=== PATIENT | female | born 1970 | race African-American/Black ===

== ENCOUNTER 2016-12-14 04:00 | Inpatient (IN) | payer OTHER ==
[2016-12-14] MEDS ORDERED: MAGNESIUM SULF 50% (8.12 MEQ/2 ML-1 GM VIAL) IVPB ONE (04:45)
[2016-12-14] MEDS ORDERED: ALBUTEROL SO4 2.5/IPRATROPIUM 0.5 INH SOL 3 ML VIAL.NEB. NEB ONE ×3 (04:45→06:37)
--- NOTE | 2016-12-14 04:45 | PDOC ---
History of Present Illness - General History Source: Patient Exam Limitations: No Limitations - History of Present Illness Initial Comments: 12/14/16 05:02 The patient is a 46 year old female with significant past medical history of asthma, COPD, diabetes, hypertension, bilateral DVTs, and s/p carson filter who presents to the ED with 3 days of SOB and wheezing. Reports no exacerbating or alleviating factors. Patient saw Dr. Palacios where she was given a steroid shot and prescription. She states she took a total of 4 additional tablet of prednisone 20 mg and multiple albuterol nebulizers because her symptoms were not improving. At time of evaluation, patient states she is feeling better, however she is still wheezing. Patient also has complaints of conversational dyspnea prior to arrival that has now slightly improved. She denies diaphoresis, lightheadedness, chest pain, jaw pain, arm pain, shoulder pain, leg swelling, nausea, or vomiting. Patient was treated multiple times in the past for DVTs and currently has a carson filter. The patient denies fever, chills, cough, abdominal pain, and diarrhea. Allergies: acetaminophen, hydrocodone bitartrate, morphine, oxycodone HCl, rivaroxaban, Social History: No alcohol, tobacco, or drug use reported. Past Surgical History: s/p carson filter PCP: Dr. Shayy Palacios <Marika Thomas - Last Filed: 12/14/16 05:02> - General History Source: Patient <Conrado Parra - Last Filed: 12/14/16 19:19> - General Chief Complaint: Asthma Stated Complaint: DIFFICULTY BREATHING Time Seen by Provider: 12/14/16 04:45 Past History <Marika Thomas - Last Filed: 12/14/16 05:02> - Past Medical History Asthma: Yes COPD: Yes Diabetes: Yes Suicide Attempt (Hx): No - Surgical History Abdominal Surgery: Yes Cardiac Surgery: (CARSON FILTER.) - Psycho/Social/Smoking Cessation Hx Anxiety: No Suicidal Ideation: No Smoking Status: Yes Smoking History: Never smoked Have you smoked in the past 12 months: No Number of Cigarettes Smoked Daily: 2 Information on smoking cessation initiated: No 'Breaking Loose' booklet given: 08/13/14 Hx Alcohol Use: No Drug/Substance Use Hx: No Substance Use Type: Alcohol Hx Substance Use Treatment: No <Fidel,Conrado - Last Filed: 12/14/16 19:19> - Past Medical History Allergies/Adverse Reactions: Allergies Allergy/AdvReac Type Severity Reaction Status Date / Time acetaminophen [From Percocet] Allergy Verified 12/14/16 04:28 hydrocodone bitartrate Allergy Verified 12/14/16 04:28 [From Vicodin] iodine Allergy Verified 12/14/16 11:28 morphine Allergy Verified 12/14/16 04:28 oxycodone HCl [From Percocet] Allergy Verified 12/14/16 04:28 rivaroxaban [From Xarelto] Allergy Verified 12/14/16 04:28 dairy Allergy Severe Swelling Uncoded 12/14/16 04:28 eggs/egg-containing foods Allergy Severe Swelling Uncoded 12/14/16 04:28 FRESH BANANAS Allergy Severe ANAPHYLAXIS Uncoded 12/14/16 04:28 . tree nuts Allergy Severe Itching Uncoded 12/14/16 04:28 ammonium lactate cream Allergy Uncoded 12/14/16 04:28 cheese Allergy Uncoded 12/14/16 04:28 fresh apples Allergy Uncoded 12/14/16 04:28 fresh peaches Allergy Uncoded 12/14/16 04:28 fresh plums Allergy Uncoded 12/14/16 04:28 NARCOTICS Allergy Uncoded 12/14/16 04:28 Home Medications: Ambulatory Orders Albuterol 2.5/Ipratropium 0.5 [Duoneb -] 1 neb IH ASDIR PRN 08/12/14 Hydroxyzine HCl [Atarax -] 50 mg PO TID 08/12/14 Albuterol Sulfate Inhaler - [Ventolin HFA Inhaler -] 2 inh PO Q4H PRN 03/03/15 Warfarin Sodium [Coumadin] 8.5 mg PO DAILY 03/03/15 Atorvastatin Calcium 10 mg PO HS 12/14/16 Diphenhydramine [Benadryl -] 50 mg PO DAILY 12/14/16 Glipizide [Glipizide ER] 10 mg PO DAILY 12/14/16 Metformin HCl [Glucophage] 1,000 mg PO BID 12/14/16 Triamcinolone 0.1% Ointment [Aristocort 0.1% Ointment -] 1 applic TP DAILY 12/14 Review of Systems - Review of Systems Able to Perform ROS?: Yes Comments:: 12/14/16 05:02 CONSTITUTIONAL: Absent: fever, chills, diaphoresis, generalized weakness, malaise, loss of appetite HEENT: Absent: rhinorrhea, nasal congestion, throat pain, throat swelling, difficulty swallowing, mouth swelling, ear pain, eye pain, visual Changes CARDIOVASCULAR: Absent: chest pain, syncope, palpitations, irregular heart rate, lightheadedness , peripheral edema RESPIRATORY: +SOB, wheezing, conversational dyspnea Absent: cough, dyspnea with exertion, orthopnea, stridor, hemoptysis GASTROINTESTINAL: Absent: abdominal pain, abdominal distension, nausea, vomiting, diarrhea, constipation, melena, hematochezia GENITOURINARY: Absent: dysuria, frequency, urgency, hesitancy, hematuria, flank pain, genital pain MUSCULOSKELETAL: Absent: myalgia, arthralgia, joint swelling SKIN: Absent: rash, itching, pallor NEUROLOGIC: Absent: headache, focal weakness or paresthesias, dizziness, unsteady gait, seizure, mental status changes, bladder or bowel incontinence <Marika Thomas - Last Filed: 12/14/16 05:02> *Physical Exam - Vital Signs Last Vital Signs Temp Pulse Resp BP Pulse Ox 97.8 F 127 H 24 130/84 96 12/14/16 04:17 12/14/16 04:17 12/14/16 04:17 12/14/16 04:17 12/14/16 04:17 - Physical Exam Comments: 12/14/16 05:03 GENERAL: Well developed, well nourished. Awake and alert. Moderate distress. HEENT: Normocephalic, atraumatic. PERRLA, EOMI. No conjunctival pallor. Sclera are non- icteric. Moist mucous membranes. Oropharynx is clear. NECK: Supple. Full ROM. No JVD. Carotid pulses 2+ and symmetric, without bruits. No thyromegaly. No lymphadenopathy. CARDIOVASCULAR: Tachycardia. Regular rhythm. No murmurs, rubs, or gallops. Distal pulses are 2+ and symmetric. PULMONARY: Mild respiratory distress. Coarse bilateral wheezing. No retractions. Moderate conversational dyspnea. ABDOMINAL: Soft. Non-tender. Non-distended. No rebound or guarding. No organomegaly. Normoactive bowel sounds. MUSCULOSKELETAL Normal range of motion at all joints. No bony deformities or tenderness. No CVA tenderness. EXTREMITIES: No cyanosis. No clubbing. No edema. No calf tenderness. SKIN: Warm and dry. Normal capillary refill. No rashes. No jaundice. NEUROLOGICAL: Alert, awake, appropriate. Cranial nerves 2-12 intact. Moving all extremities. No gross focal neurological deficits. PSYCHIATRIC: Cooperative. Good eye contact. Appropriate mood and affect. <Marika Thomas - Last Filed: 12/14/16 05:02> - Vital Signs Last Vital Signs Temp Pulse Resp BP Pulse Ox 97.8 F 127 H 24 130/84 96 12/14/16 04:17 12/14/16 04:17 12/14/16 04:17 12/14/16 04:17 12/14/16 04:17 <Conrado Parra - Last Filed: 12/14/16 19:19> ED Treatment Course - LABORATORY CBC & Chemistry Diagram: 12/14/16 05:10 12/14/16 05:10 <Conrado Parra - Last Filed: 12/14/16 19:19> Medical Decision Making - Medical Decision Making 12/14/16 19:18 Dr. Parra: The scribe's documentation has been prepared under my direction and personally reviewed by me in its entirery. I confirm that the note above accurately reflects all work, treatment, procedures, and medical decision making performed by me. Patient admitted for exacerbation of asthma. Attempted to get CTA as patient has history of DVTS> HOWEVER< PATIENT WAS ALLERGIC to IV Iodine. <Conrado Parra - Last Filed: 12/14/16 19:19> *DC/Admit/Observation/Transfer - Attestations Scribe Attestion: 12/14/16 05:03 Documentation prepared by Marika Thomas, acting as medical science liaison for Conrado Parra MD <Marika Thomas - Last Filed: 12/14/16 05:02> <Conrado Parra - Last Filed: 12/14/16 19:19> Diagnosis at time of Disposition: Asthma
[2016-12-14] MEDS ORDERED: MAGNESIUM SULF 50% (8.12 MEQ/2 ML-1 GM VIAL) ONE (04:53)
[2016-12-14 05:39] LABS: BASOPHIL 0.2 % (0-2.0); MCH 28.7 pg (25.7-33.7); MCHC 32.5 g/dl (32.0-36.0); MEAN CELL VOLUME 88.2 fl (80-96); NEUTROPHILS 94.2 % (42.8-82.8); PLATELET COUNT 237 K/MM3 (134-434); RDW 16.9 % (11.6-15.6); WHITE BLOOD COUNT 17.9 K/mm3 (4.0-10.0)
[2016-12-14] MEDS ORDERED: ALBUTEROL SO4 2.5/IPRATROPIUM 0.5 INH SOL 3 ML VIAL.NEB. NEB STA (05:42)
[2016-12-14 05:54] LABS: INR 2.99 (0.82-1.09)
[2016-12-14 06:04] LABS: BILIRUBIN,TOTAL 0.2 mg/dL (0.2-1.0); CALCIUM 9.5 mg/dL (8.5-10.1); CREATININE 1.1 mg/dL (0.55-1.02); TOT PROT 7.3 g/dl (6.4-8.2)
[2016-12-14 06:23] LABS: D-DIMER < 200 ng/ml (<200-235)
--- NOTE | 2016-12-14 07:18 | PDOC ---
*Physical Exam - Vital Signs Last Vital Signs Temp Pulse Resp BP Pulse Ox 97.8 F 117 H 20 115/81 96 12/14/16 04:17 12/14/16 05:45 12/14/16 05:45 12/14/16 05:45 12/14/16 05:45 <Ksenia Rincon - Last Filed: 12/14/16 09:00> - Vital Signs Last Vital Signs Temp Pulse Resp BP Pulse Ox 97.8 F 117 H 20 115/81 96 12/14/16 04:17 12/14/16 05:45 12/14/16 05:45 12/14/16 05:45 12/14/16 05:45 <William Francois - Last Filed: 12/14/16 12:04> Heart Score/ECG Review #1 ECG reviewed & interpreted by me at: 08:46 General ECG Interpretation: Sinus Rhythm (Tachycardic with a rate of 118 bpm), Normal Intervals, No acute ischemic changes <Ksenia Rincon - Last Filed: 12/14/16 09:00> ED Treatment Course - LABORATORY CBC & Chemistry Diagram: 12/14/16 05:10 12/14/16 05:10 - ADDITIONAL ORDERS Additional order review: Laboratory Results 12/14/16 12/14/16 12/14/16 05:10 05:10 05:10 INR 2.99 H D D-Dimer < 200 Sodium 138 Potassium 4.1 Chloride 105 Carbon Dioxide 17 L D Anion Gap 16 BUN 13 Creatinine 1.1 H Creat Clearance w eGFR 53.96 Random Glucose 241 H D Calcium 9.5 Total Bilirubin 0.2 D AST 35 D ALT 45 D Alkaline Phosphatase 79 Total Protein 7.3 Albumin 4.0 D Serum , Qual Negative 12/14/16 05:10 RBC 4.00 MCV 88.2 MCHC 32.5 RDW 16.9 H D MPV 10.0 Neutrophils % 94.2 H D Lymphocytes % 1.7 L D Monocytes % 3.9 Eosinophils % 0.0 D Basophils % 0.2 - Medications Given in the ED: ED Medications Discontinued Medications Generic Name Dose Route Start Last Admin Trade Name Freq PRN Reason Stop Dose Admin Albuterol/Ipratropium 1 amp 12/14/16 04:45 12/14/16 05:00 Duoneb - NEB 12/14/16 04:46 1 amp ONCE ONE Administration Albuterol/Ipratropium 1 amp 12/14/16 05:42 12/14/16 06:43 Duoneb - NEB 12/14/16 05:43 1 amp ONCE STA Administration Diphenhydramine HCl 50 mg 12/14/16 06:13 12/14/16 06:43 Benadryl Injection - IVPB 12/14/16 06:14 50 mg ONCE ONE Administration Magnesium Sulfate 2 gm 12/14/16 04:45 12/14/16 05:00 Magnesium Sulfate IVPB 12/14/16 04:46 2 gm ONCE ONE Administration <Ksenia Rincon - Last Filed: 12/14/16 09:00> - LABORATORY CBC & Chemistry Diagram: 12/14/16 05:10 12/14/16 05:10 - ADDITIONAL ORDERS Additional order review: Laboratory Results 12/14/16 12/14/16 12/14/16 05:10 05:10 05:10 INR 2.99 H D D-Dimer < 200 Sodium 138 Potassium 4.1 Chloride 105 Carbon Dioxide 17 L D Anion Gap 16 BUN 13 Creatinine 1.1 H Creat Clearance w eGFR 53.96 Random Glucose 241 H D Calcium 9.5 Total Bilirubin 0.2 D AST 35 D ALT 45 D Alkaline Phosphatase 79 Total Protein 7.3 Albumin 4.0 D Serum , Qual Negative 12/14/16 05:10 RBC 4.00 MCV 88.2 MCHC 32.5 RDW 16.9 H D MPV 10.0 Neutrophils % 94.2 H D Lymphocytes % 1.7 L D Monocytes % 3.9 Eosinophils % 0.0 D Basophils % 0.2 - Medications Given in the ED: ED Medications Discontinued Medications Generic Name Dose Route Start Last Admin Trade Name Freq PRN Reason Stop Dose Admin Albuterol/Ipratropium 1 amp 12/14/16 04:45 12/14/16 05:00 Duoneb - NEB 12/14/16 04:46 1 amp ONCE ONE Administration Albuterol/Ipratropium 1 amp 12/14/16 05:42 12/14/16 06:43 Duoneb - NEB 12/14/16 05:43 1 amp ONCE STA Administration Diphenhydramine HCl 50 mg 12/14/16 06:13 12/14/16 06:43 Benadryl Injection - IVPB 12/14/16 06:14 50 mg ONCE ONE Administration Magnesium Sulfate 2 gm 12/14/16 04:45 12/14/16 05:00 Magnesium Sulfate IVPB 12/14/16 04:46 2 gm ONCE ONE Administration <William Francois - Last Filed: 12/14/16 12:04> Medical Decision Making - Medical Decision Making 12/14/16 07:24 [facility] Hospitalist. 12/14/16 08:[address] Espana. Case was discussed. Accepts case. <Ksenia Rincon - Last Filed: 12/14/16 09:00> - Medical Decision Making 12/14/16 07:17 Received signout on this 46y/o F with h/o severe asthma, HTN, DM, DVT on coumadin s/p filter p/w intractable asthma exacerbation over the last few days. Labs as noted, elevated wbc but on steroids. inr 2.99, persistently tachy so CTA ordered but has allergy. plan to f/u CXR and admit to hospitalist, [facility]. 12/14/16 09:[address] Davila for obs med/surg. CXR without acute infiltrate. EKG sinus tachy without ischemia. <William Francois - Last Filed: 12/14/16 12:04> *DC/Admit/Observation/Transfer - Attestations Scribe Attestion: 12/14/16 07:24 Documentation prepared by Ksenia Rincon, acting as medical record transcriber for William Francois MD. <Ksenia Rincon - Last Filed: 12/14/16 09:00> - Discharge Dispostion Admit: Yes <William Francois - Last Filed: 12/14/16 12:04> Diagnosis at time of Disposition: Asthma Qualifiers: Asthma severity: unspecified severity Asthma complication type: with acute exacerbation Qualified Code(s): J45.901 - Unspecified asthma with (acute) exacerbation - Referrals - Patient Instructions - Post Discharge Activity
[2016-12-14 10:17] LABS: URINE APPEARANCE CLEAR; URINE BILIRUBIN NEGATIVE (NEGATIVE); URINE COLOR LTYELLOW; URINE GLUCOSE (UA) 2+ (NEGATIVE); URINE KETONE NEGATIVE (NEGATIVE); URINE LEUK ESTERASE NEGATIVE (NEGATIVE); URINE NITRITE NEGATIVE (NEGATIVE); URINE PROTEIN NEGATIVE (NEGATIVE); URINE UROBILINOGEN NEGATIVE E.U./dl (0.2-1.0)
[2016-12-14 10:29] LABS: URINE BLOOD 1+ (NEGATIVE)
[2016-12-14 10:34] LABS: URINE MUCUS RARE; URINE RBC 1 /hpf (0-3); URINE WBC <1 /hpf (3-5)
[2016-12-14] MEDS ORDERED: ALBUTEROL SO4 0.042% IH SOL 1.25 MG/3 ML VIAL.NEB NEB ONE (10:35)
[2016-12-14] MEDS ORDERED: ALBUTEROL SO4 0.083% IH SOL 2.5 MG/3 ML VIAL.NEB. NEB ONE ×2 (12:25→12:27)
--- NOTE | 2016-12-14 13:46 | EKG ---
Test Reason : Blood Pressure : / mmHG Vent. Rate : 113 BPM Atrial Rate : 113 BPM P-R Int : 136 ms QRS Dur : 078 ms QT Int : 336 ms P-R-T Axes : 064 052 050 degrees QTc Int : 460 ms SINUS TACHYCARDIA OTHERWISE NORMAL ECG WHEN COMPARED WITH ECG OF 03-MAR-2015 14:14, NO SIGNIFICANT CHANGE WAS FOUND Confirmed by DEMETRIUS CEDEÑO MD ([id number]) on 12/14/2016 1:46:06 PM Referred By: Confirmed By:DEMETRIUS CEDEÑO MD
[2016-12-14] MEDS ORDERED: ALBUTEROL SO4 2.5/IPRATROPIUM 0.5 INH SOL 3 ML VIAL.NEB. NEB PRN (14:45)
[2016-12-14] MEDS ORDERED: ALBUTEROL SO4 6.7 GM HFA INHALER IH PRN (14:45)
--- NOTE | 2016-12-14 15:17 | HP ---
CHIEF COMPLAINT: SOB PCP: Dr Kelley HISTORY OF PRESENT ILLNESS: The patient is a 46 year old female with significant past medical history of asthma, COPD, diabetes, hypertension, hyperlipidemia, bilateral DVTs, and s/p IVC filter who presents with 7 days of SOB and wheezing that got progressively worse. Usually she uses Albuterol 4 times a day but she had to use it 8-12 times a day. She went to her PCP yesterday who gave her steroid shot. She hasn' t noticed any improvement. She is also complaining of chest pain that started a week ago. The pain got worse yesterday. It was 8/10, constant, aggravated by deep breaths and movement and today she reports that it is intermittent, 7/10, lasting several minutes. At time of evaluation, patient states she is feeling better but still has SOB when talking. She also states that feels lightheaded and has discomfort with urination but denies dysuria. She denies leg swelling, nausea, or vomiting, constipation, fever, chills. ER course was notable for: (1)Magnesium Sulfate (2)Duoneb (3)CXR, EKG PAST MEDICAL HISTORY: sthma, COPD, diabetes, hypertension, hyperlipidemia, bilateral DVTs, and s/p IVC filter, eczema PAST SURGICAL HISTORY: right knee-torn meniscus Social History: Smoking:Denies Alcohol:yes, used to drink everyday, quit a month ago Drugs: Denies Family History: Mother; Breast Ca, leucemia Father; N/A Allergies acetaminophen [From Percocet] Allergy (Verified 12/14/16 04:28) hydrocodone bitartrate [From Vicodin] Allergy (Verified 12/14/16 04:28) iodine Allergy (Verified 12/14/16 11:28) morphine Allergy (Verified 12/14/16 04:28) oxycodone HCl [From Percocet] Allergy (Verified 12/14/16 04:28) rivaroxaban [From Xarelto] Allergy (Verified 12/14/16 04:28) dairy Allergy (Severe, Uncoded 12/14/16 04:28) Swelling eggs/egg-containing foods Allergy (Severe, Uncoded 12/14/16 04:28) Swelling FRESH BANANAS Allergy (Severe, Uncoded 12/14/16 04:28) ANAPHYLAXIS. tree nuts Allergy (Severe, Uncoded 12/14/16 04:28) Itching ammonium lactate cream Allergy (Uncoded 12/14/16 04:28) cheese Allergy (Uncoded 12/14/16 04:28) fresh apples Allergy (Uncoded 12/14/16 04:28) fresh peaches Allergy (Uncoded 12/14/16 04:28) fresh plums Allergy (Uncoded 12/14/16 04:28) NARCOTICS Allergy (Uncoded 12/14/16 04:28) HOME MEDICATIONS: Home Medications Medication Instructions Recorded Albuterol 2.5/Ipratropium 0.5 1 neb IH ASDIR PRN 08/12/14 [Duoneb -] Hydroxyzine HCl [Atarax -] 50 mg PO TID 08/12/14 Albuterol Sulfate Inhaler - 2 inh PO Q4H PRN 03/03/15 [Ventolin HFA Inhaler -] Warfarin Sodium [Coumadin] 8.5 mg PO DAILY 03/03/15 Atorvastatin Calcium 10 mg PO HS 12/14/16 Glipizide [Glipizide ER] 10 mg PO DAILY 12/14/16 Metformin HCl [Glucophage] 1,000 mg PO BID 12/14/16 Triamcinolone 0.1% Ointment 1 applic TP DAILY 12/14/16 [Aristocort 0.1% Ointment -] REVIEW OF SYSTEMS CONSTITUTIONAL: Absent: fever, chills, diaphoresis, generalized weakness, malaise, loss of appetite, weight change HEENT: Absent: rhinorrhea, nasal congestion, throat pain, throat swelling, difficulty swallowing, mouth swelling, ear pain, eye pain, visual changes CARDIOVASCULAR: chest pain Absent: syncope, palpitations, irregular heart rate, lightheadedness, peripheral edema RESPIRATORY: cough, shortness of breath, wheezing Absent: dyspnea with exertion, orthopnea, stridor, hemoptysis GASTROINTESTINAL: Absent: abdominal pain, abdominal distension, nausea, vomiting, diarrhea, constipation, melena, hematochezia GENITOURINARY: dysuria, Absent: frequency, urgency, hesitancy, hematuria, flank pain, genital pain MUSCULOSKELETAL: Absent: myalgia, arthralgia, joint swelling, back pain, neck pain SKIN: Absent: rash, itching, pallor ENDOCRINE: Absent: unexplained weight gain, unexplained weight loss, heat intolerance, cold intolerance NEUROLOGIC: Absent: headache, focal weakness or paresthesias, dizziness, unsteady gait, seizure, mental status changes, bladder or bowel incontinence PSYCHIATRIC: Absent: anxiety, depression PHYSICAL EXAMINATION Vital Signs - 24 hr 12/14/16 11:55 Pulse Rate 110 H Respiratory 18 Rate Blood Pressure 134/91 GENERAL: Awake, alert, and fully oriented, in no acute distress. HEAD: Normal with no signs of trauma. EYES: Pupils equal, round and reactive to light, extraocular movements intact, sclera anicteric, conjunctiva clear. EARS, NOSE, THROAT: Ears normal, nares patent, oropharynx clear without exudates. Moist mucous membranes. NECK: Normal range of motion, supple without lymphadenopathy, JVD, or masses. LUNGS: Breath sounds equal, wheezes B/L, no crackles. No accessory muscle use. HEART: Regular rate and rhythm, normal S1 and S2 without murmur, rub or gallop. ABDOMEN: Obese, soft, nontender, not distended, normoactive bowel sounds, no guarding, no rebound, no masses. MUSCULOSKELETAL: Normal range of motion at all joints. No bony deformities or tenderness. No CVA tenderness. UPPER EXTREMITIES: 2+ pulses, No cyanosis. No clubbing. No peripheral edema. LOWER EXTREMITIES: 2+ pulses, No calf tenderness. No peripheral edema. NEUROLOGICAL: Normal speech. Normal gait. No facial asymmetry. PSYCHIATRIC: Cooperative. Good eye contact. Anxious. SKIN: Warm, dry, normal turgor, mild rash on chest, bruise on right breast, papular rash in lower extremities, striae on abdomen. Laboratory Results - last 24 hr 12/14/16 10:00 Urine Color Ltyellow Urine Appearance Clear Urine pH 5.0 Ur Specific [place] 1.020 Urine Protein Negative Urine Glucose (UA) 2+ H Urine Ketones Negative Urine Blood 1+ H Urine Nitrite Negative Urine Bilirubin Negative Urine Urobilinogen Negative Ur Leukocyte Esterase Negative Urine RBC 1 Urine WBC <1 Ur Epithelial Cells Rare Urine Mucus Rare CXR:No acute changes EKG: Sinus tachycardia, no ST changes ASSESSMENT/PLAN: The patient is a 46 year old female with significant past medical history of asthma, COPD, diabetes, hypertension, hyperlipidemia, bilateral DVTs, and s/p IVC filter who presents with 7 days of SOB and wheezing that got progressively worse.. She is also complaining of chest pain that started a week ago. The pain got worse yesterday. It was 8/10, constant, aggravated by deep breaths and movement and today she reports that it is intermittent, 7/10, lasting several minutes. She is placed on observation for acurte asthma exacerbation. SIRS due to asthma exacerbation; -Albuterol nebulizer -Duonebs -Solu-medrol 125 mg ONCE -Singulair one dose -Oxygen Supplementation -monitor vitals -Pulmonary consultation DM type 2; -ISS -BGM ACHS -hold Metformin Hyperlipidemia; -Atorvastatin DVT in lower extremities B/l: -continue Coumadin, starting tomorrow. Her INR is elevated. atypical chest pain: -assoc. with asthma exacerbation, movement -no suspicion for ACS, Heart score 2 Eczema; -Benadryl 50 mg qd F/E/N: No/no changes/Diabetic Disposition: [facility], possibly discharge tomorrow Problem List - Problem (1) Asthma Code(s): J45.909 - UNSPECIFIED ASTHMA, UNCOMPLICATED Qualifiers: Asthma severity: unspecified severity Asthma complication type: with acute exacerbation Qualified Code(s): J45.901 - Unspecified asthma with ( acute) exacerbation (2) DVT (deep venous thrombosis) Code(s): I82.409 - ACUTE EMBOLISM AND THOMBOS UNSP DEEP VN UNSP LOWER EXTREMITY (3) Psoriasiform eczema Code(s): L30.8 - OTHER SPECIFIED DERMATITIS Visit type - Emergency Visit Emergency Visit: Yes ED Registration Date: 12/14/16 Care time: The patient presented to the Emergency Department on the above date and was hospitalized for further evaluation of their emergent condition. - New Patient This patient is new to me today: Yes Date on this admission: 12/14/16 - Critical Care Critical Care patient: No
[2016-12-14] MEDS ORDERED: methylPREDNISolone NA SUCC 125 MG/2 ML VIAL IVPB ONE (16:12)
[2016-12-14] MEDS ORDERED: MONTELUKAST NA 10 MG TABLET PO ONE (16:13)
[2016-12-14] MEDS: ALBUTEROL SO4 2.5/IPRATROPIUM 0.5 INH SOL 3 ML VIAL.NEB. NEB PRN ×2 (16:50→21:30)
--- NOTE | 2016-12-14 17:13 | PN ---
Teaching Attending Note Name of Resident: Laine Flores ATTENDING PHYSICIAN STATEMENT I saw and evaluated the patient. I reviewed the resident's note and discussed the case with the resident. I agree with the resident's findings and plan as documented. SUBJECTIVE: OBJECTIVE: Vital Signs Period Temp Pulse Resp BP Sys/Oneil Pulse Ox Last 24 Hr 97.8 F 105-127 18-24 110-134/65-91 96-96 ASSESSMENT AND PLAN:
[2016-12-14] MEDS ORDERED: WARFARIN NA 3 MG TABLET ONE (17:31)
[2016-12-14] MEDS ORDERED: WARFARIN NA 2.5 MG TABLET (FP) ONE (17:31)
[2016-12-14] MEDS: TRIAMCINOLONE ACET 0.1% OINT 15 GM TUBE TP SCH (17:39)
[2016-12-14] MEDS: INSULIN SLIDING SCALE (NOVOLOG) 1 VIAL SQ SCH ×3 (17:39→23:40)
[2016-12-14] MEDS ORDERED: WARFARIN NA PO SCH (18:00)
[2016-12-14] MEDS ORDERED: PT OWN MED DRAWER 7, Y5N ONE ×2 (20:32→23:38)
[2016-12-14] MEDS: ATORVASTATIN CA 10 MG TABLET (FP) PO SCH (22:01)
[2016-12-14] MEDS: CHLORHEXIDINE GLUCONATE 4% CLEANSER FOR DECOLONIZATION TP SCH (22:01)
[2016-12-14] MEDS: ZOLPIDEM TARTRATE 5 MG TABLET PO PRN (22:01)
[2016-12-14] MEDS ORDERED: ALBUTEROL SO4 0.5 % INH SOLN 2.5 MG/0.5 ML VIAL.NEB. NEB ONE (23:02)
[2016-12-14] MEDS: hydrOXYzine HCL 25 MG TABLET (FP) PO SCH (23:09)
[2016-12-14] MEDS ORDERED: INSULIN (NOVOLOG) ASPART 100 UNITS/ML 10ML VIAL ONE (23:39)
[2016-12-15] MEDS: ALBUTEROL SO4 2.5/IPRATROPIUM 0.5 INH SOL 3 ML VIAL.NEB. NEB PRN ×2 (03:50→11:10)
[2016-12-15] MEDS: hydrOXYzine HCL 25 MG TABLET (FP) PO SCH ×3 (06:38→20:00)
[2016-12-15] MEDS: diphenhydrAMINE HCL 25 MG CAPSULE (FP) PO PRN ×2 (06:43→21:48)
[2016-12-15] MEDS: INSULIN SLIDING SCALE (NOVOLOG) 1 VIAL SQ SCH ×4 (06:48→21:45)
[2016-12-15] MEDS ORDERED: WARFARIN SODIUM PO SCH (10:00)
[2016-12-15 11:31] LABS: MCH 28.7 pg (25.7-33.7); MCHC 32.8 g/dl (32.0-36.0); MEAN CELL VOLUME 87.6 fl (80-96); MEAN PLT VOLUME 9.7 fl (7.5-11.1); PLATELET COUNT 221 K/MM3 (134-434); RDW 16.7 % (11.6-15.6); WHITE BLOOD COUNT 13.9 K/mm3 (4.0-10.0)
--- NOTE | 2016-12-15 12:18 | CON.PULM ---
Consult Consult Specialty:: PULM/CCM Referred by:: PMD Reason for Consultation:: SOB - History of Present Illness Chief Complaint: SOB History of Present Illness: 46 F, supposed history of asthma, COPD, diabetes, hypertension, hyperlipidemia, bilateral DVTs, and s/p IVC filter, and questionable PE. Admitted with 7 days of SOB and wheezing. No relief with Albuterol treatments. Apparently she received a "steroid shot" in her PMDs office. Reports significant sternal and pleuritic type pain with cough. Reports spontaneous bruising on her right breast. No travel history or sick contacts. Afebrile. No hemoptysis. CXR: Clear / no acute pathology Note: toward the end of my exam the patient became belligerent and asked me to leave her room. - History Source History Provided By: Patient Limitations to Obtaining History: Poor Historian - Past Medical History Cardio/Vascular: Yes: Deep Vein Thrombosis Pulmonary: Yes: Asthma, Pulmonary Embolus Endocrine: Yes: Diabetes Mellitus (h/o Gestational DM) Dermatology: Yes: Psoriasis, Other (Impetigo) - Alcohol/Substance Use Hx Alcohol Use: No - Smoking History Smoking history: Never smoked Have you smoked in the past 12 months: No Aproximately how many cigarettes per day: 2 - Social History History of Recent Travel: No Home Medications - Allergies Allergies/Adverse Reactions: Allergies Allergy/AdvReac Type Severity Reaction Status Date / Time acetaminophen [From Percocet] Allergy Verified 12/14/16 04:28 hydrocodone bitartrate Allergy Verified 12/14/16 04:28 [From Vicodin] iodine Allergy Verified 12/14/16 11:28 morphine Allergy Verified 12/14/16 04:28 oxycodone HCl [From Percocet] Allergy Verified 12/14/16 04:28 rivaroxaban [From Xarelto] Allergy Verified 12/14/16 04:28 dairy Allergy Severe Swelling Uncoded 12/14/16 04:28 eggs/egg-containing foods Allergy Severe Swelling Uncoded 12/14/16 04:28 FRESH BANANAS Allergy Severe ANAPHYLAXIS Uncoded 12/14/16 04:28 . tree nuts Allergy Severe Itching Uncoded 12/14/16 04:28 ammonium lactate cream Allergy Uncoded 12/14/16 04:28 cheese Allergy Uncoded 12/14/16 04:28 fresh apples Allergy Uncoded 12/14/16 04:28 fresh peaches Allergy Uncoded 12/14/16 04:28 fresh plums Allergy Uncoded 12/14/16 04:28 NARCOTICS Allergy Uncoded 12/14/16 04:28 - Home Medications Home Medications: Ambulatory Orders Albuterol 2.5/Ipratropium 0.5 [Duoneb -] 1 neb IH ASDIR PRN 08/12/14 Hydroxyzine HCl [Atarax -] 50 mg PO TID 08/12/14 Albuterol Sulfate Inhaler - [Ventolin HFA Inhaler -] 2 inh PO Q4H PRN 03/03/15 Warfarin Sodium [Coumadin] 8.5 mg PO DAILY 03/03/15 Atorvastatin Calcium 10 mg PO HS 12/14/16 Diphenhydramine [Benadryl -] 50 mg PO DAILY 12/14/16 Glipizide [Glipizide ER] 10 mg PO DAILY 12/14/16 Metformin HCl [Glucophage] 1,000 mg PO BID 12/14/16 Triamcinolone 0.1% Ointment [Aristocort 0.1% Ointment -] 1 applic TP DAILY 12/14 Review of Systems - Review of Systems Constitutional: reports: Fever, Malaise, Weakness. denies: Chills, Night Sweats Eyes: reports: No Symptoms HENT: reports: Nasal Congestion. denies: Ear Pain, Epistaxis, Gingival Bleeding Neck: reports: No Symptoms Cardiovascular: reports: Chest Pain, Shortness of Breath. denies: Edema, Palpitations Respiratory: reports: Cough, SOB, SOB on Exertion, Wheezing. denies: Hemoptysis Gastrointestinal: reports: No Symptoms Genitourinary: reports: No Symptoms Breasts: reports: No Symptoms Reported Musculoskeletal: reports: No Symptoms Integumentary: reports: No Symptoms Neurological: reports: No Symptoms Endocrine: reports: No Symptoms Hematology/Lymphatic: reports: No Symptoms Psychiatric: reports: No Symptoms Physical Exam Vital Sings: Vital Signs Temperature 98.8 F 12/15/16 06:00 Pulse Rate 98 H 12/15/16 06:00 Respiratory Rate 20 12/15/16 06:00 Blood Pressure 108/80 12/15/16 06:00 O2 Sat by Pulse Oximetry (%) 98 12/15/16 06:00 Constitutional: Yes: No Distress, Calm, Anxious, Other (Agitated ) Eyes: Yes: Conjunctiva Clear, EOM Intact HENT: Yes: Atraumatic, Normocephalic Neck: Yes: Supple, Trachea Midline Cardiovascular: Yes: Regular Rate and Rhythm Respiratory: Yes: Cough, Rhonchi. No: Accessory Muscle Use, Rales, Stridor, Wheezes ...Inspection: Yes: Other (bruising on the right breast ) Gastrointestinal: Yes: Normal Bowel Sounds, Soft Breast(s): Yes: Skin Changes, Other (right breast bruising ) Extremities: Yes: WNL Edema: No Peripheral Pulses WNL: Yes Integumentary: Yes: Bruising Neurological: Yes: Alert, Oriented ...Motor Strength: WNL Psychiatric: Yes: WNL, Alert, Oriented Labs: CBC, BMP 12/15/16 11:00 Imaging - Results Chest X-ray: Report Reviewed, Image Reviewed (Clear) Problem List - Problems (1) Asthma Code(s): J45.909 - UNSPECIFIED ASTHMA, UNCOMPLICATED Qualifiers: Asthma severity: unspecified severity Asthma complication type: with acute exacerbation Qualified Code(s): J45.901 - Unspecified asthma with ( acute) exacerbation (2) DVT (deep venous thrombosis) Code(s): I82.409 - ACUTE EMBOLISM AND THOMBOS UNSP DEEP VN UNSP LOWER EXTREMITY (4) COPD (chronic obstructive pulmonary disease) with acute bronchitis Code(s): J44.0 - CHRONIC OBSTRUCTIVE PULMON DISEASE W ACUTE LOWER RESP INFCT Assessment/Plan IMP: Acute Bronchitis -> likely Viral PLAN: Coumadin with close follow up of INR O2 as needed BD TX Would monitor off ABX No smoking Outpatient PFTs once stable No Pulmonary contraindication for D/C Thank you. Dr Child
[2016-12-15 12:29] LABS: INR 4.5 (0.82-1.09)
[2016-12-15] MEDS ORDERED: ALBUTEROL SO4 2.5/IPRATROPIUM 0.5 INH SOL 3 ML VIAL.NEB. NEB PRN (13:03)
[2016-12-15] MEDS: ALBUTEROL SO4 2.5/IPRATROPIUM 0.5 INH SOL 3 ML VIAL.NEB. NEB SCH ×2 (13:52→21:49)
[2016-12-15] MEDS ORDERED: PT OWN MED DRAWER 7, Y5N ONE (14:50)
[2016-12-15] MEDS: TRIAMCINOLONE ACET 0.1% OINT 15 GM TUBE TP SCH (14:54)
[2016-12-15] MEDS: methylPREDNISolone NA SUCC 40 MG/1 ML VIAL IVPB SCH ×2 (14:54→18:44)
--- NOTE | 2016-12-15 15:19 | PN ---
Physical Exam: SUBJECTIVE: Patient seen and examined. She is still complaining of wheezing and chest pain with breething. She denies fever, chills, cough, abdominal pain, bleeding. OBJECTIVE: GENERAL: Awake, alert, and fully oriented, in no acute distress. HEAD: Normal with no signs of trauma. EYES: Pupils equal, round and reactive to light, extraocular movements intact, sclera anicteric, conjunctiva clear. EARS, NOSE, THROAT: Ears normal, nares patent, oropharynx clear without exudates. Moist mucous membranes. NECK: Normal range of motion, supple without lymphadenopathy, JVD, or masses. LUNGS: Breath sounds equal, wheezes B/L, no crackles. No accessory muscle use. HEART: Regular rate and rhythm, normal S1 and S2 without murmur, rub or gallop. ABDOMEN: Obese, soft, nontender, not distended, normoactive bowel sounds, no guarding, no rebound, no masses. MUSCULOSKELETAL: Normal range of motion at all joints. No bony deformities or tenderness. No CVA tenderness. UPPER EXTREMITIES: 2+ pulses, No cyanosis. No clubbing. No peripheral edema. LOWER EXTREMITIES: 2+ pulses, No calf tenderness. No peripheral edema. NEUROLOGICAL: Normal speech. Normal gait. No facial asymmetry. PSYCHIATRIC: Cooperative. Good eye contact. Anxious. SKIN: Warm, dry, normal turgor, mild rash on chest, bruise on right breast, papular rash in lower extremities, striae on abdomen. Active Medications Generic Name Dose Route Start Last Admin Trade Name Freq PRN Reason Stop Dose Admin Albuterol Sulfate 2 puff 12/14/16 14:45 Ventolin Hfa Inhaler - IH Q4H PRN SHORT OF BREATH/WHEEZING Albuterol/Ipratropium 1 amp 12/14/16 16:26 12/15/16 11:10 Duoneb - NEB 1 amp Q6H PRN Administration SHORT OF BREATH/WHEEZING Albuterol/Ipratropium 1 amp 12/15/16 13:03 Duoneb - NEB Q4H PRN SHORTNESS OF BREATH Albuterol/Ipratropium 1 amp 12/15/16 14:00 12/15/16 13:52 Duoneb - NEB Not Given TIDR SUKHDEV Atorvastatin Calcium 10 mg 12/14/16 22:00 12/14/16 22:01 Lipitor - PO 10 mg HS SUKHDEV Administration Chlorhexidine Gluconate 1 applic 12/14/16 22:00 12/14/16 22:01 Hibiclens For Decolonization - TP 1 applic HS SUKHDEV Administration Diphenhydramine HCl 50 mg 12/14/16 16:34 12/15/16 06:43 Benadryl - PO 50 mg HS PRN Administration INSOMNIA Hydroxyzine HCl 50 mg 12/14/16 22:00 12/15/16 14:54 Atarax - PO 50 mg TID SUKHDEV Administration Insulin Aspart 1 vial 12/14/16 16:30 12/15/16 12:27 Novolog Vial Sliding Scale - SQ Not Given ACHS [facility] Protocol Methylprednisolone Sodium Succinate 40 mg 12/15/16 13:15 12/15/16 14:54 Solu-Medrol - IVPB 40 mg Q8H-IV SUKHDEV Administration Montelukast Sodium 10 mg 12/15/16 22:00 Singulair - PO HS [facility] Triamcinolone Acetonide 1 applic 12/14/16 14:45 12/15/16 14:54 Aristocort 0.1% Ointment - TP 1 applic DAILY SUKHDEV Administration Warfarin Sodium 3 mg 12/15/16 18:00 Coumadin - PO DAILY@1800 SUKHDEV Zolpidem Tartrate 5 mg 12/14/16 20:42 12/14/16 22:01 Ambien - PO 5 mg HS PRN Administration INSOMNIA CXR:No acute changes EKG: Sinus tachycardia, no ST changes ASSESSMENT/PLAN: The patient is a 46 year old female with significant past medical history of asthma, COPD, diabetes, hypertension, hyperlipidemia, bilateral DVTs, and s/p IVC filter who presents with 7 days of SOB and wheezing that got progressively worse.. She is also complaining of chest pain that started a week ago. The pain got worse yesterday. It was 8/10, constant, aggravated by deep breaths and movement and today she reports that it is intermittent, 7/10, lasting several minutes. She is admitted for acute asthma exacerbation. SIRS due to asthma exacerbation; -she continue to have wheezing today, we started Solu-medrol 40 mg IV and Singulair -Albuterol neb -Duonebs -Oxygen Supplementation -monitor vitals -f/u Pulmonary consultation DM type 2; -ISS -BGM ACHS -hold Metformin Hyperlipidemia; -cont.Atorvastatin DVT in lower extremities B/l: -Her INR is elevated today. We decreased Coumadin dose to 3 mg. Will hold it today. Atypical chest pain: -assoc. with asthma exacerbation, movement -no suspicion for ACS, Heart score 2 Eczema; -Benadryl 50 mg qd F/E/N: No/no changes/Diabetic Disposition: med surgery Problem List - Problems (1) Asthma Code(s): J45.909 - UNSPECIFIED ASTHMA, UNCOMPLICATED Qualifiers: Asthma severity: unspecified severity Asthma complication type: with acute exacerbation Qualified Code(s): J45.901 - Unspecified asthma with ( acute) exacerbation (2) DVT (deep venous thrombosis) Code(s): I82.409 - ACUTE EMBOLISM AND THOMBOS UNSP DEEP VN UNSP LOWER EXTREMITY (3) Psoriasiform eczema Code(s): L30.8 - OTHER SPECIFIED DERMATITIS Visit type - Emergency Visit Emergency Visit: Yes ED Registration Date: 12/15/16 Care time: The patient presented to the Emergency Department on the above date and was hospitalized for further evaluation of their emergent condition. - New Patient This patient is new to me today: No - Critical Care Critical Care patient: No - Discharge Referral Referred to [facility] Med P.C.: No
[2016-12-15] MEDS ORDERED: INSULIN (NOVOLOG) ASPART 100 UNITS/ML 10ML VIAL ONE ×2 (17:02→17:31)
[2016-12-15] MEDS ORDERED: WARFARIN NA PO SCH (18:00)
[2016-12-15] MEDS ORDERED: WARFARIN NA 3 MG TABLET PO SCH (18:00)
--- NOTE | 2016-12-15 20:02 | PN ---
Teaching Attending Note Name of Resident: Laine Flores ATTENDING PHYSICIAN STATEMENT I saw and evaluated the patient. I reviewed the resident's note and discussed the case with the resident. I agree with the resident's findings and plan as documented. SUBJECTIVE: Patient is wheezing feeling slightly better than yesterday. OBJECTIVE: Vital Signs Temperature 97.8 F 12/15/16 14:00 Pulse Rate 98 H 12/15/16 14:00 Respiratory Rate 20 12/15/16 14:00 Blood Pressure 110/78 12/15/16 14:00 O2 Sat by Pulse Oximetry (%) 98 12/15/16 14:00 GENERAL: Awake, alert, and fully oriented, in no acute distress. HEAD: Normal with no signs of trauma. EYES: Pupils equal, round and reactive to light, extraocular movements intact, sclera anicteric, conjunctiva clear. EARS, NOSE, THROAT: Ears normal, nares patent, oropharynx clear without exudates. Moist mucous membranes. NECK: Normal range of motion, supple without lymphadenopathy, JVD, or masses. LUNGS: Breath sounds equal, wheezes B/L, no crackles. No accessory muscle use. HEART: Regular rate and rhythm, normal S1 and S2 without murmur, rub or gallop. ABDOMEN: Obese, soft, nontender, not distended, normoactive bowel sounds, no guarding, no rebound, no masses. MUSCULOSKELETAL: Normal range of motion at all joints. No bony deformities or tenderness. No CVA tenderness. EXTREMITIES: 2+ pulses, No calf tenderness. No peripheral edema. NEUROLOGICAL: Normal speech. Normal gait. No facial asymmetry. PSYCHIATRIC: Cooperative. Good eye contact. Anxious. SKIN: Warm, dry, normal turgor, mild rash on chest, bruise on right breast, papular rash in lower extremities, striae on abdomen. CBCD WBC 13.9 K/mm3 (4.0-10.0) H 12/15/16 11:00 RBC 4.13 M/mm3 (3.60-5.2) 12/15/16 11:00 Hgb 11.9 GM/dL (10.7-15.3) 12/15/16 11:00 Hct 36.2 % (32.4-45.2) 12/15/16 11:00 MCV 87.6 fl (80-96) 12/15/16 11:00 MCHC 32.8 g/dl (32.0-36.0) 12/15/16 11:00 RDW 16.7 % (11.6-15.6) H 12/15/16 11:00 Plt Count 221 K/MM3 (134-434) 12/15/16 11:00 MPV 9.7 fl (7.5-11.1) 12/15/16 11:00 CMP Sodium 138 mmol/L (136-145) 12/14/16 05:10 Potassium 4.1 mmol/L (3.5-5.1) 12/14/16 05:10 Chloride 105 mmol/L (98-107) 12/14/16 05:10 Carbon Dioxide 17 mmol/L (21-32) L D 12/14/16 05:10 Anion Gap 16 (8-16) 12/14/16 05:10 BUN 13 mg/dL (7-18) 12/14/16 05:10 Creatinine 1.1 mg/dL (0.55-1.02) H 12/14/16 05:10 Creat Clearance w eGFR 53.96 (>60) 12/14/16 05:10 Random Glucose 241 mg/dL (74-106) H D 12/14/16 05:10 Calcium 9.5 mg/dL (8.5-10.1) 12/14/16 05:10 Total Bilirubin 0.2 mg/dL (0.2-1.0) D 12/14/16 05:10 AST 35 U/L (15-37) D 12/14/16 05:10 ALT 45 U/L (12-78) D 12/14/16 05:10 Alkaline Phosphatase 79 U/L (45-117) 12/14/16 05:10 Total Protein 7.3 g/dl (6.4-8.2) 12/14/16 05:10 Albumin 4.0 g/dl (3.4-5.0) D 12/14/16 05:10 Current Medications Generic Name Dose Route Start Last Admin Trade Name Freq PRN Reason Stop Dose Admin Albuterol Sulfate 2 puff 12/14/16 14:45 Ventolin Hfa Inhaler - IH Q4H PRN SHORT OF BREATH/WHEEZING Albuterol/Ipratropium 1 amp 12/14/16 16:26 12/15/16 11:10 Duoneb - NEB 1 amp Q6H PRN Administration SHORT OF BREATH/WHEEZING Albuterol/Ipratropium 1 amp 12/15/16 13:03 Duoneb - NEB Q4H PRN SHORTNESS OF BREATH Albuterol/Ipratropium 1 amp 12/15/16 14:00 12/15/16 13:52 Duoneb - NEB Not Given TIDR SUKHDEV Atorvastatin Calcium 10 mg 12/14/16 22:00 12/14/16 22:01 Lipitor - PO 10 mg HS SUKHDEV Administration Chlorhexidine Gluconate 1 applic 12/14/16 22:00 12/14/16 22:01 Hibiclens For Decolonization - TP 1 applic HS SUKHDEV Administration Diphenhydramine HCl 50 mg 12/14/16 16:34 12/15/16 06:43 Benadryl - PO 50 mg HS PRN Administration INSOMNIA Hydroxyzine HCl 50 mg 12/14/16 22:00 12/15/16 14:54 Atarax - PO 50 mg TID SUKHDEV Administration Insulin Aspart 1 vial 12/14/16 16:30 12/15/16 17:03 Novolog Vial Sliding Scale - SQ 2 unit ACHS SUKHDEV Administration Protocol Methylprednisolone Sodium Succinate 40 mg 12/15/16 13:15 12/15/16 18:44 Solu-Medrol - IVPB 40 mg Q8H-IV SUKHDEV Administration Montelukast Sodium 10 mg 12/15/16 22:00 Singulair - PO HS [facility] Triamcinolone Acetonide 1 applic 12/14/16 14:45 12/15/16 14:54 Aristocort 0.1% Ointment - TP 1 applic DAILY SUKHDEV Administration Warfarin Sodium 3 mg 12/15/16 18:00 12/15/16 17:04 Coumadin - PO Not Given DAILY@1800 SUKHDEV Zolpidem Tartrate 5 mg 12/14/16 20:42 12/14/16 22:01 Ambien - PO 5 mg HS PRN Administration INSOMNIA Home Medications Medication Instructions Recorded Albuterol 2.5/Ipratropium 0.5 1 neb IH ASDIR PRN 08/12/14 [Duoneb -] Hydroxyzine HCl [Atarax -] 50 mg PO TID 08/12/14 Albuterol Sulfate Inhaler - 2 inh PO Q4H PRN 03/03/15 [Ventolin HFA Inhaler -] Warfarin Sodium [Coumadin] 8.5 mg PO DAILY 03/03/15 Atorvastatin Calcium 10 mg PO HS 12/14/16 Diphenhydramine [Benadryl -] 50 mg PO DAILY 12/14/16 Glipizide [Glipizide ER] 10 mg PO DAILY 12/14/16 Metformin HCl [Glucophage] 1,000 mg PO BID 12/14/16 Triamcinolone 0.1% Ointment 1 applic TP DAILY 12/14/16 [Aristocort 0.1% Ointment -] ASSESSMENT AND PLAN: The patient is a 46 year old female with significant past medical history of asthma, COPD, diabetes, hypertension, hyperlipidemia, bilateral DVTs, and s/p IVC filter who presents with 7 days of SOB and wheezing that got progression. # Acute exacerbation of asthma ; On IV steroid 40mg IV q6h, nebs treatments, pulmonary consult appreciated. Singulair -Albuterol neb, Duonebs, 2 liter Oxygen. #T2DM ,ISS, BGM ACHS, hold Metformin # Hyperlipidemia; cont.Atorvastatin # Hx of BL DVT in lower extremities : Her INR is elevated today. We decreased Coumadin dose to 3 mg. #Eczema; Benadryl 50 mg qd DvT Px: coumadin
[2016-12-15] MEDS: MONTELUKAST NA 10 MG TABLET PO SCH (21:47)
[2016-12-15] MEDS: ATORVASTATIN CA 10 MG TABLET (FP) PO SCH (21:47)
[2016-12-15] MEDS: ZOLPIDEM TARTRATE 5 MG TABLET PO PRN (21:48)
[2016-12-15] MEDS: CHLORHEXIDINE GLUCONATE 4% CLEANSER FOR DECOLONIZATION TP SCH (22:00)
[2016-12-16] MEDS: methylPREDNISolone NA SUCC 40 MG/1 ML VIAL IVPB SCH ×4 (02:12→21:11)
[2016-12-16] MEDS: ALBUTEROL SO4 2.5/IPRATROPIUM 0.5 INH SOL 3 ML VIAL.NEB. NEB PRN (03:10)
[2016-12-16] MEDS: hydrOXYzine HCL 25 MG TABLET (FP) PO SCH ×3 (05:57→21:12)
[2016-12-16] MEDS ORDERED: PT OWN MED DRAWER 7, Y5N ONE ×4 (06:02→20:58)
[2016-12-16] MEDS: INSULIN SLIDING SCALE (NOVOLOG) 1 VIAL SQ SCH ×4 (06:19→21:15)
[2016-12-16] MEDS: ALBUTEROL SO4 2.5/IPRATROPIUM 0.5 INH SOL 3 ML VIAL.NEB. NEB SCH (06:35)
[2016-12-16 09:02] LABS: BASOPHIL 0.2 % (0-2.0); MCH 28.7 pg (25.7-33.7); MCHC 32.3 g/dl (32.0-36.0); MEAN CELL VOLUME 88.8 fl (80-96); MEAN PLT VOLUME 10.5 fl (7.5-11.1); PLATELET COUNT 221 K/MM3 (134-434); RDW 17.1 % (11.6-15.6); WHITE BLOOD COUNT 13.9 K/mm3 (4.0-10.0)
[2016-12-16 09:13] LABS: INR 1.92 (0.82-1.09); PROTHROMBIN TIME (PATIENT) 21.4 SEC (9.98-11.88)
[2016-12-16 09:27] LABS: ALK PHOS 79 U/L (45-117); ANION GAP 12 (8-16); BILIRUBIN,TOTAL 0.5 mg/dL (0.2-1.0); CALCIUM 9.3 mg/dL (8.5-10.1); CO2 23 mmol/L (21-32); CREATININE 0.9 mg/dL (0.55-1.02); GLUCOSE,RANDOM 207 mg/dL (74-106); SGOT/AST 21 U/L (15-37); SGPT/ALT 43 U/L (12-78); TOT PROT 7.6 g/dl (6.4-8.2)
[2016-12-16] MEDS: TRIAMCINOLONE ACET 0.1% OINT 15 GM TUBE TP SCH (12:15)
--- NOTE | 2016-12-16 12:44 | PN ---
Progress Note, Physician History of Present Illness: PULMONARY ALERT.LESS DYSPNEIC,+COUGH,+WHEEZING,TACHYCARDIC - Current Medication List Current Medications: Active Medications Albuterol Sulfate (Ventolin Hfa Inhaler -) 2 puff IH Q4H PRN PRN Reason: SHORT OF BREATH/WHEEZING Albuterol/Ipratropium (Duoneb -) 1 amp NEB Q6H PRN PRN Reason: SHORT OF BREATH/WHEEZING Last Admin: 12/16/16 03:10 Dose: 1 amp Albuterol/Ipratropium (Duoneb -) 1 amp NEB Q4H PRN PRN Reason: SHORTNESS OF BREATH Albuterol/Ipratropium (Duoneb -) 1 amp NEB TIDR SUKHDEV Last Admin: 12/16/16 06:35 Dose: 1 amp Atorvastatin Calcium (Lipitor -) 10 mg PO HS SUKHDEV Last Admin: 12/15/16 21:47 Dose: 10 mg Chlorhexidine Gluconate (Hibiclens For Decolonization -) 1 applic TP HS [facility] Last Admin: 12/15/16 22:00 Dose: 1 applic Diphenhydramine HCl (Benadryl -) 50 mg PO HS PRN PRN Reason: INSOMNIA Last Admin: 12/15/16 21:48 Dose: 50 mg Hydroxyzine HCl (Atarax -) 50 mg PO TID SUKHDEV Last Admin: 12/16/16 05:57 Dose: 50 mg Insulin Aspart (Novolog Vial Sliding Scale -) 1 vial SQ ACHS SUKHDEV PRN Reason: Protocol Last Admin: 12/16/16 11:30 Dose: 6 unit Methylprednisolone Sodium Succinate (Solu-Medrol -) 40 mg IVPB Q8H-IV SUKHDEV Last Admin: 12/16/16 11:31 Dose: 40 mg Montelukast Sodium (Singulair -) 10 mg PO HS SUKHDEV Last Admin: 12/15/16 21:47 Dose: 10 mg Triamcinolone Acetonide (Aristocort 0.1% Ointment -) 1 applic TP DAILY SUKHDEV Last Admin: 12/16/16 12:15 Dose: 1 applic Warfarin Sodium (Coumadin -) 3 mg PO DAILY@1800 SUKHDEV Last Admin: 12/15/16 17:04 Dose: Not Given Zolpidem Tartrate (Ambien -) 5 mg PO HS PRN PRN Reason: INSOMNIA Last Admin: 12/15/16 21:48 Dose: 5 mg - Objective Vital Signs: Vital Signs Temperature 98 F 12/16/16 06:00 Pulse Rate 95 H 12/16/16 06:00 Respiratory Rate 20 12/16/16 06:00 Blood Pressure 119/84 12/16/16 06:00 O2 Sat by Pulse Oximetry (%) 98 12/15/16 21:00 Constitutional: Yes: Well Nourished, Calm Eyes: Yes: WNL HENT: Yes: WNL Neck: Yes: WNL Cardiovascular: Yes: Tachycardia, S1, S2 Respiratory: Yes: Wheezes (TERRANCE WHEEZING) Gastrointestinal: Yes: Normal Bowel Sounds, Soft Extremities: Yes: WNL Edema: No Labs: CBC, BMP 12/16/16 08:20 12/16/16 08:20 INR, PTT INR 1.92 (0.82-1.09) H D 12/16/16 08:20 Assessment/Plan Problem List - Problems (1) Asthma Code(s): J45.909 - UNSPECIFIED ASTHMA, UNCOMPLICATED Qualifiers: Asthma severity: unspecified severity Asthma complication type: with acute exacerbation Qualified Code(s): J45.901 - Unspecified asthma with ( acute) exacerbation (2) DVT (deep venous thrombosis) Code(s): I82.409 - ACUTE EMBOLISM AND THOMBOS UNSP DEEP VN UNSP LOWER EXTREMITY (4) COPD (chronic obstructive pulmonary disease) with acute bronchitis Code(s): J44.0 - CHRONIC OBSTRUCTIVE PULMON DISEASE W ACUTE LOWER RESP INFCT Assessment/Plan IMP: Acute Bronchitis -> likely Viral Asthma PLAN: Coumadin with close follow up of INR O2 as needed BD TX Symbicort Spiriva No smoking Outpatient PFTs once stable DR MEHTA
[2016-12-16] MEDS ORDERED: TIOTROPIUM BROMIDE 18 MCG/INH (DEVICE W/ 30 CAPSULES) IH SCH (13:00)
[2016-12-16] MEDS ORDERED: WARFARIN NA 3 MG TABLET PO SCH (13:44)
--- NOTE | 2016-12-16 13:45 | PN ---
Teaching Attending Note Name of Resident: Laine Flores ATTENDING PHYSICIAN STATEMENT I saw and evaluated the patient. I reviewed the resident's note and discussed the case with the resident. I agree with the resident's findings and plan as documented. SUBJECTIVE: Feeling better, but still wheezing. Patient smelled cigarette when questioned stated that her jackett smells cigarette. OBJECTIVE: Vital Signs Temperature 98 F 12/16/16 06:00 Pulse Rate 95 H 12/16/16 06:00 Respiratory Rate 20 12/16/16 06:00 Blood Pressure 119/84 12/16/16 06:00 O2 Sat by Pulse Oximetry (%) 98 12/15/16 21:00 GENERAL: Awake, alert, and fully oriented, in no acute distress. HEAD: Normal with no signs of trauma. EYES: Pupils equal, round and reactive to light, extraocular movements intact, sclera anicteric, conjunctiva clear. EARS, NOSE, THROAT: Ears normal, nares patent, oropharynx clear without exudates. Moist mucous membranes. NECK: Normal range of motion, supple without lymphadenopathy, JVD, or masses. LUNGS: positive wheezing with rhonchi B/L, no crackles. No accessory muscle use. HEART: Regular rate and rhythm, normal S1 and S2 without murmur, rub or gallop. ABDOMEN: Obese, soft, nontender, not distended, normoactive bowel sounds, no guarding, no rebound, no masses. MUSCULOSKELETAL: Normal range of motion at all joints. No bony deformities or tenderness. No CVA tenderness. EXTREMITIES: 2+ pulses, No calf tenderness. No peripheral edema. NEUROLOGICAL: Normal speech. Normal gait. No facial asymmetry. PSYCHIATRIC: Cooperative. Good eye contact. Anxious. SKIN: Warm, dry, normal turgor, mild rash on chest, bruise on right breast, papular rash in lower extremities, striae on abdomen. CBCD WBC 13.9 K/mm3 (4.0-10.0) H 12/16/16 08:20 RBC 4.07 M/mm3 (3.60-5.2) 12/16/16 08:20 Hgb 11.7 GM/dL (10.7-15.3) 12/16/16 08:20 Hct 36.1 % (32.4-45.2) 12/16/16 08:20 MCV 88.8 fl (80-96) 12/16/16 08:20 MCHC 32.3 g/dl (32.0-36.0) 12/16/16 08:20 RDW 17.1 % (11.6-15.6) H 12/16/16 08:20 Plt Count 221 K/MM3 (134-434) 12/16/16 08:20 MPV 10.5 fl (7.5-11.1) 12/16/16 08:20 CMP Sodium 136 mmol/L (136-145) 12/16/16 08:20 Potassium 3.9 mmol/L (3.5-5.1) 12/16/16 08:20 Chloride 101 mmol/L (98-107) 12/16/16 08:20 Carbon Dioxide 23 mmol/L (21-32) D 12/16/16 08:20 Anion Gap 12 (8-16) 12/16/16 08:20 BUN 16 mg/dL (7-18) D 12/16/16 08:20 Creatinine 0.9 mg/dL (0.55-1.02) 12/16/16 08:20 Creat Clearance w eGFR > 60 (>60) 12/16/16 08:20 Random Glucose 207 mg/dL (74-106) H 12/16/16 08:20 Calcium 9.3 mg/dL (8.5-10.1) 12/16/16 08:20 Total Bilirubin 0.5 mg/dL (0.2-1.0) D 12/16/16 08:20 AST 21 U/L (15-37) D 12/16/16 08:20 ALT 43 U/L (12-78) 12/16/16 08:20 Alkaline Phosphatase 79 U/L (45-117) 12/16/16 08:20 Total Protein 7.6 g/dl (6.4-8.2) 12/16/16 08:20 Albumin 4.0 g/dl (3.4-5.0) 12/16/16 08:20 Current Medications Generic Name Dose Route Start Last Admin Trade Name Freq PRN Reason Stop Dose Admin Albuterol Sulfate 1 amp 12/16/16 12:47 Ventolin 0.083% Nebulizer Soln - NEB Q4H PRN SHORT OF BREATH/WHEEZING Atorvastatin Calcium 10 mg 12/14/16 22:00 02/16/17 21:47 Lipitor - PO 10 mg HS SUKHDEV Administration Budesonide/Formoterol Fumarate 2 puff 12/16/16 13:45 Symbicort 160/4.5mcg - IH BID SUKHDEV Chlorhexidine Gluconate 1 applic 12/14/16 22:00 12/15/16 22:00 Hibiclens For Decolonization - TP 1 applic HS SUKHDEV Administration Diphenhydramine HCl 50 mg 12/14/16 16:34 12/15/16 21:48 Benadryl - PO 50 mg HS PRN Administration INSOMNIA Hydroxyzine HCl 50 mg 12/14/16 22:00 12/16/16 05:57 Atarax - PO 50 mg TID SUKHDEV Administration Insulin Aspart 1 vial 12/14/16 16:30 12/16/16 11:30 Novolog Vial Sliding Scale - SQ 6 unit ACHS SUKHDEV Administration Protocol Methylprednisolone Sodium Succinate 40 mg 12/15/16 13:15 12/16/16 11:31 Solu-Medrol - IVPB 40 mg Q8H-IV SUKHDEV Administration Montelukast Sodium 10 mg 12/15/16 22:00 12/15/16 21:47 Singulair - PO 10 mg HS SUKHDEV Administration Tiotropium [place] 1 puff 12/16/16 13:00 Spiriva - IH DAILY SUKHDEV Triamcinolone Acetonide 1 applic 12/14/16 14:45 12/16/16 12:15 Aristocort 0.1% Ointment - TP 1 applic DAILY SUKHDEV Administration Warfarin Sodium 3 mg 12/15/16 18:00 12/15/16 17:04 Coumadin - PO Not Given DAILY@1800 [facility] Zolpidem Tartrate 5 mg 12/14/16 20:42 12/15/16 21:48 Ambien - PO 5 mg HS PRN Administration INSOMNIA Hepatic Panel Total Bilirubin 0.5 mg/dL (0.2-1.0) D 12/16/16 08:20 AST 21 U/L (15-37) D 12/16/16 08:20 ALT 43 U/L (12-78) 12/16/16 08:20 Alkaline Phosphatase 79 U/L (45-117) 12/16/16 08:20 Albumin 4.0 g/dl (3.4-5.0) 12/16/16 08:20 ASSESSMENT AND PLAN: The patient is a 46 year old female with significant past medical history of asthma, COPD, diabetes, hypertension, hyperlipidemia, bilateral DVTs, and s/p IVC filter who presents with 7 days of SOB and wheezing that got progression. # Acute exacerbation of asthma continues ; On IV steroid 40mg IV q6h, nebs treatments, pulmonary consult appreciated. Singulair, symbicort -Albuterol neb, Duonebs, 2 liter Oxygen. Patient is still smoking and stated that will quit smoking. #T2DM ,ISS, BGM ACHS, hold Metformin # Hyperlipidemia; cont.Atorvastatin # Hx of BL DVT in lower extremities : Her INR is elevated today. We decreased Coumadin dose to 3 mg. #Eczema; Benadryl 50 mg qd DvT Px: coumadin
--- NOTE | 2016-12-16 14:01 | PN ---
Physical Exam: SUBJECTIVE: Patient seen and examined. She is complaining of wheezing and cough. She denies fevers, chills, leg pain. OBJECTIVE: Vital Signs Period Temp Pulse Resp BP Sys/Oneil Pulse Ox Last 24 Hr 97.8 F-98.2 F 81-100 20-20 110-126/78-87 98-98 GENERAL: Awake, alert, and fully oriented, in no acute distress. HEAD: Normal with no signs of trauma. EYES: Pupils equal, round and reactive to light, extraocular movements intact, sclera anicteric, conjunctiva clear. EARS, NOSE, THROAT: Ears normal, nares patent, oropharynx clear without exudates. Moist mucous membranes. NECK: Normal range of motion, supple without lymphadenopathy, JVD, or masses. LUNGS: Breath sounds equal, wheezes B/L, no crackles. No accessory muscle use. HEART: Regular rate and rhythm, normal S1 and S2 without murmur, rub or gallop. ABDOMEN: Obese, soft, nontender, not distended, normoactive bowel sounds, no guarding, no rebound, no masses. MUSCULOSKELETAL: Normal range of motion at all joints. No bony deformities or tenderness. No CVA tenderness. UPPER EXTREMITIES: No peripheral edema. LOWER EXTREMITIES: No peripheral edema. NEUROLOGICAL: Normal speech. Normal gait. No facial asymmetry. PSYCHIATRIC: Cooperative. Good eye contact. Anxious. SKIN: Warm, dry, normal turgor, mild rash on chest, bruise on right breast, papular rash in lower extremities, striae on abdomen. Laboratory Results - last 24 hr 12/15/16 12/15/16 12/16/16 16:54 21:39 05:56 WBC RBC Hgb Hct MCV MCHC RDW Plt Count MPV Neutrophils % Lymphocytes % Monocytes % Eosinophils % Basophils % INR Sodium Potassium Chloride Carbon Dioxide Anion Gap BUN Creatinine Creat Clearance w eGFR POC Glucometer 174 310 237 Random Glucose Calcium Total Bilirubin AST ALT Alkaline Phosphatase Total Protein Albumin 12/16/16 12/16/16 12/16/16 08:20 08:20 08:20 WBC 13.9 H RBC 4.07 Hgb 11.7 Hct 36.1 MCV 88.8 MCHC 32.3 RDW 17.1 H Plt Count 221 MPV 10.5 Neutrophils % 90.0 H Lymphocytes % 7.1 L D Monocytes % 2.7 L Eosinophils % 0.0 Basophils % 0.2 INR 1.92 H D Sodium 136 Potassium 3.9 Chloride 101 Carbon Dioxide 23 D Anion Gap 12 BUN 16 D Creatinine 0.9 Creat Clearance w eGFR > 60 POC Glucometer Random Glucose 207 H Calcium 9.3 Total Bilirubin 0.5 D AST 21 D ALT 43 Alkaline Phosphatase 79 Total Protein 7.6 Albumin 4.0 12/16/16 11:01 WBC RBC Hgb Hct MCV MCHC RDW Plt Count MPV Neutrophils % Lymphocytes % Monocytes % Eosinophils % Basophils % INR Sodium Potassium Chloride Carbon Dioxide Anion Gap BUN Creatinine Creat Clearance w eGFR POC Glucometer 289 Random Glucose Calcium Total Bilirubin AST ALT Alkaline Phosphatase Total Protein Albumin Active Medications Generic Name Dose Route Start Last Admin Trade Name Freq PRN Reason Stop Dose Admin Albuterol Sulfate 1 amp 12/16/16 12:47 Ventolin 0.083% Nebulizer Soln - NEB Q4H PRN SHORT OF BREATH/WHEEZING Atorvastatin Calcium 10 mg 12/14/16 22:00 12/15/16 21:47 Lipitor - PO 10 mg HS SUKHDEV Administration Budesonide/Formoterol Fumarate 2 puff 12/16/16 13:45 Symbicort 160/4.5mcg - IH BID SUKHDEV Chlorhexidine Glu[place] 1 applic 12/14/16 22:00 12/15/16 22:00 Hibiclens For Decolonization - TP 1 applic HS SUKHDEV Administration Diphenhydramine HCl 50 mg 12/14/16 16:34 12/15/16 21:48 Benadryl - PO 50 mg HS PRN Administration INSOMNIA Hydroxyzine HCl 50 mg 12/14/16 22:00 12/16/16 05:57 Atarax - PO 50 mg TID SUKHDEV Administration Insulin Aspart 1 vial 12/14/16 16:30 12/16/16 11:30 Novolog Vial Sliding Scale - SQ 6 unit ACHS SUKHDEV Administration Protocol Methylprednisolone Sodium Succinate 40 mg 12/15/16 13:15 12/16/16 11:31 Solu-Medrol - IVPB 40 mg Q8H-IV SUKHDEV Administration Montelukast Sodium 10 mg 12/15/16 22:00 12/15/16 21:47 Singulair - PO 10 mg HS SUKHDEV Administration Tiotropium [place] 1 puff 12/16/16 13:00 Spiriva - IH DAILY SUKHDEV Triamcinolone Acetonide 1 applic 12/14/16 14:45 12/16/16 12:15 Aristocort 0.1% Ointment - TP 1 applic DAILY SUKHDEV Administration Warfarin Sodium 8.5 mg 12/16/16 13:44 Coumadin - PO DAILY@1800 SUKHDEV Zolpidem Tartrate 5 mg 12/14/16 20:42 12/15/16 21:48 Ambien - PO 5 mg HS PRN Administration INSOMNIA CXR:No acute changes EKG: Sinus tachycardia, no ST changes ASSESSMENT/PLAN: The patient is a 46 year old female with significant past medical history of asthma, COPD, diabetes, hypertension, hyperlipidemia, bilateral DVTs, and s/p IVC filter who presents with 7 days of SOB and wheezing that got progressively worse. She is admitted for acute asthma exacerbation. SIRS due to asthma exacerbation; -she continue to have wheezing today, we started Solu-medrol 40 mg IV and Singulair -Albuterol neb -Duonebs -Oxygen Supplementation -monitor vitals -f/u Pulmonary consultation DM type 2; -ISS -BGM ACHS -hold Metformin Hyperlipidemia; -cont.Atorvastatin DVT in lower extremities B/l: -continue Coumadin 8.5 today. Atypical chest pain: -assoc. 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 - New Patient This patient is new to me today: No - Critical Care Critical Care patient: No - Discharge Referral Referred to [facility] Med P.C.: No
[2016-12-16] MEDS: TIOTROPIUM BROMIDE 18 MCG/INH (DEVICE W/ 5 CAPSULES) IH SCH (14:45)
[2016-12-16] MEDS: BUDESONIDE/FORMETEROL FUMARATE 160/4.5 mcg INHALER IH SCH ×2 (14:45→21:13)
[2016-12-16 15:04] VITALS: BMI 27.3
[2016-12-16] MEDS: ALBUTEROL SO4 0.083% IH SOL 2.5 MG/3 ML VIAL.NEB. NEB PRN (16:20)
[2016-12-16] MEDS ORDERED: WARFARIN NA PO SCH (18:00)
[2016-12-16] MEDS ORDERED: methylPREDNISolone NA SUCC 40 MG/1 ML VIAL IVPB SCH (19:15)
[2016-12-16] MEDS ORDERED: diphenhydrAMINE HCL 25 MG CAPSULE (FP) PO ONE (20:57)
[2016-12-16] MEDS ORDERED: INSULIN (NOVOLOG) ASPART 100 UNITS/ML 10ML VIAL ONE (20:59)
[2016-12-16] MEDS: ATORVASTATIN CA 10 MG TABLET (FP) PO SCH (21:12)
[2016-12-16] MEDS: CHLORHEXIDINE GLUCONATE 4% CLEANSER FOR DECOLONIZATION TP SCH (21:12)
[2016-12-16] MEDS: MONTELUKAST NA 10 MG TABLET PO SCH (21:13)
[2016-12-16] MEDS: diphenhydrAMINE HCL 50 MG CAPSULE PO PRN (21:14)
[2016-12-16] MEDS: ZOLPIDEM TARTRATE 5 MG TABLET PO PRN (21:26)
[2016-12-17] MEDS: methylPREDNISolone NA SUCC 40 MG/1 ML VIAL IVPB SCH ×4 (02:20→20:48)
[2016-12-17] MEDS: ALBUTEROL SO4 0.083% IH SOL 2.5 MG/3 ML VIAL.NEB. NEB PRN ×2 (02:20→06:20)
[2016-12-17] MEDS ORDERED: PT OWN MED DRAWER 7, Y5N ONE ×7 (06:31→23:07)
[2016-12-17] MEDS: hydrOXYzine HCL 25 MG TABLET (FP) PO SCH ×3 (06:36→22:07)
[2016-12-17] MEDS: INSULIN SLIDING SCALE (NOVOLOG) 1 VIAL SQ SCH ×4 (06:40→22:10)
[2016-12-17] MEDS: TRIAMCINOLONE ACET 0.1% OINT 15 GM TUBE TP SCH (10:03)
[2016-12-17] MEDS: TIOTROPIUM BROMIDE 18 MCG/INH (DEVICE W/ 5 CAPSULES) IH SCH (10:04)
[2016-12-17] MEDS: BUDESONIDE/FORMETEROL FUMARATE 160/4.5 mcg INHALER IH SCH ×2 (10:05→22:10)
[2016-12-17 11:06] LABS: INR 1.72 (0.82-1.09); PROTHROMBIN TIME (PATIENT) 19.1 SEC (9.98-11.88)
--- NOTE | 2016-12-17 11:46 | PN ---
Progress Note (short form) - Note Progress Note: Patient is still wheezing, no fever or cough , no shortness of breath. Vital Signs Temperature 98 F 12/17/16 09:58 Pulse Rate 112 H 12/17/16 09:58 Respiratory Rate 20 12/17/16 09:58 Blood Pressure 112/78 12/17/16 09:58 O2 Sat by Pulse Oximetry (%) 98 12/16/16 21:00 GENERAL: Awake, alert, and fully oriented, in no acute distress. HEAD: Normal with no signs of trauma. EYES: Pupils equal, round and reactive to light, extraocular movements intact, sclera anicteric, conjunctiva clear. EARS, NOSE, THROAT: Ears normal, nares patent, oropharynx clear without exudates. Moist mucous membranes. NECK: Normal range of motion, supple without lymphadenopathy, JVD, or masses. LUNGS: positive wheezing with rhonchi B/L, no crackles. No accessory muscle use. HEART: Regular rate and rhythm, normal S1 and S2 without murmur, rub or gallop. ABDOMEN: Obese, soft, nontender, not distended, normoactive bowel sounds, no guarding, no rebound, no masses. EXTREMITIES: 2+ pulses, No calf tenderness. No peripheral edema. NEUROLOGICAL: Normal speech. Normal gait. No facial asymmetry. PSYCHIATRIC: Cooperative. Good eye contact. Anxious. SKIN: Warm, dry, normal turgor, mild rash on chest, bruise on right breast, striae on abdomen CBCD WBC 13.9 K/mm3 (4.0-10.0) H 12/16/16 08:20 RBC 4.07 M/mm3 (3.60-5.2) 12/16/16 08:20 Hgb 11.7 GM/dL (10.7-15.3) 12/16/16 08:20 Hct 36.1 % (32.4-45.2) 12/16/16 08:20 MCV 88.8 fl (80-96) 12/16/16 08:20 MCHC 32.3 g/dl (32.0-36.0) 12/16/16 08:20 RDW 17.1 % (11.6-15.6) H 12/16/16 08:20 Plt Count 221 K/MM3 (134-434) 12/16/16 08:20 MPV 10.5 fl (7.5-11.1) 12/16/16 08:20 CMP Sodium 136 mmol/L (136-145) 12/16/16 08:20 Potassium 3.9 mmol/L (3.5-5.1) 12/16/16 08:20 Chloride 101 mmol/L (98-107) 12/16/16 08:20 Carbon Dioxide 23 mmol/L (21-32) D 12/16/16 08:20 Anion Gap 12 (8-16) 12/16/16 08:20 BUN 16 mg/dL (7-18) D 12/16/16 08:20 Creatinine 0.9 mg/dL (0.55-1.02) 12/16/16 08:20 Creat Clearance w eGFR > 60 (>60) 12/16/16 08:20 Random Glucose 207 mg/dL (74-106) H 12/16/16 08:20 Calcium 9.3 mg/dL (8.5-10.1) 12/16/16 08:20 Total Bilirubin 0.5 mg/dL (0.2-1.0) D 12/16/16 08:20 AST 21 U/L (15-37) D 12/16/16 08:20 ALT 43 U/L (12-78) 12/16/16 08:20 Alkaline Phosphatase 79 U/L (45-117) 12/16/16 08:20 Total Protein 7.6 g/dl (6.4-8.2) 12/16/16 08:20 Albumin 4.0 g/dl (3.4-5.0) 12/16/16 08:20 Current Medications Generic Name Dose Route Start Last Admin Trade Name Freq PRN Reason Stop Dose Admin Albuterol Sulfate 1 amp 12/16/16 12:47 12/17/16 06:20 Ventolin 0.083% Nebulizer Soln - NEB 1 amp Q4H PRN Administration SHORT OF BREATH/WHEEZING Atorvastatin Calcium 10 mg 12/14/16 22:00 12/16/16 21:12 Lipitor - PO 10 mg HS SUKHDEV Administration Budesonide/Formoterol Fumarate 2 puff 12/16/16 13:45 12/17/16 10:05 Symbicort 160/4.5mcg - IH 2 inh BID SUKHDEV Administration Chlorhexidine Gluconate 1 applic 12/14/16 22:00 12/16/16 21:12 Hibiclens For Decolonization - TP 1 applic HS SUKHDEV Administration Diphenhydramine HCl 50 mg 12/16/16 19:36 12/16/16 21:14 Benadryl - PO 50 mg DAILY PRN Administration FOR ITCHING Hydroxyzine HCl 50 mg 12/14/16 22:00 12/17/16 06:36 Atarax - PO 50 mg TID SUKHDEV Administration Insulin Aspart 1 vial 12/14/16 16:30 12/17/16 06:40 Novolog Vial Sliding Scale - SQ 8 unit ACHS SUKHDEV Administration Protocol Methylprednisolone Sodium Succinate 40 mg 12/16/16 19:27 12/17/16 10:03 Solu-Medrol - IVPB 40 mg Q6H-IV SUKHDEV Administration Montelukast Sodium 10 mg 12/15/16 22:00 12/16/16 21:13 Singulair - PO 10 mg HS SUKHDEV Administration Tiotropium [place] 1 puff 12/16/16 14:05 12/17/16 10:04 Spiriva - IH 1 inh DAILY SUKHDEV Administration Triamcinolone Acetonide 1 applic 12/14/16 14:45 12/17/16 10:03 Aristocort 0.1% Ointment - TP 1 applic DAILY SUKHDEV Administration Warfarin Sodium 7.5 mg/ 8.5 mg 12/16/16 18:00 12/16/16 17:54 Warfarin Sodium 1 mg PO 8.5 mg DAILY@1800 SUKHDEV Administration Zolpidem Tartrate 5 mg 12/14/16 20:42 12/16/16 21:26 Ambien - PO 5 mg HS PRN Administration INSOMNIA Home Medications Medication Instructions Recorded Albuterol 2.5/Ipratropium 0.5 1 neb IH ASDIR PRN 08/12/14 [Duoneb -] Hydroxyzine HCl [Atarax -] 50 mg PO TID 08/12/14 Albuterol Sulfate Inhaler - 2 inh PO Q4H PRN 03/03/15 [Ventolin HFA Inhaler -] Warfarin Sodium [Coumadin] 8.5 mg PO DAILY 03/03/15 Atorvastatin Calcium 10 mg PO HS 12/14/16 Diphenhydramine [Benadryl -] 50 mg PO DAILY 12/14/16 Glipizide [Glipizide ER] 10 mg PO DAILY 12/14/16 Metformin HCl [Glucophage] 1,000 mg PO BID 12/14/16 Triamcinolone 0.1% Ointment 1 applic TP DAILY 12/14/16 [Aristocort 0.1% Ointment -] Laboratory Tests 12/14/16 12/15/16 12/16/16 05:10 11:00 08:20 INR 2.99 H D 4.50 H* D 1.92 H D 12/17/16 10:22 INR 1.72 H A/P: The patient is a 46 year old female with significant past medical history of asthma, COPD, diabetes, hypertension, hyperlipidemia, bilateral DVTs, and s/p IVC filter who presents with 7 days of SOB and wheezing that got progression. # Acute exacerbation of asthma continues ; On IV steroid 40mg IV q6h, nebs treatments, pulmonary consult appreciated. Singulair, symbicort , Albuterol neb, Duonebs, 2 liter Oxygen. 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 PT/INR in am #T2DM ,ISS, BGM ACHS, # Hyperlipidemia; cont.Atorvastatin #Eczema; Benadryl 50 mg qd DvT Px: coumadin Visit type - Emergency Visit Emergency Visit: Yes ED Registration Date: 12/15/16 Care time: The patient presented to the Emergency Department on the above date and was hospitalized for further evaluation of their emergent condition. - New Patient This patient is new to me today: No - Critical Care Critical Care patient: No
[2016-12-17] MEDS ORDERED: ENOXAPARIN NA (PORCINE) 60 MG/0.6 ML DISP.SYRIN SQ SCH (12:00)
[2016-12-17] MEDS: ENOXAPARIN NA (PORCINE) 80 MG/0.8 ML DISP.SYRIN SQ SCH ×2 (13:51→22:05)
[2016-12-17] MEDS ORDERED: WARFARIN NA 10 MG TABLET (FP) PO SCH (18:00)
[2016-12-17] MEDS: AMOX TR/POT CLAV 875MG/125MG TABLETS (FP) PO SCH ×2 (18:32→18:35)
[2016-12-17] MEDS ORDERED: BACITRACIN 30 GM TUBE TOPICAL OINTMENT TP SCH (22:00)
[2016-12-17] MEDS: MONTELUKAST NA 10 MG TABLET PO SCH (22:05)
[2016-12-17] MEDS: ATORVASTATIN CA 10 MG TABLET (FP) PO SCH (22:05)
[2016-12-17] MEDS: MUPIROCIN 2% TOPICAL OINTMENT 22 GM TUBE TP SCH (22:05)
[2016-12-17] MEDS: CHLORHEXIDINE GLUCONATE 4% CLEANSER FOR DECOLONIZATION TP SCH (22:11)
[2016-12-17] MEDS: ZOLPIDEM TARTRATE 5 MG TABLET PO PRN (22:52)
[2016-12-18] MEDS: methylPREDNISolone NA SUCC 40 MG/1 ML VIAL IVPB SCH ×4 (03:08→21:13)
[2016-12-18] MEDS: hydrOXYzine HCL 25 MG TABLET (FP) PO SCH ×3 (06:55→21:14)
[2016-12-18] MEDS: MUPIROCIN 2% TOPICAL OINTMENT 22 GM TUBE TP SCH ×3 (06:55→21:18)
[2016-12-18] MEDS ORDERED: PT OWN MED DRAWER 7, Y5N ONE ×8 (07:02→23:59)
[2016-12-18] MEDS: INSULIN SLIDING SCALE (NOVOLOG) 1 VIAL SQ SCH ×4 (07:05→21:21)
[2016-12-18] MEDS ORDERED: INSULIN (NOVOLOG) ASPART 100 UNITS/ML 10ML VIAL ONE (07:11)
[2016-12-18] MEDS: ALBUTEROL SO4 0.083% IH SOL 2.5 MG/3 ML VIAL.NEB. NEB PRN ×2 (07:42→12:33)
[2016-12-18] MEDS: TRIAMCINOLONE ACET 0.1% OINT 15 GM TUBE TP SCH (09:34)
[2016-12-18] MEDS: ENOXAPARIN NA (PORCINE) 80 MG/0.8 ML DISP.SYRIN SQ SCH (09:34)
[2016-12-18] MEDS: TIOTROPIUM BROMIDE 18 MCG/INH (DEVICE W/ 5 CAPSULES) IH SCH (09:36)
[2016-12-18] MEDS: BUDESONIDE/FORMETEROL FUMARATE 160/4.5 mcg INHALER IH SCH ×2 (09:36→22:30)
--- NOTE | 2016-12-18 11:15 | PN ---
Progress Note (short form) - Note Progress Note: Patient is feeling better, No fever or chills, no shortness of breath. Vital Signs Temperature 98.0 F 12/18/16 08:55 Pulse Rate 105 H 12/18/16 08:55 Respiratory Rate 20 12/18/16 08:55 Blood Pressure 117/66 12/18/16 08:55 O2 Sat by Pulse Oximetry (%) 96 12/17/16 21:00 GENERAL: Awake, alert, and fully oriented, in no acute distress. HEAD: Normal with no signs of trauma. EYES: Pupils equal, round and reactive to light, extraocular movements intact, sclera anicteric, conjunctiva clear. EARS, NOSE, THROAT: Ears normal, nares patent, oropharynx clear without exudates. Moist mucous membranes. NECK: Normal range of motion, supple without lymphadenopathy, JVD, or masses. LUNGS: positive wheezing B/L, no crackles. No accessory muscle use. HEART: Regular rate and rhythm, normal S1 and S2 without murmur, rub or gallop. ABDOMEN: Obese, soft, nontender, not distended, normoactive bowel sounds, no guarding, no rebound, no masses. EXTREMITIES: 2+ pulses, No calf tenderness. No peripheral edema. Right anticubital pus positive NEUROLOGICAL: Normal speech. Normal gait. No facial asymmetry. PSYCHIATRIC: Cooperative. Good eye contact. Anxious. SKIN: Warm, dry, normal turgor, mild rash on chest, bruise on right breast, striae on abdomen. CBCD WBC 13.9 K/mm3 (4.0-10.0) H 12/16/16 08:20 RBC 4.07 M/mm3 (3.60-5.2) 12/16/16 08:20 Hgb 11.7 GM/dL (10.7-15.3) 12/16/16 08:20 Hct 36.1 % (32.4-45.2) 12/16/16 08:20 MCV 88.8 fl (80-96) 12/16/16 08:20 MCHC 32.3 g/dl (32.0-36.0) 12/16/16 08:20 RDW 17.1 % (11.6-15.6) H 12/16/16 08:20 Plt Count 221 K/MM3 (134-434) 12/16/16 08:20 MPV 10.5 fl (7.5-11.1) 12/16/16 08:20 CMP Sodium 136 mmol/L (136-145) 12/16/16 08:20 Potassium 3.9 mmol/L (3.5-5.1) 12/16/16 08:20 Chloride 101 mmol/L (98-107) 12/16/16 08:20 Carbon Dioxide 23 mmol/L (21-32) D 12/16/16 08:20 Anion Gap 12 (8-16) 12/16/16 08:20 BUN 16 mg/dL (7-18) D 12/16/16 08:20 Creatinine 0.9 mg/dL (0.55-1.02) 12/16/16 08:20 Creat Clearance w eGFR > 60 (>60) 12/16/16 08:20 Random Glucose 207 mg/dL (74-106) H 12/16/16 08:20 Calcium 9.3 mg/dL (8.5-10.1) 12/16/16 08:20 Total Bilirubin 0.5 mg/dL (0.2-1.0) D 12/16/16 08:20 AST 21 U/L (15-37) D 12/16/16 08:20 ALT 43 U/L (12-78) 12/16/16 08:20 Alkaline Phosphatase 79 U/L (45-117) 12/16/16 08:20 Total Protein 7.6 g/dl (6.4-8.2) 12/16/16 08:20 Albumin 4.0 g/dl (3.4-5.0) 12/16/16 08:20 Home Medications Medication Instructions Recorded Albuterol 2.5/Ipratropium 0.5 1 neb IH ASDIR PRN 08/12/14 [Duoneb -] Hydroxyzine HCl [Atarax -] 50 mg PO TID 08/12/14 Albuterol Sulfate Inhaler - 2 inh PO Q4H PRN 03/03/15 [Ventolin HFA Inhaler -] Warfarin Sodium [Coumadin] 8.5 mg PO DAILY 03/03/15 Atorvastatin Calcium 10 mg PO HS 12/14/16 Diphenhydramine [Benadryl -] 50 mg PO DAILY 02/15/17 Glipizide [Glipizide ER] 10 mg PO DAILY 12/14/16 Metformin HCl [Glucophage] 1,000 mg PO BID 12/14/16 Triamcinolone 0.1% Ointment 1 applic TP DAILY 12/14/16 [Aristocort 0.1% Ointment -] Current Medications Generic Name Dose Route Start Last Admin Trade Name Freq PRN Reason Stop Dose Admin Albuterol Sulfate 1 amp 12/16/16 12:47 12/18/16 07:42 Ventolin 0.083% Nebulizer Soln - NEB 1 amp Q4H PRN Administration SHORT OF BREATH/WHEEZING Atorvastatin Calcium 10 mg 12/14/16 22:00 12/17/16 22:05 Lipitor - PO 10 mg HS SUKHDEV Administration Budesonide/Formoterol Fumarate 2 puff 12/16/16 13:45 12/18/16 09:36 Symbicort 160/4.5mcg - IH 2 inh BID SUKHDEV Administration Chlorhexidine Glu[place]ate 1 applic 12/14/16 22:00 12/17/16 22:11 Hibiclens For Decolonization - TP 1 applic HS SUKHDEV Administration Diphenhydramine HCl 50 mg 12/16/16 19:36 12/16/16 21:14 Benadryl - PO 50 mg DAILY PRN Administration FOR ITCHING Enoxaparin Sodium 65 mg 12/17/16 12:30 12/18/16 09:34 Lovenox - SQ 65 mg BID SUKHDEV Administration Glipizide 10 mg 12/18/16 12:00 Glucotrol Xl - PO DAILY@0700 SUKHDEV Hydroxyzine HCl 50 mg 12/14/16 22:00 12/18/16 06:55 Atarax - PO 50 mg TID SUKHDEV Administration Vancomycin HCl 1,000 mg/ 500 mls @ 250 mls/hr 12/18/16 11:09 Dextrose IVPB 12/18/16 13:08 ONCE ONE Protocol Insulin Aspart 1 vial 12/14/16 16:30 12/18/16 07:05 Novolog Vial Sliding Scale - SQ 10 unit ACHS SUKHDEV Administration Protocol Metformin HCl 1,000 mg 12/18/16 11:30 Glucophage - PO BIDAC SUKHDEV Methylprednisolone Sodium Succinate 40 mg 12/16/16 19:27 12/18/16 09:34 Solu-Medrol - IVPB 40 mg Q6H-IV SUKHDEV Administration Montelukast Sodium 10 mg 12/15/16 22:00 12/17/16 22:05 Singulair - PO 10 mg HS SUKHDEV Administration Mupirocin 1 applic 12/17/16 22:00 12/18/16 06:55 Bactroban 2% Ointment - TP 1 applic TID SUKHDEV Administration Tiotropium [place] 1 puff 12/16/16 14:05 12/18/16 09:36 Spiriva - IH 1 inh DAILY SUKHDEV Administration Triamcinolone Acetonide 1 applic 12/14/16 14:45 12/18/16 09:34 Aristocort 0.1% Ointment - TP 1 applic DAILY SUKHDEV Administration Warfarin Sodium 10 mg 12/17/16 18:00 12/17/16 17:07 Coumadin - PO 10 mg DAILY@1800 SUKHDEV Administration Zolpidem Tartrate 5 mg 12/14/16 20:42 12/17/16 22:52 Ambien - PO 5 mg HS PRN Administration INSOMNIA A/P: The patient is a 46 year old female with significant past medical history of asthma, COPD, diabetes, hypertension, hyperlipidemia, bilateral DVTs, and s/p IVC filter who presents with 7 days of SOB and wheezing that got progression. # Anticubital Pus with Hx of MRSA will give her a dose of vANComycin, ID consult , wound culture was sent yesterday. # Acute exacerbation of asthma continues ; On IV steroid 40mg IV q6h will start to taper her off in am, nebs treatments, pulmonary consult appreciated. Singulair, symbicort , Albuterol neb, Duonebs, 2 liter Oxygen. Patient is still smoking cigarette .Advised to quit smoking. #T2DM ,refusing BGMs. Metformin and Glipizide added # Hx of BL DVT in lower extremities : Refused INR to be checked this morning , discussed with her that PT/INR needed , INR 12/16 was 1.72 increased her coumadin dose to 10mg and started on lovenox 65mg Sq bid for bridging. #Eczema; Benadryl 50 mg qd # Hyperlipidemia; cont.Atorvastatin DvT Px: coumadin Patient refused blood work this morning , does not want diabetic diet, does not want sliding scale with coverage. Agreed to have blood drawn ; CBC with diff, cmp, PT/INR Visit type - Emergency Visit Emergency Visit: Yes ED Registration Date: 12/15/16 Care time: The patient presented to the Emergency Department on the above date and was hospitalized for further evaluation of their emergent condition. - New Patient This patient is new to me today: No - Critical Care Critical Care patient: No
[2016-12-18] MEDS ORDERED: metFORMIN HCL 500 MG TABLET (FP) PO SCH (11:30)
[2016-12-18] MEDS ORDERED: VANCOMYCIN 1 GRAM (PRE-DOCKED) 250 ML IVPB ONE (11:45)
[2016-12-18 11:46] LABS: MCH 28.9 pg (25.7-33.7); MCHC 32.5 g/dl (32.0-36.0); MEAN CELL VOLUME 88.9 fl (80-96); MEAN PLT VOLUME 9.7 fl (7.5-11.1); PLATELET COUNT 239 K/MM3 (134-434); RDW 16.6 % (11.6-15.6); WHITE BLOOD COUNT 20.3 K/mm3 (4.0-10.0)
[2016-12-18] MEDS: metFORMIN HCL 500 MG TABLET (FP) PO SCH ×2 (11:51→17:00)
[2016-12-18 11:58] LABS: INR 2.69 (0.82-1.09); PROTHROMBIN TIME (PATIENT) 30.2 SEC (9.98-11.88)
[2016-12-18 12:12] LABS: ALBUMIN 3.6 g/dl (3.4-5.0); BILIRUBIN,TOTAL 0.2 mg/dL (0.2-1.0); CALCIUM 9.9 mg/dL (8.5-10.1); CREATININE 1.2 mg/dL (0.55-1.02); TOT PROT 7.5 g/dl (6.4-8.2)
[2016-12-18] MEDS: glipiZIDE-XL 10 MG TAB.ER.24 (FP) PO SCH (13:40)
--- NOTE | 2016-12-18 15:30 | PN ---
Progress Note (short form) - Note Progress Note: ID consult dictated imp/reccd phlebitis history MRSA asthma exacerbation- on steroids diabetes blood cultures f/u wound culture vancomycin
[2016-12-18] MEDS ORDERED: diphenhydrAMINE HCL 25 MG CAPSULE (FP) PO ONE (17:05)
[2016-12-18] MEDS ORDERED: WARFARIN NA 3 MG TABLET ONE (17:30)
[2016-12-18] MEDS ORDERED: WARFARIN NA 2.5 MG TABLET (FP) ONE (17:30)
[2016-12-18] MEDS: diphenhydrAMINE HCL 50 MG CAPSULE PO PRN (17:34)
[2016-12-18] MEDS ORDERED: WARFARIN NA 7.5 MG TABLET (FP) PO ONE ×2 (18:00)
[2016-12-18] MEDS ORDERED: WARFARIN NA PO ONE (18:00)
[2016-12-18] MEDS: ATORVASTATIN CA 10 MG TABLET (FP) PO SCH (21:14)
[2016-12-18] MEDS: CHLORHEXIDINE GLUCONATE 4% CLEANSER FOR DECOLONIZATION TP SCH (21:14)
[2016-12-18] MEDS: MONTELUKAST NA 10 MG TABLET PO SCH (21:14)
[2016-12-18] MEDS: ZOLPIDEM TARTRATE 5 MG TABLET PO PRN (21:24)
[2016-12-19] MEDS: methylPREDNISolone NA SUCC 40 MG/1 ML VIAL IVPB SCH ×4 (02:47→21:33)
[2016-12-19] MEDS ORDERED: diphenhydrAMINE HCL 25 MG CAPSULE (FP) PO ONE (04:27)
[2016-12-19] MEDS: diphenhydrAMINE HCL 50 MG CAPSULE PO PRN (04:28)
[2016-12-19] MEDS: hydrOXYzine HCL 25 MG TABLET (FP) PO SCH ×3 (06:44→21:34)
[2016-12-19] MEDS: MUPIROCIN 2% TOPICAL OINTMENT 22 GM TUBE TP SCH ×3 (06:47→21:35)
[2016-12-19] MEDS: metFORMIN HCL 500 MG TABLET (FP) PO SCH ×2 (06:49→18:00)
[2016-12-19] MEDS: glipiZIDE-XL 10 MG TAB.ER.24 (FP) PO SCH (06:49)
[2016-12-19] MEDS: INSULIN SLIDING SCALE (NOVOLOG) 1 VIAL SQ SCH ×3 (06:50→21:33)
[2016-12-19] MEDS: TIOTROPIUM BROMIDE 18 MCG/INH (DEVICE W/ 5 CAPSULES) IH SCH (09:02)
[2016-12-19] MEDS: TRIAMCINOLONE ACET 0.1% OINT 15 GM TUBE TP SCH (09:02)
[2016-12-19] MEDS ORDERED: PT OWN MED DRAWER 7, Y5N ONE ×2 (09:11→13:52)
[2016-12-19] MEDS: BUDESONIDE/FORMETEROL FUMARATE 160/4.5 mcg INHALER IH SCH ×2 (09:12→21:36)
[2016-12-19] MEDS: VANCOMYCIN 1 GRAM (PRE-DOCKED) 1,000 MG/250 ML BAG IVPB SCH (10:03)
--- NOTE | 2016-12-19 13:07 | PN ---
Progress Note (short form) - Note Progress Note: Comfortable with no acute distress. Temperature 97.8 F 12/18/16 22:00 Pulse Rate 80 12/19/16 10:59 Respiratory Rate 18 12/18/16 22:00 Blood Pressure 120/60 12/18/16 22:00 O2 Sat by Pulse Oximetry (%) 96 12/19/16 10:59 GENERAL: Awake, alert, and fully oriented, in no acute distress. HEAD: Normal with no signs of trauma. EYES: Pupils equal, round and reactive to light, extraocular movements intact, sclera anicteric, conjunctiva clear. EARS, NOSE, THROAT: Ears normal, nares patent, oropharynx clear without exudates. Moist mucous membranes. NECK: Normal range of motion, supple without lymphadenopathy, JVD, or masses. LUNGS: positive wheezing B/L, no crackles. No accessory muscle use. HEART: Regular rate and rhythm, normal S1 and S2 without murmur, rub or gallop. ABDOMEN: Obese, soft, nontender, not distended, normoactive bowel sounds, no guarding, no rebound, no masses. EXTREMITIES: 2+ pulses, No calf tenderness. No peripheral edema. Right anticubital pus positive but less today NEUROLOGICAL: Normal speech. Normal gait. No facial asymmetry. PSYCHIATRIC: Cooperative. Good eye contact. Anxious. SKIN: Warm, dry, normal turgor, mild rash on chest, bruise on right breast, striae on abdomen. CBCD WBC 20.3 K/mm3 (4.0-10.0) H D 12/18/16 11:20 RBC 3.98 M/mm3 (3.60-5.2) 12/18/16 11:20 Hgb 11.5 GM/dL (10.7-15.3) 12/18/16 11:20 Hct 35.4 % (32.4-45.2) 12/18/16 11:20 MCV 88.9 fl (80-96) 12/18/16 11:20 MCHC 32.5 g/dl (32.0-36.0) 12/18/16 11:20 RDW 16.6 % (11.6-15.6) H 12/18/16 11:20 Plt Count 239 K/MM3 (134-434) 12/18/16 11:20 MPV 9.7 fl (7.5-11.1) 12/18/16 11:20 CMP Sodium 141 mmol/L (136-145) 12/18/16 11:20 Potassium 4.6 mmol/L (3.5-5.1) 12/18/16 11:20 Chloride 102 mmol/L (98-107) 12/18/16 11:20 Carbon Dioxide 22 mmol/L (21-32) 12/18/16 11:20 Anion Gap 17 (8-16) H 12/18/16 11:20 BUN 19 mg/dL (7-18) H 12/18/16 11:20 Creatinine 1.2 mg/dL (0.55-1.02) H D 12/18/16 11:20 Creat Clearance w eGFR 48.80 (>60) 12/18/16 11:20 Random Glucose 273 mg/dL (74-106) H D 12/18/16 11:20 Calcium 9.9 mg/dL (8.5-10.1) 12/18/16 11:20 Total Bilirubin 0.2 mg/dL (0.2-1.0) D 12/18/16 11:20 AST 13 U/L (15-37) L D 12/18/16 11:20 ALT 42 U/L (12-78) 12/18/16 11:20 Alkaline Phosphatase 74 U/L (45-117) 12/18/16 11:20 Total Protein 7.5 g/dl (6.4-8.2) 12/18/16 11:20 Albumin 3.6 g/dl (3.4-5.0) 12/18/16 11:20 Current Medications Generic Name Dose Route Start Last Admin Trade Name Freq PRN Reason Stop Dose Admin Albuterol Sulfate 1 amp 12/16/16 12:47 12/18/16 12:33 Ventolin 0.083% Nebulizer Soln - NEB 1 amp Q4H PRN Administration SHORT OF BREATH/WHEEZING Atorvastatin Calcium 10 mg 12/14/16 22:00 12/18/16 21:14 Lipitor - PO 10 mg HS SUKHDEV Administration Budesonide/Formoterol Fumarate 2 puff 12/16/16 13:45 12/19/16 09:12 Symbicort 160/4.5mcg - IH 2 inh BID SUKHDEV Administration Chlorhexidine Gluconate 1 applic 12/14/16 22:00 12/18/16 21:14 Hibiclens For Decolonization - TP 1 applic HS SUKHDEV Administration Diphenhydramine HCl 50 mg 12/16/16 19:36 12/19/16 04:28 Benadryl - PO 50 mg DAILY PRN Administration FOR ITCHING Glipizide 10 mg 12/18/16 12:00 12/19/16 06:49 Glucotrol Xl - PO 10 mg DAILY@0700 SUKHDEV Administration Hydroxyzine HCl 50 mg 12/14/16 22:00 12/19/16 06:44 Atarax - PO 50 mg TID SUKHDEV Administration Insulin Aspart 1 vial 12/14/16 16:30 12/19/16 06:50 Novolog Vial Sliding Scale - SQ 8 unit ACHS SUKHDEV Administration Protocol Metformin HCl 1,000 mg 12/18/16 11:30 12/19/16 06:49 Glucophage - PO 1,000 mg BIDAC SUKHDEV Administration Methylprednisolone Sodium Succinate 40 mg 12/16/16 19:27 12/19/16 09:02 Solu-Medrol - IVPB 40 mg Q6H-IV SUKHDEV Administration Montelukast Sodium 10 mg 12/15/16 22:00 12/18/16 21:14 Singulair - PO 10 mg HS SUKHDEV Administration Mupirocin 1 applic 12/17/16 22:00 12/19/16 06:47 Bactroban 2% Ointment - TP 1 applic TID SUKHDEV Administration Tiotropium [place] 1 puff 12/16/16 14:05 12/19/16 09:02 Spiriva - IH 1 inh DAILY SUKHDEV Administration Triamcinolone Acetonide 1 applic 12/14/16 14:45 12/19/16 09:02 Aristocort 0.1% Ointment - TP 1 applic DAILY SUKHDEV Administration Vancomycin HCl 1,000 mg 12/19/16 10:00 12/19/16 10:03 Vancomycin (Pre-Docked) IVPB 1,000 mg DAILY SUKHDEV Administration Protocol Zolpidem Tartrate 5 mg 12/14/16 20:42 12/18/16 21:24 Ambien - PO 5 mg HS PRN Administration INSOMNIA Home Medications Medication Instructions Recorded Albuterol 2.5/Ipratropium 0.5 1 neb IH ASDIR PRN 08/12/14 [Duoneb -] Hydroxyzine HCl [Atarax -] 50 mg PO TID 08/12/14 Albuterol Sulfate Inhaler - 2 inh PO Q4H PRN 03/03/15 [Ventolin HFA Inhaler -] Warfarin Sodium [Coumadin] 8.5 mg PO DAILY 03/03/15 Atorvastatin Calcium 10 mg PO HS 12/14/16 Diphenhydramine [Benadryl -] 50 mg PO DAILY 12/14/16 Glipizide [Glipizide ER] 10 mg PO DAILY 12/14/16 Metformin HCl [Glucophage] 1,000 mg PO BID 12/14/16 Triamcinolone 0.1% Ointment 1 applic TP DAILY 12/14/16 [Aristocort 0.1% Ointment -] A/P: The patient is a 46 year old female with significant past medical history of asthma, COPD, diabetes, hypertension, hyperlipidemia, bilateral DVTs, and s/p IVC filter who presents with 7 days of SOB and wheezing that got progression. # Anticubital Pus with Hx of MRSA in the past s/p one dose of vancomycin on 1st dose ,today day 2 of vancomycin ; ID on consult, wound culture was sent yesterday. # Acute exacerbation of asthma continues ; On IV steroid 40mg IV q6h will start to taper her off in am, neb. treatments, pulmonary consult appreciated. Singulair, symbicort , Albuterol nebs. 2 liter Oxygen. Patient is still smoking cigarette. Advised to quit smoking. #T2DM, refusing BGMs. Metformin and Glipizide added # Hx of BL DVT in lower extremities : Refused INR to be checked this morning , discussed with her that PT/INR needed , INR 12/16 was 1.72 increased her coumadin dose to 10mg and started on lovenox 65mg Sq bid for bridging. Today INR is 2.99 will stop Lovenox and cut down INR to her actual dose from home, will monitor. #Eczema; Benadryl 50 mg bid prn # Hyperlipidemia; cont.Atorvastatin DvT Px: coumadin Patient has a tendency to refuse blood work this morning , does not want diabetic diet, does not want sliding scale with coverage. doesn't want her blood work to be done today, stated that she will do PT/INR tomorrow 12/20. Visit type - Emergency Visit Emergency Visit: Yes ED Registration Date: 12/15/16 Care time: The patient presented to the Emergency Department on the above date and was hospitalized for further evaluation of their emergent condition. - New Patient This patient is new to me today: No - Critical Care Critical Care patient: No
[2016-12-19] MEDS ORDERED: WARFARIN NA 2.5 MG TABLET (FP) ONE (17:45)
[2016-12-19] MEDS ORDERED: WARFARIN NA 3 MG TABLET ONE (17:46)
[2016-12-19] MEDS ORDERED: WARFARIN NA PO ONE ×2 (18:00)
[2016-12-19] MEDS ORDERED: WARFARIN NA 7.5 MG TABLET (FP) PO ONE (18:00)
[2016-12-19] MEDS: diphenhydrAMINE HCL 25 MG CAPSULE (FP) PO PRN (18:03)
[2016-12-19] MEDS: ALBUTEROL SO4 0.083% IH SOL 2.5 MG/3 ML VIAL.NEB. NEB PRN ×2 (18:31→21:54)
[2016-12-19] MEDS: ATORVASTATIN CA 10 MG TABLET (FP) PO SCH (21:34)
[2016-12-19] MEDS: MONTELUKAST NA 10 MG TABLET PO SCH (21:34)
[2016-12-19] MEDS: ZOLPIDEM TARTRATE 5 MG TABLET PO PRN (21:34)
[2016-12-19] MEDS: CHLORHEXIDINE GLUCONATE 4% CLEANSER FOR DECOLONIZATION TP SCH (21:35)
[2016-12-20] MEDS: methylPREDNISolone NA SUCC 40 MG/1 ML VIAL IVPB SCH ×3 (02:46→21:28)
[2016-12-20] MEDS: hydrOXYzine HCL 25 MG TABLET (FP) PO SCH ×3 (05:59→21:27)
[2016-12-20] MEDS: glipiZIDE-XL 10 MG TAB.ER.24 (FP) PO SCH (06:01)
[2016-12-20] MEDS: metFORMIN HCL 500 MG TABLET (FP) PO SCH ×2 (06:01→18:05)
[2016-12-20] MEDS: MUPIROCIN 2% TOPICAL OINTMENT 22 GM TUBE TP SCH ×3 (06:02→21:47)
[2016-12-20] MEDS: INSULIN SLIDING SCALE (NOVOLOG) 1 VIAL SQ SCH ×5 (06:03→22:30)
[2016-12-20] MEDS: diphenhydrAMINE HCL 25 MG CAPSULE (FP) PO PRN (06:08)
[2016-12-20] MEDS: VANCOMYCIN 1 GRAM (PRE-DOCKED) 1,000 MG/250 ML BAG IVPB SCH (09:13)
[2016-12-20] MEDS: TRIAMCINOLONE ACET 0.1% OINT 15 GM TUBE TP SCH (10:52)
[2016-12-20] MEDS: BUDESONIDE/FORMETEROL FUMARATE 160/4.5 mcg INHALER IH SCH ×2 (10:52→21:47)
[2016-12-20] MEDS: TIOTROPIUM BROMIDE 18 MCG/INH (DEVICE W/ 5 CAPSULES) IH SCH (10:52)
[2016-12-20] MEDS ORDERED: PT OWN MED DRAWER 7, Y5N ONE ×4 (11:02→22:36)
--- NOTE | 2016-12-20 12:07 | PN ---
Physical Exam: SUBJECTIVE: The pt refused seeing me today and physical examination. OBJECTIVE: Vital Signs Period Temp Pulse Resp BP Sys/Oneil Pulse Ox Last 24 Hr 97.5 F-98.1 F 79-103 18-20 125-129/75-84 98 Physical examination: N/A Laboratory Results - last 24 hr 12/19/16 12/19/16 12/20/16 15:10 21:30 06:01 POC Glucometer 344 203 256 Active Medications Generic Name Dose Route Start Last Admin Trade Name Freq PRN Reason Stop Dose Admin Albuterol Sulfate 1 amp 12/16/16 12:47 12/19/16 21:54 Ventolin 0.083% Nebulizer Soln - NEB 1 amp Q4H PRN Administration SHORT OF BREATH/WHEEZING Atorvastatin Calcium 10 mg 12/14/16 22:00 12/19/16 21:34 Lipitor - PO 10 mg HS SUKHDEV Administration Budesonide/Formoterol Fumarate 2 puff 12/16/16 13:45 12/20/16 10:52 Symbicort 160/4.5mcg - IH 2 inh BID SUKHDEV Administration Chlorhexidine Gluconate 1 applic 12/14/16 22:00 12/19/16 21:35 Hibiclens For Decolonization - TP Not Given HS SUKHDEV Diphenhydramine HCl 50 mg 12/19/16 16:53 12/20/16 06:08 Benadryl - PO 50 mg BID PRN Administration FOR ITCHING Glipizide 10 mg 12/18/16 12:00 12/20/16 06:01 Glucotrol Xl - PO 10 mg DAILY@0700 SUKHDEV Administration Hydroxyzine HCl 50 mg 12/14/16 22:00 12/20/16 05:59 Atarax - PO 50 mg TID SUKHDEV Administration Insulin Aspart 1 vial 12/14/16 16:30 12/20/16 06:03 Novolog Vial Sliding Scale - SQ 6 unit ACHS SUKHDEV Administration Protocol Metformin HCl 1,000 mg 12/18/16 11:30 12/20/16 06:01 Glucophage - PO 1,000 mg BIDAC SUKHDEV Administration Methylprednisolone Sodium Succinate 40 mg 12/20/16 10:00 12/20/16 10:52 Solu-Medrol - IVPB 40 mg BID SUKHDEV Administration Montelukast Sodium 10 mg 12/15/16 22:00 12/19/16 21:34 Singulair - PO 10 mg HS SUKHDEV Administration Mupirocin 1 applic 12/17/16 22:00 12/20/16 06:02 Bactroban 2% Ointment - TP 1 applic TID SUKHDEV Administration Tiotropium [place] 1 puff 12/16/16 14:05 12/20/16 10:52 Spiriva - IH 1 inh DAILY SUKHDEV Administration Triamcinolone Acetonide 1 applic 12/14/16 14:45 12/20/16 10:52 Aristocort 0.1% Ointment - TP 1 applic DAILY SUKHDEV Administration Vancomycin HCl 1,000 mg 12/19/16 10:00 12/20/16 09:13 Vancomycin (Pre-Docked) IVPB 1,000 mg DAILY SUKHDEV Administration Protocol Zolpidem Tartrate 5 mg 12/14/16 20:42 12/19/16 21:34 Ambien - PO 5 mg HS PRN Administration INSOMNIA ASSESSMENT/PLAN: CXR:No acute changes EKG: Sinus tachycardia, no ST changes ASSESSMENT/PLAN: The patient is a 46 year old female with significant past medical history of asthma, COPD, diabetes, hypertension, hyperlipidemia, bilateral DVTs, and s/p IVC filter who presents with 7 days of SOB and wheezing that got progressively worse. She is admitted for acute asthma exacerbation. SIRS due to asthma exacerbation; -she continue to have wheezing today, cont Solu-medrol 40 mg IV BID and Singulair -Albuterol neb -Duonebs -Oxygen Supplementation -monitor vitals -f/u Pulmonary consultation -given one dose of Zithromax Anticubital area minimal pus and redness -Hx of MRSA in the past s/p one dose of vancomycin on 12/18 1st dose ,today day 3 of Vancomycin ; -ID on consult, -wound culture is positive for Staphylococcus Aureus DM type 2; -refusing ISS, BGM ACHS -cont. Metformin and Glipizide Hyperlipidemia; -cont. Atorvastatin DVT in lower extremities B/l: -Refused INR to be checked this morning agreed to have it checked later today. -INR- 7.34 today -will hold her Coumadin for tonight -PT/INR in AM Atypical chest pain: -assoc. 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 - New Patient This patient is new to me today: No - Critical Care Critical Care patient: No - Discharge Referral Referred to [facility] Med P.C.: No
[2016-12-20 14:21] LABS: PROTHROMBIN TIME (PATIENT) 84.1 SEC (9.98-11.88)
[2016-12-20 14:29] LABS: INR 7.34 (0.82-1.09)
--- NOTE | 2016-12-20 14:43 | PN ---
Progress Note (short form) - Note Progress Note: breathing improved Vital Signs Period Temp Pulse Resp BP Sys/Oneil Pulse Ox Last 24 Hr 97.5 F-98.1 F 79-103 18-20 125-129/75-84 98 cor-rrr lungs rare wheeze right antecub fossa minimal erythema, no purulence noted CBC, BMP 12/18/16 11:20 12/18/16 11:20 Microbiology 12/17/16 18:30 Arm - Right Forearm Gram Stain - Final 12/17/16 18:30 Arm - Right Forearm Wound Culture - Preliminary Staphylococcus Aureus Pending Organism 12/18/16 16:00 Blood - Peripheral Venous Blood Culture - Preliminary NO GROWTH OBTAINED AFTER 24 HOURS, INCUBATION TO CONTINUE FOR 4 DAYS. 12/18/16 16:00 Blood - Peripheral Venous Blood Culture - Preliminary NO GROWTH OBTAINED AFTER 24 HOURS, INCUBATION TO CONTINUE FOR 4 DAYS. 12/14/16 15:15 Nares - Mrsa Screen - Right MRSA Screen - Final NO MRSA ISOLATED 12/14/16 15:15 Nares - Mrsa Screen - Left MRSA Screen - Final NO MRSA ISOLATED 12/14/16 09:24 Nasopharyngeal Swab Influenza Types A,B Antigen (PILAR) - Final 12/14/16 09:24 Nasopharyngeal Swab - Final a/p asthma exacerbation small abscess arm open and clean, no drainage noted- vancomycin day #3, PEN ALLERGY, Can switch to po bactrim in am for 3 days please call back if needed
--- NOTE | 2016-12-20 14:44 | PN ---
Teaching Attending Note Name of Resident: Laine Flores ATTENDING PHYSICIAN STATEMENT I saw and evaluated the patient. I reviewed the resident's note and discussed the case with the resident. I agree with the resident's findings and plan as documented. SUBJECTIVE: Comfortable, sitting on the bed . NAD. No fever no chilles OBJECTIVE: Vital Signs Temperature 97.5 F L 12/20/16 07:03 Pulse Rate 79 12/20/16 07:03 Respiratory Rate 20 12/20/16 07:03 Blood Pressure 125/84 12/20/16 07:03 O2 Sat by Pulse Oximetry (%) 98 12/19/16 21:00 GENERAL: Awake, alert, and fully oriented, in no acute distress. HEAD: Normal with no signs of trauma. EYES: Pupils equal, round and reactive to light, extraocular movements intact, sclera anicteric, conjunctiva clear. EARS, NOSE, THROAT: Ears normal, nares patent, oropharynx clear without exudates. Moist mucous membranes. NECK: Normal range of motion, supple without lymphadenopathy, JVD, or masses. LUNGS: positive wheezing B/L, no crackles. No accessory muscle use. HEART: Regular rate and rhythm, normal S1 and S2 without murmur, rub or gallop. ABDOMEN: Obese, soft, nontender, not distended, normoactive bowel sounds, no guarding, no rebound, no masses. EXTREMITIES: 2+ pulses, No calf tenderness. No peripheral edema. Right a nticubital pus is minimal today NEUROLOGICAL: Normal speech. Normal gait. No facial asymmetry. PSYCHIATRIC: Cooperative. Good eye contact. Anxious. SKIN: Warm, dry, normal turgor, mild bruise on right breast, striae on abdomen. CBCD WBC 20.3 K/mm3 (4.0-10.0) H D 12/18/16 11:20 RBC 3.98 M/mm3 (3.60-5.2) 12/18/16 11:20 Hgb 11.5 GM/dL (10.7-15.3) 12/18/16 11:20 Hct 35.4 % (32.4-45.2) 12/18/16 11:20 MCV 88.9 fl (80-96) 12/18/16 11:20 MCHC 32.5 g/dl (32.0-36.0) 12/18/16 11:20 RDW 16.6 % (11.6-15.6) H 12/18/16 11:20 Plt Count 239 K/MM3 (134-434) 12/18/16 11:20 MPV 9.7 fl (7.5-11.1) 12/18/16 11:20 CMP Sodium 141 mmol/L (136-145) 12/18/16 11:20 Potassium 4.6 mmol/L (3.5-5.1) 12/18/16 11:20 Chloride 102 mmol/L (98-107) 12/18/16 11:20 Carbon Dioxide 22 mmol/L (21-32) 12/18/16 11:20 Anion Gap 17 (8-16) H 12/18/16 11:20 BUN 19 mg/dL (7-18) H 12/18/16 11:20 Creatinine 1.2 mg/dL (0.55-1.02) H D 12/18/16 11:20 Creat Clearance w eGFR 48.80 (>60) 12/18/16 11:20 Random Glucose 273 mg/dL (74-106) H D 12/18/16 11:20 Calcium 9.9 mg/dL (8.5-10.1) 12/18/16 11:20 Total Bilirubin 0.2 mg/dL (0.2-1.0) D 12/18/16 11:20 AST 13 U/L (15-37) L D 12/18/16 11:20 ALT 42 U/L (12-78) 12/18/16 11:20 Alkaline Phosphatase 74 U/L (45-117) 12/18/16 11:20 Total Protein 7.5 g/dl (6.4-8.2) 12/18/16 11:20 Albumin 3.6 g/dl (3.4-5.0) 12/18/16 11:20 Current Medications Generic Name Dose Route Start Last Admin Trade Name Freq PRN Reason Stop Dose Admin Albuterol Sulfate 1 amp 12/16/16 12:47 12/19/16 21:54 Ventolin 0.083% Nebulizer Soln - NEB 1 amp Q4H PRN Administration SHORT OF BREATH/WHEEZING Atorvastatin Calcium 10 mg 12/14/16 22:00 12/19/16 21:34 Lipitor - PO 10 mg HS SUKHDEV Administration Azithromycin 500 mg 12/20/16 12:47 Zithromax - PO 12/20/16 12:48 ONCE ONE Budesonide/Formoterol Fumarate 2 puff 12/16/16 13:45 12/20/16 10:52 Symbicort 160/4.5mcg - IH 2 inh BID SUKHDEV Administration Chlorhexidine Gluconate 1 applic 12/14/16 22:00 12/19/16 21:35 Hibiclens For Decolonization - TP Not Given HS SUKHDEV Diphenhydramine HCl 50 mg 12/19/16 16:53 12/20/16 06:08 Benadryl - PO 50 mg BID PRN Administration FOR ITCHING Glipizide 10 mg 12/18/16 12:00 12/20/16 06:01 Glucotrol Xl - PO 10 mg DAILY@0700 SUKHDEV Administration Hydroxyzine HCl 25 mg 12/20/16 12:48 Atarax - PO TID SUKHDEV Insulin Aspart 1 vial 12/14/16 16:30 12/20/16 14:21 Novolog Vial Sliding Scale - SQ 6 unit ACHS SUKHDEV Administration Protocol Metformin HCl 1,000 mg 12/18/16 11:30 12/20/16 06:01 Glucophage - PO 1,000 mg BIDAC SUKHDEV Administration Methylprednisolone Sodium Succinate 40 mg 12/20/16 10:00 12/20/16 10:52 Solu-Medrol - IVPB 40 mg BID SUKHDEV Administration Montelukast Sodium 10 mg 12/15/16 22:00 12/19/16 21:34 Singulair - PO 10 mg HS SUKHDEV Administration Mupirocin 1 applic 12/17/16 22:00 12/20/16 14:23 Bactroban 2% Ointment - TP 1 applic TID SUKHDEV Administration Tiotropium [place] 1 puff 12/16/16 14:05 12/20/16 10:52 Spiriva - IH 1 inh DAILY SUKHDEV Administration Triamcinolone Acetonide 1 applic 12/14/16 14:45 12/20/16 10:52 Aristocort 0.1% Ointment - TP 1 applic DAILY SUKHDEV Administration Zolpidem Tartrate 5 mg 12/14/16 20:42 12/19/16 21:34 Ambien - PO 5 mg HS PRN Administration INSOMNIA Microbiology 12/17/16 18:30 Arm - Right Forearm Gram Stain - Final 12/17/16 18:30 Arm - Right Forearm Wound Culture - Preliminary Staphylococcus Aureus Pending Organism 12/18/16 16:00 Blood - Peripheral Venous Blood Culture - Preliminary NO GROWTH OBTAINED AFTER 24 HOURS, INCUBATION TO CONTINUE FOR 4 DAYS. 12/18/16 16:00 Blood - Peripheral Venous Blood Culture - Preliminary NO GROWTH OBTAINED AFTER 24 HOURS, INCUBATION TO CONTINUE FOR 4 DAYS. 12/14/16 15:15 Nares - [place]sa Screen - Right MRSA Screen - Final NO MRSA ISOLATED 12/14/16 15:15 Nares - Mrsa Screen - Left MRSA Screen - Final NO MRSA ISOLATED 12/14/16 09:24 Nasopharyngeal Swab Influenza Types A,B Antigen (PILAR) - Final 12/14/16 09:24 Nasopharyngeal Swab - Final ASSESSMENT AND PLAN: The patient is a 46 year old female with significant past medical history of asthma, COPD, diabetes, hypertension, hyperlipidemia, bilateral DVTs, and s/p IVC filter who presents with 7 days of SOB and wheezing that got progression. # Anticubital area minimal pus and redness with Hx of MRSA in the past s/p one dose of vancomycin on 12/18 1st dose ,today day 3 of vancomycin ; ID on consult, wound culture is positive for Staphylococcus Aureus # Acute exacerbation of asthma improving ; On IV steroid 40mg IV q12hr, tapeing her off steroid , neb. treatments, pulmonary consult appreciated. Singulair, symbicort , Albuterol nebs. 2 liter Oxygen. Patient is still smoking cigarette. Advised to quit smoking. Given one dose of zithromax #T2DM, refusing BGMs. Metformin and Glipizide added # Hx of BL DVT in lower extremities : Refused INR to be checked this morning agreed to have done after talking to her , INR is 7 today after aqreeing to have INR done 12/19 ; will hold the coumadin since IVR is around 7.o will hold her coumadin for tonight # Hyperlipidemia; cont.Atorvastatin DvT Px: coumadin Patient has a tendency to refuse blood work , does not want diabetic diet, does not want sliding scale with coverage. doesn't want her blood work to be done on a daily basis . PT/INR in am needed since her INR is elevated 7.0 .
[2016-12-20] MEDS ORDERED: AZITHROMYCIN 250 MG TABLET (FP) PO ONE (15:30)
[2016-12-20] MEDS: MONTELUKAST NA 10 MG TABLET PO SCH (21:27)
[2016-12-20] MEDS: ATORVASTATIN CA 10 MG TABLET (FP) PO SCH (21:27)
[2016-12-20] MEDS: ZOLPIDEM TARTRATE 5 MG TABLET PO PRN (21:35)
[2016-12-20] MEDS: ALBUTEROL SO4 0.083% IH SOL 2.5 MG/3 ML VIAL.NEB. NEB PRN (22:26)
[2016-12-20] MEDS: CHLORHEXIDINE GLUCONATE 4% CLEANSER FOR DECOLONIZATION TP SCH (22:30)
[2016-12-21] MEDS: ALBUTEROL SO4 0.083% IH SOL 2.5 MG/3 ML VIAL.NEB. NEB PRN (04:45)
[2016-12-21] MEDS: MUPIROCIN 2% TOPICAL OINTMENT 22 GM TUBE TP SCH ×3 (06:18→21:50)
[2016-12-21] MEDS: hydrOXYzine HCL 25 MG TABLET (FP) PO SCH ×4 (06:18→22:36)
[2016-12-21] MEDS ORDERED: PT OWN MED DRAWER 7, Y5N ONE ×5 (06:37→21:52)
[2016-12-21] MEDS: diphenhydrAMINE HCL 25 MG CAPSULE (FP) PO PRN (07:03)
[2016-12-21] MEDS: metFORMIN HCL 500 MG TABLET (FP) PO SCH ×2 (07:03→17:51)
[2016-12-21] MEDS: glipiZIDE-XL 10 MG TAB.ER.24 (FP) PO SCH (07:04)
[2016-12-21] MEDS: INSULIN SLIDING SCALE (NOVOLOG) 1 VIAL SQ SCH ×4 (07:05→22:04)
[2016-12-21 08:56] LABS: PROTHROMBIN TIME (PATIENT) 60.6 SEC (9.98-11.88)
[2016-12-21 09:05] LABS: CALCIUM 9.2 mg/dL (8.5-10.1); CREATININE 1.1 mg/dL (0.55-1.02)
[2016-12-21 09:30] LABS: INR 5.32 (0.82-1.09)
[2016-12-21] MEDS: TRIAMCINOLONE ACET 0.1% OINT 15 GM TUBE TP SCH (10:05)
[2016-12-21] MEDS: TIOTROPIUM BROMIDE 18 MCG/INH (DEVICE W/ 5 CAPSULES) IH SCH (10:05)
[2016-12-21] MEDS: BUDESONIDE/FORMETEROL FUMARATE 160/4.5 mcg INHALER IH SCH ×2 (10:05→22:36)
[2016-12-21] MEDS: SULFAMETHOXAZOLE/TRIMETHOPRIM 800MG/160MG D.S. TABLET PO SCH ×2 (10:05→21:50)
[2016-12-21] MEDS: methylPREDNISolone NA SUCC 40 MG/1 ML VIAL IVPB SCH ×3 (10:06→22:36)
--- NOTE | 2016-12-21 14:17 | PN ---
Progress Note, Physician History of Present Illness: pulmonary alert,c/o sob,but appears comfortable. - Current Medication List Current Medications: Active Medications Atorvastatin Calcium (Lipitor -) 10 mg PO HS [facility] Last Admin: 12/20/16 21:27 Dose: 10 mg Budesonide/Formoterol Fumarate (Symbicort 160/4.5mcg -) 2 puff IH BID [facility] Last Admin: 12/21/16 10:05 Dose: 2 inh Chlorhexidine Gluconate (Hibiclens For Decolonization -) 1 applic TP [facility] Last Admin: 12/20/16 22:30 Dose: Not Given Diphenhydramine HCl (Benadryl -) 50 mg PO BID PRN PRN Reason: FOR ITCHING Last Admin: 12/21/16 07:03 Dose: 50 mg Glipizide (Glucotrol Xl -) 10 mg PO DAILY@0700 [facility] Last Admin: 12/21/16 07:04 Dose: 10 mg Hydroxyzine HCl (Atarax -) 25 mg PO TID [facility] Last Admin: 12/21/16 06:45 Dose: 25 mg Insulin Aspart (Novolog Vial Sliding Scale -) 1 vial SQ ACHS [facility] PRN Reason: Protocol Last Admin: 12/21/16 13:12 Dose: Not Given Metformin HCl (Glucophage -) 1,000 mg PO BIDAC [facility] Last Admin: 12/21/16 07:03 Dose: 1,000 mg Methylprednisolone Sodium Succinate (Solu-Medrol -) 40 mg IVPB BID [facility] Last Admin: 12/21/16 10:06 Dose: 40 mg Montelukast Sodium (Singulair -) 10 mg PO [facility] Last Admin: 12/20/16 21:27 Dose: 10 mg Mupirocin (Bactroban 2% Ointment -) 1 applic TP TID [facility] Last Admin: 12/21/16 06:18 Dose: Not Given Tiotropium [place] (Spiriva -) 1 puff IH DAILY [facility] Last Admin: 12/21/16 10:05 Dose: 1 inh Triamcinolone Acetonide (Aristocort 0.1% Ointment -) 1 applic TP DAILY [facility] Last Admin: 12/21/16 10:05 Dose: 1 applic Trimethoprim/Sulfamethoxazole (Bactrim Ds -) 1 each PO BID [facility] Last Admin: 12/21/16 10:05 Dose: 1 each - Objective Vital Signs: Vital Signs Temperature 97.7 F 12/21/16 06:00 Pulse Rate 95 H 12/21/16 06:00 Respiratory Rate 20 12/21/16 09:00 Blood Pressure 107/61 12/21/16 06:00 O2 Sat by Pulse Oximetry (%) 98 12/21/16 09:00 Constitutional: Yes: Well Nourished, Calm Eyes: Yes: WNL HENT: Yes: WNL Neck: Yes: WNL Cardiovascular: Yes: Regular Rate and Rhythm, S1, S2 Respiratory: Yes: Wheezes (maria teresa wheezes) Gastrointestinal: Yes: Normal Bowel Sounds, Soft Extremities: Yes: WNL Edema: No Labs: CBC, BMP 12/18/16 11:20 12/21/16 08:00 INR, PTT INR 5.32 (0.82-1.09) H* 12/21/16 08:00 - ....Imaging Chest X-ray: Report Reviewed, Image Reviewed Assessment/Plan Problem List - Problems (1) Asthma Code(s): J45.909 - UNSPECIFIED ASTHMA, UNCOMPLICATED Qualifiers: Asthma severity: unspecified severity Asthma complication type: with acute exacerbation Qualified Code(s): J45.901 - Unspecified asthma with ( acute) exacerbation (2) DVT (deep venous thrombosis) Code(s): I82.409 - ACUTE EMBOLISM AND THOMBOS UNSP DEEP VN UNSP LOWER EXTREMITY (4) COPD (chronic obstructive pulmonary disease) with acute bronchitis Code(s): J44.0 - CHRONIC OBSTRUCTIVE PULMON DISEASE W ACUTE LOWER RESP INFCT Assessment/Plan IMP: Acute Bronchitis Asthma PLAN: Coumadin as per INR O2 as needed BD TX Symbicort Spiriva add Singular No smoking continue steroids monitor peak flow Outpatient PFTs once stable DR MEHTA
--- NOTE | 2016-12-21 15:49 | PN ---
Teaching Attending Note Name of Resident: Laine Flores ATTENDING PHYSICIAN STATEMENT I saw and evaluated the patient. I reviewed the resident's note and discussed the case with the resident. I agree with the resident's findings and plan as documented. SUBJECTIVE: Reports chest tightness and shortness of breath on exertion. Verbally abusive to staff. Refusing to be examined by residents. Stated to me that she smoked marijuana in her room last night. Refused lab draw OBJECTIVE: Vital Signs - 24 hr 12/20/16 12/20/16 12/20/16 17:00 21:00 22:00 Temperature 98.3 F 97.9 F Pulse Rate 111 H 102 H Respiratory 20 18 Rate Blood Pressure 128/78 128/77 O2 Sat by Pulse 98 Oximetry (%) 12/21/16 12/21/16 06:00 09:00 Temperature 97.7 F Pulse Rate 95 H Respiratory 20 20 Rate Blood Pressure 107/61 O2 Sat by Pulse 98 Oximetry (%) Constitutional: Yes: Well Nourished Eyes: Yes: WNL HENT: Yes: WNL Neck: Yes: WNL Cardiovascular: Yes: Regular Rate and Rhythm, S1, S2 Respiratory: Yes: Wheezes B/L Gastrointestinal: Yes: Normal Bowel Sounds, Soft, multiple striae Extremities: Yes: WNL ASSESSMENT AND PLAN: The patient is a 46 year old female with significant past medical history of asthma, COPD, diabetes, hypertension, hyperlipidemia, bilateral DVTs, and s/p IVC filter who presents with 7 days of SOB and wheezing. # Right arm cellulitis , antecubital- improving , no drainage, no erythema. Patient is constantly squeezing and manipulating the wound trying to express pus. -Oral Bactrim ordered. # Acute exacerbation of asthma/COPD improving however still wheezing a lot. Non compliant with respiratory treatments and scheduled medications. -continue IV solumedro; - peak flow -nebs # Coumadin induced coagulopathy- refusing labwork, no signs of active bleeding holding coumadin Patient continued being verbally abusive, non cooperative with exam, refused current plan of care, requesting increased dose of benadryl and Ambien .
--- NOTE | 2016-12-21 16:15 | PN ---
Physical Exam: SUBJECTIVE: Patient seen and examined. She refused seeing me and physical examination as well. SAs reported from nurses she is not compliant with medications, refuses lab work. OBJECTIVE: Vital Signs Period Temp Pulse Resp BP Sys/Oneil Pulse Ox Last 24 Hr 97.7 F-98.3 F 95-111 18-20 107-128/61-78 98-98 PE: N/A Laboratory Results - last 24 hr 12/20/16 12/21/16 12/21/16 18:01 06:51 08:00 INR 5.32 H* Sodium Potassium Chloride Carbon Dioxide Anion Gap BUN Creatinine POC Glucometer 193 228 Random Glucose Calcium 12/21/16 08:00 INR Sodium 139 Potassium 4.3 Chloride 100 Carbon Dioxide 27 D Anion Gap 12 BUN 29 H D Creatinine 1.1 H POC Glucometer Random Glucose 178 H D Calcium 9.2 Active Medications Generic Name Dose Route Start Last Admin Trade Name Freq PRN Reason Stop Dose Admin Atorvastatin Calcium 10 mg 12/14/16 22:00 12/20/16 21:27 Lipitor - PO 10 mg HS SUKHDEV Administration Budesonide/Formoterol Fumarate 2 puff 12/16/16 13:45 12/21/16 10:05 Symbicort 160/4.5mcg - IH 2 inh BID SUKHDEV Administration Chlorhexidine Gluconate 1 applic 12/14/16 22:00 12/20/16 22:30 Hibiclens For Decolonization - TP Not Given HS SUKHDEV Diphenhydramine HCl 50 mg 12/19/16 16:53 12/21/16 07:03 Benadryl - PO 50 mg BID PRN Administration FOR ITCHING Glipizide 10 mg 12/18/16 12:00 12/21/16 07:04 Glucotrol Xl - PO 10 mg DAILY@0700 SUKHDEV Administration Hydroxyzine HCl 25 mg 12/20/16 12:48 12/21/16 06:45 Atarax - PO 25 mg TID SUKHDEV Administration Insulin Aspart 1 vial 12/14/16 16:30 12/21/16 13:12 Novolog Vial Sliding Scale - SQ Not Given ACHS [facility] Protocol Metformin HCl 1,000 mg 12/18/16 11:30 12/21/16 07:03 Glucophage - PO 1,000 mg BIDAC SUKHDEV Administration Methylprednisolone Sodium Succinate 40 mg 12/20/16 10:00 12/21/16 10:06 Solu-Medrol - IVPB 40 mg BID SUKHDEV Administration Montelukast Sodium 10 mg 12/15/16 22:00 12/20/16 21:27 Singulair - PO 10 mg HS SUKHDEV Administration Mupirocin 1 applic 12/17/16 22:00 12/21/16 15:42 Bactroban 2% Ointment - TP 1 applic TID SUKHDEV Administration Tiotropium [place] 1 puff 12/16/16 14:05 12/21/16 10:05 Spiriva - IH 1 inh DAILY SUKHDEV Administration Triamcinolone Acetonide 1 applic 12/14/16 14:45 12/21/16 10:05 Aristocort 0.1% Ointment - TP 1 applic DAILY SUKHDEV Administration Trimethoprim/Sulfamethoxazole 1 each 12/21/16 10:00 12/21/16 10:05 Bactrim Ds - PO 1 each BID SUKHDEV Administration CXR:No acute changes EKG: Sinus tachycardia, no ST changes ASSESSMENT/PLAN: The patient is a 46 year old female with significant past medical history of asthma, COPD, diabetes, hypertension, hyperlipidemia, bilateral DVTs, and s/p IVC filter who presents with 7 days of SOB and wheezing that got progressively worse. She is admitted for acute asthma exacerbation. SIRS due to asthma exacerbation; -she continue to have wheezing today, cont. Solu-medrol 40 mg IV BID and Singulair -Albuterol neb -Duonebs -Oxygen Supplementation -monitor vitals -f/u Pulmonary consultation -given one dose of Zithromax Anticubital area minimal pus and redness -Hx of MRSA in the past s/p one dose of vancomycin on 12/18 1st dose ,today day 3 of Vancomycin ; -ID on consult, -wound culture is positive for Staphylococcus Aureus DM type 2; -refusing ISS, BGM ACHS -cont. Metformin and Glipizide Hyperlipidemia; -cont. Atorvastatin DVT in lower extremities B/l: -Refused INR to be checked this morning agreed to have it checked later today. -INR- 7.34 today -will hold her Coumadin for tonight -PT/INR in AM Atypical chest pain: -assoc. 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 - New Patient This patient is new to me today: No - Critical Care Critical Care patient: No - Discharge Referral Referred to [facility] Med P.C.: No
[2016-12-21] MEDS ORDERED: ZOLPIDEM TARTRATE 5 MG TABLET PO PRN (18:11)
[2016-12-21] MEDS: MONTELUKAST NA 10 MG TABLET PO SCH (21:50)
[2016-12-21] MEDS: ATORVASTATIN CA 10 MG TABLET (FP) PO SCH (21:50)
[2016-12-21] MEDS: CHLORHEXIDINE GLUCONATE 4% CLEANSER FOR DECOLONIZATION TP SCH (22:36)
[2016-12-22] MEDS ORDERED: PT OWN MED DRAWER 7, Y5N ONE ×4 (00:40→06:36)
[2016-12-22] MEDS ORDERED: ALBUTEROL SO4 0.083% IH SOL 2.5 MG/3 ML VIAL.NEB. NEB PRN (05:31)
[2016-12-22] MEDS: ALBUTEROL SO4 2.5/IPRATROPIUM 0.5 INH SOL 3 ML VIAL.NEB. NEB SCH ×2 (06:00→11:10)
[2016-12-22] MEDS: hydrOXYzine HCL 25 MG TABLET (FP) PO SCH (06:38)
[2016-12-22] MEDS: MUPIROCIN 2% TOPICAL OINTMENT 22 GM TUBE TP SCH (06:38)
[2016-12-22] MEDS: diphenhydrAMINE HCL 25 MG CAPSULE (FP) PO PRN (06:38)
[2016-12-22] MEDS: glipiZIDE-XL 10 MG TAB.ER.24 (FP) PO SCH ×2 (07:00→08:43)
[2016-12-22] MEDS: INSULIN SLIDING SCALE (NOVOLOG) 1 VIAL SQ SCH ×4 (07:00→12:06)
[2016-12-22] MEDS: metFORMIN HCL 500 MG TABLET (FP) PO SCH ×2 (07:00→08:41)
[2016-12-22 08:41] LABS: INR 2.81 (0.82-1.09); PROTHROMBIN TIME (PATIENT) 31.6 SEC (9.98-11.88)
[2016-12-22] MEDS: SULFAMETHOXAZOLE/TRIMETHOPRIM 800MG/160MG D.S. TABLET PO SCH (11:23)
[2016-12-22] MEDS: BUDESONIDE/FORMETEROL FUMARATE 160/4.5 mcg INHALER IH SCH (11:23)
[2016-12-22] MEDS: TIOTROPIUM BROMIDE 18 MCG/INH (DEVICE W/ 5 CAPSULES) IH SCH (11:23)
[2016-12-22] MEDS: methylPREDNISolone NA SUCC 40 MG/1 ML VIAL IVPB SCH (11:23)
[2016-12-22] MEDS: TRIAMCINOLONE ACET 0.1% OINT 15 GM TUBE TP SCH (11:23)
[2016-12-22 13:00] VITALS: BP 110/60; PULSE 88; TEMP 98.5
--- NOTE | 2016-12-22 16:54 | DS ---
Physical Exam: SUBJECTIVE: Patient refused seeing me today and physical examination. OBJECTIVE: Vital Signs Period Temp Pulse Resp BP Sys/Oneil Pulse Ox Last 24 Hr 97.7 F-98.5 F 88-103 18-20 110-115/60-83 98-98 PHYSICAL EXAM:N/A LABS Laboratory Results - last 24 hr 12/21/16 12/21/16 12/21/16 17:47 21:44 23:39 INR POC Glucometer 130 135 198 12/22/16 12/22/16 12/22/16 00:44 07:00 08:26 INR 2.81 H D POC Glucometer 309 264 12/22/16 12:03 INR POC Glucometer 121 HOSPITAL COURSE: Date of Admission:12/15/16 Date of Discharge: 12/22/16 Minutes to complete discharge: 50 Discharge Summary Reason For Visit: ASTHMA Current Active Problems COPD (chronic obstructive pulmonary disease) with acute bronchitis (Acute) Asthma (Chronic) Hospital Course: The patient is a 46 year old female with significant past medical history of asthma, COPD, diabetes, hypertension, hyperlipidemia, bilateral DVTs, and s/p IVC filter who presents with 7 days of SOB and wheezing that got progressively worse. Usually she uses Albuterol 4 times a day but she had to use it 8-12 times a day. She went to her PCP who gave her steroid shot. She hasn't noticed any improvement. She is also complaining of chest pain that started 7 days ago. The pain got worse x day. It was 8/10, constant, aggravated by deep breaths and movement and when admitted she reports that it is intermittent, 7/10, lasting several minutes. At time of evaluation, patient states she is feeling better but still has SOB when talking. She also states that feels lightheaded and has discomfort with urination but denies dysuria. She denies leg swelling, nausea, or vomiting, constipation, fever, chills. Hospital course: SIRS due to asthma exacerbation; -she was given Solu-medrol, Singulair, Albuterol neb, Duonebs, Oxygen Supplementation -we called Pulmonary consultation and she was given one dose of Zithromax Anticubital area minimal pus and redness -Hx of MRSA in the past, she was given Vancomycin, Bactrim, ID on consult, -wound culture is positive for Staphylococcus Aureus DM type 2;refusing ISS, BGM ACHS, we cont. Metformin and Glipizide Hyperlipidemia;cont. Atorvastatin DVT in lower extremities B/l: INR was flactuating, we adjusted the dose and frequency, held when elevated Atypical chest pain: assoc. with asthma exacerbation, movement, resolved. We had no suspicion for ACS, Heart score 2 Eczema; she was given Benadryl once a day She improved clinically and was discharged home. We recommended cont. Bactrim and Prednisone taper for 12 days. Over the course of her hospitalization she was not compliant with medications, refused blood work several times, BGMs, and was verbally abusive to medical personnel. We recommended visiting her PCP as outpatient. Condition: Improved - Instructions Diet, Activity, Other Instructions: Please take Prednisone everyday. Start with 40 mg twice a day today. Decrease by 10 mg every 3 days. We recommend Bactrim for 5 days, one pill a day. If your symptoms worsen come back to Emergency Room as soon as possible. Referrals: Shayy Palacios MD [Primary Care Provider] - Disposition: HOME - Home Medications Comprehensive Discharge Medication List: Ambulatory Orders Albuterol 2.5/Ipratropium 0.5 [Duoneb -] 1 neb IH ASDIR PRN 08/12/14 Hydroxyzine HCl [Atarax -] 50 mg PO TID 08/12/14 Albuterol Sulfate Inhaler - [Ventolin HFA Inhaler -] 2 inh PO Q4H PRN 03/03/15 Warfarin Sodium [Coumadin] 8.5 mg PO DAILY 03/03/15 Atorvastatin Calcium 10 mg PO HS 12/14/16 Diphenhydramine [Benadryl Capsule -] 50 mg PO DAILY 12/14/16 Glipizide [Glipizide ER] 10 mg PO DAILY 12/14/16 Metformin HCl [Glucophage] 1,000 mg PO BID 12/14/16 Triamcinolone 0.1% Ointment [Aristocort 0.1% Ointment -] 1 applic TP DAILY 12/14 Budesonide/Formeterol Fumarate [SYMBICORT 160/4.5mcg -] 2 puff IH BID #1 inhaler 12/22/16 Montelukast Na [Singulair -] 10 mg PO HS #30 tablet 12/22/16 Prednisone [Deltasone -] 10 mg PO ASDIR #80 tab 12/22/16 Sulfamethoxazole/Trimethoprim [Bactrim DS -] 1 each PO BID #10 tablet 12/22/16 Tiotropium [place] [Spiriva] 1 puff IH DAILY #1 inh 12/22/16 Problem List - Problems (1) Asthma Code(s): J45.909 - UNSPECIFIED ASTHMA, UNCOMPLICATED Qualifiers: Asthma severity: unspecified severity Asthma complication type: with acute exacerbation Qualified Code(s): J45.901 - Unspecified asthma with ( acute) exacerbation (2) DVT (deep venous thrombosis) Code(s): I82.409 - ACUTE EMBOLISM AND THOMBOS UNSP DEEP VN UNSP LOWER EXTREMITY (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 Critical Care patient: No - Discharge Referral Referred to [facility] Med P.C.: No
--- NOTE | 2016-12-22 17:19 | PN ---
Teaching Attending Note Name of Resident: Laine Flores ATTENDING PHYSICIAN STATEMENT I saw and evaluated the patient. I reviewed the resident's note and discussed the case with the resident. I agree with the resident's findings and plan as documented. SUBJECTIVE:patient continues being verbally abusive, refusing physical exam , non compliant with medical management ,does not agree or accept plan of care, has "DO NOT DISTURB' sign on her door, insulting residents and medical staff. OBJECTIVE: Vital Signs Temp 98.5 F 12/22/16 10:00 Pulse 88 12/22/16 10:00 Resp 20 12/22/16 12:51 BP 110/60 12/22/16 10:00 Pulse Ox 98 12/22/16 12:51 Intake & Output 12/21/16 12/22/16 12/22/16 23:59 11:59 23:59 Intake Total 850 200 Balance 850 200 Intake: IVPB 50 Oral 800 200 Other: Voiding Method Toilet Toilet # Unmeasured Voids Void 2 2 Refused exam Laboratory 12/15/16 12/16/16 12/16/16 21:39 05:56 08:20 WBC RBC Hgb Hct MCV MCHC RDW Plt Count MPV Neutrophils % Lymphocytes % Monocytes % Eosinophils % Basophils % Myelocytes Differential Comment INR 1.92 H D (0.82-1.09) Sodium Potassium Chloride Carbon Dioxide Anion Gap BUN Creatinine Creat Clearance w eGFR POC Glucometer 310 UNITS UNITS 237 UNITS UNITS (()) (()) Random Glucose Calcium Total Bilirubin AST ALT Alkaline Phosphatase Total Protein Albumin 12/16/16 12/16/16 12/16/16 08:20 08:20 11:01 WBC 13.9 K/mm3 H K/mm3 (4.0-10.0) RBC 4.07 M/mm3 M/mm3 (3.60-5.2) Hgb 11.7 GM/dL GM/dL (10.7-15.3) Hct 36.1 % % (32.4-45.2) MCV 88.8 fl fl (80-96) MCHC 32.3 g/dl g/dl (32.0-36.0) RDW 17.1 % H % (11.6-15.6) Plt Count 221 K/MM3 K/MM3 (134-434) MPV 10.5 fl fl (7.5-11.1) Neutrophils % 90.0 % H % (42.8-82.8) Lymphocytes % 7.1 % L D % (8-40) Monocytes % 2.7 % L % (3.8-10.2) Eosinophils % 0.0 % % (0-4.5) Basophils % 0.2 % % (0-2.0) Myelocytes Differential Comment INR Sodium 136 mmol/L mmol/L (136-145) Potassium 3.9 mmol/L mmol/L (3.5-5.1) Chloride 101 mmol/L mmol/L (98-107) Carbon Dioxide 23 mmol/L D mmol/L (21-32) Anion Gap 12 (8-16) BUN 16 mg/dL D mg/dL (7-18) Creatinine 0.9 mg/dL mg/dL (0.55-1.02) Creat Clearance w eGFR > 60 (>60) POC Glucometer 289 UNITS UNITS (()) Random Glucose 207 mg/dL H mg/dL (74-106) Calcium 9.3 mg/dL mg/dL (8.5-10.1) Total Bilirubin 0.5 mg/dL D mg/dL (0.2-1.0) AST 21 U/L D U/L (15-37) ALT 43 U/L U/L (12-78) Alkaline Phosphatase 79 U/L U/L (45-117) Total Protein 7.6 g/dl g/dl (6.4-8.2) Albumin 4.0 g/dl g/dl (3.4-5.0) 12/16/16 12/16/16 12/17/16 16:39 21:10 06:38 WBC RBC Hgb Hct MCV MCHC RDW Plt Count MPV Neutrophils % Lymphocytes % Monocytes % Eosinophils % Basophils % Myelocytes Differential Comment INR Sodium Potassium Chloride Carbon Dioxide Anion Gap BUN Creatinine Creat Clearance w eGFR POC Glucometer 329 UNITS UNITS 256 UNITS UNITS 337 UNITS UNITS (()) (()) (()) Random Glucose Calcium Total Bilirubin AST ALT Alkaline Phosphatase Total Protein Albumin 12/17/16 12/17/16 12/17/16 10:22 11:57 17:05 WBC RBC Hgb Hct MCV MCHC RDW Plt Count MPV Neutrophils % Lymphocytes % Monocytes % Eosinophils % Basophils % Myelocytes Differential Comment INR 1.72 H (0.82-1.09) Sodium Potassium Chloride Carbon Dioxide Anion Gap BUN Creatinine Creat Clearance w eGFR POC Glucometer 311 UNITS UNITS 252 UNITS UNITS (()) (()) Random Glucose Calcium Total Bilirubin AST ALT Alkaline Phosphatase Total Protein Albumin 12/18/16 12/18/16 12/18/16 06:57 11:20 11:20 WBC 20.3 K/mm3 H D K/mm3 (4.0-10.0) RBC 3.98 M/mm3 M/mm3 (3.60-5.2) Hgb 11.5 GM/dL GM/dL (10.7-15.3) Hct 35.4 % % (32.4-45.2) MCV 88.9 fl fl (80-96) MCHC 32.5 g/dl g/dl (32.0-36.0) RDW 16.6 % H % (11.6-15.6) Plt Count 239 K/MM3 K/MM3 (134-434) MPV 9.7 fl fl (7.5-11.1) Neutrophils % 86.0 % H % (42.8-82.8) Lymphocytes % 9.0 % D % (8-40) Monocytes % 3.0 % L % (3.8-10.2) Eosinophils % Basophils % Myelocytes 2 % % (0-2) Differential Comment Manual diff done INR Sodium 141 mmol/L mmol/L (136-145) Potassium 4.6 mmol/L mmol/L (3.5-5.1) Chloride 102 mmol/L mmol/L (98-107) Carbon Dioxide 22 mmol/L mmol/L (21-32) Anion Gap 17 H (8-16) BUN 19 mg/dL H mg/dL (7-18) Creatinine 1.2 mg/dL H D mg/dL (0.55-1.02) Creat Clearance w eGFR 48.80 (>60) POC Glucometer 387 UNITS UNITS (()) Random Glucose 273 mg/dL H D mg/dL (74-106) Calcium 9.9 mg/dL mg/dL (8.5-10.1) Total Bilirubin 0.2 mg/dL D mg/dL (0.2-1.0) AST 13 U/L L D U/L (15-37) ALT 42 U/L U/L (12-78) Alkaline Phosphatase 74 U/L U/L (45-117) Total Protein 7.5 g/dl g/dl (6.4-8.2) Albumin 3.6 g/dl g/dl (3.4-5.0) 12/18/16 12/18/16 12/18/16 11:20 11:49 16:59 WBC RBC Hgb Hct MCV MCHC RDW Plt Count MPV Neutrophils % Lymphocytes % Monocytes % Eosinophils % Basophils % Myelocytes Differential Comment INR 2.69 H D (0.82-1.09) Sodium Potassium Chloride Carbon Dioxide Anion Gap BUN Creatinine Creat Clearance w eGFR POC Glucometer 269 UNITS UNITS 361 UNITS UNITS (()) (()) Random Glucose Calcium Total Bilirubin AST ALT Alkaline Phosphatase Total Protein Albumin 12/18/16 12/19/16 12/19/16 21:16 06:49 15:10 WBC RBC Hgb Hct MCV MCHC RDW Plt Count MPV Neutrophils % Lymphocytes % Monocytes % Eosinophils % Basophils % Myelocytes Differential Comment INR Sodium Potassium Chloride Carbon Dioxide Anion Gap BUN Creatinine Creat Clearance w eGFR POC Glucometer 173 UNITS UNITS 315 UNITS UNITS 344 UNITS UNITS (()) (()) (()) Random Glucose Calcium Total Bilirubin AST ALT Alkaline Phosphatase Total Protein Albumin 12/19/16 12/20/16 12/20/16 21:30 06:01 13:40 WBC RBC Hgb Hct MCV MCHC RDW Plt Count MPV Neutrophils % Lymphocytes % Monocytes % Eosinophils % Basophils % Myelocytes Differential Comment INR 7.34 H* D (0.82-1.09) Sodium Potassium Chloride Carbon Dioxide Anion Gap BUN Creatinine Creat Clearance w eGFR POC Glucometer 203 UNITS UNITS 256 UNITS UNITS (()) (()) Random Glucose Calcium Total Bilirubin AST ALT Alkaline Phosphatase Total Protein Albumin 12/20/16 12/20/16 12/21/16 14:21 18:01 06:51 WBC RBC Hgb Hct MCV MCHC RDW Plt Count MPV Neutrophils % Lymphocytes % Monocytes % Eosinophils % Basophils % Myelocytes Differential Comment INR Sodium Potassium Chloride Carbon Dioxide Anion Gap BUN Creatinine Creat Clearance w eGFR POC Glucometer 284 UNITS UNITS 193 UNITS UNITS 228 UNITS UNITS (()) (()) (()) Random Glucose Calcium Total Bilirubin AST ALT Alkaline Phosphatase Total Protein Albumin 12/21/16 12/21/16 12/21/16 08:00 08:00 17:47 WBC RBC Hgb Hct MCV MCHC RDW Plt Count MPV Neutrophils % Lymphocytes % Monocytes % Eosinophils % Basophils % Myelocytes Differential Comment INR 5.32 H* (0.82-1.09) Sodium 139 mmol/L mmol/L (136-145) Potassium 4.3 mmol/L mmol/L (3.5-5.1) Chloride 100 mmol/L mmol/L (98-107) Carbon Dioxide 27 mmol/L D mmol/L (21-32) Anion Gap 12 (8-16) BUN 29 mg/dL H D mg/dL (7-18) Creatinine 1.1 mg/dL H mg/dL (0.55-1.02) Creat Clearance w eGFR POC Glucometer 130 UNITS UNITS (()) Random Glucose 178 mg/dL H D mg/dL (74-106) Calcium 9.2 mg/dL mg/dL (8.5-10.1) Total Bilirubin AST ALT Alkaline Phosphatase Total Protein Albumin 12/21/16 12/21/16 12/22/16 21:44 23:39 00:44 WBC RBC Hgb Hct MCV MCHC RDW Plt Count MPV Neutrophils % Lymphocytes % Monocytes % Eosinophils % Basophils % Myelocytes Differential Comment INR Sodium Potassium Chloride Carbon Dioxide Anion Gap BUN Creatinine Creat Clearance w eGFR POC Glucometer 135 UNITS UNITS 198 UNITS UNITS 309 UNITS UNITS (()) (()) (()) Random Glucose Calcium Total Bilirubin AST ALT Alkaline Phosphatase Total Protein Albumin 12/22/16 12/22/16 12/22/16 07:00 08:26 12:03 WBC RBC Hgb Hct MCV MCHC RDW Plt Count MPV Neutrophils % Lymphocytes % Monocytes % Eosinophils % Basophils % Myelocytes Differential Comment INR 2.81 H D (0.82-1.09) Sodium Potassium Chloride Carbon Dioxide Anion Gap BUN Creatinine Creat Clearance w eGFR POC Glucometer 264 UNITS UNITS 121 UNITS UNITS (()) (()) Random Glucose Calcium Total Bilirubin AST ALT Alkaline Phosphatase Total Protein Albumin ASSESSMENT AND PLAN: The patient is a 46 year old female with significant past medical history of asthma, COPD, diabetes, hypertension, hyperlipidemia, bilateral DVTs, and s/p IVC filter who presents with 7 days of SOB and wheezing. # Right arm cellulitis , antecubital- improving , no drainage, no erythema. Patient is constantly squeezing and manipulating the wound trying to express pus. -Oral Bactrim ordered but patients states that bactrim does not work for her and she wants to take clindamycin cultures are resistant to clindamycin. # Acute exacerbation of asthma/COPD improving however still wheezing. Non compliant with respiratory treatments and scheduled medications. was seen by my personally walking around the hospital cafeteria without signs of respiratory distress Vitals are stable will change recommendations to PO . Once again , noncompliant so risk of recurrent exacerbations is high . # Coumadin induced coagulopathy- inr now 2.8 will optimize medication regimen and switch to po steroids. Patient judith not require inpatient level of care since she is in full capacity to make decisions however is refusing current plan of care, exam and labs.
== END 2016-12-22 15:13 | disposition home or self-care (01) | DRG 141 ==
LOC: JER 04:00 → JERBED 09:27 → J5S 14:02 → OBSVTOIN 12-15 13:07 → J8W 12-15 19:08
PROVIDERS: ADMIT Internal Medicine; ATTEND Internal Medicine
DX: J45.901 Unspecified asthma with (acute) exacerbation (principal); E11.9 Type 2 diabetes mellitus without complications; I10 Essential (primary) hypertension; E78.5 Hyperlipidemia, unspecified; L30.8 Other specified dermatitis; L40.8 Other psoriasis; R07.89 Other chest pain; L02.419 Cutaneous abscess of limb, unspecified; J44.0 Chronic obstructive pulmonary disease with (acute) lower respiratory infection; R65.10 Systemic inflammatory response syndrome (SIRS) of non-infectious origin without acute organ dysfunction; Z91.19 Patient's noncompliance with other medical treatment and regimen; Z86.718 Personal history of other venous thrombosis and embolism
CPT/HCPCS: 36415; 71010-TC; 71020-TC; 80048; 80053; 81003; 81015; 84703; 85025; 85027; 85379; 85610; 87040; 87070; 87077; 87081; 87186; 87205; 87804; 93005; 93010; 94640; 99284-25; G0378

== ENCOUNTER 2018-08-08 15:48 | Inpatient (IN) | payer OTHER ==
--- NOTE | 2018-08-08 16:22 | PDOC ---
Rapid Medical Evaluation Time Seen by Provider: 08/08/18 16:19 Medical Evaluation: Allergies Allergy/AdvReac Type Severity Reaction Status Date / Time Penicillins Allergy Severe Rash Verified 12/17/16 18:38 acetaminophen [From Percocet] Allergy Verified 12/14/16 04:28 hydrocodone bitartrate Allergy Verified 12/14/16 04:28 [From Vicodin] iodine Allergy Verified 12/14/16 11:28 morphine Allergy Verified 12/14/16 04:28 oxycodone HCl [From Percocet] Allergy Verified 12/14/16 04:28 rivaroxaban [From Xarelto] Allergy Verified 12/14/16 04:28 dairy Allergy Severe Swelling Uncoded 12/14/16 04:28 eggs/egg-containing foods Allergy Severe Swelling Uncoded 12/14/16 04:28 FRESH BANANAS Allergy Severe ANAPHYLAXIS Uncoded 12/14/16 04:28 . tree nuts Allergy Severe Itching Uncoded 12/14/16 04:28 ammonium lactate cream Allergy Uncoded 12/14/16 04:28 cheese Allergy Uncoded 12/14/16 04:28 fresh apples Allergy Uncoded 12/14/16 04:28 fresh peaches Allergy Uncoded 12/14/16 04:28 fresh plums Allergy Uncoded 12/14/16 04:28 NARCOTICS Allergy Uncoded 12/14/16 04:28 08/08/18 16:20 The patient complains of: rle dvt in mid and femoral vein ( u/s done here today) . hx of PE and DVt, here for admission On brief exam: vss The patient ordered for: admission w/u The patient to proceed to the ED Discharge Disposition - Diagnosis DVT (deep venous thrombosis) - Referrals - Patient Instructions - Post Discharge Activity
--- NOTE | 2018-08-08 17:42 | PDOC ---
History of Present Illness - General Chief Complaint: Pain, Acute Stated Complaint: PCP ADMIT Time Seen by Provider: 08/08/18 16:19 History Source: Patient Exam Limitations: No Limitations - History of Present Illness Initial Comments: 08/08/18 17:37 47 yo female pmh COPD, HTN, hyperlipidemia, eczema, diabetes and 2 DVTs, 1 PE and IVC filter (2012) on Coumadin 7.5 (most recent INR unknown) presents to ED from PCP for 8 days of bilateral LE swelling (right more than left) and pain. Patient seen in clinic today and sent to hospital by PCP for leg swelling and r/ o DVT. Right DVT found on Ultrasound and patient told to proceed to ED for further assessment. Pain described as sharp and stabbing 7/10 pain leading to difficulty ambulating. Pt went to [facility] 2 weeks ago, diagnosed with Pneumonia and sent home on Clinda with no improvement of symptoms. Pt admits to CP with activity, SOB with green sputum production and fevers since she has had pneumonia , denies N/V, back pain or weakness in the legs. Past History - Past Medical History Allergies/Adverse Reactions: Allergies Allergy/AdvReac Type Severity Reaction Status Date / Time Penicillins Allergy Severe Rash Verified 08/08/18 16:26 acetaminophen [From Percocet] Allergy Verified 08/08/18 16:26 hydrocodone bitartrate Allergy Verified 08/08/18 16:26 [From Vicodin] iodine Allergy Verified 08/08/18 16:26 morphine Allergy Verified 08/08/18 16:26 oxycodone HCl [From Percocet] Allergy Verified 08/08/18 16:26 rivaroxaban [From Xarelto] Allergy Verified 08/08/18 16:26 dairy Allergy Severe Swelling Uncoded 08/08/18 16:26 eggs/egg-containing foods Allergy Severe Swelling Uncoded 08/08/18 16:26 FRESH BANANAS Allergy Severe ANAPHYLAXIS Uncoded 08/08/18 16:26 . tree nuts Allergy Severe Itching Uncoded 08/08/18 16:26 ammonium lactate cream Allergy Uncoded 08/08/18 16:26 cheese Allergy Uncoded 08/08/18 16:26 fresh apples Allergy Uncoded 08/08/18 16:26 fresh peaches Allergy Uncoded 08/08/18 16:26 fresh plums Allergy Uncoded 08/08/18 16:26 NARCOTICS Allergy Uncoded 08/08/18 16:26 Home Medications: Ambulatory Orders Albuterol 2.5/Ipratropium 0.5 [Duoneb -] 1 neb IH ASDIR PRN 08/12/14 hydrOXYzine HCL [Atarax -] 50 mg PO TID 08/12/14 Albuterol Sulfate Inhaler - [Ventolin HFA Inhaler -] 2 inh PO Q4H PRN 03/03/15 Warfarin Sodium [Coumadin] 8.5 mg PO DAILY 03/03/15 Atorvastatin Calcium 10 mg PO HS 12/14/16 Diphenhydramine [Benadryl Capsule -] 50 mg PO DAILY 12/14/16 Glipizide [Glipizide ER] 10 mg PO DAILY 12/14/16 Metformin HCl [Glucophage] 1,000 mg PO BID 12/14/16 Triamcinolone 0.1% Ointment [Aristocort 0.1% Ointment -] 1 applic TP DAILY 12/14 Budesonide/Formeterol Fumarate [SYMBICORT 160/4.5mcg -] 2 puff IH BID #1 inhaler 12/22/16 Montelukast Na [Singulair -] 10 mg PO HS #30 tablet 12/22/16 Sulfamethoxazole/Trimethoprim [Bactrim DS -] 1 each PO BID #10 tablet 12/22/16 Tiotropium [place] [Spiriva] 1 puff IH DAILY #1 inh 12/22/16 predniSONE [Deltasone -] 10 mg PO ASDIR #80 tab 12/22/16 Asthma: Yes COPD: Yes DVT: Yes (PE 2017) Diabetes: Yes - Surgical History Abdominal Surgery: Yes Cardiac Surgery: (CERESCO FILTER.) - Immunization History Immunization Up to Date: Yes - Suicide/Smoking/Psychosocial Hx Smoking Status: Yes Smoking History: Never smoked Have you smoked in the past 12 months: Yes Number of Cigarettes Smoked Daily: 5 Information on smoking cessation initiated: No 'Breaking Loose' booklet given: 12/16/16 Hx Alcohol Use: No Drug/Substance Use Hx: No Substance Use Type: None Hx Substance Use Treatment: No Review of Systems - Review of Systems Constitutional: Yes: Fever. No: Chills Respiratory: Yes: Shortness of Breath, Productive cough (green sputum production ) Cardiac (ROS): Yes: Chest Pain (with activity). No: Lightheadedness ABD/GI: No: Constipated, Diarrhea, Nausea, Vomiting : No: Burning, Dysuria Integumentary: Yes: Other (ezeema) Neurological: No: Headache Hematologic/Lymphatic: Yes: Blood Clots *Physical Exam - Vital Signs Last Vital Signs Temp Pulse Resp BP Pulse Ox 98.2 F 82 16 115/90 99 08/08/18 16:24 08/08/18 16:24 08/08/18 16:24 08/08/18 16:24 08/08/18 16:24 - Physical Exam General Appearance: Yes: Nourished, Appropriately Dressed. No: Apparent Distress HEENT: positive: EOMI Neck: negative: Carotid bruit Respiratory/Chest: positive: Wheezing (diffuse all lobes bilaterally). negative : Lungs Clear Cardiovascular: positive: Regular Rhythm, Regular Rate, S1, S2. negative: JVD, Murmur Vascular Pulses: Dorsalis-Pedis (R): 3+, Doralis-Pedis (L): 3+ Gastrointestinal/Abdominal: positive: Normal Bowel Sounds, Flat, Soft. negative : Distended, Guarding, Tenderness Extremity: positive: Normal Capillary Refill Integumentary: positive: Dry, Warm, Hives. negative: Normal Color Neurologic: positive: Fully Oriented, Alert. negative: Normal Mood/Affect ED Treatment Course - LABORATORY CBC & Chemistry Diagram: 08/08/18 17:35 08/08/18 17:35 Medical Decision Making - Medical Decision Making 08/08/18 20:39 47 yo female pmh of DVT, PE and has IVC filter presents to the ED for 8 days of bilateral LE edema. Pt also coughing and SOB for over 2 weeks, found to have Pneumonia and treated with Clinda. Pt found to have diffuse wheezing in all lung lobes. Bilateral legs swollen, right more than left. Painful calf Pt has diffuse body rash and pruritus, likely allergic rxn. Given 2 Duoneb treatments, prednisone and Benadryl. Pt allergic to contrast, will get a Chest X ray and admit to R/O PE with VQ scan. Likely Pneumonia causing SOB (vitals and O2 sat normal) but must r/o PE. Sign out to Dr. Silveira *DC/Admit/Observation/Transfer Diagnosis at time of Disposition: DVT (deep venous thrombosis) - Referrals - Patient Instructions - Post Discharge Activity
[2018-08-08 17:46] LABS: BASO % 0.3 % (0-2.0); EOS % 6.3 % (0-4.5); HEMATOCRIT 35.3 % (32.4-45.2); HEMOGLOBIN 11.9 GM/dL (10.7-15.3); LYMPH % 10.7 % (8-40); MCH 32.1 pg (25.7-33.7); MCHC 33.6 g/dl (32.0-36.0); MEAN CELL VOLUME 95.5 fl (80-96); MEAN PLT VOLUME 10.5 fl (7.5-11.1); MONO % 6.6 % (3.8-10.2); NEUT % 76.1 % (42.8-82.8); PLATELET COUNT 455 K/MM3 (134-434); RBC 3.69 M/mm3 (3.60-5.2); RDW 16.3 % (11.6-15.6)
--- NOTE | 2018-08-08 18:03 | PDOC ---
Attending Attestation - Resident Resident Name: Monico Blankenship - ED Attending Attestation I have performed the following: I have examined & evaluated the patient, The case was reviewed & discussed with the resident, I agree w/resident's findings & plan, Exceptions are as noted - HPI HPI: 08/08/18 19:04 Ms Hernandez is a 47 yoF h/o COPD, HTN, hyperlipidemia, diabetes and 2 DVTs, PE and IVC filter on Coumadin 7.5mg who presents to ED from PCP for 8 days of bilateral LE swelling (right more than left) and pain. Pt denies CP, SOB, F/C/N/V, back pain or weakness in the legs. - Physicial Exam PE: 08/08/18 19:05 GENERAL: The patient is in no acute distress. LUNGS: Diffuse wheezing noted HEART:Regular rate and rhythm, normal S1 and S2 without murmur, rub or gallop. ABDOMEN: Soft, nontender, normoactive bowel sounds. No guarding, no rebound. No masses palpable. EXTREMITIES: Normal range of motion, no edema. No clubbing or cyanosis. No erythema, or tenderness. NEUROLOGICAL: Cranial nerves II through XII grossly intact. Normal speech. No focal neurological deficits. MUSCULOSKELETAL: Back non-tender to palpation, no CVA tenderness SKIN: Diffuse urticaria/erythema, no open skin, no drainage - Medical Decision Making 08/08/18 19:07 Pt sent to the ER for admission IVC filter in place Pt has DVT RL Has a recent pneumonia dx Now with chest pain Will do: Labs CTA chest Admit
[2018-08-08 18:55] LABS: INR 1.69 (0.83-1.09)
[2018-08-08 18:57] LABS: ACTIVATED PTT 31.9 SECONDS (25.2-36.5)
[2018-08-08] MEDS ORDERED: ALBUTEROL SO4 2.5/IPRATROPIUM 0.5 INH SOL 3 ML VIAL.NEB. NEB ONE ×2 (19:06→19:53)
[2018-08-08] MEDS ORDERED: predniSONE 20 MG TABLET (UD) PO ONE (19:06)
[2018-08-08] MEDS ORDERED: diphenhydrAMINE HCL 25 MG CAPSULE (FP) PO ONE ×2 (19:53→20:07)
[2018-08-08] MEDS ORDERED: predniSONE 20 MG TABLET (UD) ONE (19:53)
[2018-08-08 19:55] LABS: N-TERMINAL BNP 33.8 pg/ml (5-125)
--- NOTE | 2018-08-08 21:42 | PDOC ---
*Physical Exam - Vital Signs Last Vital Signs Temp Pulse Resp BP Pulse Ox 98.2 F 82 16 115/90 99 08/08/18 16:24 08/08/18 16:24 08/08/18 16:24 08/08/18 16:24 08/08/18 16:24 ED Treatment Course - LABORATORY CBC & Chemistry Diagram: 08/08/18 17:35 08/08/18 22:51 - ADDITIONAL ORDERS Additional order review: Laboratory Results 08/08/18 08/08/18 08/08/18 19:03 18:04 17:35 PT with INR 20.00 H INR 1.69 H PTT (Actin FS) 31.9 Sodium Potassium Chloride Carbon Dioxide Anion Gap BUN Creatinine Creat Clearance w eGFR Random Glucose Calcium Total Bilirubin AST ALT Alkaline Phosphatase Creatine Kinase 92 Troponin I < 0.02 B-Natriuretic Peptide 33.8 Total Protein Albumin Blood Type O POSITIVE Antibody Screen Negative 08/08/18 17:35 PT with INR INR PTT (Actin FS) Sodium Cancelled Potassium Cancelled Chloride Cancelled Carbon Dioxide Cancelled Anion Gap Cancelled BUN Cancelled Creatinine Cancelled Creat Clearance w eGFR Cancelled Random Glucose Cancelled Calcium Cancelled Total Bilirubin Cancelled AST Cancelled ALT Cancelled Alkaline Phosphatase Cancelled Creatine Kinase Troponin I B-Natriuretic Peptide Total Protein Cancelled Albumin Cancelled Blood Type Antibody Screen 08/08/18 17:35 RBC 3.69 MCV 95.5 MCHC 33.6 RDW 16.3 H MPV 10.5 Neutrophils % 76.1 Lymphocytes % 10.7 Monocytes % 6.6 D Eosinophils % 6.3 H D Basophils % 0.3 - Medications Given in the ED: ED Medications Discontinued Medications Generic Name Dose Route Start Last Admin Trade Name Juan PRN Reason Stop Dose Admin Albuterol/Ipratropium 2 amp 08/08/18 19:06 08/08/18 20:06 Duoneb - NEB 08/08/18 19:07 2 amp ONCE ONE Administration Diphenhydramine HCl 25 mg 08/08/18 20:07 08/08/18 20:08 Benadryl - PO 08/08/18 20:08 25 mg ONCE ONE Administration Prednisone 20 mg 08/08/18 19:06 08/08/18 20:06 Deltasone - PO 08/08/18 19:07 20 mg ONCE ONE Administration Medical Decision Making - Medical Decision Making 08/08/18 21:41 Pt signed out to me by Dr. Blankenship PT has hx of DVT, PE, COPD, PNA 2 weeks ago sent by PCP for DVT. DVT study done outpatient showed DVT in R leg. Pt complaining of still having pna. PT has many allergies, cannot administer contrast for CTA. Will admit for DVT and v/q scan can be done in the am. Pt admitted for dvt under hospitalist. *DC/Admit/Observation/Transfer Diagnosis at time of Disposition: DVT (deep venous thrombosis) - Referrals - Patient Instructions - Post Discharge Activity
[2018-08-08 23:03] LABS: URINE APPEARANCE CLEAR; URINE BILIRUBIN NEGATIVE (<2.0 mg/dL); URINE COLOR YELLOW; URINE GLUCOSE (UA) NEGATIVE (NEGATIVE); URINE KETONE NEGATIVE (NEGATIVE); URINE LEUK ESTERASE NEGATIVE (NEGATIVE); URINE NITRITE NEGATIVE (NEGATIVE); URINE PROTEIN NEGATIVE (NEGATIVE); URINE UROBILINOGEN NEGATIVE mg/dL (0.2-1.0)
[2018-08-08 23:04] LABS: HCG,QUALITATIVE URINE Negative
[2018-08-08 23:46] LABS: ALK PHOS 83 U/L (45-117); ANION GAP 8 MMOL/L (8-16); BILIRUBIN,TOTAL 0.4 mg/dL (0.2-1); BLOOD UREA NITROGEN 8 mg/dL (7-18); CALCIUM 8.1 mg/dL (8.5-10.1); CHLORIDE 112 mmol/L (98-107); CO2 21 mmol/L (21-32); CREATININE 0.9 mg/dL (0.55-1.3); GLUCOSE,RANDOM 293 mg/dL (74-106); POTASSIUM 3.6 mmol/L (3.5-5.1); SGOT/AST 24 U/L (15-37); SGPT/ALT 21 U/L (13-61); SODIUM 141 mmol/L (136-145)
[2018-08-09] MEDS ORDERED: WARFARIN NA 7.5 MG TABLET (FP) PO ONE (00:01)
[2018-08-09] MEDS ORDERED: WARFARIN NA 5 MG TABLET (UD) ONE ×2 (00:12→04:21)
--- NOTE | 2018-08-09 02:59 | HP ---
<Sagar Velásquez - Last Filed: 08/09/18 07:57> CHIEF COMPLAINT: Leg pain,swelling. PCP: Yordan Clarke HISTORY OF PRESENT ILLNESS: Pt is a 47 y/o f with a significant past medical history of COPD, HTN, hyperlipidemia, eczema, NIDDM and 2 DVTs, and pulmonary embolism. Pt presented to [facility] from her PMD's clinic due to 8 days of bilateral lower extremity swelling, pain, and erythema. Pain in legs is described as sharp, stabbing, and a 7/10 in pain severity. Pt endorses she is currently taking coumadin 7.5 mg daily and follows up every week to her PMD's clinic to have her INR checked. Pt was at her PMD's clinic this afternoon when her PMD referred her to our Radiology department for an ultrasound of her lower extremities upon suspicion of a DVT. Ultrasound revealed a DVT in the mid and distal femoral vein in her right lower extremity. Furthermore, pt was recently treated for pneumonia at another hospital approximately 2 weeks ago. Continues to have a cough productive of green sputum. Pt states she was discharged with clindamycin. ER course was notable for: (1) R Lower Extremity DVT mid and distal Femoral Vein (2) INR 1.69 (3) Random Glucose 293 Recent Travel: Denies PAST MEDICAL HISTORY: Per HPI PAST SURGICAL HISTORY: IVC filter (2012) Social History: Smokin cigarettes/Day Alcohol: Denies Drugs: Marijuana Family History: Allergies Penicillins Allergy (Severe, Verified 08/08/18 16:26) Rash acetaminophen [From Percocet] Allergy (Verified 08/08/18 16:26) hydrocodone bitartrate [From Vicodin] Allergy (Verified 08/08/18 16:26) iodine Allergy (Verified 08/08/18 16:26) morphine Allergy (Verified 08/08/18 16:26) oxycodone HCl [From Percocet] Allergy (Verified 08/08/18 16:26) rivaroxaban [From Xarelto] Allergy (Verified 08/08/18 16:26) dairy Allergy (Severe, Uncoded 08/08/18 16:26) Swelling eggs/egg-containing foods Allergy (Severe, Uncoded 08/08/18 16:26) Swelling FRESH BANANAS Allergy (Severe, Uncoded 08/08/18 16:26) ANAPHYLAXIS. tree nuts Allergy (Severe, Uncoded 10/10/18 16:26) Itching ammonium lactate cream Allergy (Uncoded 08/08/18 16:26) cheese Allergy (Uncoded 08/08/18 16:26) fresh apples Allergy (Uncoded 08/08/18 16:26) fresh peaches Allergy (Uncoded 08/08/18 16:26) fresh plums Allergy (Uncoded 08/08/18 16:26) NARCOTICS Allergy (Uncoded 08/08/18 16:26) HOME MEDICATIONS: Home Medications Medication Instructions Recorded Albuterol 2.5/Ipratropium 0.5 1 neb IH ASDIR PRN 08/12/14 [Duoneb -] hydrOXYzine HCL [Atarax -] 50 mg PO TID 08/12/14 Albuterol Sulfate Inhaler - 2 inh PO Q4H PRN 03/03/15 [Ventolin HFA Inhaler -] Warfarin Sodium [Coumadin] 8.5 mg PO DAILY 03/03/15 Atorvastatin Calcium 10 mg PO HS 12/14/16 Diphenhydramine [Benadryl Capsule 50 mg PO DAILY 12/14/16 -] Glipizide [Glipizide ER] 10 mg PO DAILY 12/14/16 Metformin HCl [Glucophage] 1,000 mg PO BID 12/14/16 Triamcinolone 0.1% Ointment 1 applic TP DAILY 12/14/16 [Aristocort 0.1% Ointment -] Budesonide/Formeterol Fumarate 2 puff IH BID #1 inhaler 12/22/16 [SYMBICORT 160/4.5mcg -] Montelukast Na [Singulair -] 10 mg PO HS #30 tablet 12/22/16 Sulfamethoxazole/Trimethoprim 1 each PO BID #10 tablet 12/22/16 [Bactrim DS -] Tiotropium [place] [Spiriva] 1 puff IH DAILY #1 inh 12/22/16 predniSONE [Deltasone -] 10 mg PO ASDIR #80 tab 12/22/16 REVIEW OF SYSTEMS CONSTITUTIONAL: Absent: fever, chills, diaphoresis, generalized weakness, malaise, loss of appetite, weight change HEENT: Absent: rhinorrhea, nasal congestion, throat pain, throat swelling, difficulty swallowing, mouth swelling, ear pain, eye pain, visual changes CARDIOVASCULAR: Absent: chest pain, syncope, palpitations, irregular heart rate, lightheadedness , peripheral edema RESPIRATORY: PRESENT: cough, shortness of breath, dyspnea with exertion, orthopnea, wheezing , stridor, hemoptysis GASTROINTESTINAL: Absent: abdominal pain, abdominal distension, nausea, vomiting, diarrhea, constipation, melena, hematochezia GENITOURINARY: Absent: dysuria, frequency, urgency, hesitancy, hematuria, flank pain, genital pain MUSCULOSKELETAL: PRESENT: Pain, swelling b/l lower extremities SKIN: PRESENT : rash, itching HEMATOLOGIC/IMMUNOLOGIC: Absent: easy bleeding, easy bruising, lymphadenopathy, frequent infections ENDOCRINE: Absent: unexplained weight gain, unexplained weight loss, heat intolerance, cold intolerance NEUROLOGIC: Absent: headache, focal weakness or paresthesias, dizziness, unsteady gait, seizure, mental status changes, bladder or bowel incontinence PSYCHIATRIC: Absent: anxiety, depression, suicidal or homicidal ideation, hallucinations. PHYSICAL EXAMINATION Vital Signs - 24 hr 08/08/18 08/09/18 16:24 01:57 Temperature 98.2 F 98.2 F Pulse Rate 82 Pulse Rate [ 86 Apical] Respiratory 16 18 Rate Blood Pressure 115/90 Blood Pressure 120/84 [Right Arm] O2 Sat by Pulse 99 99 Oximetry (%) GENERAL: AAOx3. Severe distress from chronic itchying. HEAD: NC/AT EYES: PERRLA, EOMI EARS, NOSE, THROAT: MMM NECK: Normal range of motion, supple without lymphadenopathy, JVD, or masses. LUNGS: Expiratory wheezing HEART: Tachycardic, no MRG S S2 ABDOMEN: ND, NT, No HSM MUSCULOSKELETAL: FROM throughout UPPER EXTREMITIES: No CCE, FROM LOWER EXTREMITIES: No CCE, FROM NEUROLOGICAL: CN 2-12 intact. SKIN: Diffuse erythematous rashes throughout body Laboratory Results - last 24 hr 08/08/18 08/08/18 08/08/18 17:35 17:35 17:35 WBC 9.0 RBC 3.69 Hgb 11.9 Hct 35.3 MCV 95.5 MCH 32.1 D MCHC 33.6 RDW 16.3 H Plt Count 455 H D MPV 10.5 Absolute Neuts (auto) 6.9 Neutrophils % 76.1 Lymphocytes % 10.7 Monocytes % 6.6 D Eosinophils % 6.3 H D Basophils % 0.3 Nucleated RBC % 0 PT with INR INR PTT (Actin FS) Sodium Cancelled Potassium Cancelled Chloride Cancelled Carbon Dioxide Cancelled Anion Gap Cancelled BUN Cancelled Creatinine Cancelled Creat Clearance w eGFR Cancelled Random Glucose Cancelled Calcium Cancelled Total Bilirubin Cancelled AST Cancelled ALT Cancelled Alkaline Phosphatase Cancelled Creatine Kinase Troponin I B-Natriuretic Peptide Total Protein Cancelled Albumin Cancelled Urine Color Urine Appearance Urine pH Ur Specific [place] Urine Protein Urine Glucose (UA) Urine Ketones Urine Blood Urine Nitrite Urine Bilirubin Urine Urobilinogen Ur Leukocyte Esterase Urine HCG, Qual Blood Type O POSITIVE Antibody Screen Negative 08/08/18 08/08/18 08/08/18 18:04 19:03 22:50 WBC RBC Hgb Hct MCV MCH MCHC RDW Plt Count MPV Absolute Neuts (auto) Neutrophils % Lymphocytes % Monocytes % Eosinophils % Basophils % Nucleated RBC % PT with INR 20.00 H INR 1.69 H PTT (Actin FS) 31.9 Sodium Potassium Chloride Carbon Dioxide Anion Gap BUN Creatinine Creat Clearance w eGFR Random Glucose Calcium Total Bilirubin AST ALT Alkaline Phosphatase Creatine Kinase 92 Troponin I < 0.02 B-Natriuretic Peptide 33.8 Total Protein Albumin Urine Color Yellow Urine Appearance Clear Urine pH 5.0 Ur Specific [place] 1.023 Urine Protein Negative Urine Glucose (UA) Negative Urine Ketones Negative Urine Blood Negative Urine Nitrite Negative Urine Bilirubin Negative Urine Urobilinogen Negative Ur Leukocyte Esterase Negative Urine HCG, Qual Negative Blood Type Antibody Screen 08/08/18 22:51 WBC RBC Hgb Hct MCV MCH MCHC RDW Plt Count MPV Absolute Neuts (auto) Neutrophils % Lymphocytes % Monocytes % Eosinophils % Basophils % Nucleated RBC % PT with INR INR PTT (Actin FS) Sodium 141 Potassium 3.6 Chloride 112 H Carbon Dioxide 21 Anion Gap 8 BUN 8 Creatinine 0.9 Creat Clearance w eGFR > 60 Random Glucose 293 H Calcium 8.1 L Total Bilirubin 0.4 AST 24 ALT 21 Alkaline Phosphatase 83 Creatine Kinase Troponin I B-Natriuretic Peptide Total Protein 6.0 L Albumin 3.0 L Urine Color Urine Appearance Urine pH Ur Specific [place] Urine Protein Urine Glucose (UA) Urine Ketones Urine Blood Urine Nitrite Urine Bilirubin Urine Urobilinogen Ur Leukocyte Esterase Urine HCG, Qual Blood Type Antibody Screen ASSESSMENT/PLAN: Pt is a 47 y/o f with a significant past medical history of COPD, HTN, hyperlipidemia, eczema, NIDDM and 2 DVTs, and pulmonary embolism. Pt presented to [facility] from her PMD's clinic due to 8 days of bilateral lower extremity swelling, pain, and erythema. B/L Lower Extremity Swelling 2/2 DVT? -Duplex B/L Lower extremities 08/08/18--> R Lower Extremity DVT mid and distal Femoral Vein -Consider VQ Scan -CTA Chest withheld due to patients contrast allergy. -Hypercoaguable Studies and SILVIA -Currently bridging pt with Lovenox 60 BID as she is subtherapeutic. -Consider Hematology Consult #NIDDM -Insulin Sliding Scale ACHS -Resume home meds when out of hospital #HTN/HLD -Resume home medications #Eczyma -Consider Dermatology consult -Hydroxyzine, Diphenhydramine for symptomatic treatment FEN No Fluids Monitor electrolytes Diabetic Diet DVT ppx: Lovenox SQ BID Dispo: Monitor on floor Visit type - Emergency Visit Emergency Visit: Yes ED Registration Date: 08/08/18 Care time: The patient presented to the Emergency Department on the above date and was hospitalized for further evaluation of their emergent condition. - New Patient This patient is new to me today: Yes Date on this admission: 08/09/18 - Critical Care Critical Care patient: No <Alvin He - Last Filed: 08/14/18 07:13> Please see my note for full A&P; agree with plan
[2018-08-09] MEDS ORDERED: hydrOXYzine HCL 25 MG TABLET (FP) PO ONE (03:15)
[2018-08-09] MEDS ORDERED: WARFARIN NA 5 MG TABLET (UD) PO ONE ×2 (03:26→03:44)
--- NOTE | 2018-08-09 04:07 | PN ---
Teaching Attending Note Name of Resident: Sagar Velásquez ATTENDING PHYSICIAN STATEMENT I attempted to see and evaluate the patient. I reviewed the resident's note and discussed the case with the resident. I agree with the resident's findings and plan as documented. SUBJECTIVE: Patient is a 47 y/o female with a PMH as documented who presents with RLE extremity swelling and pain. She has an extensive history of DVTs in the b/l legs with IVC filter placement as well. She is on home Warfarin and her INR is subtherepeutic today. She was found to have DVT in her lower extremity today with OP venous US; results are being obtained by resident of record. She was directed to come to the ER. Unfortunately the patient refused to see me when I came down with the resident physician; as he attempted to enter her space she informed him that she was too itchy to speak with him and was undressed 2/2 scratching herself all over and dismissed him from the room (and thus myself). Will attempt to see and examine her later. She does aparently have a history of eczyma. Review of her chart notes that on prior admissions she had also been refusing to see or be assessed by the attending physician of record. She has a history of an allergy to Xarelto as well as a very labile INR on a prior admit as well. ROS: Unable to complete OBJECTIVE: VS reviewed; imaging pending-working on obtaining it; could not preform a PE as pt. refused to see myself and the resident. ASSESSMENT AND PLAN: 1) Acute on Chronic vs. Chronic DVT with Subtherapeutic INR -Will bridge with lovenox and have pharmacy dose the coumadin. She should be counseled on compliance prior to leaving. -Will obtain her new imaging study as well as her old ones and compare the location/size of DVT. -Obtain SILVIA, Hypercoagulability studies. -She does have an IVC filter. 2) Eczyma -Symptomatic tx; given her reported severity may be prudent to refer to tool mechanic on discharge. She has been given benadryl here PRN during past admission for the same issue. Other issues as per resident note; stable. Full Code
[2018-08-09] MEDS: INSULIN SLIDING SCALE (NOVOLOG) 1 VIAL SQ SCH ×4 (06:03→22:18)
[2018-08-09] MEDS ORDERED: hydrOXYzine HCL 25 MG TABLET (FP) PO PRN (09:04)
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
[2018-08-09] MEDS: ENOXAPARIN NA (PORCINE) 60 MG/0.6 ML DISP.SYRIN SQ SCH ×2 (10:18→22:17)
[2018-08-09] MEDS: TIOTROPIUM BROMIDE 2.5 MCG (SPIRIVA) RESPIMAT INHALER IH SCH (10:29)
[2018-08-09] MEDS: BUDESONIDE/FORMETEROL FUMARATE 160/4.5 mcg INHALER IH SCH ×2 (10:30→22:17)
--- NOTE | 2018-08-09 12:11 | EKG ---
Test Reason : Blood Pressure : / mmHG Vent. Rate : 088 BPM Atrial Rate : 088 BPM P-R Int : 136 ms QRS Dur : 074 ms QT Int : 360 ms P-R-T Axes : 062 037 050 degrees QTc Int : 435 ms NORMAL SINUS RHYTHM POSSIBLE ANTERIOR INFARCT , AGE UNDETERMINED ABNORMAL ECG WHEN COMPARED WITH ECG OF 14-DEC-2016 08:46, NO SIGNIFICANT CHANGE WAS FOUND Confirmed by MADHAVI YATES MD ([id number]) on 08/09/2018 12:11:00 PM Referred By: Confirmed By:MADHAVI YATES MD
[2018-08-09] MEDS ORDERED: WARFARIN NA 7.5 MG TABLET (FP) PO SCH (18:00)
[2018-08-09 18:38] VITALS: BMI 23.5
[2018-08-09] MEDS: ALBUTEROL SO4 2.5/IPRATROPIUM 0.5 INH SOL 3 ML VIAL.NEB. NEB PRN (20:28)
[2018-08-09] MEDS ORDERED: INSULIN (NOVOLOG) ASPART 100 UNITS/ML 10ML VIAL ONE (20:30)
--- NOTE | 2018-08-09 21:27 | PN ---
Teaching Attending Note Name of Resident: Sanjiv Bardales ATTENDING PHYSICIAN STATEMENT I saw and evaluated the patient. I reviewed the resident's note and discussed the case with the resident. I agree with the resident's findings and plan as documented. SUBJECTIVE: Pt is a 47 y/o f with a significant past medical history of COPD, HTN, hyperlipidemia, eczema, NIDDM and 2 DVTs, and pulmonary embolism. Presented with RLE edema > LLE for 8 days with swelling, pain, and erythema. OBJECTIVE: Vital Signs Temperature 98.2 F 08/09/18 18:28 Pulse Rate 88 08/09/18 18:28 Respiratory Rate 18 08/09/18 18:28 Blood Pressure 117/87 08/09/18 18:28 O2 Sat by Pulse Oximetry (%) 100 08/09/18 18:30 GENERAL: AAOx3. Severe distress from chronic itchying. HEAD: NC/AT ,EYES: PERRLA, EOMI ,EARS, NOSE, THROAT: MMM NECK: Normal range of motion, supple ,no JVD, or masses. LUNGS: Expiratory wheezing, HEART: RRR, no MRG S S2 ABDOMEN: ND, NT, No HSM EXTREMITIES: Pulses are positive, no edema NEUROLOGICAL: CN 2-12 intact. SKIN: Diffuse erythematous rashes throughout body CBCD WBC 9.0 K/mm3 (4.0-10.0) 08/08/18 17:35 RBC 3.69 M/mm3 (3.60-5.2) 08/08/18 17:35 Hgb 11.9 GM/dL (10.7-15.3) 08/08/18 17:35 Hct 35.3 % (32.4-45.2) 08/08/18 17:35 MCV 95.5 fl (80-96) 08/08/18 17:35 MCHC 33.6 g/dl (32.0-36.0) 08/08/18 17:35 RDW 16.3 % (11.6-15.6) H 08/08/18 17:35 Plt Count 455 K/MM3 (134-434) H D 08/08/18 17:35 MPV 10.5 fl (7.5-11.1) 08/08/18 17:35 CMP Sodium 141 mmol/L (136-145) 08/08/18 22:51 Potassium 3.6 mmol/L (3.5-5.1) 08/08/18 22:51 Chloride 112 mmol/L (98-107) H 08/08/18 22:51 Carbon Dioxide 21 mmol/L (21-32) 08/08/18 22:51 Anion Gap 8 MMOL/L (8-16) 08/08/18 22:51 BUN 8 mg/dL (7-18) 08/08/18 22:51 Creatinine 0.9 mg/dL (0.55-1.3) 08/08/18 22:51 Creat Clearance w eGFR > 60 (>60) 08/08/18 22:51 Random Glucose 293 mg/dL (74-106) H 08/08/18 22:51 Calcium 8.1 mg/dL (8.5-10.1) L 08/08/18 22:51 Total Bilirubin 0.4 mg/dL (0.2-1) 08/08/18 22:51 AST 24 U/L (15-37) 08/08/18 22:51 ALT 21 U/L (13-61) 08/08/18 22:51 Alkaline Phosphatase 83 U/L (45-117) 08/08/18 22:51 Total Protein 6.0 g/dl (6.4-8.2) L 08/08/18 22:51 Albumin 3.0 g/dl (3.4-5.0) L 08/08/18 22:51 CARDIAC ENZYMES Creatine Kinase 92 IU/L (26-192) 08/08/18 19:03 Troponin I < 0.02 ng/ml (0.00-0.05) 08/08/18 19:03 Home Medications Medication Instructions Recorded Albuterol 2.5/Ipratropium 0.5 1 neb IH ASDIR PRN 08/12/14 [Duoneb -] hydrOXYzine HCL [Atarax -] 50 mg PO TID 08/12/14 Albuterol Sulfate Inhaler - 2 inh PO Q4H PRN 03/03/15 [Ventolin HFA Inhaler -] Warfarin Sodium [Coumadin] 8.5 mg PO DAILY 03/03/15 Atorvastatin Calcium 10 mg PO HS 12/14/16 Diphenhydramine [Benadryl Capsule 50 mg PO DAILY 12/14/16 -] Glipizide [Glipizide ER] 10 mg PO DAILY 12/14/16 Metformin HCl [Glucophage] 1,000 mg PO BID 12/14/16 Triamcinolone 0.1% Ointment 1 applic TP DAILY 12/14/16 [Aristocort 0.1% Ointment -] Budesonide/Formeterol Fumarate 2 puff IH BID #1 inhaler 12/22/16 [SYMBICORT 160/4.5mcg -] Montelukast Na [Singulair -] 10 mg PO HS #30 tablet 12/22/16 Sulfamethoxazole/Trimethoprim 1 each PO BID #10 tablet 12/22/16 [Bactrim DS -] Tiotropium [place] [Spiriva] 1 puff IH DAILY #1 inh 12/22/16 predniSONE [Deltasone -] 10 mg PO ASDIR #80 tab 12/22/16 ASSESSMENT AND PLAN: Pt is a 47 y/o f with a significant past medical history of COPD, HTN, hyperlipidemia, eczema, NIDDM and 2 DVTs, and pulmonary embolism. Presented with RLE edema > LLE for 8 days with swelling, pain, and erythema. #Acute on Chronic DVT with Subtherapeutic INR, will start the patient on [id number] sq bid and Coumadin to bridge , patient has an IVC filter. once INR therapeutic will discharge the patient. # Eczyma on Vistaril prn #NIDDM on Insulin Sliding Scale ACHS #HTN/HLD Resume home medications Full Code
[2018-08-09] MEDS: NICOTINE 21 MG/24 HOURS TOPICAL PATCH TD SCH (22:17)
[2018-08-09] MEDS: MONTELUKAST NA 10 MG TABLET PO SCH (22:18)
[2018-08-09] MEDS: ATORVASTATIN CA 10 MG TABLET (FP) PO SCH (22:18)
[2018-08-09] MEDS ORDERED: MELATONIN 5 MG TABLETS PO ONE (23:02)
[2018-08-10] MEDS ORDERED: PT OWN MED DRAWER 7, Y5N ONE ×3 (03:25→20:51)
[2018-08-10] MEDS: ALBUTEROL SO4 8 GM HFA INHALER IH PRN ×2 (03:42→10:05)
[2018-08-10 08:37] LABS: HEMATOCRIT 29.2 % (32.4-45.2); HEMOGLOBIN 9.4 GM/dL (10.7-15.3); MCH 30.8 pg (25.7-33.7); MCHC 32.4 g/dl (32.0-36.0); MEAN CELL VOLUME 95.2 fl (80-96); MEAN PLT VOLUME 9.4 fl (7.5-11.1); PLATELET COUNT 378 K/MM3 (134-434); RBC 3.07 M/mm3 (3.60-5.2); RDW 15.7 % (11.6-15.6); WHITE BLOOD COUNT 10.7 K/mm3 (4.0-10.0)
[2018-08-10 08:59] LABS: INR 3.22 (0.83-1.09); PROTHROMBIN TIME (PATIENT) 38.5 SEC (9.7-13.0)
[2018-08-10 09:00] LABS: ALBUMIN 2.9 g/dl (3.4-5.0); ALK PHOS 72 U/L (45-117); ANION GAP 4 MMOL/L (8-16); BILIRUBIN,TOTAL 0.2 mg/dL (0.2-1); BLOOD UREA NITROGEN 11 mg/dL (7-18); CALCIUM 8.7 mg/dL (8.5-10.1); CHLORIDE 112 mmol/L (98-107); CO2 24 mmol/L (21-32); CREATININE 0.5 mg/dL (0.55-1.3); GLUCOSE,RANDOM 113 mg/dL (74-106); MAGNESIUM 1.9 mg/dL (1.8-2.4); PHOSPHOROUS 2.7 mg/dL (2.5-4.9); POTASSIUM 3.8 mmol/L (3.5-5.1); SGOT/AST 12 U/L (15-37); SGPT/ALT 20 U/L (13-61); SODIUM 140 mmol/L (136-145); TOT PROT 5.9 g/dl (6.4-8.2)
[2018-08-10] MEDS: INSULIN SLIDING SCALE (NOVOLOG) 1 VIAL SQ SCH ×4 (09:46→21:13)
[2018-08-10] MEDS: ENOXAPARIN NA (PORCINE) 60 MG/0.6 ML DISP.SYRIN SQ SCH (10:05)
[2018-08-10] MEDS: NICOTINE 21 MG/24 HOURS TOPICAL PATCH TD SCH (10:05)
[2018-08-10] MEDS: BUDESONIDE/FORMETEROL FUMARATE 160/4.5 mcg INHALER IH SCH ×2 (10:05→21:07)
--- NOTE | 2018-08-10 14:38 | PN ---
Physical Exam: SUBJECTIVE: Patient seen and examined at bedside this morning. Denies acute complaints. She admits to productive cough. Denies fevers, chills, shortness of breath, chest pain, palpitations, abdominal pain, nausea, vomiting, diarrhea. OBJECTIVE: Vital Signs Period Temp Pulse Resp BP Sys/Oneil Pulse Ox Last 24 Hr 98.0 F-98.4 F 82-96 18-20 109-117/63-88 100-100 GENERAL: The patient is awake, alert, and fully oriented, in no acute distress.. EYES: Sclera anicteric, conjunctiva clear. ENT: Moist mucous membranes NECK: Supple without lymphadenopathy. LUNGS: Breath sounds equal, rhonchi with expiration auscultated b/l. HEART: Regular rate and rhythm, S1, S2 auscultated. Patient did not allow further physical examination. Laboratory Results - last 24 hr 08/09/18 08/10/18 08/10/18 17:41 06:32 08:15 WBC 10.7 H RBC 3.07 L Hgb 9.4 L Hct 29.2 L D MCV 95.2 MCH 30.8 MCHC 32.4 RDW 15.7 H Plt Count 378 MPV 9.4 D PT with INR INR Sodium Potassium Chloride Carbon Dioxide Anion Gap BUN Creatinine Creat Clearance w eGFR POC Glucometer 82 163 Random Glucose Calcium Phosphorus Magnesium Total Bilirubin AST ALT Alkaline Phosphatase Total Protein Albumin 08/10/18 08/10/18 08/10/18 08:15 08:15 11:32 WBC RBC Hgb Hct MCV MCH MCHC RDW Plt Count MPV PT with INR 38.50 H INR 3.22 H Sodium 140 Potassium 3.8 Chloride 112 H Carbon Dioxide 24 Anion Gap 4 L BUN 11 Creatinine 0.5 L Creat Clearance w eGFR > 60 POC Glucometer 121 Random Glucose 113 H Calcium 8.7 Phosphorus 2.7 Magnesium 1.9 Total Bilirubin 0.2 AST 12 L ALT 20 Alkaline Phosphatase 72 Total Protein 5.9 L Albumin 2.9 L Active Medications Generic Name Dose Route Start Last Admin Trade Name Freq PRN Reason Stop Dose Admin Albuterol Sulfate 2 puff 08/09/18 08:02 08/10/18 10:05 Ventolin Hfa Inhaler - IH 2 puff Q4H PRN Administration SHORT OF BREATH/WHEEZING Albuterol/Ipratropium 1 amp 08/09/18 20:02 10/11/18 20:28 Duoneb - NEB 1 amp Q6H PRN Administration ASTHMA Atorvastatin Calcium 10 mg 08/09/18 22:00 08/09/18 22:18 Lipitor - PO 10 mg HS SUKHDEV Administration Budesonide/Formoterol Fumarate 2 puff 08/09/18 10:00 08/10/18 10:05 Symbicort 160/4.5mcg - IH 2 puff BID SUKHDEV Administration Guaifenesin 600 mg 08/10/18 14:00 Mucinex - PO BID SUKHDEV Hydroxyzine HCl 50 mg 08/09/18 09:04 08/10/18 03:37 Atarax - PO 50 mg TID PRN Administration FOR ITCHING Insulin Aspart 1 vial 08/09/18 07:00 08/10/18 11:58 Novolog Vial Sliding Scale - SQ Not Given ACHS [facility] Protocol Montelukast Sodium 10 mg 08/09/18 22:00 08/09/18 22:18 Singulair - PO 10 mg HS SUKHDEV Administration Nicotine 21 mg 08/09/18 21:30 08/10/18 10:05 Nicoderm Patch - TD 21 mg DAILY SUKHDEV Administration Tiotropium [place] 2 puff 08/09/18 10:00 08/09/18 10:29 Spiriva Respimat IH Not Given DAILY SUKHDEV Warfarin Sodium 4 mg 08/10/18 18:00 Coumadin - PO 08/10/18 18:01 ONCE@1800 ONE ASSESSMENT/PLAN: Patient is a 47 year old female with history of DVT, pulmonary embolism, COPD, eczema, hypertension, hyperipidemia, diabetes presented with B/L lower extremity pain and swelling. Acute on chronic DVT -Duplex US lower extremities showed DVT within right lower extremity, mid and distal femoral vein -IVC filter noted to be in place without thrombus upon ultrasound -INR today supratherapeutic 3.2. Home dose Coumadin 7.5mg decreased to 4mg PO tonight. F/U INR daily. Discussed with patient importance of medication and INR compliance. COPD -Ventolin pump q4H PRN -Duonebs q6H PRN -Symbicort 2 puffs BID -Singulair 10mg PO daily -Spiriva 2 puffs daily. -Mucinex for cough Eczema -Continue Atarax 50mg TID PRN for the itching FEN -No IV fluids -Follow CMP -Regular diet Prophylaxis -Patient is on coumadin Disposition -Continue care in medical-surgical floor Discharge Summary Patient is a 47 year old female with history of DVT, pulmonary embolism, COPD, eczema, hypertension, hyperipidemia, diabetes presented with B/L lower extremity pain and swelling. INR subtherapeutic at 1.9 upon admission. Duplex US lower extremities showed DVT within right lower extremity. US confirmed patent IVC filter without thrombus. She was started on Lovenox and reinstated her home Coumadin. Ventolin, Duonebs, Symbicort, Spiriva, and Singulair for her COPD. Atarax for INR improved to therapeutic range, lovenox discontinued, and patient discharged to continue Coumadin 4mg daily. Instructed to follow up Monday with primary care physician for INR check. Referral provided to [facility]. Discussed importance of Coumadin and INR check compliance. Visit type - Emergency Visit Emergency Visit: Yes ED Registration Date: 08/08/18 Care time: The patient presented to the Emergency Department on the above date and was hospitalized for further evaluation of their emergent condition. - New Patient This patient is new to me today: No - Critical Care Critical Care patient: No - Discharge Referral Referred to [facility] Med [facility].: No
[2018-08-10] MEDS: TIOTROPIUM BROMIDE 2.5 MCG (SPIRIVA) RESPIMAT INHALER IH SCH (15:06)
[2018-08-10] MEDS: guaiFENesin 600 MG TABLET.ER (FP) PO SCH ×2 (15:06→21:05)
[2018-08-10] MEDS ORDERED: INSULIN (NOVOLOG) ASPART 100 UNITS/ML 10ML VIAL ONE ×2 (17:49→20:50)
[2018-08-10] MEDS ORDERED: WARFARIN NA 2 MG TABLET (UD) PO ONE (18:00)
[2018-08-10] MEDS ORDERED: diphenhydrAMINE HCL 25 MG CAPSULE (FP) PO PRN (19:39)
[2018-08-10] MEDS: ATORVASTATIN CA 10 MG TABLET (FP) PO SCH (21:05)
[2018-08-10] MEDS: MONTELUKAST NA 10 MG TABLET PO SCH (21:05)
--- NOTE | 2018-08-10 21:08 | PN ---
Teaching Attending Note Name of Resident: Bakari Bingham ATTENDING PHYSICIAN STATEMENT I saw and evaluated the patient. I reviewed the resident's note and discussed the case with the resident. I agree with the resident's findings and plan as documented. SUBJECTIVE: Patient is lying in bed with no acute distress. swelling of LEs are improving OBJECTIVE: Vital Signs Temperature 98.3 F 08/10/18 18:00 Pulse Rate 96 H 08/10/18 18:00 Respiratory Rate 21 H 08/10/18 18:00 Blood Pressure 115/76 08/10/18 18:00 O2 Sat by Pulse Oximetry (%) 96 08/10/18 09:00 GENERAL: AAOx3. Severe distress from chronic itchying. HEAD: NC/AT ,EYES: PERRLA, EOMI ,EARS, NOSE, THROAT: MMM NECK: Normal range of motion, supple ,no JVD, or masses. LUNGS: Expiratory wheezing, HEART: RRR, S1 S2 positive ABDOMEN: soft, ND, NT, EXTREMITIES: Pulses are positive, no edema NEUROLOGICAL: CN 2-12 intact. SKIN: Diffuse erythematous rashes throughout body improving CBCD WBC 10.7 K/mm3 (4.0-10.0) H 08/10/18 08:15 RBC 3.07 M/mm3 (3.60-5.2) L 08/10/18 08:15 Hgb 9.4 GM/dL (10.7-15.3) L 08/10/18 08:15 Hct 29.2 % (32.4-45.2) L D 08/10/18 08:15 MCV 95.2 fl (80-96) 08/10/18 08:15 MCHC 32.4 g/dl (32.0-36.0) 08/10/18 08:15 RDW 15.7 % (11.6-15.6) H 08/10/18 08:15 Plt Count 378 K/MM3 (134-434) 08/10/18 08:15 MPV 9.4 fl (7.5-11.1) D 08/10/18 08:15 CMP Sodium 140 mmol/L (136-145) 08/10/18 08:15 Potassium 3.8 mmol/L (3.5-5.1) 08/10/18 08:15 Chloride 112 mmol/L (98-107) H 08/10/18 08:15 Carbon Dioxide 24 mmol/L (21-32) 08/10/18 08:15 Anion Gap 4 MMOL/L (8-16) L 08/10/18 08:15 BUN 11 mg/dL (7-18) 08/10/18 08:15 Creatinine 0.5 mg/dL (0.55-1.3) L 08/10/18 08:15 Creat Clearance w eGFR > 60 (>60) 08/10/18 08:15 Random Glucose 113 mg/dL (74-106) H 08/10/18 08:15 Calcium 8.7 mg/dL (8.5-10.1) 08/10/18 08:15 Total Bilirubin 0.2 mg/dL (0.2-1) 08/10/18 08:15 AST 12 U/L (15-37) L 08/10/18 08:15 ALT 20 U/L (13-61) 08/10/18 08:15 Alkaline Phosphatase 72 U/L (45-117) 08/10/18 08:15 Total Protein 5.9 g/dl (6.4-8.2) L 08/10/18 08:15 Albumin 2.9 g/dl (3.4-5.0) L 08/10/18 08:15 CARDIAC ENZYMES Creatine Kinase 92 IU/L (26-192) 08/08/18 19:03 Troponin I < 0.02 ng/ml (0.00-0.05) 08/08/18 19:03 Current Medications Generic Name Dose Route Start Last Admin Trade Name Freq PRN Reason Stop Dose Admin Albuterol Sulfate 2 puff 08/09/18 08:02 08/10/18 10:05 Ventolin Hfa Inhaler - IH 2 puff Q4H PRN Administration SHORT OF BREATH/WHEEZING Albuterol/Ipratropium 1 amp 08/09/18 20:02 08/09/18 20:28 Duoneb - NEB 1 amp Q6H PRN Administration ASTHMA Atorvastatin Calcium 10 mg 08/09/18 22:00 08/10/18 21:05 Lipitor - PO 10 mg HS SUKHDEV Administration Budesonide/Formoterol Fumarate 2 puff 08/09/18 10:00 08/10/18 21:07 Symbicort 160/4.5mcg - IH 2 puff BID SUKHDEV Administration Diphenhydramine HCl 25 mg 08/10/18 19:39 08/10/18 21:05 Benadryl - PO 08/11/18 07:00 25 mg Q6H PRN Administration FOR ITCHING Guaifenesin 600 mg 08/10/18 14:00 08/10/18 21:05 Mucinex - PO 600 mg BID SUKHDEV Administration Insulin Aspart 1 vial 08/09/18 07:00 08/10/18 17:38 Novolog Vial Sliding Scale - SQ Not Given ACHS SUKHDEV Protocol Montelukast Sodium 10 mg 08/09/18 22:00 08/10/18 21:05 Singulair - PO 10 mg HS SUKHDEV Administration Nicotine 21 mg 08/09/18 21:30 08/10/18 10:05 Nicoderm Patch - TD 21 mg DAILY SUKHDEV Administration Tiotropium [place] 2 puff 08/09/18 10:00 08/10/18 15:06 Spiriva Respimat IH 2 puff DAILY SUKHDEV Administration Home Medications Medication Instructions Recorded Albuterol 2.5/Ipratropium 0.5 1 neb IH ASDIR PRN 08/12/14 [Duoneb -] Albuterol Sulfate Inhaler - 2 inh PO Q4H PRN 03/03/15 [Ventolin HFA Inhaler -] Metformin HCl [Glucophage] 1,000 mg PO BID 12/14/16 Montelukast Na [Singulair -] 10 mg PO HS #30 tablet 12/22/[address] [place] [Spiriva] 1 puff IH DAILY #1 inh 12/22/16 Albuterol 2.5/Ipratropium 0.5 1 amp NEB Q6H PRN amp 08/10/18 [Duoneb -] Warfarin Sodium [Coumadin] 7.5 mg PO DAILY 30 Days #30 tablet 08/10/18 Laboratory Tests 12/14/16 12/15/16 12/16/16 05:10 11:00 08:20 INR 2.99 H D 4.50 H* D 1.92 H D 12/17/16 08/08/18 08/10/18 10:22 18:04 08:15 INR 1.72 H 1.69 H 3.22 H Laboratory Tests 08/08/18 08/10/18 18:04 08:15 INR 1.69 H 3.22 H ASSESSMENT AND PLAN: Pt is a 47 y/o f with a significant past medical history of COPD, HTN, hyperlipidemia, eczema, NIDDM and 2 DVTs, and pulmonary embolism. Presented with RLE edema > LLE for 8 days with swelling, pain, and erythema. #Acute on Chronic DVT with Supratherapeutic INR today level of 3.22, will stop the Lovenox , patient has an IVC filter. Will repeat INR in am , received 4mg tonight. according to the level discharge the patient on Coumadin in am. # Eczyma on Vistaril prn #NIDDM on Insulin Sliding Scale ACHS #HTN/HLD Resume home medications Full Code Check INR in am and discharge the patient according her INR .
[2018-08-11] MEDS: ALBUTEROL SO4 2.5/IPRATROPIUM 0.5 INH SOL 3 ML VIAL.NEB. NEB PRN (00:22)
[2018-08-11] MEDS: INSULIN SLIDING SCALE (NOVOLOG) 1 VIAL SQ SCH ×2 (08:00→11:41)
[2018-08-11] MEDS ORDERED: PT OWN MED DRAWER 7, Y5N ONE (09:19)
[2018-08-11] MEDS: guaiFENesin 600 MG TABLET.ER (FP) PO SCH (09:22)
[2018-08-11] MEDS: NICOTINE 21 MG/24 HOURS TOPICAL PATCH TD SCH (09:22)
[2018-08-11] MEDS: BUDESONIDE/FORMETEROL FUMARATE 160/4.5 mcg INHALER IH SCH (09:23)
[2018-08-11] MEDS: TIOTROPIUM BROMIDE 2.5 MCG (SPIRIVA) RESPIMAT INHALER IH SCH (09:23)
[2018-08-11 11:40] LABS: ALBUMIN 3.5 g/dl (3.4-5.0); ALK PHOS 88 U/L (45-117); ANION GAP 8 MMOL/L (8-16); BILIRUBIN,TOTAL 0.2 mg/dL (0.2-1); BLOOD UREA NITROGEN 11 mg/dL (7-18); CHLORIDE 110 mmol/L (98-107); CO2 26 mmol/L (21-32); CREATININE 0.9 mg/dL (0.55-1.3); GLUCOSE,RANDOM 107 mg/dL (74-106); POTASSIUM 3.8 mmol/L (3.5-5.1); SGOT/AST 33 U/L (15-37); SGPT/ALT 46 U/L (13-61); SODIUM 144 mmol/L (136-145); TOT PROT 7.2 g/dl (6.4-8.2)
[2018-08-11 12:09] LABS: INR 2.82 (0.83-1.09); PROTHROMBIN TIME (PATIENT) 33.6 SEC (9.7-13.0)
[2018-08-11 12:14] VITALS: BP 126/81; PULSE 69; TEMP 97.8
--- NOTE | 2018-08-11 14:19 | DS ---
Physical Examination Vital Signs: Vital Signs Temperature 97.8 F 08/11/18 11:55 Pulse Rate 69 08/11/18 11:55 Respiratory Rate 24 H 08/11/18 11:55 Blood Pressure 126/81 08/11/18 11:55 O2 Sat by Pulse Oximetry (%) 98 08/10/18 21:00 Constitutional: Yes: Well Nourished, No Distress, Calm Eyes: Yes: WNL, Conjunctiva Clear, EOM Intact HENT: Yes: WNL, Atraumatic, Normocephalic Neck: Yes: WNL, Supple, Trachea Midline Cardiovascular: Yes: WNL, Regular Rate and Rhythm Respiratory: Yes: WNL, Regular, CTA Bilaterally Gastrointestinal: Yes: WNL, Normal Bowel Sounds, Soft ...Rectal Exam: Yes: Deferred Musculoskeletal: Yes: WNL Extremities: Yes: WNL Labs: CBC, BMP 08/10/18 08:15 08/11/18 11:00 Discharge Summary Reason For Visit: DVT Current Active Problems DVT (deep venous thrombosis) (Chronic) Condition: Stable - Instructions Diet, Activity, Other Instructions: You were admitted for a blood clot in your leg (Deep Venous Thrombosis) You were treated with blood thinners. Your blood studies show that the level is appropriate, and you are discharged home. You will continue taking blood thinner Coumadin at new dosage of 4mg daily. It is important that you check your INR on Monday08/13/2018 with your primary care physician. With this medication, try to keep a consistent diet, especially with leafy green vegetables. Before making and diet changes, consult with your primary care physician. Continue taking your home medications as directed. Follow up with your primary care physician on Monday08/13/2018. A referral has been provided for the [facility], for an INR check. Please call our [facility] phone number provided to schedule the appointment. Please return to the nearest emergency department if you experience fevers, shortness of breath, chest pain, palpitations, abdominal pain, vomiting, continuous diarrhea. Referrals: Kiko Martin MD [Staff Physician] - 08/13/18 Disposition: HOME - Home Medications Comprehensive Discharge Medication List: Ambulatory Orders Albuterol 2.5/Ipratropium 0.5 [Duoneb -] 1 neb IH ASDIR PRN 08/12/14 Albuterol Sulfate Inhaler - [Ventolin HFA Inhaler -] 2 inh PO Q4H PRN 03/03/15 Metformin HCl [Glucophage] 1,000 mg PO BID 12/14/16 Montelukast Na [Singulair -] 10 mg PO HS #30 tablet 12/22/16 Tiotropium [place] [Spiriva] 1 puff IH DAILY #1 inh 12/22/16 Albuterol 2.5/Ipratropium 0.5 [Duoneb -] 1 amp NEB Q6H PRN amp 08/10/18 Warfarin Sodium 4 mg PO DAILY 10 Days #10 tablet 08/11/18
== END 2018-08-11 14:35 | disposition home or self-care (01) | DRG 197 ==
LOC: JER 15:48 → JERBED 21:45 → UNDOADMIN 23:31 → JERBED 23:31 → J5S 08-09 17:31
PROVIDERS: ADMIT Internal Medicine; ATTEND Internal Medicine
DX: I82.411 Acute embolism and thrombosis of right femoral vein (principal); J44.9 Chronic obstructive pulmonary disease, unspecified; I10 Essential (primary) hypertension; E78.5 Hyperlipidemia, unspecified; L30.9 Dermatitis, unspecified; E11.9 Type 2 diabetes mellitus without complications; Z86.711 Personal history of pulmonary embolism; Z79.01 Long term (current) use of anticoagulants; Z88.0 Allergy status to penicillin; Z79.84 Long term (current) use of oral hypoglycemic drugs
CPT/HCPCS: 36415; 71046-TC-FY; 76705-TC; 80053; 81003; 82550; 82962; 83735; 83880; 84100; 84484; 84703; 85025; 85027; 85610; 85730; 86850; 86900; 86901; 93005; 93010; 94640; 99284-25; J7620

== ENCOUNTER 2019-06-16 18:42 | Emergency (ER) | payer OTHER ==
[2019-06-16 18:53] VITALS: BMI 23.6
--- NOTE | 2019-06-16 20:14 | PDOC ---
History of Present Illness - General Chief Complaint: Pain Stated Complaint: DVT History Source: Patient - History of Present Illness Initial Comments: 06/16/19 20:05 Patient is a 48 year old female with h/o COPD, HTN, HLD, eczema, and IDDM, PE, DVT x 2 c/o b/l leg swelling and pain 2-3 days patient states that she has a chronic DVT occasionally the legs get swollen and she wants to check to see if this is a DVT for things that worse. She is on Coumadin 10.5mg and missed a few doses over the past few days. The pain described as a throbbing 8/10, making it difficult to walk. Last INR done 10 days ago was therapeutic. She has been seeing her primary care doctor every week for the past few weeks she was last seen on Monday one week ago, for adjustment in her Coumadin. She denies any shortness of breath, chest pain, abdominal pain Patient states she is in a grief state currently due to the traumatic of her daughter a few months ago and is still dealing with the issue of her . She just recently buried her daughter, and is now taking care of her child. PMD: [place] PMHX: As above PSOCHX: (+) cig, (+) MJ, neg etoh ALL: hydrocodone, iodine, PCN, tylenol GENERAL/CONSTITUTIONAL: No fever or chills. No weakness. No weight change. HEAD, EYES, EARS, NOSE AND THROAT: No change in vision. No ear pain or discharge. No sore throat. CARDIOVASCULAR: No chest pain or shortness of breath. RESPIRATORY: No cough, wheezing, or hemoptysis. GASTROINTESTINAL: No nausea, vomiting, diarrhea or constipation. No rectal bleeding. GENITOURINARY: No dysuria, frequency, or change in urination. MUSCULOSKELETAL: No joint or muscle swelling or pain. No neck or back pain, (+) loose skin. SKIN AND BREASTS: (+) rash or easy bruising, (+) edema. NEUROLOGIC: No headache, vertigo, loss of consciousness, or loss of sensation. PSYCHIATRIC: No depression or anxiety. ENDOCRINE: No increased thirst. No abnormal weight change. HEMATOLOGIC/LYMPHATIC: No anemia, easy bleeding, or history of blood clots. ALLERGIC/IMMUNOLOGIC: No hives or skin allergy. No latex allergy. GENERAL: The patient is awake, alert, and fully oriented, in mild distress, intermittently crying HEAD: Normal with no signs of trauma. EYES: Pupils equal, round and reactive to light, extraocular movements intact, sclera anicteric, conjunctiva clear. ENT: Ears normal, nares patent, oropharynx clear without exudates. Moist mucous membranes. NECK: Normal range of motion, supple without lymphadenopathy, JVD, or masses. LUNGS: Breath sounds equal, clear to auscultation bilaterally. No wheezes, and no crackles. HEART: Regular rate and rhythm, normal S1 and S2 without murmur, rub. ABDOMEN: Soft, nontender, normoactive bowel sounds. No guarding, no rebound. No masses. EXTREMITIES: Normal range of motion, b/l lower ext swelling feet and ankles. No clubbing or cyanosis. No cords, erythema, or tenderness, NEUROLOGICAL: Cranial nerves II through XII grossly intact. Normal speech, normal gait. PSYCH: Normal mood, normal affect. SKIN: Warm, Dry, poor turgor, no rashes or lesions noted. Past History - Past Medical History Allergies/Adverse Reactions: Allergies Allergy/AdvReac Type Severity Reaction Status Date / Time Penicillins Allergy Severe Rash Verified 08/08/18 16:26 acetaminophen [From Percocet] Allergy Verified 08/08/18 16:26 hydrocodone bitartrate Allergy Verified 08/08/18 16:26 [From Vicodin] iodine Allergy Verified 08/08/18 16:26 morphine Allergy Verified 08/08/18 16:26 oxycodone HCl [From Percocet] Allergy Verified 08/08/18 16:26 rivaroxaban [From Xarelto] Allergy Verified 08/08/18 16:26 dairy Allergy Severe Swelling Uncoded 08/08/18 16:26 eggs/egg-containing foods Allergy Severe Swelling Uncoded 08/08/18 16:26 FRESH BANANAS Allergy Severe ANAPHYLAXIS Uncoded 08/08/18 16:26 . tree nuts Allergy Severe Itching Uncoded 08/08/18 16:26 ammonium lactate cream Allergy Uncoded 08/08/18 16:26 cheese Allergy Uncoded 08/08/18 16:26 fresh apples Allergy Uncoded 08/08/18 16:26 fresh peaches Allergy Uncoded 08/08/18 16:26 fresh plums Allergy Uncoded 08/08/18 16:26 NARCOTICS Allergy Uncoded 08/08/18 16:26 Home Medications: Ambulatory Orders Albuterol 2.5/Ipratropium 0.5 [Duoneb -] 1 neb IH ASDIR PRN 08/12/14 Albuterol Sulfate Inhaler - [Ventolin HFA Inhaler -] 2 inh PO Q4H PRN 03/03/15 Metformin HCl [Glucophage] 1,000 mg PO BID 12/14/16 Montelukast Na [Singulair -] 10 mg PO HS #30 tablet 12/22/16 Tiotropium [place] [Spiriva] 1 puff IH DAILY #1 inh 12/22/16 Albuterol 2.5/Ipratropium 0.5 [Duoneb -] 1 amp NEB Q6H PRN amp 08/10/18 Warfarin Sodium 4 mg PO DAILY 10 Days #10 tablet 08/11/18 Asthma: Yes Cardiac Disorders: Yes (DVT, IVF FILTER) COPD: Yes (PE) DVT: Yes (PE 2016) Diabetes: Yes - Surgical History Abdominal Surgery: Yes Cardiac Surgery: (CARSON FILTER.) - Immunization History Immunization Up to Date: Yes - Suicide/Smoking/Psychosocial Hx Smoking Status: Yes Smoking History: Current every day smoker Have you smoked in the past 12 months: Yes Number of Cigarettes Smoked Daily: 10 Information on smoking cessation initiated: No 'Breaking Loose' booklet given: 08/09/18 Hx Alcohol Use: Yes (today last drank) Drug/Substance Use Hx: No Substance Use Type: None Hx Substance Use Treatment: No *Physical Exam - Vital Signs Last Vital Signs Temp Pulse Resp BP Pulse Ox 98.4 F 108 H 18 123/88 95 06/16/19 18:43 06/16/19 18:43 06/16/19 18:43 06/16/19 18:43 06/16/19 18:43 ED Treatment Course - LABORATORY CBC & Chemistry Diagram: 06/16/19 20:15 - RADIOLOGY Radiology Studies Ordered: Category Date Time Status DUPLEX VASCUL US-2LEGS [US] Stat Ultrasound 06/16/19 19:59 Ordered Medical Decision Making - Medical Decision Making 06/16/19 20:05 Patient is a 48 year old female with h/o COPD, HTN, HLD, eczema, and IDDM, PE, DVT x 2 c/o b/l leg swelling and pain 2-3 days patient states that she has a chronic DVT occasionally the legs get swollen and she wants to check to see if this is a DVT for things that worse. She is on Coumadin 10.5mg and missed a few doses over the past few days. The pain described as a throbbing 8/10, making it difficult to walk. Last INR done 10 days ago was therapeutic. She has been seeing her primary care doctor every week for the past few weeks she was last seen on Monday one week ago, for adjustment in her Coumadin. She denies any shortness of breath, chest pain, abdominal pain Patient states she is in a grief state currently due to the traumatic of her daughter a few months ago and is still dealing with the issue of her . She just recently buried her daughter, and is now taking care of her child. Review of chronic DVT now with worsening leg swelling doppler of b/l lower ext. labs incl INR 06/16/19 22:26 Patient Full Name: JAREN WHEATLEY Patient Accession No: [id number] Patient : [id number] Reason for Exam: leg swelling Referring Physician: Patient Name: CORRY EASTMAN THIS IS A PRELIMINARY REPORT FROM IMAGING SIGNAL SUPERVISOR DATE OF SERVICE: 2019-06-16 20:29:33 IMAGES: 48 EXAM: DUPLEX VASCULAR US-2 LEGS HISTORY: Leg swelling COMPARISON: None. FINDINGS: The deep veins of the right and left lower extremities are compressible, patent and augment normally with distal compression No evidence of deep vein thrombosis Superficial soft tissue edema about the right ankle THIS DOCUMENT HAS BEEN ELECTRONICALLY SIGNED Hussein Laurent MD 06/16/2019 22:18 EST M.D. Please call Imaging Day Worker [phone] ([phone]) with questions. INTERPRETING RADIOLOGIST: Hussein Laurent MD Electronically Signed: Jun 16, 2019 10:20PM EDT At the time of discussion of the results of laboratory testing and Doppler, patient states that she had to confess that she is currently homeless due to depletion of her funds to bury her daughter. States she does have somewhere to stay but rather would like to be admitted to the hospital. Discussed with the patient that there was no need for admission at this time, that she could be given a shot of Lovenox and she could be discharged, that she should continue taking her Coumadin, and follow-up with her primary care doctor tomorrow. Lovenox 60mg SQ given EKG SR rate 75, NAD, (-) ST-T wave changes. I discussed the physical exam findings, ancillary test results and final diagnoses with the patient. I answered all of the patient's questions. The patient was satisfied with the care received and felt comfortable with the discharge plan and treatment plan. The Patient agrees to follow up with the primary care physician within 24-72 hours. *DC/Admit/Observation/Transfer Diagnosis at time of Disposition: Ankle swelling Qualifiers: Laterality: right Qualified Code(s): M25.471 - Effusion, right ankle - Discharge Dispostion Disposition: HOME Condition at time of disposition: Stable - Referrals Referrals: Riddhi Nelson MD [Primary Care Provider] - - Patient Instructions Printed Discharge Instructions: DI for Peripheral Edema -- Bilateral Additional Instructions: Your Discharge Instructions: You must call primary care physician within 24 hours to arrange follow-up. Return to the Emergency Department with any new, persistent or worsening symptoms, for fever, chills, SOB, dizziness or any other concerning changes that may occur. Take your Coumadin as prescribed. Follow-up with your primary care office tomorrow for repeat blood testing. - Post Discharge Activity
[2019-06-16 20:35] LABS: HEMATOCRIT 36.7 % (32.4-45.2); HEMOGLOBIN 12.2 GM/dL (10.7-15.3); MCH 32.6 pg (25.7-33.7); MCHC 33.2 g/dl (32.0-36.0); MEAN CELL VOLUME 98.2 fl (80-96); MEAN PLT VOLUME 10.4 fl (7.5-11.1); PLATELET COUNT 245 K/MM3 (134-434); RBC 3.73 M/mm3 (3.60-5.2); RDW 15.3 % (11.6-15.6); WHITE BLOOD COUNT 9.8 K/mm3 (4.0-10.0)
[2019-06-16 20:49] LABS: INR 1.46 (0.83-1.09); PROTHROMBIN TIME (PATIENT) 17.3 SEC (9.7-13.0)
[2019-06-16 20:51] LABS: ACTIVATED PTT 29.5 SECONDS (25.2-36.5)
[2019-06-16] MEDS ORDERED: ENOXAPARIN NA (PORCINE) 60 MG/0.6 ML DISP.SYRIN SQ SCH (22:45)
[2019-06-16] MEDS ORDERED: ENOXAPARIN NA (PORCINE) 60 MG/0.6 ML DISP.SYRIN SQ ONE (22:49)
[2019-06-16 23:09] VITALS: BP 132/76; PULSE 86; TEMP 98.5
--- NOTE | 2019-06-17 11:03 | EKG ---
Test Reason : Blood Pressure : / mmHG Vent. Rate : 075 BPM Atrial Rate : 075 BPM P-R Int : 126 ms QRS Dur : 076 ms QT Int : 392 ms P-R-T Axes : 061 041 043 degrees QTc Int : 437 ms NORMAL SINUS RHYTHM NORMAL ECG WHEN COMPARED WITH ECG OF 08-AUG-2018 18:28, NO SIGNIFICANT CHANGE WAS FOUND Confirmed by HERBERT LOYA MD ([id number]) on 06/17/2019 11:02:28 AM Referred By: Confirmed By:HERBERT LOYA MD
== END 2019-06-16 23:36 | disposition home or self-care (01) ==
LOC: JER 18:42
PROC: 3E013GC Introduction of Other Therapeutic Substance into Subcutaneous Tissue, Percutaneous Approach (ICD-10-PCS; principal; 2019-06-16)
DX: M25.471 Effusion, right ankle (principal); I10 Essential (primary) hypertension; E78.5 Hyperlipidemia, unspecified; J44.9 Chronic obstructive pulmonary disease, unspecified; L30.9 Dermatitis, unspecified; E11.9 Type 2 diabetes mellitus without complications; F17.210 Nicotine dependence, cigarettes, uncomplicated; Z86.711 Personal history of pulmonary embolism; Z86.718 Personal history of other venous thrombosis and embolism; Z88.0 Allergy status to penicillin; Z88.1 Allergy status to other antibiotic agents; Z88.6 Allergy status to analgesic agent; Z91.011 Allergy to milk products; Z91.012 Allergy to eggs; Z79.01 Long term (current) use of anticoagulants; Z79.84 Long term (current) use of oral hypoglycemic drugs; Z91.048 Other nonmedicinal substance allergy status; Z95.828 Presence of other vascular implants and grafts
CPT/HCPCS: 36415; 84702; 85027; 85610; 85730; 93005; 93010; 93970-TC; 96372; 99282-25

== ENCOUNTER 2019-07-14 13:14 | Emergency (ER) | payer OTHER ==
[2019-07-14 13:18] VITALS: BMI 26.0
--- NOTE | 2019-07-14 13:36 | PDOC ---
History of Present Illness - General Chief Complaint: Allergic Reaction Stated Complaint: ALLERGIC REACTION Time Seen by Provider: 07/14/19 13:36 - History of Present Illness Initial Comments: 07/14/19 13:51 48 year old woman with multiple allergies, COPD, HTN, hyperlipidemia, eczema, diabetes and 2 DVTs, 1 PE and IVC filter (2012) on Coumadin 10 presents to ED with itching and hives in the mouth after eating a biscuit. She said this happened to her 8 years ago after eating a twix candy bar. She denies any difficulty breathing or swelling of the throat. She reports last time this happened she did not have any airway involvement. She complains of itching on the arms and legs and raised lesions in the mouth and diarrhea. She denies any other complaints. ROS GENERAL/CONSTITUTIONAL: No fever or chills. No weakness. HEAD, EYES, EARS, NOSE AND THROAT: No change in vision. No ear pain No sore throat. CARDIOVASCULAR: No chest pain or shortness of breath RESPIRATORY: No cough, wheezing, or hemoptysis. GASTROINTESTINAL: No nausea, vomiting, + diarrhea No constipation. GENITOURINARY: No dysuria, frequency, or change in urination. MUSCULOSKELETAL: No joint or muscle swelling or pain. No neck or back pain. SKIN: No rash NEUROLOGIC: No headache, vertigo, loss of consciousness, or change in strength/ sensation. ENDOCRINE: No increased thirst. No abnormal weight change HEMATOLOGIC/LYMPHATIC: No anemia, easy bleeding, or history of blood clots. ALLERGIC/IMMUNOLOGIC: + hives or skin allergy. PE GENERAL: Awake, alert, and fully oriented, in no acute distress HEAD: No signs of trauma, normocephalic, atraumatic EYES: EOMI, sclera anicteric, conjunctiva clear ENT: raised lesions on L upper inner lip, raised lesion on the lower inner lip , midline uvula, no posterior swelling, oropharynx clear without exudates. Moist mucosa NECK: Normal ROM, supple LUNGS: No distress, speaks full sentences, clear to auscultation bilaterally HEART: Regular rate and rhythm, normal S1 and S2, no murmurs, rubs or gallops, peripheral pulses normal and equal bilaterally. ABDOMEN: Soft, nontender, normoactive bowel sounds. No guarding, no rebound. No masses EXTREMITIES : Normal inspection, Normal range of motion, no edema. No clubbing or cyanosis. NEUROLOGICAL: Cranial nerves II through XII grossly intact. Normal speech, normal gait, no focal sensorimotor deficits SKIN: erythema on distal arms and legs, patient itching MDM DDX including but not limited to: allergic reaction W/U: - cbc, cmp, coags TX: - benadryl, epinephrine, solumedrol, pepcid ivf ED Course: Patient reassessed with improvement Will observe for minimum 4 hours Patient would like to AMA and not complete observation period. Understand risks of repeat allergy, anaphalyaxis, closing of the airway, respiratory distress still desires to AMA Joann Sanches, PGY2 Emergency Medicine Past History - Past Medical History Allergies/Adverse Reactions: Allergies Allergy/AdvReac Type Severity Reaction Status Date / Time Penicillins Allergy Severe Rash Verified 07/14/19 13:19 acetaminophen [From Percocet] Allergy Verified 07/14/19 13:19 hydrocodone bitartrate Allergy Verified 07/14/19 13:19 [From Vicodin] iodine Allergy Verified 07/14/19 13:19 morphine Allergy Verified 07/14/19 13:19 oxycodone HCl [From Percocet] Allergy Verified 07/14/19 13:19 rivaroxaban [From Xarelto] Allergy Verified 07/14/19 13:19 dairy Allergy Severe Swelling Uncoded 07/14/19 13:19 eggs/egg-containing foods Allergy Severe Swelling Uncoded 07/14/19 13:19 FRESH BANANAS Allergy Severe ANAPHYLAXIS Uncoded 07/14/19 13:19 . tree nuts Allergy Severe Itching Uncoded 07/14/19 13:19 ammonium lactate cream Allergy Uncoded 07/14/19 13:19 cheese Allergy Uncoded 07/14/19 13:19 fresh apples Allergy Uncoded 07/14/19 13:19 fresh peaches Allergy Uncoded 07/14/19 13:19 fresh plums Allergy Uncoded 07/14/19 13:19 NARCOTICS Allergy Uncoded 07/14/19 13:19 Home Medications: Ambulatory Orders Albuterol 2.5/Ipratropium 0.5 [Duoneb -] 1 neb IH ASDIR PRN 08/12/14 Albuterol Sulfate Inhaler - [Ventolin HFA Inhaler -] 2 inh PO Q4H PRN 03/03/15 Metformin HCl [Glucophage] 1,000 mg PO BID 12/14/16 Montelukast Na [Singulair -] 10 mg PO HS #30 tablet 12/22/16 Tiotropium [place] [Spiriva] 1 puff IH DAILY #1 inh 12/22/16 Albuterol 2.5/Ipratropium 0.5 [Duoneb -] 1 amp NEB Q6H PRN amp 08/10/18 Warfarin Sodium 4 mg PO DAILY 10 Days #10 tablet 08/11/18 Diphenhydramine HCl [Benadryl -] 25 mg PO Q8H #14 capsule 07/14/19 Famotidine [Pepcid -] 20 mg PO DAILY #7 tablet 07/14/19 Prednisone [Prednisone 50 MG TABLETS] 50 mg PO DAILY #4 tablet 07/14/19 Asthma: Yes Cardiac Disorders: Yes (DVT, IVF FILTER) COPD: Yes (PE) DVT: Yes (PE 2016) Diabetes: Yes - Surgical History Abdominal Surgery: Yes Cardiac Surgery: (CARSON FILTER.) - Immunization History Immunization Up to Date: Yes - Suicide/Smoking/Psychosocial Hx Smoking Status: Yes Smoking History: Current every day smoker Have you smoked in the past 12 months: Yes Number of Cigarettes Smoked Daily: 10 Information on smoking cessation initiated: Yes 'Breaking Loose' booklet given: 08/09/18 Hx Alcohol Use: No Drug/Substance Use Hx: No Substance Use Type: None Hx Substance Use Treatment: No *Physical Exam - Vital Signs Last Vital Signs Temp Pulse Resp BP Pulse Ox 97.5 F L 78 19 142/108 H 97 07/14/19 13:16 07/14/19 13:16 07/14/19 13:16 07/14/19 13:16 07/14/19 13:16 ED Treatment Course - LABORATORY CBC & Chemistry Diagram: 07/14/19 14:07 07/14/19 14:07 *DC/Admit/Observation/Transfer Diagnosis at time of Disposition: Allergic reaction - Discharge Dispostion Disposition: AGAINST MEDICAL ADVICE Condition at time of disposition: Stable - Prescriptions Prescriptions: Diphenhydramine HCl [Benadryl -] 25 mg PO Q8H #14 capsule Famotidine [Pepcid -] 20 mg PO DAILY #7 tablet Prednisone [Prednisone 50 MG TABLETS] 50 mg PO DAILY #4 tablet - Referrals Referrals: Riddhi Nelson MD [Primary Care Provider] - - Patient Instructions - Post Discharge Activity
[2019-07-14] MEDS ORDERED: SODIUM CHLORIDE 1,000 ML IV SCH (14:00)
[2019-07-14] MEDS ORDERED: EPINEPHrine 1:1,000 0.3 MG/0.3 ML SYR IM ONE (14:01)
[2019-07-14] MEDS ORDERED: methylPREDNISolone NA SUCC 125 MG/2 ML VIAL IVPUSH ONE (14:01)
[2019-07-14] MEDS ORDERED: EPINEPHrine 1:10,000 (P-F SYR) 1 MG/10 ML DISP.SYRIN ONE (14:02)
[2019-07-14] MEDS ORDERED: ALBUTEROL SO4 2.5/IPRATROPIUM 0.5 INH SOL 3 ML VIAL.NEB. NEB ONE ×2 (14:02→14:31)
[2019-07-14] MEDS ORDERED: EPINEPHrine/PF 1 MG/1 ML (1:1,000) AMPULE ONE (14:03)
--- NOTE | 2019-07-14 14:24 | PDOC ---
Attending Attestation - Resident Resident Name: Joann Sanches - ED Attending Attestation I have performed the following: I have examined & evaluated the patient, The case was reviewed & discussed with the resident, I agree w/resident's findings & plan, Exceptions are as noted - HPI HPI: 07/14/19 14:19 48yo F hx COPD, HTN, hyperlipidemia, eczema, diabetes and 2 DVTs c/b PE s/p IVC filter (2012) on Coumadin 10mg (most recent INR unknown) presents to the ED with allergic reaction after eating a biscuit 1 hour ago. She reports hives diffusely, itching in her mouth, SOB, and diarrhea. Tried her albuterol en route for the SOB and it has improved. Denies throat closing, CP, dizziness. Has had many similar reactions in the past due to extensive allergies. Denies recent fevers, chills, abd pain, LE edema, urinary sxs. - Physicial Exam PE: 07/14/19 14:22 GENERAL: Awake, alert, and fully oriented, in no acute distress EYES: PERRLA, EOMI, sclera anicteric, conjunctiva clear ENT: Oropharynx clear with some erythematous lesions to buccal mucosa. No tongue , uvular, lip, or tonsillar swelling. Uvula midline NECK: Normal ROM, supple, no lymphadenopathy, JVD, or masses LUNGS: Breath sounds equal, clear to auscultation bilaterally. No wheezes, and no crackles HEART: Regular rate and rhythm, normal S1 and S2, no murmurs, rubs or gallops ABDOMEN: Soft, nontender, normoactive bowel sounds. No guarding, no rebound. No masses EXTREMITIES: Normal range of motion, no edema. 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 The patient is clinically sober, free from distracting injury, appears to have intact insight and judgment and reason and in my opinion has the capacity to make decisions. The patient presents with anaphylactic reaction . I have explained that I am concerned she could have recurrent reaction and requires more observation; she has verbalized an understanding of my concerns. I have told the patient that while her labs were normal, and she feels better, she would still benefit from more observation. I have told the patient that if they leave and have another reaction, they could get much worse, could become critically ill, and could possibly become disabled or . The patient is not willing to undergo further observation. She is unwilling to stay overnight for monitoring. She is refusing any further care and is leaving against medical advice. I am unable to convince the patient to stay, I have asked her to return as soon as possible to complete her evaluation. I have answered all of her questions.
[2019-07-14] MEDS ORDERED: FAMOTIDINE 20 MG/50 ML IVPB 20 MG/50 ML MG IVPB ONE ×2 (14:25→14:31)
[2019-07-14 14:28] LABS: BASO % 0.7 % (0-2.0); EOS % 0.5 % (0-4.5); HEMATOCRIT 36.9 % (32.4-45.2); LYMPH % 12.4 % (8-40); MCHC 32.4 g/dl (32.0-36.0); MEAN CELL VOLUME 95.7 fl (80-96); MEAN PLT VOLUME 10.5 fl (7.5-11.1); MONO % 5.3 % (3.8-10.2); NEUT % 81.1 % (42.8-82.8); PLATELET COUNT 262 K/MM3 (134-434); RBC 3.85 M/mm3 (3.60-5.2); RDW 16.8 % (11.6-15.6); WHITE BLOOD COUNT 12.9 K/mm3 (4.0-10.0)
[2019-07-14] MEDS ORDERED: methylPREDNISolone NA SUCC 125 MG/2 ML VIAL ONE (14:31)
[2019-07-14 14:50] LABS: INR 2.19 (0.83-1.09)
[2019-07-14 14:52] LABS: ACTIVATED PTT 35.4 SECONDS (25.2-36.5)
[2019-07-14 15:04] LABS: ALBUMIN 3.8 g/dl (3.4-5.0); BILIRUBIN,TOTAL 0.5 mg/dL (0.2-1); CREATININE 0.8 mg/dL (0.55-1.3); TOT PROT 7.4 g/dl (6.4-8.2)
[2019-07-14 16:42] VITALS: BP 128/83; PULSE 88; TEMP 98.1
== END 2019-07-14 17:00 | disposition left against medical advice (07) ==
LOC: JER 13:14
PROC: 3E0F7GC Introduction of Other Therapeutic Substance into Respiratory Tract, Via Natural or Artificial Opening (ICD-10-PCS; principal; 2019-07-14)
PROC: 3E023GC Introduction of Other Therapeutic Substance into Muscle, Percutaneous Approach (ICD-10-PCS; 2019-07-14)
PROC: 3E033GC Introduction of Other Therapeutic Substance into Peripheral Vein, Percutaneous Approach (ICD-10-PCS; 2019-07-14)
PROC: 3E033GC Introduction of Other Therapeutic Substance into Peripheral Vein, Percutaneous Approach (ICD-10-PCS; 2019-07-14)
PROC: 3E0333Z Introduction of Anti-inflammatory into Peripheral Vein, Percutaneous Approach (ICD-10-PCS; 2019-07-14)
DX: T78.1XXA Other adverse food reactions, not elsewhere classified, initial encounter (principal); L50.0 Allergic urticaria; X58.XXXA Exposure to other specified factors, initial encounter; I10 Essential (primary) hypertension; E78.5 Hyperlipidemia, unspecified; Z79.84 Long term (current) use of oral hypoglycemic drugs; Z86.711 Personal history of pulmonary embolism; Z86.718 Personal history of other venous thrombosis and embolism; Z79.01 Long term (current) use of anticoagulants; Z95.828 Presence of other vascular implants and grafts
CPT/HCPCS: 36415; 80053; 85025; 85610; 85730; 94640; 96365; 96372; 96375; 99284-25; J7030

== ENCOUNTER 2019-11-01 13:51 | Inpatient (IN) | payer OTHER ==
--- NOTE | 2019-11-01 14:22 | PDOC ---
Rapid Medical Evaluation Time Seen by Provider: 11/01/19 14:18 Medical Evaluation: Allergies Allergy/AdvReac Type Severity Reaction Status Date / Time Penicillins Allergy Severe Rash Verified 11/01/19 14:18 acetaminophen [From Percocet] Allergy Verified 11/01/19 14:18 hydrocodone bitartrate Allergy Verified 11/01/19 14:18 [From Vicodin] iodine Allergy Verified 11/01/19 14:18 morphine Allergy Verified 11/01/19 14:18 oxycodone HCl [From Percocet] Allergy Verified 11/01/19 14:18 peanut Allergy Verified 11/01/19 14:18 rivaroxaban [From Xarelto] Allergy Verified 11/01/19 14:18 dairy Allergy Severe Swelling Uncoded 11/01/19 14:18 eggs/egg-containing foods Allergy Severe Swelling Uncoded 11/01/19 14:18 FRESH BANANAS Allergy Severe ANAPHYLAXIS Uncoded 11/01/19 14:18 . tree nuts Allergy Severe Itching Uncoded 11/01/19 14:18 ammonium lactate cream Allergy Uncoded 11/01/19 14:18 cheese Allergy Uncoded 11/01/19 14:18 fresh apples Allergy Uncoded 11/01/19 14:18 fresh peaches Allergy Uncoded 11/01/19 14:18 fresh plums Allergy Uncoded 11/01/19 14:18 NARCOTICS Allergy Uncoded 11/01/19 14:18 11/01/19 14:19 I have performed a brief in-person evaluation of this patient. The patient presents with a chief complaint of: Seen by her PMD today for a routine visit and reported abd pain and CP of unclear duration and sent to ER for further evaluation. H/o COPD, HTN, HLD, DM, recurrent DVT w/ PE, s/p IVC filter, on coumadin. Denies SOB or palpitations. Pertinent physical exam findings:stable and well mali I have ordered the following:labs/ekg/cxr The patient will proceed to the ED for further evaluation. Discharge Disposition - Diagnosis Chest pain Qualifiers: Chest pain type: unspecified Qualified Code(s): R07.9 - Chest pain, unspecified - Referrals - Patient Instructions - Post Discharge Activity
--- NOTE | 2019-11-01 15:00 | PDOC ---
History of Present Illness - General Chief Complaint: Pain Stated Complaint: ABD/PAIN Time Seen by Provider: 11/01/19 14:18 History Source: Patient Exam Limitations: No Limitations - History of Present Illness Initial Comments: 11/01/19 15:00 48yF w PMHx COPD, HTN, HLD, DM, chronic R leg DVT, PE, s/p IVC filter and coumadin presenting w chest and epigastric pain. Ongoing intermittent midsternal chest discomfort since August, not positional/exertional, lasting from few seconds up to a day. Also has constant epigastric pain for past 12d, not associated w exertion. Drinking carbonated drinks mildly relieves pain. Did not take any pain meds, tylenol doesnt help and allergic to various opioids, states only NSAIDS help. Denies fever, cough, nausea/vomiting, SOB, alcohol, urinary/bowel mvmt changes. Has IVC filter placed in 2010, originally planned to be removed after 4 months, but surgeon refused to remove it after re-eval. Has family hx of DVT. Has trouble maintaining proper INR for coumadin Past History - Past Medical History Allergies/Adverse Reactions: Allergies Allergy/AdvReac Type Severity Reaction Status Date / Time Penicillins Allergy Severe Rash Verified 11/01/19 14:18 acetaminophen [From Percocet] Allergy Verified 11/01/19 14:18 hydrocodone bitartrate Allergy Verified 11/01/19 14:18 [From Vicodin] iodine Allergy Verified 11/01/19 14:18 morphine Allergy Verified 11/01/19 14:18 oxycodone HCl [From Percocet] Allergy Verified 11/01/19 14:18 peanut Allergy Verified 11/01/19 14:18 rivaroxaban [From Xarelto] Allergy Verified 11/01/19 14:18 dairy Allergy Severe Swelling Uncoded 11/01/19 14:18 eggs/egg-containing foods Allergy Severe Swelling Uncoded 11/01/19 14:18 FRESH BANANAS Allergy Severe ANAPHYLAXIS Uncoded 11/01/19 14:18 . tree nuts Allergy Severe Itching Uncoded 11/01/19 14:18 ammonium lactate cream Allergy Uncoded 11/01/19 14:18 cheese Allergy Uncoded 11/01/19 14:18 fresh apples Allergy Uncoded 11/01/19 14:18 fresh peaches Allergy Uncoded 11/01/19 14:18 fresh plums Allergy Uncoded 11/01/19 14:18 NARCOTICS Allergy Uncoded 11/01/19 14:18 Home Medications: Ambulatory Orders Albuterol 2.5/Ipratropium 0.5 [Duoneb -] 1 neb IH ASDIR PRN 08/12/14 Albuterol Sulfate Inhaler - [Ventolin HFA Inhaler -] 2 inh PO Q4H PRN 03/03/15 Montelukast Na [Singulair -] 10 mg PO HS #30 tablet 12/22/16 Albuterol 2.5/Ipratropium 0.5 [Duoneb -] 1 amp NEB Q6H PRN amp 08/10/18 Epinephrine [Epipen 2-Jan] 0.3 mg IJ ASDIR #1 kit 07/14/19 Ergocalciferol [Vitamin D2] 50,000 unit PO Q7D@1000 11/01/19 Fluticasone Propionate [Flovent Hfa] 110 mcg IH BID 11/01/19 Gabapentin [Neurontin] 100 mg PO Q8H 11/01/19 Valsartan [Diovan] 160 mg PO DAILY 11/01/19 Warfarin Sodium 6 mg PO DAILY 11/01/19 Zolpidem Tartrate [Ambien] 10 mg PO HS 11/01/19 Asthma: Yes Cardiac Disorders: Yes (DVT, IVF FILTER) COPD: Yes (PE) DVT: Yes (PE 2016) Diabetes: Yes - Surgical History Abdominal Surgery: Yes Cardiac Surgery: (CARSON FILTER.) - Immunization History Immunization Up to Date: Yes - Psycho Social/Smoking Cessation Hx Smoking Status: Yes Smoking History: Unknown if ever smoked Have you smoked in the past 12 months: No Number of Cigarettes Smoked Daily: 10 'Breaking Loose' booklet given: 08/09/18 Hx Alcohol Use: No Drug/Substance Use Hx: No Substance Use Type: None Hx Substance Use Treatment: No *Physical Exam - Vital Signs Last Vital Signs Temp Pulse Resp BP Pulse Ox 98.1 F 90 18 140/86 98 11/01/19 14:20 11/01/19 14:20 11/01/19 14:20 11/01/19 14:20 11/01/19 14:20 - Physical Exam General Appearance: Yes: Nourished, Appropriately Dressed, Mild Distress HEENT: positive: EOMI, OSMIN, Normal Voice. negative: Scleral Icterus (R), Scleral Icterus (L), Nasal Congestion Respiratory/Chest: positive: Decreased Breath Sounds (maria teresa). negative: Chest Tender, Respiratory Distress, Accessory Muscle Use, Crackles, Rales, Rhonchi, Stridor, Wheezing Cardiovascular: positive: Regular Rhythm, Regular Rate, S1, S2. negative: Edema , Murmur Gastrointestinal/Abdominal: positive: Normal Bowel Sounds, Tender (mild discomfort w palpation epigastric), Flat, Soft. negative: Organomegaly Musculoskeletal: negative: CVA Tenderness (R), CVA Tenderness (L) Extremity: positive: Normal Capillary Refill Integumentary: positive: Normal Color Neurologic: positive: Fully Oriented, Alert, Normal Response, Responsive. negative: Numbness, Confused, Disoriented ED Treatment Course - LABORATORY CBC & Chemistry Diagram: 11/01/19 15:05 11/01/19 15:05 Medical Decision Making - Medical Decision Making 11/01/19 18:36 CT A/P EKG NSR, HR 76, QTc 441, unchanged CXR clear lungs --- 48yF w PMHx COPD, HTN, HLD, DM, chronic R leg DVT, PE, s/p IVC filter and coumadin presenting w 3mo intermittent midsternal chest discomfort and 12d constant epigastric pain. PE (hx PE, underdosed coumadin) vs COPD exacerbation (decreased breath sounds). Low concern for ACS (NSR EKG, neg trop) vs UTI (clean UA) vs (neg) vs anemia (normal Hgb). Underdosed coumadin (INR 1.76) Has chest/throat tightness reaction to iodine contrast - chest CTA contraindicated Given solumedrol, duoneb, pepcid, maalox, ibuprofen with little relief, 60 lovenox Admitted tele/obvs Dr Duron for epigastric pain, chest pain for PE rule out with V/Q scan - pending CT A/P Discharge - Discharge Information Problems reviewed: Yes Clinical Impression/Diagnosis: Chest pain Qualifiers: Chest pain type: unspecified Qualified Code(s): R07.9 - Chest pain, unspecified Condition: Stable - Follow up/Referral - Patient Discharge Instructions - Post Discharge Activity
[2019-11-01 15:40] LABS: BASO % 0.5 % (0-2.0); EOS % 1.8 % (0-4.5); HEMATOCRIT 35.7 % (32.4-45.2); HEMOGLOBIN 11.7 GM/dL (10.7-15.3); LYMPH % 24.4 % (8-40); MCH 29.1 pg (25.7-33.7); MCHC 32.8 g/dl (32.0-36.0); MEAN CELL VOLUME 88.8 fl (80-96); MEAN PLT VOLUME 9.6 fl (7.5-11.1); MONO % 6.5 % (3.8-10.2); NEUT % 66.8 % (42.8-82.8); PLATELET COUNT 325 K/MM3 (134-434); RBC 4.02 M/mm3 (3.60-5.2); RDW 18.7 % (11.6-15.6); WHITE BLOOD COUNT 7.7 K/mm3 (4.0-10.0)
[2019-11-01 15:51] LABS: INR 1.76 (0.83-1.09); PROTHROMBIN TIME (PATIENT) 20.9 SEC (9.7-13.0)
[2019-11-01] MEDS ORDERED: MAG HYDROX/AL HYDROX/SIMETH -MYLANTA- ORAL SUSPENSION PO ONE (15:51)
[2019-11-01] MEDS ORDERED: methylPREDNISolone NA SUCC 125 MG/2 ML VIAL IVPUSH ONE (15:51)
[2019-11-01] MEDS ORDERED: FAMOTIDINE 20 MG/50 ML IVPB 20 MG/50 ML MG IVPB ONE ×2 (15:51→16:56)
[2019-11-01] MEDS ORDERED: IBUPROFEN 600 MG TABLET (FP) PO ONE ×2 (15:51→16:16)
[2019-11-01] MEDS ORDERED: ALBUTEROL SO4 2.5/IPRATROPIUM 0.5 INH SOL 3 ML VIAL.NEB. NEB ONE ×2 (15:51→16:16)
[2019-11-01 16:02] LABS: ALBUMIN 3.8 g/dl (3.4-5.0); BILIRUBIN,TOTAL 0.5 mg/dL (0.2-1); BLOOD UREA NITROGEN 7.9 mg/dL (7-18); CALCIUM 9.4 mg/dL (8.5-10.1); CREATININE 0.8 mg/dL (0.55-1.3); POTASSIUM 3.4 mmol/L (3.5-5.1); TOT PROT 7.3 g/dl (6.4-8.2)
[2019-11-01] MEDS ORDERED: MAG HYDROX/AL HYDROX/SIMETH 30 ML UNIT-DOSE CUP ONE (16:17)
[2019-11-01] MEDS ORDERED: methylPREDNISolone NA SUCC 125 MG/2 ML VIAL ONE (16:17)
--- NOTE | 2019-11-01 17:03 | PDOC ---
Documentation entered by Varghese Simon SCRIBE, acting as scribe for Miguel Morley MD. Miguel Morley MD: This documentation has been prepared by the Alfred pinto Daniel, SCRIBE, under my direction and personally reviewed by me in its entirety. I confirm that the documentation accurately reflects all work, treatment, procedures, and medical decision making performed by me. Attending Attestation - Resident Resident Name: Mata Vera - ED Attending Attestation I have performed the following: I have examined & evaluated the patient, The case was reviewed & discussed with the resident, I agree w/resident's findings & plan, Exceptions are as noted - HPI HPI: 11/01/19 15:59 The patient is a 48 year old female with a past medical history of COPD, HTN, HLD, diabetes, and DVT and PE s/p IVC filter on coumadin here today for evaluation of chest and abdominal pain. The patient reports that her chest and abdominal pain began in August 2019 but worsened about 3 days ago. The chest pain comes on randomly and resolves spontaneously. It is not pleuritic. Not exertional. Pt endorses epigastric abdominal pain with occasional nausea and vomiting. Patient denies headache, lightheadedness. Denies fever, chills. Denies shortness of breath. Denies nausea, vomiting, diarrhea. PCP: Riddhi Gutierrez - Physicial Exam PE: 11/01/19 16:00 GENERAL: Awake, alert, and fully oriented, in no acute distress. HEAD: No signs of trauma EYES: PERRLA, EOMI, sclera anicteric, conjunctiva clear ENT: Auricles normal inspection, hearing grossly normal, nares patent, oropharynx clear without exudates. Moist mucosa NECK: Nontender, no stepoffs, Normal ROM, supple, no lymphadenopathy, JVD, or masses LUNGS: Breath sounds equal, clear to auscultation bilaterally. No wheezes, and no crackles HEART: Regular rate and rhythm, normal S1 and S2, no murmurs, rubs or gallops ABDOMEN: Soft, nontender, normoactive bowel sounds. No guarding, no rebound. No masses EXTREMITIES: Normal range of motion, no edema. No clubbing or cyanosis. No cords, erythema, or tenderness NEUROLOGICAL: Cranial nerves II through XII intact. 5/5 strength and sensation in all extremities, Normal speech, normal gait, normal cerebellar function SKIN: Warm, Dry, normal turgor, no rashes or lesions noted. - Medical Decision Making 11/01/19 17:06 48 F with intermittent chest pain. Very atypical in nature. Will r/o PE given h/ o DVT/PE. Will r/o ACS with trop and EKG. Pt with benign abdominal exam. - Labs - EKG - CTA chest
[2019-11-01 17:25] LABS: URINE COLOR YELLOW
[2019-11-01 17:26] LABS: PH,URINE 5.5 (5.0-8.0); URINE APPEARANCE HAZY; URINE BILIRUBIN NEGATIVE (NEGATIVE); URINE GLUCOSE (UA) NEGATIVE (NEGATIVE); URINE KETONE 2+ (NEGATIVE); URINE NITRITE NEGATIVE (NEGATIVE); URINE PROTEIN TRACE (NEGATIVE); URINE UROBILINOGEN 0.2 mg/dL (0.2-1.0)
[2019-11-01 17:27] LABS: URINE LEUK ESTERASE NEGATIVE (NEGATIVE)
[2019-11-01] MEDS ORDERED: ENOXAPARIN NA (PORCINE) 60 MG/0.6 ML DISP.SYRIN SQ SCH (18:00)
[2019-11-01 18:11] LABS: EPI CELLS 6.3 /HPF (0-5/HPF); HYALINE CASTS 7.08 /lpf (0-8); URINE BACTERIA 132.3 /hpf (NEGATIVE); URINE RBC 3.3 /hpf (0-4); URINE WBC 3.3 /hpf (0-5)
[2019-11-01 19:14] LABS: LIPASE 162 U/L (73-393)
[2019-11-01 19:17] LABS: ACTIVATED PTT 33.9 SECONDS (25.2-36.5)
[2019-11-01] MEDS ORDERED: ENOXAPARIN NA (PORCINE) 60 MG/0.6 ML DISP.SYRIN SQ ONE (19:29)
--- NOTE | 2019-11-01 19:33 | PN ---
Teaching Attending Note Name of Resident: Ace Tyler ATTENDING PHYSICIAN STATEMENT I saw and evaluated the patient. I reviewed the resident's note and discussed the case with the resident. I agree with the resident's findings and plan as documented. SUBJECTIVE: Patient is a 48 year old woman with a PMH of Penicillin allergy, Tobacco use, COPD, HTN, HLD, NIDDM, Chronic right leg DVT, PE, s/p IVC filter and Coumadin therapy presenting with chest and epigastric pain. Ongoing intermittent midsternal chest discomfort since August, not positional/exertional, lasting from few seconds up to a day. Also has constant epigastric pain for past 12 days not associated with exertion. Drinking carbonated drinks mildly relieves pain. Did not take any pain medications. Tylenol doesnt help and allergic to various opioids, states only NSAIDS help. Denies fever, cough, nausea, vomiting , SOB, dysuria, frequency, diarrhea or constipation. IVC filter was placed in 2010 and the plan was to remove it after ?4 months, but surgeon refused to remove it after re-evaluation. Has family history of DVT. Has trouble maintaining proper INR on coumadin. No recent travel or sick contacts. Denies alcohol, tobacco or illicit drug use. OBJECTIVE: Alert Vital Signs Period Temp Pulse Resp BP Sys/Oneil Pulse Ox Last 24 Hr 98.1 F 90 18 140/86 98 HEENT: No Jaundice, eye redness or discharge, PERRLA, EOMI. Normocephalic, atraumatic. External ears are normal and hearing is grossly intact. No nasal discharge. Neck: Supple, nontender. No palpable adenopathy or thyromegaly. No JVD Chest: Good effort. Clear to auscultation and percussion. Heart: Regular. No S3, rub or murmur Abdomen: Not distended, soft, mild epigastric tenderness and no HSM. No rebound or guarding. Normal bowel sounds. Ext: Peripheral pulses intact. No leg edema. Skin: Warm and dry. No petechiae, rash or ecchymosis. Neuro: Alert. Oriented x3. CN 2-12 grossly intact. Sensation grossly intact in all four extremities and DTR are symmetric. Psych: Appropriate mood and affect. Good insight. Current Medications Generic Name Dose Route Start Last Admin Trade Name Freq PRN Reason Stop Dose Admin Enoxaparin Sodium 60 mg 11/01/19 18:00 11/01/19 19:35 Lovenox - SQ 60 mg ONCE SUKHDEV Administration Home Medications Medication Instructions Recorded Albuterol 2.5/Ipratropium 0.5 1 neb IH ASDIR PRN 08/12/14 [Duoneb -] Albuterol Sulfate Inhaler - 2 inh PO Q4H PRN 03/03/15 [Ventolin HFA Inhaler -] Montelukast Na [Singulair -] 10 mg PO HS #30 tablet 12/22/16 Albuterol 2.5/Ipratropium 0.5 1 amp NEB Q6H PRN amp 08/10/18 [Duoneb -] Epinephrine [Epipen 2-Jan] 0.3 mg IJ ASDIR #1 kit 07/14/19 Ergocalciferol [Vitamin D2] 50,000 unit PO Q7D@1000 11/01/19 Fluticasone Propionate [Flovent 110 mcg IH BID 11/01/19 Hfa] Gabapentin [Neurontin] 100 mg PO Q8H 11/01/19 Valsartan [Diovan] 160 mg PO DAILY 11/01/19 Warfarin Sodium 6 mg PO DAILY 11/01/19 Zolpidem Tartrate [Ambien] 10 mg PO HS 11/01/19 Abnormal Lab Results 11/01/19 11/01/19 11/01/19 15:05 15:05 15:05 RDW 18.7 H PT with INR 20.90 H INR 1.76 H Potassium 3.4 L Random Glucose 68 L Urine Ketones Urine Blood 11/01/19 15:05 RDW PT with INR INR Potassium Random Glucose Urine Ketones 2+ H Urine Blood 2+ H ASSESSMENT AND PLAN: 1. Chest/epigastric pain - No acute abnormality on CXR. No acute abnormality noted on CT abdomen/pelvis. Alonso concern is that she may have a pulmonary embolism and/or peptic ulcer disease. She is allergic to dye so cant get a chest CTA. Will treat empirically with full dose Lovenox for PE since her INR is subtherapeutic, get VQ scan and consult Pulmonary. Treat with IV protonix and consult GI for possible EGD. EKG is NSR with no significant changes. Consult vascular surgery to consider ?IVC removal - which patient says had been proposed. Repeat UA after hydration to trend hematuria. Hypokalemia is unexplained. Will check serum Mg+ and give IV and PO KCL. Will continue comprehensive care for all of patients comorbid conditions. 2. DM For now, we will hold the home diabetes drugs and implement sliding scale insulin regimen. Provide comprehensive diabetes care with patient teaching and counseling about the importance of adherence to prescribed diabetes regimen, euglycemia, eye care and foot care. 3. Tobacco Use Counseled on risks associated with tobacco use. We will provide patient all the necessary assistance to facilitate smoking cessation and prescribe Nicotine patch. 4. Hypertension - Restart suitable outpatient antihypertensive drugs when clinically appropriate. Revise regimen to ensure [id number] excellent BP control and counselor camp patient on the injurious effects of uncontrolled hypertension. Nonpharmacologic measures to control hypertension like weight loss , salt restriction and exercise discussed. Importance of adherence to treatment regimen and attainment of normotension emphasized. 5. DVT prophylaxis - On coumadin - INR is subtherapeutic. Getting full dose Lovenox. 6. Advance directives - Full code
[2019-11-01] MEDS ORDERED: diphenhydrAMINE HCL 25 MG CAPSULE (FP) PO ONE (22:13)
[2019-11-01] MEDS ORDERED: POTASSIUM CHLORIDE TABS 20 MEQ TABLET.ER (FP) PO ONE (22:36)
--- NOTE | 2019-11-01 22:43 | HP ---
CHIEF COMPLAINT: Chest pain PCP: HISTORY OF PRESENT ILLNESS: The patient is a 48 rope female with a past medical history of COPD, hypertension, hyperlipidemia, diabetes, 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 The patient states that she is been experiencing chest pain intermittently since August. She describes the pain as a burning soreness located in her mid-sternal chest without radiation. She associates this soreness with a throbbing in her head and states that is usually brought on by spikes in her blood pressure and emotional upset. The patient states that this pain is not exertional. The patient also describes a twisting, cramping epigastric chest pain which she has intermittently experienced over the past 12 days. The patient states of this pain is nonexertional, is not related PO intake and is improved when the patient is on her hands and knees. She associates this pain with nausea and vomiting. In emergency department, the patient was found to have stable vital signs saturating well on room air as well as labs only remarkable for sub therapeutic INR at 1.75. A chest x-ray showed no acute pathology. A CT of the abdomen and pelvis only revealed an abdominal wall hernia. Recent Travel: PAST MEDICAL HISTORY: IVC filter (patient states it was placed her in 2010, but only records found in EMR show a placement by Dr. Aguilar on 2015) PAST SURGICAL HISTORY: IVC filter placement Social History: Smoking: active smoker of 10 cigs/ day Alcohol: denies Drugs: denies Allergies Penicillins Allergy (Severe, Verified 11/01/19 14:18) Rash acetaminophen [From Percocet] Allergy (Verified 11/01/19 14:18) hydrocodone bitartrate [From Vicodin] Allergy (Verified 11/01/19 14:18) iodine Allergy (Verified 11/01/19 14:18) morphine Allergy (Verified 11/01/19 14:18) oxycodone HCl [From Percocet] Allergy (Verified 11/01/19 14:18) peanut Allergy (Verified 11/01/19 14:18) rivaroxaban [From Xarelto] Allergy (Verified 11/01/19 14:18) dairy Allergy (Severe, Uncoded 11/01/19 14:18) Swelling eggs/egg-containing foods Allergy (Severe, Uncoded 11/01/19 14:18) Swelling FRESH BANANAS Allergy (Severe, Uncoded 11/01/19 14:18) ANAPHYLAXIS. tree nuts Allergy (Severe, Uncoded 11/01/19 14:18) Itching ammonium lactate cream Allergy (Uncoded 11/01/19 14:18) cheese Allergy (Uncoded 11/01/19 14:18) fresh apples Allergy (Uncoded 11/01/19 14:18) fresh peaches Allergy (Uncoded 11/01/19 14:18) fresh plums Allergy (Uncoded 11/01/19 14:18) NARCOTICS Allergy (Uncoded 11/01/19 14:18) HOME MEDICATIONS: Home Medications Medication Instructions Recorded Albuterol 2.5/Ipratropium 0.5 1 neb IH ASDIR PRN 08/12/14 [Duoneb -] Albuterol Sulfate Inhaler - 2 inh PO Q4H PRN 03/03/15 [Ventolin HFA Inhaler -] Montelukast Na [Singulair -] 10 mg PO HS #30 tablet 12/22/16 Albuterol 2.5/Ipratropium 0.5 1 amp NEB Q6H PRN amp 08/10/18 [Duoneb -] Epinephrine [Epipen 2-Jan] 0.3 mg IJ ASDIR #1 kit 07/14/19 Ergocalciferol [Vitamin D2] 50,000 unit PO Q7D@1000 11/01/19 Fluticasone Propionate [Flovent 110 mcg IH BID 11/01/19 Hfa] Gabapentin [Neurontin] 100 mg PO Q8H 11/01/19 Valsartan [Diovan] 160 mg PO DAILY 11/01/19 Warfarin Sodium 6 mg PO DAILY 11/01/19 Zolpidem Tartrate [Ambien] 10 mg PO HS 11/01/19 REVIEW OF SYSTEMS CONSTITUTIONAL: Absent: fever, chills, diaphoresis, generalized weakness, malaise, loss of appetite, weight change HEENT: Absent: rhinorrhea, nasal congestion, throat pain, throat swelling, difficulty swallowing, mouth swelling, ear pain, eye pain, visual changes CARDIOVASCULAR: Absent: chest pain, syncope, palpitations, irregular heart rate, lightheadedness , peripheral edema RESPIRATORY: Absent: cough, shortness of breath, dyspnea with exertion, orthopnea, wheezing, stridor, hemoptysis GASTROINTESTINAL: Absent: abdominal distension, vomiting, diarrhea, constipation, melena, hematochezia GENITOURINARY: Absent: dysuria, frequency, urgency, hesitancy, hematuria, flank pain, genital pain MUSCULOSKELETAL: Absent: myalgia, arthralgia, joint swelling, back pain, neck pain SKIN: Absent: rash, itching, pallor HEMATOLOGIC/IMMUNOLOGIC: Absent: easy bleeding, easy bruising, lymphadenopathy, frequent infections ENDOCRINE: Absent: unexplained weight gain, unexplained weight loss, heat intolerance, cold intolerance NEUROLOGIC: Absent: headache, focal weakness or paresthesias, dizziness, unsteady gait, seizure, mental status changes, bladder or bowel incontinence PSYCHIATRIC: Absent: anxiety, depression, suicidal or homicidal ideation, hallucinations. PHYSICAL EXAMINATION Vital Signs - 24 hr 11/01/19 11/01/19 14:20 20:34 Temperature 98.1 F 98.5 F Pulse Rate 90 Pulse Rate [ 96 H Left Radial] Respiratory 18 19 Rate Blood Pressure 140/86 Blood Pressure 149/84 [Right Arm] O2 Sat by Pulse 98 99 Oximetry (%) GENERAL: Awake, alert, and fully oriented, in no acute distress. HEAD: Normal with no signs of trauma. EYES: Pupils equal, round and reactive to light, extraocular movements intact, sclera anicteric, conjunctiva clear. No lid lag. LUNGS: Breath sounds equal, clear to auscultation bilaterally. No wheezes, and no crackles. No accessory muscle use. HEART: Regular rate and rhythm, normal S1 and S2 without murmur, rub or gallop. ABDOMEN: Soft, not distended, normoactive bowel sounds. Mild tenderness to palpation in the epigastrium. LOWER EXTREMITIES: 2+ pulses, warm, well-perfused. No calf tenderness. No peripheral edema. NEUROLOGICAL: Cranial nerves II-X intact. Normal speech. SKIN: Warm, dry, normal turgor, no rashes or lesions noted, normal capillary refill. Laboratory Results - last 24 hr 11/01/19 11/01/19 11/01/19 15:05 15:05 15:05 WBC 7.7 RBC 4.02 Hgb 11.7 Hct 35.7 MCV 88.8 MCH 29.1 MCHC 32.8 RDW 18.7 H Plt Count 325 D MPV 9.6 Absolute Neuts (auto) 5.2 Neutrophils % 66.8 Lymphocytes % 24.4 D Monocytes % 6.5 Eosinophils % 1.8 D Basophils % 0.5 Nucleated RBC % 0 PT with INR INR PTT (Actin FS) Sodium 139 Potassium 3.4 L Chloride 106 Carbon Dioxide 23 Anion Gap 10 BUN 7.9 Creatinine 0.8 Est GFR (CKD-EPI)AfAm 102.47 Est GFR (CKD-EPI)NonAf 88.41 Random Glucose 68 L Calcium 9.4 Total Bilirubin 0.5 AST 22 ALT 19 Alkaline Phosphatase 77 Creatine Kinase 98 Troponin I < 0.02 B-Natriuretic Peptide 63.0 Total Protein 7.3 Albumin 3.8 Lipase 162 Urine Color Urine Appearance Urine pH Ur Specific Harrison Urine Protein Urine Glucose (UA) Urine Ketones Urine Blood Urine Nitrite Urine Bilirubin Urine Urobilinogen Ur Leukocyte Esterase Urine WBC (Auto) Urine RBC (Auto) Urine Casts (Auto) U Epithel Cells (Auto) Urine Bacteria (Auto) Urine HCG, Qual 11/01/19 11/01/19 11/01/19 15:05 15:05 15:05 WBC RBC Hgb Hct MCV MCH MCHC RDW Plt Count MPV Absolute Neuts (auto) Neutrophils % Lymphocytes % Monocytes % Eosinophils % Basophils % Nucleated RBC % PT with INR 20.90 H INR 1.76 H PTT (Actin FS) 33.9 Sodium Potassium Chloride Carbon Dioxide Anion Gap BUN Creatinine Est GFR (CKD-EPI)AfAm Est GFR (CKD-EPI)NonAf Random Glucose Calcium Total Bilirubin AST ALT Alkaline Phosphatase Creatine Kinase Troponin I B-Natriuretic Peptide Total Protein Albumin Lipase Urine Color Yellow Urine Appearance Hazy Urine pH 5.5 Ur Specific Harrison 1.020 Urine Protein Trace Urine Glucose (UA) Negative Urine Ketones 2+ H Urine Blood 2+ H Urine Nitrite Negative Urine Bilirubin Negative Urine Urobilinogen 0.2 Ur Leukocyte Esterase Negative Urine WBC (Auto) 3.3 Urine RBC (Auto) 3.3 Urine Casts (Auto) 7.08 U Epithel Cells (Auto) 6.3 Urine Bacteria (Auto) 132.3 Urine HCG, Qual Negative ASSESSMENT/PLAN: The patient is a 48 rope female with a past medical history of COPD, hypertension, hyperlipidemia, diabetes, 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 #Chest pain/Epigastric pain with nausea possibly 2/2 gastritis r/o PE -Patient w/ PMH DVT on coumadin (subtheraputic) -Low clinical suspicion for PE -Patient has anaphylactic reaction of contrast dye; CTA contraindicated -pulm consult for potential VQ scan -will treat empirically with full dose Lovenox (1mg/Kg) for now -Protonix 40mg BID PO -GI consult for potential EGD -telemetry monitoring #s/p IVC filter placement in 2010 -patient unsure of who placed the filter originally -will consult vascular surgery. Per [facility] records, patient had a filter placed by Dr. Orozco in 2016 #h/o DVT/PE -holding Coumadin while the patient is on Lovenox #HTN -will continue the patient's home Diovan #COPD/Asthma -nebs standing and PRN -will resume home Singulair and Flovent #Hypokalemia -will replete with IV and PO KCL #Prophy -on therapeutic Lovenox #FEN -no fluids indicated -replete lytes as above -Regular diet #dispo -admit tele obs Visit type - Emergency Visit Emergency Visit: Yes ED Registration Date: 11/01/19 Care time: The patient presented to the Emergency Department on the above date and was hospitalized for further evaluation of their emergent condition. - New Patient This patient is new to me today: Yes Date on this admission: 11/02/19 - Critical Care Critical Care patient: No ATTENDING PHYSICIAN STATEMENT I saw and evaluated the patient. I reviewed the resident's note and discussed the case with the resident. I agree with the resident's findings and plan as documented. SUBJECTIVE: OBJECTIVE: ASSESSMENT AND PLAN:
[2019-11-01] MEDS ORDERED: ALBUTEROL SO4 HFA INHALER IH PRN (23:01)
[2019-11-01] MEDS ORDERED: ZOLPIDEM TARTRATE 5 MG TABLET PO PRN (23:04)
[2019-11-01] MEDS: PANTOPRAZOLE SODIUM 40 MG VIAL IVPUSH SCH (23:12)
[2019-11-01] MEDS: KCL 10 MEQ IVPB 10 MEQ/100 ML INFUS.BAG IVPB SCH (23:13)
[2019-11-01] MEDS: GABAPENTIN 100 MG CAPSULE PO SCH (23:26)
[2019-11-02] MEDS: KCL 10 MEQ IVPB 10 MEQ/100 ML INFUS.BAG IVPB SCH ×2 (00:10→01:28)
[2019-11-02] MEDS: GABAPENTIN 100 MG CAPSULE PO SCH ×4 (06:19→22:24)
[2019-11-02 06:43] LABS: MCH 29.4 pg (25.7-33.7); MCHC 32.3 g/dl (32.0-36.0); MEAN CELL VOLUME 90.9 fl (80-96); MEAN PLT VOLUME 10.7 fl (7.5-11.1); PLATELET COUNT 299 K/MM3 (134-434); RBC 4.07 M/mm3 (3.60-5.2); RDW 18.7 % (11.6-15.6); WHITE BLOOD COUNT 8.6 K/mm3 (4.0-10.0)
[2019-11-02 07:08] LABS: INR 1.61 (0.83-1.09); PROTHROMBIN TIME (PATIENT) 19.1 SEC (9.7-13.0)
[2019-11-02 07:17] LABS: ALBUMIN 3.5 g/dl (3.4-5.0); BILIRUBIN,TOTAL 0.3 mg/dL (0.2-1); BLOOD UREA NITROGEN 9.1 mg/dL (7-18); CALCIUM 9.2 mg/dL (8.5-10.1); CREATININE 0.8 mg/dL (0.55-1.3); MAGNESIUM 2.3 mg/dL (1.8-2.4); PHOSPHOROUS 2.7 mg/dL (2.5-4.9); POTASSIUM 4.7 mmol/L (3.5-5.1); TOT PROT 6.8 g/dl (6.4-8.2)
[2019-11-02] MEDS: ENOXAPARIN NA (PORCINE) 60 MG/0.6 ML DISP.SYRIN SQ SCH ×2 (09:32→22:31)
[2019-11-02] MEDS: VALSARTAN 160 MG TABLET (UD) PO SCH (09:32)
[2019-11-02] MEDS: PANTOPRAZOLE SODIUM 40 MG VIAL IVPUSH SCH ×2 (09:32→22:24)
[2019-11-02] MEDS ORDERED: PATIENT'S OWN MEDICATION (NON-FORMULARY) (Fluticasone Propionate [Flovent Hfa] 110 MCG) IH SCH (10:00)
--- NOTE | 2019-11-02 10:20 | PN ---
Progress Note (short form) - Note Progress Note: Patient is a 48yo female c/o having epigastric pain with hx of T2DM. Vital Signs Temperature 98.3 F 11/02/19 09:22 Pulse Rate 95 H 11/02/19 09:22 Respiratory Rate 22 H 11/02/19 09:22 Blood Pressure 159/96 11/02/19 09:22 O2 Sat by Pulse Oximetry (%) 100 11/02/19 08:59 GENERAL: Awake, alert, and fully oriented, in no acute distress. HEAD: Normal with no signs of trauma. EYES: Pupils equal, round and reactive to light, extraocular movements intact, sclera anicteric, conjunctiva clear. LUNGS: Decreased BS BL , positive for rhonchi with decreased air entery bl, and no crackles. No accessory muscle use. HEART: Regular rate and rhythm, normal S1 and S2 without murmur, rub or gallop. ABDOMEN: Soft, not distended, normoactive bowel sounds. mild epigastric tenderness LOWER EXTREMITIES: 2+ pulses, warm, well-perfused. No calf tenderness. No peripheral edema. NEUROLOGICAL: Cranial nerves II-X intact. Normal speech. SKIN: Warm, dry, normal turgor, no rashes or lesions noted, normal capillary refill. CBCD WBC 8.6 K/mm3 (4.0-10.0) 11/02/19 06:00 RBC 4.07 M/mm3 (3.60-5.2) 11/02/19 06:00 Hgb 12.0 GM/dL (10.7-15.3) 11/02/19 06:00 Hct 37.0 % (32.4-45.2) 11/02/19 06:00 MCV 90.9 fl (80-96) 11/02/19 06:00 MCHC 32.3 g/dl (32.0-36.0) 11/02/19 06:00 RDW 18.7 % (11.6-15.6) H 11/02/19 06:00 Plt Count 299 K/MM3 (134-434) 11/02/19 06:00 MPV 10.7 fl (7.5-11.1) D 11/02/19 06:00 CMP Sodium 138 mmol/L (136-145) 11/02/19 06:00 Potassium 4.7 mmol/L (3.5-5.1) 11/02/19 06:00 Chloride 109 mmol/L (98-107) H 11/02/19 06:00 Carbon Dioxide 22 mmol/L (21-32) 11/02/19 06:00 Anion Gap 7 MMOL/L (8-16) L 11/02/19 06:00 BUN 9.1 mg/dL (7-18) 11/02/19 06:00 Creatinine 0.8 mg/dL (0.55-1.3) 11/02/19 06:00 Random Glucose 149 mg/dL (74-106) H 11/02/19 06:00 Calcium 9.2 mg/dL (8.5-10.1) 11/02/19 06:00 Total Bilirubin 0.3 mg/dL (0.2-1) 11/02/19 06:00 AST 17 U/L (15-37) 11/02/19 06:00 ALT 19 U/L (13-61) 11/02/19 06:00 Alkaline Phosphatase 68 U/L (45-117) 11/02/19 06:00 Total Protein 6.8 g/dl (6.4-8.2) 11/02/19 06:00 Albumin 3.5 g/dl (3.4-5.0) 11/02/19 06:00 CARDIAC ENZYMES Creatine Kinase 98 U/L (26-192) 11/01/19 15:05 Troponin I < 0.02 ng/ml (0.00-0.05) 11/01/19 23:20 Current Medications Generic Name Dose Route Start Last Admin Trade Name Freq PRN Reason Stop Dose Admin Albuterol Sulfate 2 puff 11/01/19 23:01 Ventolin Hfa Inhaler - IH Q4H PRN SHORT OF BREATH/WHEEZING Enoxaparin Sodium 60 mg 11/02/19 10:00 11/02/19 09:32 Lovenox - SQ 60 mg BID SUKHDEV Administration Gabapentin 100 mg 11/01/19 23:15 11/02/19 06:19 Neurontin - PO 100 mg Q8H SUKHDEV Administration Mometasone Furoate 1 puff 11/02/19 22:00 Asmanex 220mcg - IH HS SUKHDEV Montelukast Sodium 10 mg 11/02/19 22:00 Singulair - PO HS SUKHDEV Pantoprazole Sodium 40 mg 11/01/19 22:35 11/02/19 09:32 Protonix Iv IVPUSH 40 mg BID [facility] Administration Valsartan 160 mg 11/02/19 10:00 11/02/19 09:32 Diovan - PO 160 mg DAILY [facility] Administration Zolpidem Tartrate 10 mg 11/01/19 23:04 Ambien - PO 11/02/19 23:03 ONCE PRN INSOMNIA Home Medications Medication Instructions Recorded Albuterol 2.5/Ipratropium 0.5 1 neb IH ASDIR PRN 08/12/14 [Duoneb -] Albuterol Sulfate Inhaler - 2 inh PO Q4H PRN 03/03/15 [Ventolin HFA Inhaler -] Montelukast Na [Singulair -] 10 mg PO HS #30 tablet 12/22/16 Albuterol 2.5/Ipratropium 0.5 1 amp NEB Q6H PRN amp 08/10/18 [Duoneb -] Epinephrine [Epipen 2-Jan] 0.3 mg IJ ASDIR #1 kit 07/14/19 Ergocalciferol [Vitamin D2] 50,000 unit PO Q7D@1000 11/01/19 Fluticasone Propionate [Flovent 110 mcg IH BID 11/01/19 Hfa] Gabapentin [Neurontin] 100 mg PO Q8H 11/01/19 Valsartan [Diovan] 160 mg PO DAILY 11/01/19 Warfarin Sodium 6 mg PO DAILY 11/01/19 Zolpidem Tartrate [Ambien] 10 mg PO HS 11/01/19 Assessment and plan: The patient is a 48yof with PMHxof COPD, hypertension, hyperlipidemia, diabetes , 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 #Chest pain/Epigastric pain with nausea possibly #s/p IVC filter placement in 2010: consult vascular surgery. Per [facility] records, patient had a filter placed by Dr. Orozco in 2016 #h/o DVT/PE: continue with Lovenox , bridge with Coumadin #HTN continue Diovan #COPD/Asthma continue neb treatment #Hypokalemia:l replete with IV and PO KCL #Prophy: on therapeutic Lovenox Visit type - Emergency Visit Emergency Visit: Yes ED Registration Date: 11/01/19 Care time: The patient presented to the Emergency Department on the above date and was hospitalized for further evaluation of their emergent condition. - New Patient This patient is new to me today: Yes Date on this admission: 11/02/19 - Critical Care Critical Care patient: No - Discharge Referral Referred to [facility] Med P.C.: No
--- NOTE | 2019-11-02 10:24 | CON.GI ---
Consult Consult Specialty:: GI Referred by:: Hospitalist service Reason for Consultation:: Abdominal pain - History of Present Illness Chief Complaint: 48 y.o. F states she has been having mid-abdominal pain for approximately 2 weeks. States she could not eat at home, however, when she came to ER she says she had soup with vegetables before her CT scan. Also says she does not need a diabetic diet but can eat whatever she wants and says she has been going to the cafeteria to buy food. She denies any prior history of GI complaints but says she had an UGI series in her 20s; she does not recall the reason. She insists her problem is caused by her IVC filter which was placed in 2010, according to hospital records. - History Source History Provided By: Patient, Medical Record Limitations to Obtaining History: No Limitations - Past Medical History Cardio/Vascular: Yes: Deep Vein Thrombosis Pulmonary: Yes: Asthma, Pulmonary Embolus ...: No Infectious Disease: Yes: Other (Has had abscesses of abdomen (surgical drainage ) and legs. MRSA in 2013.) Endocrine: Yes: Diabetes Mellitus (h/o Gestational DM) Dermatology: Yes: Eczema, Psoriasis, Other (Impetigo) - Past Surgical History Additional Surgical History: IVC filter 2010 - Alcohol/Substance Use Hx Alcohol Use: No - Smoking History Smoking history: Current every day smoker Have you smoked in the past 12 months: Yes Aproximately how many cigarettes per day: 10 - Social History Usual Living Arrangement: Alone History of Recent Travel: No Home Medications - Allergies Allergies/Adverse Reactions: Allergies Allergy/AdvReac Type Severity Reaction Status Date / Time Penicillins Allergy Severe Rash Verified 11/01/19 14:18 acetaminophen [From Percocet] Allergy Verified 11/01/19 14:18 hydrocodone bitartrate Allergy Verified 11/01/19 14:18 [From Vicodin] iodine Allergy Verified 11/01/19 14:18 morphine Allergy Verified 11/01/19 14:18 oxycodone HCl [From Percocet] Allergy Verified 11/01/19 14:18 peanut Allergy Verified 11/01/19 14:18 rivaroxaban [From Xarelto] Allergy Verified 11/01/19 14:18 dairy Allergy Severe Swelling Uncoded 11/01/19 14:18 eggs/egg-containing foods Allergy Severe Swelling Uncoded 11/01/19 14:18 FRESH BANANAS Allergy Severe ANAPHYLAXIS Uncoded 11/01/19 14:18 . tree nuts Allergy Severe Itching Uncoded 11/01/19 14:18 ammonium lactate cream Allergy Uncoded 11/01/19 14:18 cheese Allergy Uncoded 11/01/19 14:18 fresh apples Allergy Uncoded 11/01/19 14:18 fresh peaches Allergy Uncoded 11/01/19 14:18 fresh plums Allergy Uncoded 11/01/19 14:18 NARCOTICS Allergy Uncoded 11/01/19 14:18 - Home Medications Home Medications: Ambulatory Orders Albuterol 2.5/Ipratropium 0.5 [Duoneb -] 1 neb IH ASDIR PRN 08/12/14 Albuterol Sulfate Inhaler - [Ventolin HFA Inhaler -] 2 inh PO Q4H PRN 03/03/15 Montelukast Na [Singulair -] 10 mg PO HS #30 tablet 12/22/16 Albuterol 2.5/Ipratropium 0.5 [Duoneb -] 1 amp NEB Q6H PRN amp 08/10/18 Epinephrine [Epipen 2-Jan] 0.3 mg IJ ASDIR #1 kit 07/14/19 Ergocalciferol [Vitamin D2] 50,000 unit PO Q7D@1000 11/01/19 Fluticasone Propionate [Flovent Hfa] 110 mcg IH BID 11/01/19 Gabapentin [Neurontin] 100 mg PO Q8H 11/01/19 Valsartan [Diovan] 160 mg PO DAILY 11/01/19 Warfarin Sodium 6 mg PO DAILY 11/01/19 Zolpidem Tartrate [Ambien] 10 mg PO HS 11/01/19 Physical Exam-GI Vital Signs: Vital Signs Temperature 98.3 F 11/02/19 09:22 Pulse Rate 95 H 11/02/19 09:22 Respiratory Rate 22 H 11/02/19 09:22 Blood Pressure 159/96 11/02/19 09:22 O2 Sat by Pulse Oximetry (%) 100 11/02/19 08:59 Constitutional: Yes: Well Nourished, Anxious Eyes: Yes: WNL HENT: Yes: WNL Neck: Yes: Supple Cardiovascular: Yes: Regular Rate and Rhythm Respiratory: Yes: Regular ...Auscultate: Yes: Normoactive Bowel Sounds ...Palpate: Yes: Soft Edema: No Neurological: Yes: Alert, Oriented Labs: CBC, BMP 11/02/19 06:00 11/02/19 06:00 INR, PTT INR 1.61 (0.83-1.09) H 11/02/19 06:00 Imaging - Results Cat Scan: Report Reviewed, Image Reviewed (Food in stomach but patient says she ate shortly before the CT scan was performed.) Problem List - Problems (1) Abdominal pain Code(s): R10.9 - UNSPECIFIED ABDOMINAL PAIN Qualifiers: Abdominal location: upper abdomen, unspecified Qualified Code(s): R10.10 - Upper abdominal pain, unspecified Assessment/Plan If the patient had not eaten just before the CT scan I would suspect diabetic gastroparesis. Now I am afraid I do not know what to make of her symptoms. Her labs are all normal, her physical exam is unremarkable, she says she wants to eat and indeed says she has been buying food to supplement what she was given. She is convinced all her problems stem from her IVC filter which appears on the CT to be in proper position. If she can tolerate a diet I would suggest the workup be continued as an outpatient unless there is another reason to keep her in the hospital, in which case we can arrange an EGD for early in the week.
[2019-11-02] MEDS ORDERED: ALBUTEROL SO4 0.5 % INH SOLN 2.5 MG/0.5 ML VIAL.NEB. NEB SCH (12:30)
[2019-11-02] MEDS: guaiFENesin 600 MG TABLET.ER (FP) PO SCH ×2 (12:36→22:24)
--- NOTE | 2019-11-02 13:57 | CON.PULM ---
Consult Consult Specialty:: PULM/CCM Referred by:: Hospitalist Reason for Consultation:: SOB - History of Present Illness Chief Complaint: SOB History of Present Illness: 48 F, known history of DVT/PE (reports 18 members of her family have due to VTE) S/P IVF filter (2010) on Coumadin therapy, active tobacco abuse, (?) COPD, HTN, HLD, and NIDDM. Admitted via the ER due to intermittent midsternal chest discomfort since August. Intermittent and does not appear to be related to exertion. No hemoptysis. No history consistent with OSAS. No recent travel history or sick contacts. - History Source History Provided By: Patient Limitations to Obtaining History: No Limitations - Past Medical History Cardio/Vascular: Yes: Deep Vein Thrombosis Pulmonary: Yes: Asthma, Bronchitis, Pulmonary Embolus. No: Cancer, COPD, O2 Dependent, Pneumonia, Previously Intubated, Pulmonary Fibrosis, Sleep Apnea ...: No Infectious Disease: Yes: Other (Has had abscesses of abdomen (surgical drainage ) and legs. MRSA in 2013.) Endocrine: Yes: Diabetes Mellitus (h/o Gestational DM) Dermatology: Yes: Eczema, Psoriasis, Other (Impetigo) - Past Surgical History Additional Surgical History: IVC filter 2010 - Alcohol/Substance Use Hx Alcohol Use: No - Smoking History Smoking history: Current every day smoker Have you smoked in the past 12 months: Yes Aproximately how many cigarettes per day: 10 - Social History Usual Living Arrangement: Alone History of Recent Travel: No Home Medications - Allergies Allergies/Adverse Reactions: Allergies Allergy/AdvReac Type Severity Reaction Status Date / Time Penicillins Allergy Severe Rash Verified 11/01/19 14:18 acetaminophen [From Percocet] Allergy Verified 11/01/19 14:18 hydrocodone bitartrate Allergy Verified 11/01/19 14:18 [From Vicodin] iodine Allergy Verified 11/01/19 14:18 morphine Allergy Verified 11/01/19 14:18 oxycodone HCl [From Percocet] Allergy Verified 11/01/19 14:18 peanut Allergy Verified 11/01/19 14:18 rivaroxaban [From Xarelto] Allergy Verified 11/01/19 14:18 dairy Allergy Severe Swelling Uncoded 11/01/19 14:18 eggs/egg-containing foods Allergy Severe Swelling Uncoded 11/01/19 14:18 FRESH BANANAS Allergy Severe ANAPHYLAXIS Uncoded 11/01/19 14:18 . tree nuts Allergy Severe Itching Uncoded 11/01/19 14:18 ammonium lactate cream Allergy Uncoded 11/01/19 14:18 cheese Allergy Uncoded 11/01/19 14:18 fresh apples Allergy Uncoded 11/01/19 14:18 fresh peaches Allergy Uncoded 11/01/19 14:18 fresh plums Allergy Uncoded 11/01/19 14:18 NARCOTICS Allergy Uncoded 11/01/19 14:18 - Home Medications Home Medications: Ambulatory Orders Albuterol 2.5/Ipratropium 0.5 [Duoneb -] 1 neb IH ASDIR PRN 08/12/14 Albuterol Sulfate Inhaler - [Ventolin HFA Inhaler -] 2 inh PO Q4H PRN 03/03/15 Montelukast Na [Singulair -] 10 mg PO HS #30 tablet 12/22/16 Albuterol 2.5/Ipratropium 0.5 [Duoneb -] 1 amp NEB Q6H PRN amp 08/10/18 Epinephrine [Epipen 2-Jan] 0.3 mg IJ ASDIR #1 kit 07/14/19 Ergocalciferol [Vitamin D2] 50,000 unit PO Q7D@1000 11/01/19 Fluticasone Propionate [Flovent Hfa] 110 mcg IH BID 11/01/19 Gabapentin [Neurontin] 100 mg PO Q8H 11/01/19 Valsartan [Diovan] 160 mg PO DAILY 11/01/19 Warfarin Sodium 6 mg PO DAILY 11/01/19 Zolpidem Tartrate [Ambien] 10 mg PO HS 11/01/19 Review of Systems - Review of Systems Constitutional: reports: Malaise. denies: Chills, Diaphoresis, Fever, Night Sweats Eyes: reports: No Symptoms HENT: reports: No Symptoms Neck: reports: No Symptoms Cardiovascular: reports: Chest Pain, Shortness of Breath. denies: Edema, Palpitations Respiratory: reports: Cough, SOB, SOB on Exertion, Wheezing. denies: Hemoptysis , Orthopnea, PND, Snoring Gastrointestinal: reports: Abdominal Pain, Bloating, Nausea. denies: Vomiting, Vomiting Blood Genitourinary: reports: No Symptoms Breasts: reports: No Symptoms Reported Musculoskeletal: reports: No Symptoms Integumentary: reports: No Symptoms Neurological: reports: No Symptoms Endocrine: reports: No Symptoms Hematology/Lymphatic: reports: No Symptoms Psychiatric: reports: No Symptoms Physical Exam Vital Sings: Vital Signs Temperature 98.3 F 11/02/19 09:22 Pulse Rate 67 11/02/19 10:52 Respiratory Rate 18 11/02/19 10:52 Blood Pressure 136/61 11/02/19 10:52 O2 Sat by Pulse Oximetry (%) 100 11/02/19 08:59 Constitutional: Yes: No Distress, Calm Eyes: Yes: Conjunctiva Clear, EOM Intact HENT: Yes: Atraumatic, Normocephalic Neck: Yes: Supple, Trachea Midline Cardiovascular: Yes: Regular Rate and Rhythm Respiratory: Yes: Cough, Diminished, SOB on Exertion, Tachypnea, Wheezes. No: Accessory Muscle Use, Rales, Rhonchi, SOB, Stridor ...Inspection: Yes: WNL ...Clubbing: No Gastrointestinal: Yes: Normal Bowel Sounds, Soft Renal/: Yes: WNL Musculoskeletal: Yes: WNL Extremities: Yes: WNL Edema: No Peripheral Pulses WNL: Yes Integumentary: Yes: WNL Neurological: Yes: WNL, Alert, Oriented ...Motor Strength: WNL Psychiatric: Yes: WNL, Alert, Oriented Labs: CBC, BMP 11/02/19 06:00 11/02/19 06:00 Imaging - Results Chest X-ray: Report Reviewed, Image Reviewed Problem List - Problems (1) Pulmonary embolism Code(s): I26.99 - OTHER PULMONARY EMBOLISM WITHOUT ACUTE COR PULMONALE (2) Wheezing Code(s): R06.2 - WHEEZING (3) Abdominal pain Code(s): R10.9 - UNSPECIFIED ABDOMINAL PAIN Qualifiers: Abdominal location: upper abdomen, unspecified Qualified Code(s): R10.10 - Upper abdominal pain, unspecified (4) Chest pain Code(s): R07.9 - CHEST PAIN, UNSPECIFIED Qualifiers: Chest pain type: unspecified Qualified Code(s): R07.9 - Chest pain, unspecified (5) COPD (chronic obstructive pulmonary disease) with acute bronchitis Code(s): J44.0 - CHR OBSTRUCTIVE PULMON DISEASE WITH (ACUTE) LOWER RESP INFCT (6) DVT (deep venous thrombosis) Code(s): I82.409 - ACUTE EMBOLISM AND THOMBOS UNSP DEEP VN UNSP LOWER EXTREMITY Assessment/Plan AC with Lovenox / Coumadin Patient has an appointment to be evaluated by Dr Luciano as an outpatient BD TX Short course of Medrol ECHO Does not need CTA Chest at this point O2 as needed No smoking counseled PFTs once [facility] an [facility] Will follow Thank you. Dr Child
[2019-11-02] MEDS ORDERED: ALBUTEROL SO4 2.5/IPRATROPIUM 0.5 INH SOL 3 ML VIAL.NEB. NEB SCH (14:00)
[2019-11-02] MEDS: methylPREDNISolone NA SUCC 40 MG/1 ML VIAL IVPUSH SCH ×2 (14:06→22:24)
[2019-11-02] MEDS ORDERED: ACETYLCYSTEINE 20% 200MG/ML 4 ML VIAL *FOR ORAL / INH USE ONLY NEB PRN (15:13)
[2019-11-02] MEDS ORDERED: ALBUTEROL SO4 0.083% IH SOL 2.5 MG/3 ML VIAL.NEB. NEB PRN (15:20)
[2019-11-02] MEDS ORDERED: diphenhydrAMINE HCL 25 MG CAPSULE (FP) PO PRN (15:21)
[2019-11-02] MEDS: INSULIN SLIDING SCALE (NOVOLOG) 1 VIAL SQ SCH ×2 (16:54→22:24)
[2019-11-02] MEDS: diphenhydrAMINE HCL 25 MG CAPSULE (FP) PO PRN (21:23)
[2019-11-02] MEDS ORDERED: MONTELUKAST NA 10 MG TABLET PO SCH (22:00)
[2019-11-02] MEDS ORDERED: MOMETASONE FUROATE 220 MCG/IH INHALER IH SCH (22:00)
--- NOTE | 2019-11-02 23:22 | EKG ---
Test Reason : Blood Pressure : / mmHG Vent. Rate : 076 BPM Atrial Rate : 076 BPM P-R Int : 126 ms QRS Dur : 078 ms QT Int : 392 ms P-R-T Axes : 063 045 055 degrees QTc Int : 441 ms NORMAL SINUS RHYTHM NORMAL ECG WHEN COMPARED WITH ECG OF 16-JUN-2019 23:06, NO SIGNIFICANT CHANGE WAS FOUND Confirmed by LISET SHELBY MD ([id number]) on 11/02/2019 11:21:42 PM Referred By: Confirmed By:LISET SHELBY MD
[2019-11-03] MEDS: GABAPENTIN 100 MG CAPSULE PO SCH ×3 (06:40→21:33)
[2019-11-03] MEDS: INSULIN SLIDING SCALE (NOVOLOG) 1 VIAL SQ SCH ×4 (06:40→21:33)
[2019-11-03] MEDS: ENOXAPARIN NA (PORCINE) 60 MG/0.6 ML DISP.SYRIN SQ SCH ×3 (10:23→21:31)
[2019-11-03] MEDS: VALSARTAN 160 MG TABLET (UD) PO SCH (10:23)
[2019-11-03] MEDS: PANTOPRAZOLE SODIUM 40 MG VIAL IVPUSH SCH ×2 (10:23→21:37)
[2019-11-03] MEDS: guaiFENesin 600 MG TABLET.ER (FP) PO SCH ×2 (10:23→21:33)
[2019-11-03] MEDS: methylPREDNISolone NA SUCC 40 MG/1 ML VIAL IVPUSH SCH ×2 (10:23→21:34)
[2019-11-03] MEDS ORDERED: ACETYLCYSTEINE 20% 200MG/ML 4 ML VIAL *FOR ORAL / INH USE ONLY NEB ONE (11:48)
--- NOTE | 2019-11-03 11:51 | PN ---
Progress Note (short form) - Note Progress Note: Congested cough. Asking for nebulized Mucomyst as she benefited before. Reports tachycardia and elevated BP with Albuterol. Intake & Output 10/31/19 11/01/19 11/02/19 11/03/19 23:59 23:59 23:59 23:59 Intake Total 370 2290 30 Balance 370 2290 30 Weight 133 lb 6 oz Last Vital Signs Temp Pulse Resp BP Pulse Ox 98.5 F 61 18 141/85 99 11/03/19 06:00 11/03/19 06:00 11/03/19 06:00 11/03/19 06:00 11/02/19 21:00 Active Medications Diphenhydramine HCl (Benadryl -) 50 mg PO Q12H PRN PRN Reason: FOR ITCHING Last Admin: 11/02/19 21:23 Dose: 50 mg Enoxaparin Sodium (Lovenox -) 60 mg SQ BID [facility] Last Admin: 11/03/19 10:52 Dose: Not Given Gabapentin (Neurontin -) 100 mg PO Q8H [facility] Last Admin: 11/03/19 06:40 Dose: Not Given Guaifenesin (Mucinex -) 600 mg PO BID [facility] Last Admin: 11/03/19 10:23 Dose: 600 mg Insulin Aspart (Novolog Vial Sliding Scale -) 1 vial SQ [facility]; Protocol Last Admin: 11/03/19 11:31 Dose: 2 units Levalbuterol HCl (Xopenex) 0.63 mg IH RBID [facility] Levalbuterol HCl (Xopenex) 0.31 mg IH Q8H PRN PRN Reason: ASTHMA Methylprednisolone Sodium Succinate (Solu-Medrol -) 40 mg IVPUSH BID [facility] Last Admin: 11/03/19 10:23 Dose: 40 mg Mometasone Furoate (Asmanex 220mcg -) 1 puff IH HS [facility] Last Admin: 11/02/19 22:00 Dose: Not Given Montelukast Sodium (Singulair -) 10 mg PO [facility] Last Admin: 11/02/19 22:24 Dose: 10 mg Pantoprazole Sodium (Protonix Iv) 40 mg IVPUSH BID [facility] Last Admin: 11/03/19 10:23 Dose: 40 mg Valsartan (Diovan -) 160 mg PO DAILY [facility] Last Admin: 11/03/19 10:23 Dose: 160 mg Constitutional: Yes: No Distress, Calm Eyes: Yes: Conjunctiva Clear, EOM Intact HENT: Yes: Atraumatic, Normocephalic Neck: Yes: Supple, Trachea Midline Cardiovascular: Yes: Regular Rate and Rhythm Respiratory: Yes: Cough, Diminished, SOB on Exertion, Wheezes. No: Accessory Muscle Use, Rales, Rhonchi, SOB, Stridor ...Inspection: Yes: WNL ...Clubbing: No Gastrointestinal: Yes: Normal Bowel Sounds, Soft Renal/: Yes: WNL Musculoskeletal: Yes: WNL Extremities: Yes: WNL Edema: No Peripheral Pulses WNL: Yes Integumentary: Yes: WNL Neurological: Yes: WNL, Alert, Oriented ...Motor Strength: WNL Psychiatric: Yes: WNL, Alert, Oriented Labs: Laboratory Results - last 24 hr 11/02/19 11/02/19 11/03/19 16:49 22:21 11:29 POC Glucometer 148 190 168 Problem List - Problems (1) Pulmonary embolism Code(s): I26.99 - OTHER PULMONARY EMBOLISM WITHOUT ACUTE COR PULMONALE (2) Wheezing Code(s): R06.2 - WHEEZING (3) Abdominal pain Code(s): R10.9 - UNSPECIFIED ABDOMINAL PAIN Qualifiers: Abdominal location: upper abdomen, unspecified Qualified Code(s): R10.10 - Upper abdominal pain, unspecified (4) Chest pain Code(s): R07.9 - CHEST PAIN, UNSPECIFIED Qualifiers: Chest pain type: unspecified Qualified Code(s): R07.9 - Chest pain, unspecified (5) COPD (chronic obstructive pulmonary disease) with acute bronchitis Code(s): J44.0 - CHR OBSTRUCTIVE PULMON DISEASE WITH (ACUTE) LOWER RESP INFCT (6) DVT (deep venous thrombosis) Code(s): I82.409 - ACUTE EMBOLISM AND THOMBOS UNSP DEEP VN UNSP LOWER EXTREMITY Assessment/Plan AC with Lovenox / Coumadin Patient has an appointment to be evaluated by Dr Luciano as an outpatient Xopenex and Mucomyst ordered Short course of Medrol ECHO Does not need CTA Chest at this point O2 as needed No smoking counseled PFTs once stable as an outpatient [facility] Dr Child Problem List - Problems (1) Pulmonary embolism Code(s): I26.99 - OTHER PULMONARY EMBOLISM WITHOUT ACUTE COR PULMONALE (2) Wheezing Code(s): R06.2 - WHEEZING (3) Abdominal pain Code(s): R10.9 - UNSPECIFIED ABDOMINAL PAIN Qualifiers: Abdominal location: upper abdomen, unspecified Qualified Code(s): R10.10 - Upper abdominal pain, unspecified (4) Chest pain Code(s): R07.9 - CHEST PAIN, UNSPECIFIED Qualifiers: Chest pain type: unspecified Qualified Code(s): R07.9 - Chest pain, unspecified (5) COPD (chronic obstructive pulmonary disease) with acute bronchitis Code(s): J44.0 - CHR OBSTRUCTIVE PULMON DISEASE WITH (ACUTE) LOWER RESP INFCT (6) DVT (deep venous thrombosis) Code(s): I82.409 - ACUTE EMBOLISM AND THOMBOS UNSP DEEP VN UNSP LOWER EXTREMITY
[2019-11-03] MEDS ORDERED: WARFARIN NA 10 MG TABLET (FP) PO ONE (12:12)
--- NOTE | 2019-11-03 12:22 | PN ---
Progress Note (short form) - Note Progress Note: VAscular Surgery PT seen and examined. Doing well. Abd CT reveiwed. IVC filter patent and in place. Pt is on coumadin and should remain on it. That is what pt prefers. Pt having nausea and vomitting. GI on case for possible EGD. Pt having anxiety. Maybe pt can speak to psychaitry. No need for any vascular intervention. Cont bridging to coumadin. Scotty Winters DO
[2019-11-03] MEDS: LEVALBUTEROL HCL 0.31 MG/3 ML VIAL.NEB IH PRN (12:56)
--- NOTE | 2019-11-03 15:52 | PN ---
Physical Exam: SUBJECTIVE: Patient seen and examined MAURICE Complaining of chronic abdominal pain. Complaining that albuterol causes increased HTN when nebulized OBJECTIVE: Vital Signs Period Temp Pulse Resp BP Sys/Oneil Pulse Ox Last 24 Hr 97.6 F-98.9 F 61-91 18-20 103-141/66-96 99-99 GENERAL: The patient is awake, alert, and fully oriented, in no acute distress. HEAD: NC/AT. No temporal wasting EYES: PERRL, extraocular movements intact, sclera anicteric and w/o pallor, conjunctiva clear. No ptosis. ENT: Ears normal, nares patent, oropharynx clear without exudates, moist mucous membranes. NECK: Trachea midline, full range of motion, supple. Neg cervical LAD. LUNGS: B/l wheezes and crackles, no accessory muscle use. HEART: Regular rate and rhythm, S1, S2 without murmur, rub or gallop. ABDOMEN: abdominal striae, soft, nontender, nondistended, hyperactive bowel sounds, no guarding, no rebound EXTREMITIES: 2+ pulses, warm, well-perfused, no edema, thin lower extremities NEUROLOGICAL: Normal speech, gait not observed. PSYCH: Normal mood, normal affect. Anxious appearing SKIN: Warm, dry, normal turgor, no rashes or lesions noted Laboratory Results - last 24 hr 11/02/19 11/02/19 11/03/19 16:49 22:21 11:29 POC Glucometer 148 190 168 Active Medications Generic Name Dose Route Start Last Admin Trade Name Freq PRN Reason Stop Dose Admin Diphenhydramine HCl 50 mg 11/02/19 21:14 11/02/19 21:23 Benadryl - PO 50 mg Q12H PRN Administration FOR ITCHING Enoxaparin Sodium 60 mg 11/03/19 22:00 Lovenox - SQ BID SUKHDEV Gabapentin 100 mg 11/03/19 14:00 11/03/19 14:44 Neurontin - PO 100 mg TID SUKHDEV Administration Guaifenesin 600 mg 11/03/19 22:00 Mucinex - PO BID SUKHDEV Insulin Aspart 1 vial 11/02/19 16:30 11/03/19 11:31 Novolog Vial Sliding Scale - SQ 2 units ACHS SUKHDEV Administration Protocol Levalbuterol HCl 0.63 mg 01/05/20 20:00 Xopenex IH RBID SUKHDEV Levalbuterol HCl 0.31 mg 11/03/19 11:48 11/03/19 12:56 Xopenex IH 0.31 mg Q8H PRN Administration ASTHMA Methylprednisolone Sodium Succinate 40 mg 11/02/19 14:15 11/03/19 10:23 Solu-Medrol - IVPUSH 40 mg BID SUKHDEV Administration Mometasone Furoate 1 puff 11/03/19 22:00 Asmanex 220mcg - IH HS SUKHDEV Montelukast Sodium 10 mg 11/03/19 22:00 Singulair - PO HS SUKHDEV Pantoprazole Sodium 40 mg 11/03/19 22:00 Protonix Iv IVPUSH BID SUKHDEV Valsartan 160 mg 11/04/19 10:00 Diovan - PO DAILY SUKHDEV ASSESSMENT/PLAN: 48F w/ pmh of COPD, RLE DVT, ?PE, IVC Filter(04/25/11, home coumadin), HTN, dyslipidemia presenting with acute on cramping, epigastric abdominal pain radiating up the lower chest x12d. Pt expressed concern that abdominal pain 2/[address] A/P showing moderate gastric dilation w/ intraluminal food, possibly d/t recent food ingestion. GI(Luis F) consult recommend possible EGD. No CTA done d/t concern of possible IV contrast allergy. Pulmonary(Mateusz) did not recommend CTA. Venous duplex neg for DVT. Vascular(Singh) consulted to evaluate IVC filter patency and possibly source of abdominal pain #Chest pain/Epigastric pain with nausea possibly 2/2 gastritis r/o PE --Low clinical suspicion for PE > CTA chest --not done dt contrast dye ?allergy -empiric AC: --Lovenox (1mg/Kg) --possible warafarin but awaiting possible upper EGD(11/04/19? - 11/06/19?) -Protonix 40mg BID PO -GI(Luis F) consult: --possibly diabetic gastroparesis --possible EGD, early in the week -pulm(Mateusz) consult: --Xopenex and Mucomyst ordered --Short course of Medrol --ECHO --Does not need CTA Chest at this point --PFTs once stable as an outpatient --Singulair QHS -telemetry monitoring #s/p IVC filter(Pam, 04/20/11) -Vascular(Singh), consult: --no vascular intervention --bridge to coumadin --rec Psychiatry, rec upper endoscopy #h/o DVT/PE -on lovenox -holding Coumadin until GI determines possible upper endoscopy #HTN -will continue the patient's home Diovan #COPD/Asthma -nebs standing and PRN -home Singulair and Flovent -guaifenesin #Hypokalemia -will replete with IV and PO KCL #Prophy -on therapeutic Lovenox #FEN -no fluids indicated -replete lytes as above -fat/sodium-controlled diet -NPO at [place] #dispo -MedSurg Visit type - Emergency Visit Emergency Visit: No - New Patient This patient is new to me today: No - Critical Care Critical Care patient: No ATTENDING PHYSICIAN STATEMENT I saw and evaluated the patient. I reviewed the resident's note and discussed the case with the resident. I agree with the resident's findings and plan as documented. SUBJECTIVE: OBJECTIVE: ASSESSMENT AND PLAN:
--- NOTE | 2019-11-03 19:10 | PN ---
Teaching Attending Note Name of Resident: Al Montoya ATTENDING PHYSICIAN STATEMENT I saw and evaluated the patient. I reviewed the resident's note and discussed the case with the resident. I agree with the resident's findings and plan as documented. SUBJECTIVE: Patient's symptoms are improving but continues to cough. Vital Signs Temperature 98.8 F 11/03/19 18:10 Pulse Rate 81 11/03/19 18:10 Respiratory Rate 19 11/03/19 18:10 Blood Pressure 143/92 11/03/19 18:10 O2 Sat by Pulse Oximetry (%) 99 11/03/19 09:00 GENERAL: Awake, alert, and fully oriented, in no acute distress. HEAD: Normal with no signs of trauma. EYES: Pupils equal, round and reactive to light, extraocular movements intact, sclera anicteric, conjunctiva clear. LUNGS: Decreased BS BL , positive for wheezing but better air entery, No accessory muscle use. HEART: Regular rate and rhythm, normal S1 and S2 without murmur, rub or gallop. ABDOMEN: Soft, not distended, normoactive bowel sounds. mild epigastric tenderness EXTREMITIES: 2+ pulses, warm, well-perfused. No calf tenderness. No peripheral edema. NEUROLOGICAL: Cranial nerves II-X intact. Normal speech. SKIN: Warm, dry, normal turgor, no rashes or lesions noted, normal capillary refill. CBCD WBC 8.6 K/mm3 (4.0-10.0) 11/02/19 06:00 RBC 4.07 M/mm3 (3.60-5.2) 11/02/19 06:00 Hgb 12.0 GM/dL (10.7-15.3) 11/02/19 06:00 Hct 37.0 % (32.4-45.2) 11/02/19 06:00 MCV 90.9 fl (80-96) 11/02/19 06:00 MCHC 32.3 g/dl (32.0-36.0) 11/02/19 06:00 RDW 18.7 % (11.6-15.6) H 11/02/19 06:00 Plt Count 299 K/MM3 (134-434) 11/02/19 06:00 MPV 10.7 fl (7.5-11.1) D 11/02/19 06:00 CMP Sodium 138 mmol/L (136-145) 11/02/19 06:00 Potassium 4.7 mmol/L (3.5-5.1) 11/02/19 06:00 Chloride 109 mmol/L (98-107) H 11/02/19 06:00 Carbon Dioxide 22 mmol/L (21-32) 11/02/19 06:00 Anion Gap 7 MMOL/L (8-16) L 11/02/19 06:00 BUN 9.1 mg/dL (7-18) 11/02/19 06:00 Creatinine 0.8 mg/dL (0.55-1.3) 11/02/19 06:00 Random Glucose 149 mg/dL (74-106) H 11/02/19 06:00 Calcium 9.2 mg/dL (8.5-10.1) 11/02/19 06:00 Total Bilirubin 0.3 mg/dL (0.2-1) 11/02/19 06:00 AST 17 U/L (15-37) 11/02/19 06:00 ALT 19 U/L (13-61) 11/02/19 06:00 Alkaline Phosphatase 68 U/L (45-117) 11/02/19 06:00 Total Protein 6.8 g/dl (6.4-8.2) 11/02/19 06:00 Albumin 3.5 g/dl (3.4-5.0) 11/02/19 06:00 CARDIAC ENZYMES Creatine Kinase 98 U/L (26-192) 11/01/19 15:05 Troponin I < 0.02 ng/ml (0.00-0.05) 11/01/19 23:20 Current Medications Generic Name Dose Route Start Last Admin Trade Name Freq PRN Reason Stop Dose Admin Diphenhydramine HCl 50 mg 11/02/19 21:14 11/02/19 21:23 Benadryl - PO 50 mg Q12H PRN Administration FOR ITCHING Enoxaparin Sodium 60 mg 11/03/19 22:00 Lovenox - SQ BID SUKHDEV Gabapentin 100 mg 11/03/19 14:00 11/03/19 14:44 Neurontin - PO 100 mg TID SUKHDEV Administration Guaifenesin 600 mg 11/03/19 22:00 Mucinex - PO BID [facility] Insulin Aspart 1 vial 11/02/19 16:30 11/03/19 17:12 Novolog Vial Sliding Scale - SQ 8 units ACHS SUKHDEV Administration Protocol Levalbuterol HCl 0.63 mg 11/03/19 20:00 Xopenex IH RBID SUKHDEV Levalbuterol HCl 0.31 mg 11/03/19 11:48 11/03/19 12:56 Xopenex IH 0.31 mg Q8H PRN Administration ASTHMA Methylprednisolone Sodium Succinate 40 mg 11/02/19 14:15 11/03/19 10:23 Solu-Medrol - IVPUSH 40 mg BID SUKHDEV Administration Mometasone Furoate 1 puff 11/03/19 22:00 Asmanex 220mcg - IH HS SUKHDEV Montelukast Sodium 10 mg 11/03/19 22:00 Singulair - PO HS SUKHDEV Pantoprazole Sodium 40 mg 11/03/19 22:00 Protonix Iv IVPUSH BID SUKHDEV Valsartan 160 mg 11/04/19 10:00 Diovan - PO DAILY [facility] Home Medications Medication Instructions Recorded Albuterol 2.5/Ipratropium 0.5 1 neb IH ASDIR PRN 08/12/14 [Duoneb -] Albuterol Sulfate Inhaler - 2 inh PO Q4H PRN 03/03/15 [Ventolin HFA Inhaler -] Montelukast Na [Singulair -] 10 mg PO HS #30 tablet 12/22/16 Albuterol 2.5/Ipratropium 0.5 1 amp NEB Q6H PRN amp 08/10/18 [Duoneb -] Epinephrine [Epipen 2-Jan] 0.3 mg IJ ASDIR #1 kit 07/14/19 Ergocalciferol [Vitamin D2] 50,000 unit PO Q7D@1000 11/01/19 Fluticasone Propionate [Flovent 110 mcg IH BID 11/01/19 Hfa] Gabapentin [Neurontin] 100 mg PO Q8H 11/01/19 Valsartan [Diovan] 160 mg PO DAILY 11/01/19 Warfarin Sodium 6 mg PO DAILY 11/01/19 Zolpidem Tartrate [Ambien] 10 mg PO HS 11/01/19 Assessment and plan: The patient is a 48yof with PMHxof COPD, hypertension, hyperlipidemia, diabetes , 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 #Chest pain/Epigastric pain with nausea possibly due to gastroperesis due to diabetus, GI on the case, possible EGD #s/p IVC filter placement in 2010: consult vascular surgery. Per [facility] records, patient had a filter placed by Dr. Orozco in 2016, as per , the ivc is patent , on the US and Ct abdomen and pelvis #h/o DVT/PE: continue with Lovenox , bridge with Coumadin post EGD #HTN continue Diovan #COPD/Asthma continue neb treatment #Hypokalemia:l replete with IV and PO KCL #Prophy: on therapeutic Lovenox
[2019-11-03] MEDS: LEVALBUTEROL HCL 0.63 MG/3 ML VIAL.NEB. IH SCH (20:22)
[2019-11-03] MEDS: MOMETASONE FUROATE 220 MCG/IH INHALER IH SCH (21:31)
[2019-11-03] MEDS: MONTELUKAST NA 10 MG TABLET PO SCH (21:32)
[2019-11-03] MEDS: diphenhydrAMINE HCL 25 MG CAPSULE (FP) PO PRN (21:33)
[2019-11-04] MEDS: INSULIN SLIDING SCALE (NOVOLOG) 1 VIAL SQ SCH ×4 (07:05→21:24)
[2019-11-04] MEDS: GABAPENTIN 100 MG CAPSULE PO SCH ×3 (07:05→21:23)
[2019-11-04 07:24] LABS: HEMATOCRIT 34.6 % (32.4-45.2); HEMOGLOBIN 11.1 GM/dL (10.7-15.3); MCH 29.2 pg (25.7-33.7); MCHC 32.2 g/dl (32.0-36.0); MEAN CELL VOLUME 90.7 fl (80-96); MEAN PLT VOLUME 10.4 fl (7.5-11.1); PLATELET COUNT 274 K/MM3 (134-434); RBC 3.81 M/mm3 (3.60-5.2); WHITE BLOOD COUNT 17.5 K/mm3 (4.0-10.0)
[2019-11-04 07:45] LABS: INR 1.27 (0.83-1.09)
[2019-11-04 07:57] LABS: BLOOD UREA NITROGEN 16.8 mg/dL (7-18); CALCIUM 9.5 mg/dL (8.5-10.1); CREATININE 0.8 mg/dL (0.55-1.3); MAGNESIUM 2.3 mg/dL (1.8-2.4); PHOSPHOROUS 3.3 mg/dL (2.5-4.9); POTASSIUM 4.3 mmol/L (3.5-5.1)
[2019-11-04] MEDS: LEVALBUTEROL HCL 0.63 MG/3 ML VIAL.NEB. IH SCH ×2 (08:10→20:51)
[2019-11-04] MEDS: VALSARTAN 160 MG TABLET (UD) PO SCH (10:46)
[2019-11-04] MEDS: ENOXAPARIN NA (PORCINE) 60 MG/0.6 ML DISP.SYRIN SQ SCH ×2 (10:57→21:20)
--- NOTE | 2019-11-04 10:57 | PN ---
Progress Note (short form) - Note Progress Note: Slightly soledad congested cough. Only received one dose of the nebulized Mucomyst /Xopenex since yesterday. More comfortable on RA. Intake & Output 11/01/19 11/02/19 11/03/19 11/04/19 23:59 23:59 23:59 23:59 Intake Total 370 2290 450 0 Balance 370 2290 450 0 Weight 133 lb 6 oz Last Vital Signs Temp Pulse Resp BP Pulse Ox 97.7 F 87 18 145/95 98 11/03/19 22:00 11/03/19 22:00 11/03/19 22:00 11/03/19 22:00 11/03/19 21:00 Active Medications Acetylcysteine (Mucomyst 20 Oral / Inh Use Only*) 200 mg NEB BID [facility] Diphenhydramine HCl (Benadryl -) 50 mg PO Q12H PRN PRN Reason: FOR ITCHING Last Admin: 11/03/19 21:33 Dose: 50 mg Enoxaparin Sodium (Lovenox -) 60 mg SQ BID [facility] Last Admin: 11/03/19 21:31 Dose: 60 mg Gabapentin (Neurontin -) 100 mg PO TID [facility] Last Admin: 11/04/19 07:05 Dose: Not Given Guaifenesin (Mucinex -) 600 mg PO BID [facility] Last Admin: 11/03/19 21:33 Dose: 600 mg Insulin Aspart (Novolog Vial Sliding Scale -) 1 vial SQ [facility]; Protocol Last Admin: 11/04/19 07:05 Dose: Not Given Levalbuterol HCl (Xopenex) 0.63 mg IH RBID [facility] Last Admin: 11/04/19 08:10 Dose: Not Given Levalbuterol HCl (Xopenex) 0.31 mg IH Q8H PRN PRN Reason: ASTHMA Last Admin: 11/03/19 12:56 Dose: 0.31 mg Methylprednisolone Sodium Succinate (Solu-Medrol -) 40 mg IVPUSH BID [facility] Last Admin: 11/03/19 21:34 Dose: 40 mg Mometasone Furoate (Asmanex 220mcg -) 1 puff IH [facility] Last Admin: 11/03/19 21:31 Dose: 1 puff Montelukast Sodium (Singulair -) 10 mg PO [facility] Last Admin: 11/03/19 21:32 Dose: 10 mg Pantoprazole Sodium (Protonix Iv) 40 mg IVPUSH BID [facility] Last Admin: 11/03/19 21:37 Dose: 40 mg Valsartan (Diovan -) 160 mg PO DAILY [facility] Constitutional: Yes: No Distress, Calm Eyes: Yes: Conjunctiva Clear, EOM Intact HENT: Yes: Atraumatic, Normocephalic Neck: Yes: Supple, Trachea Midline Cardiovascular: Yes: Regular Rate and Rhythm Respiratory: Yes: Cough, Diminished, SOB on Exertion, Wheezes. No: Accessory Muscle Use, Rales, Rhonchi, SOB, Stridor ...Inspection: Yes: WNL ...Clubbing: No Gastrointestinal: Yes: Normal Bowel Sounds, Soft Renal/: Yes: WNL Musculoskeletal: Yes: WNL Extremities: Yes: WNL Edema: No Peripheral Pulses WNL: Yes Integumentary: Yes: WNL Neurological: Yes: WNL, Alert, Oriented ...Motor Strength: WNL Psychiatric: Yes: WNL, Alert, Oriented Labs: Laboratory Results - last 24 hr 11/03/19 11/03/19 11/03/19 11:29 17:11 21:07 WBC RBC Hgb Hct MCV MCH MCHC RDW Plt Count MPV PT with INR INR Sodium Potassium Chloride Carbon Dioxide Anion Gap BUN Creatinine Est GFR (CKD-EPI)AfAm Est GFR (CKD-EPI)NonAf POC Glucometer 168 302 114 Random Glucose Hemoglobin A1c % Calcium Phosphorus Magnesium 11/04/19 11/04/19 11/04/19 06:00 06:50 06:50 WBC 17.5 H RBC 3.81 Hgb 11.1 Hct 34.6 MCV 90.7 MCH 29.2 MCHC 32.2 RDW 19.0 H Plt Count 274 MPV 10.4 PT with INR INR Sodium 139 Potassium 4.3 Chloride 106 Carbon Dioxide 28 Anion Gap 6 L BUN 16.8 Creatinine 0.8 Est GFR (CKD-EPI)AfAm 102.47 Est GFR (CKD-EPI)NonAf 88.41 POC Glucometer Random Glucose 172 H Hemoglobin A1c % 5.6 Calcium 9.5 Phosphorus 3.3 Magnesium 2.3 11/04/19 06:50 WBC RBC Hgb Hct MCV MCH MCHC RDW Plt Count MPV PT with INR 15.00 H INR 1.27 H Sodium Potassium Chloride Carbon Dioxide Anion Gap BUN Creatinine Est GFR (CKD-EPI)AfAm Est GFR (CKD-EPI)NonAf POC Glucometer Random Glucose Hemoglobin A1c % Calcium Phosphorus Magnesium Problem List - Problems (1) Pulmonary embolism Code(s): I26.99 - OTHER PULMONARY EMBOLISM WITHOUT ACUTE COR PULMONALE (2) Wheezing Code(s): R06.2 - WHEEZING (3) Abdominal pain Code(s): R10.9 - UNSPECIFIED ABDOMINAL PAIN Qualifiers: Abdominal location: upper abdomen, unspecified Qualified Code(s): R10.10 - Upper abdominal pain, unspecified (4) Chest pain Code(s): R07.9 - CHEST PAIN, UNSPECIFIED Qualifiers: Chest pain type: unspecified Qualified Code(s): R07.9 - Chest pain, unspecified (5) COPD (chronic obstructive pulmonary disease) with acute bronchitis Code(s): J44.0 - CHR OBSTRUCTIVE PULMON DISEASE WITH (ACUTE) LOWER RESP INFCT (6) DVT (deep venous thrombosis) Code(s): I82.409 - ACUTE EMBOLISM AND THOMBOS UNSP DEEP VN UNSP LOWER EXTREMITY Assessment/Plan AC with Lovenox / Coumadin Patient has an appointment to be evaluated by Dr Luciano as an outpatient Xopenex and Mucomyst ordered Medrol Check ECHO Does not need CTA Chest at this point O2 as needed No smoking counseled PFTs once stable as an outpatient [facility] Dr Child Problem List - Problems (1) Pulmonary embolism Code(s): I26.99 - OTHER PULMONARY EMBOLISM WITHOUT ACUTE COR PULMONALE (2) Wheezing Code(s): R06.2 - WHEEZING (3) Abdominal pain Code(s): R10.9 - UNSPECIFIED ABDOMINAL PAIN Qualifiers: Abdominal location: upper abdomen, unspecified Qualified Code(s): R10.10 - Upper abdominal pain, unspecified (4) Chest pain Code(s): R07.9 - CHEST PAIN, UNSPECIFIED Qualifiers: Chest pain type: unspecified Qualified Code(s): R07.9 - Chest pain, unspecified (5) COPD (chronic obstructive pulmonary disease) with acute bronchitis Code(s): J44.0 - CHR OBSTRUCTIVE PULMON DISEASE WITH (ACUTE) LOWER RESP INFCT (6) DVT (deep venous thrombosis) Code(s): I82.409 - ACUTE EMBOLISM AND THOMBOS UNSP DEEP VN UNSP LOWER EXTREMITY
[2019-11-04] MEDS ORDERED: ACETYLCYSTEINE 20% 200MG/ML 30 ML VIAL *FOR ORAL / INH USE ONLY NEB SCH (11:30)
[2019-11-04] MEDS ORDERED: ACETYLCYSTEINE 20% 200MG/ML 4 ML VIAL *FOR ORAL / INH USE ONLY NEB SCH (11:30)
[2019-11-04] MEDS ORDERED: ACETYLCYSTEINE 20% 200MG/ML 4 ML VIAL *FOR ORAL / INH USE ONLY NEB ONE (12:07)
[2019-11-04] MEDS: PANTOPRAZOLE SODIUM 40 MG VIAL IVPUSH SCH ×2 (12:17→21:20)
[2019-11-04] MEDS: guaiFENesin 600 MG TABLET.ER (FP) PO SCH ×2 (12:17→21:23)
[2019-11-04] MEDS: methylPREDNISolone NA SUCC 40 MG/1 ML VIAL IVPUSH SCH ×2 (12:20→21:20)
--- NOTE | 2019-11-04 12:53 | PN ---
Progress Note (short form) - Note Progress Note: GI follow up Pt reports abdominal sx worsened a few days before xmas - epigastric, feels like someone digging a fist into epigastrium +intermittent N/V, can only tolerate certain foods +weight loss, but also somewhat depressed, has lost a parent and child in 2019 Epigastric discomfort is not exacerbated or alleviated by food US and CT reviewed Given new sx, and not clearly related to IVCF, and food in stomach on CT ( unclear if this is due to meal ingestion), can start with EGD to further assess. This will be on Monday. NPO after MN on Monday and hold AM lovenox on Mon. Can trial simethicone for symptomatic relief
[2019-11-04] MEDS: LEVALBUTEROL HCL 0.31 MG/3 ML VIAL.NEB IH PRN (13:12)
[2019-11-04] MEDS: NICOTINE POLACRILEX 2 MG GUM BUC PRN (14:49)
[2019-11-04] MEDS: SIMETHICONE 80 MG TAB.CHEW (FP) PO SCH ×3 (14:49→21:24)
--- NOTE | 2019-11-04 16:49 | PN ---
Physical Exam: SUBJECTIVE: Patient seen and examined O/N: pt will intermittently leave the floor to get cafeteria soup or smoke cigarettes States that pain is improved slightly. Able to tolerate food. Tolerated sodium/ cholesterol diet OBJECTIVE: Vital Signs Period Temp Pulse Resp BP Sys/Oneil Pulse Ox Last 24 Hr 97.7 F-98.8 F 60-87 18-19 138-150/76-98 98-98 GENERAL: The patient is awake, alert, and fully oriented, in no acute distress. HEAD: NC/AT. No temporal wasting EYES: PERRL, extraocular movements intact, sclera anicteric and w/o pallor, conjunctiva clear. No ptosis. ENT: Ears normal, nares patent, oropharynx clear without exudates, moist mucous membranes. NECK: Trachea midline, full range of motion, supple. Neg cervical LAD. LUNGS: B/l wheezes and crackles, no accessory muscle use. HEART: Regular rate and rhythm, S1, S2 without murmur, rub or gallop. ABDOMEN: abdominal striae, soft, nontender, nondistended, hyperactive bowel sounds, no guarding, no rebound EXTREMITIES: 2+ pulses, warm, well-perfused, no edema, thin lower extremities NEUROLOGICAL: Normal speech, gait not observed. PSYCH: Normal mood, normal affect. Anxious appearing SKIN: Warm, dry, normal turgor, no rashes or lesions noted Laboratory Results - last 24 hr 11/03/19 11/03/19 11/04/19 17:11 21:07 06:00 WBC RBC Hgb Hct MCV MCH MCHC RDW Plt Count MPV PT with INR INR Sodium Potassium Chloride Carbon Dioxide Anion Gap BUN Creatinine Est GFR (CKD-EPI)AfAm Est GFR (CKD-EPI)NonAf POC Glucometer 302 114 Random Glucose Hemoglobin A1c % 5.6 Calcium Phosphorus Magnesium 11/04/19 11/04/19 11/04/19 06:50 06:50 06:50 WBC 17.5 H RBC 3.81 Hgb 11.1 Hct 34.6 MCV 90.7 MCH 29.2 MCHC 32.2 RDW 19.0 H Plt Count 274 MPV 10.4 PT with INR 15.00 H INR 1.27 H Sodium 139 Potassium 4.3 Chloride 106 Carbon Dioxide 28 Anion Gap 6 L BUN 16.8 Creatinine 0.8 Est GFR (CKD-EPI)AfAm 102.47 Est GFR (CKD-EPI)NonAf 88.41 POC Glucometer Random Glucose 172 H Hemoglobin A1c % Calcium 9.5 Phosphorus 3.3 Magnesium 2.3 11/04/19 10:41 WBC RBC Hgb Hct MCV MCH MCHC RDW Plt Count MPV PT with INR INR Sodium Potassium Chloride Carbon Dioxide Anion Gap BUN Creatinine Est GFR (CKD-EPI)AfAm Est GFR (CKD-EPI)NonAf POC Glucometer 106 Random Glucose Hemoglobin A1c % Calcium Phosphorus Magnesium Active Medications Generic Name Dose Route Start Last Admin Trade Name Freq PRN Reason Stop Dose Admin Acetylcysteine 200 mg 11/04/19 11:30 Mucomyst 20 Oral / Inh Use Only* NEB BID SUKHDEV Diphenhydramine HCl 50 mg 11/02/19 21:14 11/03/19 21:33 Benadryl - PO 50 mg Q12H PRN Administration FOR ITCHING Enoxaparin Sodium 60 mg 11/03/19 22:00 11/04/19 10:57 Lovenox - SQ 60 mg BID SUKHDEV Administration Gabapentin 100 mg 11/03/19 14:00 11/04/19 13:19 Neurontin - PO 100 mg TID SUKHDEV Administration Guaifenesin 600 mg 11/03/19 22:00 11/04/19 12:17 Mucinex - PO 600 mg BID SUKHDEV Administration Insulin Aspart 1 vial 11/02/19 16:30 11/04/19 12:31 Novolog Vial Sliding Scale - SQ Not Given ACHS SUKHDEV Protocol Levalbuterol HCl 0.63 mg 11/03/19 20:00 11/04/19 08:10 Xopenex IH Not Given RBID SUKHDEV Levalbuterol HCl 0.31 mg 11/03/19 11:48 11/04/19 13:12 Xopenex IH 0.31 mg Q8H PRN Administration ASTHMA Methylprednisolone Sodium Succinate 40 mg 11/02/19 14:15 11/04/19 12:20 Solu-Medrol - IVPUSH 40 mg BID SUKHDEV Administration Mometasone Furoate 1 puff 11/03/19 22:00 11/03/19 21:31 Asmanex 220mcg - IH 1 puff HS SUKHDEV Administration Montelukast Sodium 10 mg 11/03/19 22:00 11/03/19 21:32 Singulair - PO 10 mg HS SUKHDEV Administration Nicotine Polacrilex 2 mg 11/04/19 13:41 11/04/19 14:49 Nicorette Gum - BUC 2 mg Q2H PRN Administration NICOTINE REPLACEMENT RX Pantoprazole Sodium 40 mg 11/03/19 22:00 11/04/19 12:17 Protonix Iv IVPUSH 40 mg BID SUKHDEV Administration Simethicone 80 mg 11/04/19 13:51 11/04/19 14:50 Mylicon - PO Not Given TID SUKHDEV Valsartan 160 mg 11/04/19 10:00 11/04/19 10:46 Diovan - PO 160 mg DAILY SUKHDEV Administration ASSESSMENT/PLAN: 48F w/ pmh of COPD, RLE DVT, ?PE, IVC Filter(04/25/11, home coumadin), HTN, dyslipidemia presenting with acute on cramping, epigastric abdominal pain radiating up the lower chest x12d. Pt expressed concern that abdominal pain 2/[address] A/P showing moderate gastric dilation w/ intraluminal food, possibly d/t recent food ingestion. GI(Luis F) consult recommend possible EGD. No CTA done d/t concern of possible IV contrast allergy. Pulmonary(Mateusz) did not recommend CTA. Venous duplex neg for DVT. Vascular(Singh) consulted to evaluate IVC filter patency and possibly source of abdominal pain #Chest pain/Epigastric pain with nausea possibly 2/2 gastritis r/o PE --Low clinical suspicion for PE > CTA chest --not done dt contrast dye ?allergy -empiric AC: --Lovenox (1mg/Kg) --possible warafarin but awaiting possible upper EGD(11/04/19? - 11/06/19?) -Protonix 40mg BID PO -GI(Luis F/Evi) consult: --possibly diabetic gastroparesis --possible EGD, on 11/06/2019 --simethicone trial -pulm(Mateusz) consult: --Xopenex and Mucomyst ordered --Short course of Medrol --ECHO --Does not need CTA Chest at this point --PFTs once stable as an outpatient --Singulair QHS -telemetry monitoring #s/p IVC filter(Pam, 04/20/11) -Vascular(Singh), consult: --no vascular intervention --bridge to coumadin --rec Psychiatry, rec upper endoscopy #Chronic Anxiety -Psych(Chepuru) consult: --pending #h/o DVT/PE -on lovenox -holding Coumadin until GI determines possible upper endoscopy #HTN -will continue the patient's home Diovan #COPD/Asthma -nebs standing and PRN -home Singulair and Flovent -guaifenesin #Hypokalemia -will replete with IV and PO KCL #Prophy -on therapeutic Lovenox #FEN -no fluids indicated -replete lytes as above -fat/sodium-controlled diet -NPO at [place] #dispo -MedSurg Visit type - Emergency Visit Emergency Visit: No - New Patient This patient is new to me today: No - Critical Care Critical Care patient: No ATTENDING PHYSICIAN STATEMENT I saw and evaluated the patient. I reviewed the resident's note and discussed the case with the resident. I agree with the resident's findings and plan as documented. SUBJECTIVE: OBJECTIVE: ASSESSMENT AND PLAN:
[2019-11-04] MEDS ORDERED: INSULIN (NOVOLOG) ASPART 100 UNITS/ML 10ML VIAL ONE (18:50)
--- NOTE | 2019-11-04 20:53 | PN ---
Teaching Attending Note Name of Resident: Al Montoya ATTENDING PHYSICIAN STATEMENT I saw and evaluated the patient. I reviewed the resident's note and discussed the case with the resident. I agree with the resident's findings and plan as documented. SUBJECTIVE: Patient is feeling sad bc of her daughter loss. Vital Signs Temperature 98.1 F 11/04/19 18:00 Pulse Rate 75 11/04/19 18:00 Respiratory Rate 18 11/04/19 18:00 Blood Pressure 148/88 11/04/19 18:00 O2 Sat by Pulse Oximetry (%) 98 11/04/19 09:00 GENERAL: Awake, alert, and fully oriented, in no acute distress. HEAD: Normal with no signs of trauma. EYES: Pupils equal, round and reactive to light, extraocular movements intact, sclera anicteric, conjunctiva clear. LUNGS: Decreased BS BL , positive for wheezing but better air entery, No accessory muscle use. HEART: Regular rate and rhythm, normal S1 and S2 without murmur, rub or gallop. ABDOMEN: Soft, not distended, normoactive bowel sounds. mild epigastric tenderness EXTREMITIES: 2+ pulses, warm, well-perfused. No calf tenderness. No peripheral edema. NEUROLOGICAL: Cranial nerves II-X intact. Normal speech. SKIN: Warm, dry, normal turgor, no rashes or lesions noted, normal capillary refill. Current Medications Generic Name Dose Route Start Last Admin Trade Name Freq PRN Reason Stop Dose Admin Diphenhydramine HCl 50 mg 11/02/19 21:14 11/02/19 21:23 Benadryl - PO 50 mg Q12H PRN Administration FOR ITCHING Enoxaparin Sodium 60 mg 11/03/19 22:00 Lovenox - SQ BID SUKHDEV Gabapentin 100 mg 11/03/19 14:00 11/03/19 14:44 Neurontin - PO 100 mg TID SUKHDEV Administration Guaifenesin 600 mg 11/03/19 22:00 Mucinex - PO BID SUKHDEV Insulin Aspart 1 vial 11/02/19 16:30 11/03/19 17:12 Novolog Vial Sliding Scale - SQ 8 units ACHS SUKHDEV Administration Protocol Levalbuterol HCl 0.63 mg 11/03/19 20:00 Xopenex IH RBID SUKHDEV Levalbuterol HCl 0.31 mg 11/03/19 11:48 11/03/19 12:56 Xopenex IH 0.31 mg Q8H PRN Administration ASTHMA Methylprednisolone Sodium Succinate 40 mg 11/02/19 14:15 11/03/19 10:23 Solu-Medrol - IVPUSH 40 mg BID SUKHDEV Administration Mometasone Furoate 1 puff 11/03/19 22:00 Asmanex 220mcg - IH HS SUKHDEV Montelukast Sodium 10 mg 11/03/19 22:00 Singulair - PO HS SUKHDEV Pantoprazole Sodium 40 mg 11/03/19 22:00 Protonix Iv IVPUSH BID SUKHDEV Valsartan 160 mg 11/04/19 10:00 Diovan - PO DAILY [facility] Home Medications Medication Instructions Recorded Albuterol 2.5/Ipratropium 0.5 1 neb IH ASDIR PRN 08/12/14 [Duoneb -] Albuterol Sulfate Inhaler - 2 inh PO Q4H PRN 03/03/15 [Ventolin HFA Inhaler -] Montelukast Na [Singulair -] 10 mg PO HS #30 tablet 12/22/16 Albuterol 2.5/Ipratropium 0.5 1 amp NEB Q6H PRN amp 08/10/18 [Duoneb -] Epinephrine [Epipen 2-Jan] 0.3 mg IJ ASDIR #1 kit 07/14/19 Ergocalciferol [Vitamin D2] 50,000 unit PO Q7D@1000 11/01/19 Fluticasone Propionate [Flovent 110 mcg IH BID 11/01/19 Hfa] Gabapentin [Neurontin] 100 mg PO Q8H 11/01/19 Valsartan [Diovan] 160 mg PO DAILY 11/01/19 Warfarin Sodium 6 mg PO DAILY 11/01/19 Zolpidem Tartrate [Ambien] 10 mg PO HS 11/01/19 CBCD WBC 17.5 K/mm3 (4.0-10.0) H 11/04/19 06:50 RBC 3.81 M/mm3 (3.60-5.2) 11/04/19 06:50 Hgb 11.1 GM/dL (10.7-15.3) 11/04/19 06:50 Hct 34.6 % (32.4-45.2) 11/04/19 06:50 MCV 90.7 fl (80-96) 11/04/19 06:50 MCHC 32.2 g/dl (32.0-36.0) 11/04/19 06:50 RDW 19.0 % (11.6-15.6) H 11/04/19 06:50 Plt Count 274 K/MM3 (134-434) 11/04/19 06:50 MPV 10.4 fl (7.5-11.1) 11/04/19 06:50 CMP Sodium 139 mmol/L (136-145) 11/04/19 06:50 Potassium 4.3 mmol/L (3.5-5.1) 11/04/19 06:50 Chloride 106 mmol/L (98-107) 11/04/19 06:50 Carbon Dioxide 28 mmol/L (21-32) 11/04/19 06:50 Anion Gap 6 MMOL/L (8-16) L 11/04/19 06:50 BUN 16.8 mg/dL (7-18) 11/04/19 06:50 Creatinine 0.8 mg/dL (0.55-1.3) 11/04/19 06:50 Random Glucose 172 mg/dL (74-106) H 11/04/19 06:50 Calcium 9.5 mg/dL (8.5-10.1) 11/04/19 06:50 Total Bilirubin 0.3 mg/dL (0.2-1) 11/02/19 06:00 AST 17 U/L (15-37) 11/02/19 06:00 ALT 19 U/L (13-61) 11/02/19 06:00 Alkaline Phosphatase 68 U/L (45-117) 11/02/19 06:00 Total Protein 6.8 g/dl (6.4-8.2) 11/02/19 06:00 Albumin 3.5 g/dl (3.4-5.0) 11/02/19 06:00 CARDIAC ENZYMES Creatine Kinase 98 U/L (26-192) 11/01/19 15:05 Troponin I < 0.02 ng/ml (0.00-0.05) 11/01/19 23:20 Assessment and plan: The patient is a 48yof with PMHxof COPD, hypertension, hyperlipidemia, diabetes , 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 #Leukocytosis: On iV steroid #Chest pain/Epigastric pain with nausea possibly due to most likely to gastroperesis due to diabetus, GI on the case, EGD for monday. GI on the case #s/p IVC filter placement in 2010: consult vascular surgery. Per [facility] records, patient had a filter placed by Dr. Orozco in 2016, as per , the ivc is patent , on the US and Ct abdomen and pelvis #h/o DVT/PE: continue with Lovenox , bridge with Coumadin post EGD #HTN continue Diovan #COPD/Asthma continue neb treatment #Hypokalemia: replete with IV and PO KCL #Prophy: on therapeutic Lovenox Patient continues to smoke, was counseled for smoking cessation. Nicotine gum was ordered for her.
[2019-11-04] MEDS: MOMETASONE FUROATE 220 MCG/IH INHALER IH SCH (21:20)
[2019-11-04] MEDS: diphenhydrAMINE HCL 25 MG CAPSULE (FP) PO PRN (21:23)
[2019-11-04] MEDS: MONTELUKAST NA 10 MG TABLET PO SCH (21:23)
[2019-11-05] MEDS: SIMETHICONE 80 MG TAB.CHEW (FP) PO SCH ×3 (06:57→21:20)
[2019-11-05] MEDS: GABAPENTIN 100 MG CAPSULE PO SCH ×3 (06:57→21:20)
[2019-11-05] MEDS: INSULIN SLIDING SCALE (NOVOLOG) 1 VIAL SQ SCH ×4 (07:01→22:37)
[2019-11-05 08:10] LABS: HEMOGLOBIN 10.5 GM/dL (10.7-15.3); MCH 28.8 pg (25.7-33.7); MCHC 31.7 g/dl (32.0-36.0); MEAN CELL VOLUME 90.9 fl (80-96); MEAN PLT VOLUME 10.8 fl (7.5-11.1); PLATELET COUNT 263 K/MM3 (134-434); RBC 3.63 M/mm3 (3.60-5.2); RDW 18.8 % (11.6-15.6); WHITE BLOOD COUNT 19.3 K/mm3 (4.0-10.0)
[2019-11-05 08:22] LABS: BLOOD UREA NITROGEN 18.2 mg/dL (7-18); CALCIUM 9.4 mg/dL (8.5-10.1); CREATININE 0.8 mg/dL (0.55-1.3); MAGNESIUM 2.3 mg/dL (1.8-2.4); PHOSPHOROUS 3.6 mg/dL (2.5-4.9)
[2019-11-05] MEDS: LEVALBUTEROL HCL 0.63 MG/3 ML VIAL.NEB. IH SCH ×2 (08:58→21:48)
[2019-11-05] MEDS: ACETYLCYSTEINE 20% 200MG/ML 4 ML VIAL *FOR ORAL / INH USE ONLY NEB SCH ×2 (08:59→21:48)
--- NOTE | 2019-11-05 09:26 | PN ---
Teaching Attending Note Name of Resident: Al Montoya ATTENDING PHYSICIAN STATEMENT I saw and evaluated the patient. I reviewed the resident's note and discussed the case with the resident. I agree with the resident's findings and plan as documented. SUBJECTIVE: Patient is feeling better in general, c/o having headache. Vital Signs Temperature 98.1 F 11/05/19 06:00 Pulse Rate 54 L 11/05/19 06:00 Respiratory Rate 18 11/05/19 06:00 Blood Pressure 146/78 11/05/19 06:00 O2 Sat by Pulse Oximetry (%) 98 11/04/19 21:00 GENERAL: Awake, alert, and fully oriented, in no acute distress. HEAD: Normal with no signs of trauma. EYES: Pupils equal, round and reactive to light, extraocular movements intact, sclera anicteric, conjunctiva clear. LUNGS: Decreased BS BL , positive for wheezing but better air entery, No accessory muscle use. HEART: Regular rate and rhythm, normal S1 and S2 without murmur, rub or gallop. ABDOMEN: Soft, not distended, normoactive bowel sounds. mild epigastric tenderness EXTREMITIES: 2+ pulses, warm, well-perfused. No calf tenderness. No peripheral edema. NEUROLOGICAL: Cranial nerves II-X intact. Normal speech. SKIN: Warm, dry, normal turgor, no rashes or lesions noted, normal capillary refill. CBCD WBC 19.3 K/mm3 (4.0-10.0) H 11/05/19 07:05 RBC 3.63 M/mm3 (3.60-5.2) 11/05/19 07:05 Hgb 10.5 GM/dL (10.7-15.3) L 11/05/19 07:05 Hct 33.0 % (32.4-45.2) 11/05/19 07:05 MCV 90.9 fl (80-96) 11/05/19 07:05 MCHC 31.7 g/dl (32.0-36.0) L 11/05/19 07:05 RDW 18.8 % (11.6-15.6) H 11/05/19 07:05 Plt Count 263 K/MM3 (134-434) 11/05/19 07:05 MPV 10.8 fl (7.5-11.1) 11/05/19 07:05 CMP Sodium 140 mmol/L (136-145) 11/05/19 07:05 Potassium 4.0 mmol/L (3.5-5.1) 11/05/19 07:05 Chloride 106 mmol/L (98-107) 11/05/19 07:05 Carbon Dioxide 28 mmol/L (21-32) 11/05/19 07:05 Anion Gap 6 MMOL/L (8-16) L 11/05/19 07:05 BUN 18.2 mg/dL (7-18) H 11/05/19 07:05 Creatinine 0.8 mg/dL (0.55-1.3) 11/05/19 07:05 Random Glucose 182 mg/dL (74-106) H 11/05/19 07:05 Calcium 9.4 mg/dL (8.5-10.1) 11/05/19 07:05 Total Bilirubin 0.3 mg/dL (0.2-1) 11/02/19 06:00 AST 17 U/L (15-37) 11/02/19 06:00 ALT 19 U/L (13-61) 11/02/19 06:00 Alkaline Phosphatase 68 U/L (45-117) 11/02/19 06:00 Total Protein 6.8 g/dl (6.4-8.2) 11/02/19 06:00 Albumin 3.5 g/dl (3.4-5.0) 11/02/19 06:00 CARDIAC ENZYMES Creatine Kinase 98 U/L (26-192) 11/01/19 15:05 Troponin I < 0.02 ng/ml (0.00-0.05) 11/01/19 23:20 Current Medications Generic Name Dose Route Start Last Admin Trade Name Freq PRN Reason Stop Dose Admin Acetylcysteine 200 mg 11/05/19 08:57 11/05/19 08:59 Mucomyst 20 Oral / Inh Use Only* NEB 200 mg RBID SUKHDEV Administration Diphenhydramine HCl 50 mg 11/02/19 21:14 11/04/19 21:23 Benadryl - PO 50 mg Q12H PRN Administration FOR ITCHING Enoxaparin Sodium 60 mg 11/03/19 22:00 11/04/19 21:20 Lovenox - SQ 60 mg BID SUKHDEV Administration Gabapentin 100 mg 11/03/19 14:00 11/05/19 06:57 Neurontin - PO 100 mg TID SUKHDEV Administration Guaifenesin 600 mg 11/03/19 22:00 11/04/19 21:23 Mucinex - PO Not Given BID SUKHDEV Insulin Aspart 1 vial 11/02/19 16:30 11/05/19 07:01 Novolog Vial Sliding Scale - SQ 2 units ACHS SUKHDEV Administration Protocol Levalbuterol HCl 0.63 mg 11/03/19 20:00 11/05/19 08:58 Xopenex IH 0.63 mg RBID SUKHDEV Administration Levalbuterol HCl 0.31 mg 11/03/19 11:48 11/04/19 13:12 Xopenex IH 0.31 mg Q8H PRN Administration ASTHMA Methylprednisolone Sodium Succinate 40 mg 11/02/19 14:15 11/04/19 21:20 Solu-Medrol - IVPUSH 40 mg BID SUKHDEV Administration Mometasone Furoate 1 puff 11/03/19 22:00 11/04/19 21:20 Asmanex 220mcg - IH 1 puff HS SUKHDEV Administration Montelukast Sodium 10 mg 11/03/19 22:00 11/04/19 21:23 Singulair - PO 10 mg HS SUKHDEV Administration Nicotine Polacrilex 2 mg 11/04/19 13:41 11/04/19 14:49 Nicorette Gum - BUC 2 mg Q2H PRN Administration NICOTINE REPLACEMENT RX Pantoprazole Sodium 40 mg 11/05/19 10:00 Protonix - PO DAILY SUKHDEV Simethicone 80 mg 11/04/19 13:51 11/05/19 06:57 Mylicon - PO 80 mg TID SUKHDEV Administration Valsartan 160 mg 11/04/19 10:00 11/04/19 10:46 Diovan - PO 160 mg DAILY SUKHDEV Administration Home Medications Medication Instructions Recorded Albuterol 2.5/Ipratropium 0.5 1 neb IH ASDIR PRN 08/12/14 [Duoneb -] Albuterol Sulfate Inhaler - 2 inh PO Q4H PRN 03/03/15 [Ventolin HFA Inhaler -] Montelukast Na [Singulair -] 10 mg PO HS #30 tablet 12/22/16 Albuterol 2.5/Ipratropium 0.5 1 amp NEB Q6H PRN amp 08/10/18 [Duoneb -] Epinephrine [Epipen 2-Jan] 0.3 mg IJ ASDIR #1 kit 07/14/19 Ergocalciferol [Vitamin D2] 50,000 unit PO Q7D@1000 11/01/19 Fluticasone Propionate [Flovent 110 mcg IH BID 11/01/19 Hfa] Gabapentin [Neurontin] 100 mg PO Q8H 11/01/19 Valsartan [Diovan] 160 mg PO DAILY 11/01/19 Warfarin Sodium 6 mg PO DAILY 11/01/19 Zolpidem Tartrate [Ambien] 10 mg PO HS 11/01/19 Fluticasone Propionate [Flovent 220 mcg IH BID 11/04/19 Hfa] Assessment and plan: The patient is a 48yof with PMHxof COPD, hypertension, hyperlipidemia, diabetes , 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 #Headache: will get neuro to see the patient. #Leukocytosis: On iV steroid 19.3 today #Chest pain/Epigastric pain with nausea possibly due to most likely to gastroperesis due to diabetus, GI on the case, EGD for am., hold lovenox am dose , prior to EGD , GI on the case. post egd , can restart coumadin and lovnox bridging. #s/p IVC filter placement in 2010: consult vascular surgery. Per [facility] records, patient had a filter placed by Dr. Orozco in 2016, as per , the ivc is patent , on the US and Ct abdomen and pelvis #h/o DVT/PE: continue with Lovenox , bridge with Coumadin post EGD #HTN continue Diovan #COPD/Asthma continue neb treatment #Hypokalemia: replete with IV and PO KCL # griefing vs depression : with her recent loss of her daughter. #Prophy: on therapeutic Lovenox Patient continues to smoke, was counseled for smoking cessation. Nicotine gum was ordered for her.
[2019-11-05] MEDS: PANTOPRAZOLE 40 MG TABLET PO SCH (09:44)
[2019-11-05] MEDS: guaiFENesin 600 MG TABLET.ER (FP) PO SCH ×2 (09:44→21:20)
[2019-11-05] MEDS: VALSARTAN 160 MG TABLET (UD) PO SCH (09:44)
[2019-11-05] MEDS: ENOXAPARIN NA (PORCINE) 60 MG/0.6 ML DISP.SYRIN SQ SCH ×2 (09:46→21:20)
[2019-11-05] MEDS: methylPREDNISolone NA SUCC 40 MG/1 ML VIAL IVPUSH SCH ×2 (09:46→21:21)
--- NOTE | 2019-11-05 11:19 | PN ---
Progress Note (short form) - Note Progress Note: Insomnia overnight. GARCÍA and malaise today. Less wheezing. Intake & Output 11/02/19 11/03/19 11/04/19 11/05/19 23:59 23:59 23:59 23:59 Intake Total 2290 450 0 Balance 2290 450 0 Last Vital Signs Temp Pulse Resp BP Pulse Ox 98.1 F 54 L 18 146/78 98 11/05/19 06:00 11/05/19 06:00 11/05/19 06:00 11/05/19 06:00 11/04/19 21:00 Active Medications Acetylcysteine (Mucomyst 20 Oral / Inh Use Only*) 200 mg NEB RBID [facility] Last Admin: 11/05/19 08:59 Dose: 200 mg Diphenhydramine HCl (Benadryl -) 50 mg PO Q12H PRN PRN Reason: FOR ITCHING Last Admin: 11/04/19 21:23 Dose: 50 mg Enoxaparin Sodium (Lovenox -) 60 mg SQ BID [facility] Last Admin: 11/05/19 09:46 Dose: 60 mg Gabapentin (Neurontin -) 100 mg PO TID [facility] Last Admin: 11/05/19 06:57 Dose: 100 mg Guaifenesin (Mucinex -) 600 mg PO BID [facility] Last Admin: 11/05/19 09:44 Dose: 600 mg Insulin Aspart (Novolog Vial Sliding Scale -) 1 vial SQ [facility]; Protocol Last Admin: 11/05/19 07:01 Dose: 2 units Levalbuterol HCl (Xopenex) 0.63 mg IH RBID [facility] Last Admin: 11/05/19 08:58 Dose: 0.63 mg Levalbuterol HCl (Xopenex) 0.31 mg IH Q8H PRN PRN Reason: ASTHMA Last Admin: 11/04/19 13:12 Dose: 0.31 mg Methylprednisolone Sodium Succinate (Solu-Medrol -) 40 mg IVPUSH BID [facility] Last Admin: 11/05/19 09:46 Dose: 40 mg Mometasone Furoate (Asmanex 220mcg -) 1 puff IH HS [facility] Last Admin: 11/04/19 21:20 Dose: 1 puff Montelukast Sodium (Singulair -) 10 mg PO [facility] Last Admin: 11/04/19 21:23 Dose: 10 mg Nicotine Polacrilex (Nicorette Gum -) 2 mg BUC Q2H PRN PRN Reason: NICOTINE REPLACEMENT RX Last Admin: 11/04/19 14:49 Dose: 2 mg Pantoprazole Sodium (Protonix -) 40 mg PO DAILY [facility] Last Admin: 11/05/19 09:44 Dose: 40 mg Simethicone (Mylicon -) 80 mg PO TID [facility] Last Admin: 11/05/19 06:57 Dose: 80 mg Valsartan (Diovan -) 160 mg PO DAILY [facility] Last Admin: 11/05/19 09:44 Dose: 160 mg Constitutional: Yes: No Distress Eyes: Yes: Conjunctiva Clear, EOM Intact HENT: Yes: Atraumatic, Normocephalic Neck: Yes: Supple, Trachea Midline Cardiovascular: Yes: Regular Rate and Rhythm Respiratory: Yes: Cough, Diminished, Bilateral expiratory wheezes. No: Accessory Muscle Use, Rales, Rhonchi, SOB, Stridor ...Inspection: Yes: WNL ...Clubbing: No Gastrointestinal: Yes: Normal Bowel Sounds, Soft Renal/: Yes: WNL Musculoskeletal: Yes: WNL Extremities: Yes: WNL Edema: No Peripheral Pulses WNL: Yes Integumentary: Yes: WNL Neurological: Yes: WNL, Alert, Oriented ...Motor Strength: WNL Psychiatric: Yes: WNL, Alert, Oriented Labs: Laboratory Results - last 24 hr 11/04/19 11/04/19 11/05/19 17:27 21:18 07:01 WBC RBC Hgb Hct MCV MCH MCHC RDW Plt Count MPV Sodium Potassium Chloride Carbon Dioxide Anion Gap BUN Creatinine Est GFR (CKD-EPI)AfAm Est GFR (CKD-EPI)NonAf POC Glucometer 383 137 190 Random Glucose Calcium Phosphorus Magnesium 11/05/19 11/05/19 11/05/19 07:05 07:05 11:09 WBC 19.3 H RBC 3.63 Hgb 10.5 L Hct 33.0 MCV 90.9 MCH 28.8 MCHC 31.7 L RDW 18.8 H Plt Count 263 MPV 10.8 Sodium 140 Potassium 4.0 Chloride 106 Carbon Dioxide 28 Anion Gap 6 L BUN 18.2 H Creatinine 0.8 Est GFR (CKD-EPI)AfAm 102.47 Est GFR (CKD-EPI)NonAf 88.41 POC Glucometer 180 Random Glucose 182 H Calcium 9.4 Phosphorus 3.6 Magnesium 2.3 Problem List - Problems (1) Pulmonary embolism Code(s): I26.99 - OTHER PULMONARY EMBOLISM WITHOUT ACUTE COR PULMONALE (2) Wheezing Code(s): R06.2 - WHEEZING (3) Abdominal pain Code(s): R10.9 - UNSPECIFIED ABDOMINAL PAIN Qualifiers: Abdominal location: upper abdomen, unspecified Qualified Code(s): R10.10 - Upper abdominal pain, unspecified (4) Chest pain Code(s): R07.9 - CHEST PAIN, UNSPECIFIED Qualifiers: Chest pain type: unspecified Qualified Code(s): R07.9 - Chest pain, unspecified (5) COPD (chronic obstructive pulmonary disease) with acute bronchitis Code(s): J44.0 - CHR OBSTRUCTIVE PULMON DISEASE WITH (ACUTE) LOWER RESP INFCT (6) DVT (deep venous thrombosis) Code(s): I82.409 - ACUTE EMBOLISM AND THOMBOS UNSP DEEP VN UNSP LOWER EXTREMITY Assessment/Plan AC with Lovenox / Coumadin Xopenex and Mucomyst as ordered Medrol Does not need CTA Chest O2 as needed No smoking counseled PFTs once stable as an outpatient [facility] Dr Child Problem List - Problems (1) Pulmonary embolism Code(s): I26.99 - OTHER PULMONARY EMBOLISM WITHOUT ACUTE COR PULMONALE (2) Wheezing Code(s): R06.2 - WHEEZING (3) Abdominal pain Code(s): R10.9 - UNSPECIFIED ABDOMINAL PAIN Qualifiers: Abdominal location: upper abdomen, unspecified Qualified Code(s): R10.10 - Upper abdominal pain, unspecified (4) Chest pain Code(s): R07.9 - CHEST PAIN, UNSPECIFIED Qualifiers: Chest pain type: unspecified Qualified Code(s): R07.9 - Chest pain, unspecified (5) COPD (chronic obstructive pulmonary disease) with acute bronchitis Code(s): J44.0 - CHR OBSTRUCTIVE PULMON DISEASE WITH (ACUTE) LOWER RESP INFCT (6) DVT (deep venous thrombosis) Code(s): I82.409 - ACUTE EMBOLISM AND THOMBOS UNSP DEEP VN UNSP LOWER EXTREMITY
[2019-11-05] MEDS ORDERED: ZOLPIDEM TARTRATE 5 MG TABLET PO PRN (13:17)
[2019-11-05] MEDS: diphenhydrAMINE HCL 25 MG CAPSULE (FP) PO PRN ×2 (13:24→21:21)
--- NOTE | 2019-11-05 18:38 | PN ---
Physical Exam: SUBJECTIVE: Patient seen and examined MAURICE Complains of moderate frontal GARCÍA, expresses concern of brain aneurysm OBJECTIVE: Vital Signs Period Temp Pulse Resp BP Sys/Oneil Pulse Ox Last 24 Hr 98.0 F-98.3 F 54-80 18-18 139-156/73-100 98-100 GENERAL: The patient is awake, alert, and fully oriented, in no acute distress. HEAD: NC/AT. No temporal wasting EYES: PERRL, extraocular movements intact, sclera anicteric and w/o pallor, conjunctiva clear. No ptosis. ENT: Ears normal, nares patent, oropharynx clear without exudates, moist mucous membranes. NECK: Trachea midline, full range of motion, supple. Neg cervical LAD. LUNGS: B/l wheezes and crackles, no accessory muscle use. HEART: Regular rate and rhythm, S1, S2 without murmur, rub or gallop. ABDOMEN: abdominal striae, soft, nontender, nondistended, hyperactive bowel sounds, no guarding, no rebound EXTREMITIES: 2+ pulses, warm, well-perfused, no edema, thin lower extremities NEUROLOGICAL: Normal speech, gait not observed. PSYCH: Normal mood, normal affect. Anxious appearing SKIN: Warm, dry, normal turgor, no rashes or lesions noted Laboratory Results - last 24 hr 11/04/19 11/05/19 11/05/19 21:18 07:01 07:05 WBC 19.3 H RBC 3.63 Hgb 10.5 L Hct 33.0 MCV 90.9 MCH 28.8 MCHC 31.7 L RDW 18.8 H Plt Count 263 MPV 10.8 Sodium Potassium Chloride Carbon Dioxide Anion Gap BUN Creatinine Est GFR (CKD-EPI)AfAm Est GFR (CKD-EPI)NonAf POC Glucometer 137 190 Random Glucose Calcium Phosphorus Magnesium 11/05/19 11/05/19 11/05/19 07:05 11:09 17:47 WBC RBC Hgb Hct MCV MCH MCHC RDW Plt Count MPV Sodium 140 Potassium 4.0 Chloride 106 Carbon Dioxide 28 Anion Gap 6 L BUN 18.2 H Creatinine 0.8 Est GFR (CKD-EPI)AfAm 102.47 Est GFR (CKD-EPI)NonAf 88.41 POC Glucometer 180 263 Random Glucose 182 H Calcium 9.4 Phosphorus 3.6 Magnesium 2.3 Active Medications Generic Name Dose Route Start Last Admin Trade Name Freq PRN Reason Stop Dose Admin Acetylcysteine 200 mg 11/05/19 08:57 11/05/19 08:59 Mucomyst 20 Oral / Inh Use Only* NEB 200 mg RBID SUKHDEV Administration Diphenhydramine HCl 50 mg 11/02/19 21:14 11/05/19 13:24 Benadryl - PO 50 mg Q12H PRN Administration FOR ITCHING Enoxaparin Sodium 60 mg 11/03/19 22:00 11/05/19 09:46 Lovenox - SQ 60 mg BID SUKHDEV Administration Gabapentin 100 mg 11/03/19 14:00 11/05/19 13:21 Neurontin - PO 100 mg TID SUKHDEV Administration Guaifenesin 600 mg 11/03/19 22:00 11/05/19 09:44 Mucinex - PO 600 mg BID SUKHDEV Administration Insulin Aspart 1 vial 11/02/19 16:30 11/05/19 12:02 Novolog Vial Sliding Scale - SQ 2 units ACHS SUKHDEV Administration Protocol Levalbuterol HCl 0.63 mg 11/03/19 20:00 11/05/19 08:58 Xopenex IH 0.63 mg RBID SUKHDEV Administration Levalbuterol HCl 0.31 mg 11/03/19 11:48 11/04/19 13:12 Xopenex IH 0.31 mg Q8H PRN Administration ASTHMA Methylprednisolone Sodium Succinate 40 mg 11/02/19 14:15 11/05/19 09:46 Solu-Medrol - IVPUSH 40 mg BID SUKHDEV Administration Mometasone Furoate 1 puff 11/03/19 22:00 11/04/19 21:20 Asmanex 220mcg - IH 1 puff HS SUKHDEV Administration Montelukast Sodium 10 mg 11/03/19 22:00 11/04/19 21:23 Singulair - PO 10 mg HS SUKHDEV Administration Nicotine Polacrilex 2 mg 11/04/19 13:41 11/04/19 14:49 Nicorette Gum - BUC 2 mg Q2H PRN Administration NICOTINE REPLACEMENT RX Pantoprazole Sodium 40 mg 11/05/19 10:00 11/05/19 09:44 Protonix - PO 40 mg DAILY SUKHDEV Administration Simethicone 80 mg 11/04/19 13:51 11/05/19 13:20 Mylicon - PO 80 mg TID SUKHDEV Administration Valsartan 160 mg 11/04/19 10:00 11/05/19 09:44 Diovan - PO 160 mg DAILY SUKHDEV Administration Zolpidem Tartrate 5 mg 11/05/19 13:17 Ambien - PO HS PRN INSOMNIA ASSESSMENT/PLAN: 48F w/ pmh of COPD, RLE DVT, ?PE, IVC Filter(04/25/11, home coumadin), HTN, dyslipidemia presenting with acute on cramping, epigastric abdominal pain radiating up the lower chest x12d. Pt expressed concern that abdominal pain 2/[address] A/P showing moderate gastric dilation w/ intraluminal food, possibly d/t recent food ingestion. GI(Luis F) consult recommend possible EGD. No CTA done d/t concern of possible IV contrast allergy. Pulmonary(Mateusz) did not recommend CTA. Venous duplex neg for DVT. Vascular(Singh) consulted to evaluate IVC filter patency and possibly source of abdominal pain. GI recommended simethicone trial and EGD on 11/06/19. Complaint of difficulty w/ gait prompted Neuro consult. #Chest pain/Epigastric pain with nausea possibly 2/2 gastritis r/o PE --Low clinical suspicion for PE > CTA chest --not done dt contrast dye ?allergy -empiric AC: --Lovenox (1mg/Kg) --possible warafarin but awaiting possible upper EGD(11/04/19? - 11/06/19?) -Protonix 40mg BID PO -GI(Luis F/Evi) consult: --possibly diabetic gastroparesis --possible EGD, on 11/06/2019 --simethicone trial -pulm(Mateusz) consult: --Xopenex and Mucomyst ordered --Short course of Medrol --ECHO --Does not need CTA Chest at this point --PFTs once stable as an outpatient --Singulair Q -telemetry monitoring #chronic tobacco usage - nicotine gum #s/p IVC filter(Pam, 04/20/11) -Vascular(Singh), consult: --no vascular intervention --bridge to coumadin --rec Psychiatry, rec upper endoscopy #Chronic Anxiety -Psych(Chepuru) consult: --pending #h/o DVT/PE -on lovenox -holding Coumadin until GI determines possible upper endoscopy #HTN -will continue the patient's home Diovan #COPD/Asthma -nebs standing and PRN -home Singulair and Flovent -guaifenesin #Hypokalemia -will replete with IV and PO KCL #Prophy -on therapeutic Lovenox #FEN -no fluids indicated -replete lytes as above -fat/sodium-controlled diet -NPO at RI #dispo -MedSurg Visit type - Emergency Visit Emergency Visit: No - New Patient This patient is new to me today: No - Critical Care Critical Care patient: No ATTENDING PHYSICIAN STATEMENT I saw and evaluated the patient. I reviewed the resident's note and discussed the case with the resident. I agree with the resident's findings and plan as documented. SUBJECTIVE: OBJECTIVE: ASSESSMENT AND PLAN:
--- NOTE | 2019-11-05 18:50 | CON.PSY ---
Psychiatry Consult Chief Complaint: 48 reji old female seen anais barrios for anxiety. *I have seen this patient in t5he past and gave her Duloxetine for anxiety andc pain. She reports veraious traumatic incidents and losses ihn life that are causing anxiety. Symptoms: reports: Anxiety, Restlessness - Previous Psychiatric Treatment Outpatient: None Inpatient: None - Previous Substance Abuse Treatment Outpatient: None Inpatient: None - Current Medications Current Medications: Active Medications Acetylcysteine (Mucomyst 20 Oral / Inh Use Only*) 200 mg NEB RBID [facility] Last Admin: 11/05/19 08:59 Dose: 200 mg Diphenhydramine HCl (Benadryl -) 50 mg PO Q12H PRN PRN Reason: FOR ITCHING Last Admin: 11/05/19 13:24 Dose: 50 mg Enoxaparin Sodium (Lovenox -) 60 mg SQ BID [facility] Last Admin: 11/05/19 09:46 Dose: 60 mg Gabapentin (Neurontin -) 100 mg PO TID [facility] Last Admin: 11/05/19 13:21 Dose: 100 mg Guaifenesin (Mucinex -) 600 mg PO BID [facility] Last Admin: 11/05/19 09:44 Dose: 600 mg Insulin Aspart (Novolog Vial Sliding Scale -) 1 vial SQ [facility]; Protocol Last Admin: 11/05/19 12:02 Dose: 2 units Levalbuterol HCl (Xopenex) 0.63 mg IH RBID [facility] Last Admin: 11/05/19 08:58 Dose: 0.63 mg Levalbuterol HCl (Xopenex) 0.31 mg IH Q8H PRN PRN Reason: ASTHMA Last Admin: 11/04/19 13:12 Dose: 0.31 mg Methylprednisolone Sodium Succinate (Solu-Medrol -) 40 mg IVPUSH BID [facility] Last Admin: 11/05/19 09:46 Dose: 40 mg Mometasone Furoate (Asmanex 220mcg -) 1 puff IH HS [facility] Last Admin: 11/04/19 21:20 Dose: 1 puff Montelukast Sodium (Singulair -) 10 mg PO [facility] Last Admin: 11/04/19 21:23 Dose: 10 mg Nicotine Polacrilex (Nicorette Gum -) 2 mg BUC Q2H PRN PRN Reason: NICOTINE REPLACEMENT RX Last Admin: 11/04/19 14:49 Dose: 2 mg Pantoprazole Sodium (Protonix -) 40 mg PO DAILY [facility] Last Admin: 11/05/19 09:44 Dose: 40 mg Simethicone (Mylicon -) 80 mg PO TID [facility] Last Admin: 11/05/19 13:20 Dose: 80 mg Valsartan (Diovan -) 160 mg PO DAILY [facility] Last Admin: 11/05/19 09:44 Dose: 160 mg Zolpidem Tartrate (Ambien -) 5 mg PO HS PRN PRN Reason: INSOMNIA - Allergies Allergies: Allergies Allergy/AdvReac Type Severity Reaction Status Date / Time Penicillins Allergy Severe Rash Verified 11/01/19 14:18 acetaminophen [From Percocet] Allergy Verified 11/01/19 14:18 hydrocodone bitartrate Allergy Verified 11/01/19 14:18 [From Vicodin] iodine Allergy Verified 11/01/19 14:18 morphine Allergy Verified 11/01/19 14:18 oxycodone HCl [From Percocet] Allergy Verified 11/01/19 14:18 peanut Allergy Verified 11/01/19 14:18 rivaroxaban [From Xarelto] Allergy Verified 11/01/19 14:18 dairy Allergy Severe Swelling Uncoded 11/01/19 14:18 eggs/egg-containing foods Allergy Severe Swelling Uncoded 11/01/19 14:18 FRESH BANANAS Allergy Severe ANAPHYLAXIS Uncoded 11/01/19 14:18 . tree nuts Allergy Severe Itching Uncoded 11/01/19 14:18 ammonium lactate cream Allergy Uncoded 11/01/19 14:18 cheese Allergy Uncoded 11/01/19 14:18 fresh apples Allergy Uncoded 11/01/19 14:18 fresh peaches Allergy Uncoded 11/01/19 14:18 fresh plums Allergy Uncoded 11/01/19 14:18 NARCOTICS Allergy Uncoded 11/01/19 14:18 - Current Living Status Usual Living Arrangement: Alone - Current Mental Status Evaluation Appearance: Well Groomed Attitude: Cooperative - Affect Affect: Full Range Appropriateness: Appropriate to Content - Mood Mood: Anxious - Speech/Language Expressive: Coherent - Psychomotor Activity Psychomotor Activity: Hyperactive - Thought Process Thought Process: Intact - Thought Content Hallucinations: Absent Delusions: Absent - Self Perception Self Perception: No Impairment - Cognition Attention: Alert Orientation: Time Memory, Immediate Recall: Intact Memory, Short Term: 3/3 Memory, Remote with Promptin/3 - Concentration Serial Sevens Intact: Yes Simple Calculations Intact: Yes - Abstraction Proverb Interpretation: Intact Judgement: Intact - Insight Insight: Intact - Impulse Control Impulse Control: Minimally Impaired - Suicidal Ideation Suicidal Ideation: No - Homicidal Ideation Homicidal Ideation: No Assessment/Plan 1) Start Cymbalta 20 mg po od for anxirty manny depression. 2) Call for Supportive Psychotherapy.
[2019-11-05] MEDS ORDERED: KETOROLAC TROMETHAMINE 15 MG/ML VIAL IVPUSH ONE (19:30)
[2019-11-05] MEDS: MONTELUKAST NA 10 MG TABLET PO SCH (21:20)
[2019-11-05] MEDS: MOMETASONE FUROATE 220 MCG/IH INHALER IH SCH (21:25)
[2019-11-05] MEDS: NICOTINE POLACRILEX 2 MG GUM BUC PRN (22:38)
[2019-11-06] MEDS: GABAPENTIN 100 MG CAPSULE PO SCH ×3 (06:36→22:31)
[2019-11-06] MEDS: SIMETHICONE 80 MG TAB.CHEW (FP) PO SCH ×2 (06:36→15:18)
[2019-11-06] MEDS: INSULIN SLIDING SCALE (NOVOLOG) 1 VIAL SQ SCH ×3 (07:33→17:30)
--- NOTE | 2019-11-06 07:49 | PN ---
Progress Note (short form) - Note Progress Note: Upset and agitated as she is NPO and has Endoscopy today. Breathing feels about the same. Intake & Output 11/03/19 11/04/19 11/05/19 11/06/19 23:59 23:59 23:59 23:59 Intake Total 450 0 1480 Balance 450 0 1480 Last Vital Signs Temp Pulse Resp BP Pulse Ox 97.8 F 50 L 18 138/71 100 11/06/19 02:50 11/06/19 02:50 11/06/19 02:50 11/06/19 02:50 11/05/19 21:00 Active Medications Acetylcysteine (Mucomyst 20 Oral / Inh Use Only*) 200 mg NEB RBID [facility] Last Admin: 11/05/19 21:48 Dose: 200 mg Diphenhydramine HCl (Benadryl -) 50 mg PO Q12H PRN PRN Reason: FOR ITCHING Last Admin: 11/05/19 21:21 Dose: 50 mg Duloxetine HCl (Cymbalta -) 20 mg PO DAILY [facility] Enoxaparin Sodium (Lovenox -) 60 mg SQ BID [facility] Last Admin: 11/05/19 21:20 Dose: 60 mg Gabapentin (Neurontin -) 100 mg PO TID [facility] Last Admin: 11/06/19 06:36 Dose: Not Given Guaifenesin (Mucinex -) 600 mg PO BID [facility] Last Admin: 11/05/19 21:20 Dose: 600 mg Insulin Aspart (Novolog Vial Sliding Scale -) 1 vial SQ [facility]; Protocol Last Admin: 11/06/19 07:33 Dose: Not Given Levalbuterol HCl (Xopenex) 0.63 mg IH RBID [facility] Last Admin: 11/05/19 21:48 Dose: 0.63 mg Levalbuterol HCl (Xopenex) 0.31 mg IH Q8H PRN PRN Reason: ASTHMA Last Admin: 11/04/19 13:12 Dose: 0.31 mg Methylprednisolone Sodium Succinate (Solu-Medrol -) 40 mg IVPUSH BID [facility] Last Admin: 11/05/19 21:21 Dose: 40 mg Mometasone Furoate (Asmanex 220mcg -) 1 puff IH HS [facility] Last Admin: 11/05/19 21:25 Dose: 1 puff Montelukast Sodium (Singulair -) 10 mg PO HS [facility] Last Admin: 11/05/19 21:20 Dose: 10 mg Nicotine Polacrilex (Nicorette Gum -) 2 mg BUC Q2H PRN PRN Reason: NICOTINE REPLACEMENT RX Last Admin: 11/05/19 22:38 Dose: 2 mg Pantoprazole Sodium (Protonix -) 40 mg PO DAILY [facility] Last Admin: 11/05/19 09:44 Dose: 40 mg Simethicone (Mylicon -) 80 mg PO TID [facility] Last Admin: 11/06/19 06:36 Dose: Not Given Valsartan (Diovan -) 160 mg PO DAILY [facility] Last Admin: 11/05/19 09:44 Dose: 160 mg Constitutional: Yes: No Distress Eyes: Yes: Conjunctiva Clear, EOM Intact HENT: Yes: Atraumatic, Normocephalic Neck: Yes: Supple, Trachea Midline Cardiovascular: Yes: Regular Rate and Rhythm Respiratory: Yes: Cough, Diminished, less bilateral expiratory wheezes. No: Accessory Muscle Use, Rales, Rhonchi, SOB, Stridor ...Inspection: Yes: WNL ...Clubbing: No Gastrointestinal: Yes: Normal Bowel Sounds, Soft Renal/: Yes: WNL Musculoskeletal: Yes: WNL Extremities: Yes: WNL Edema: No Peripheral Pulses WNL: Yes Integumentary: Yes: WNL Neurological: Yes: WNL, Alert, Oriented ...Motor Strength: WNL Psychiatric: Yes: WNL, Alert, Oriented Labs: Laboratory Results - last 24 hr 11/05/19 11/05/19 11/05/19 07:05 07:05 11:09 WBC 19.3 H RBC 3.63 Hgb 10.5 L Hct 33.0 MCV 90.9 MCH 28.8 MCHC 31.7 L RDW 18.8 H Plt Count 263 MPV 10.8 Sodium 140 Potassium 4.0 Chloride 106 Carbon Dioxide 28 Anion Gap 6 L BUN 18.2 H Creatinine 0.8 Est GFR (CKD-EPI)AfAm 102.47 Est GFR (CKD-EPI)NonAf 88.41 POC Glucometer 180 Random Glucose 182 H Calcium 9.4 Phosphorus 3.6 Magnesium 2.3 11/05/19 11/05/19 11/05/19 17:47 19:30 22:32 WBC RBC Hgb Hct MCV MCH MCHC RDW Plt Count MPV Sodium Potassium Chloride Carbon Dioxide Anion Gap BUN Creatinine Est GFR (CKD-EPI)AfAm Est GFR (CKD-EPI)NonAf POC Glucometer 263 248 249 Random Glucose Calcium Phosphorus Magnesium 11/06/19 07:44 WBC RBC Hgb Hct MCV MCH MCHC RDW Plt Count MPV Sodium Potassium Chloride Carbon Dioxide Anion Gap BUN Creatinine Est GFR (CKD-EPI)AfAm Est GFR (CKD-EPI)NonAf POC Glucometer 200 Random Glucose Calcium Phosphorus Magnesium Problem List - Problems (1) Pulmonary embolism Code(s): I26.99 - OTHER PULMONARY EMBOLISM WITHOUT ACUTE COR PULMONALE (2) Wheezing Code(s): R06.2 - WHEEZING (3) Abdominal pain Code(s): R10.9 - UNSPECIFIED ABDOMINAL PAIN Qualifiers: Abdominal location: upper abdomen, unspecified Qualified Code(s): R10.10 - Upper abdominal pain, unspecified (4) Chest pain Code(s): R07.9 - CHEST PAIN, UNSPECIFIED Qualifiers: Chest pain type: unspecified Qualified Code(s): R07.9 - Chest pain, unspecified (5) COPD (chronic obstructive pulmonary disease) with acute bronchitis Code(s): J44.0 - CHR OBSTRUCTIVE PULMON DISEASE WITH (ACUTE) LOWER RESP INFCT (6) DVT (deep venous thrombosis) Code(s): I82.409 - ACUTE EMBOLISM AND THOMBOS UNSP DEEP VN UNSP LOWER EXTREMITY Assessment/Plan AC with Lovenox / Coumadin Xopenex and Mucomyst as ordered Medrol O2 as needed No smoking counseled PFTs once stable as an outpatient [facility] For Endoscopy today: caution due to Bronchospasm. There is no clear history of OSAS. Dr Child Problem List - Problems (1) Pulmonary embolism Code(s): I26.99 - OTHER PULMONARY EMBOLISM WITHOUT ACUTE COR PULMONALE (2) Wheezing Code(s): R06.2 - WHEEZING (3) Abdominal pain Code(s): R10.9 - UNSPECIFIED ABDOMINAL PAIN Qualifiers: Abdominal location: upper abdomen, unspecified Qualified Code(s): R10.10 - Upper abdominal pain, unspecified (4) Chest pain Code(s): R07.9 - CHEST PAIN, UNSPECIFIED Qualifiers: Chest pain type: unspecified Qualified Code(s): R07.9 - Chest pain, unspecified (5) COPD (chronic obstructive pulmonary disease) with acute bronchitis Code(s): J44.0 - CHR OBSTRUCTIVE PULMON DISEASE WITH (ACUTE) LOWER RESP INFCT (6) DVT (deep venous thrombosis) Code(s): I82.409 - ACUTE EMBOLISM AND THOMBOS UNSP DEEP VN UNSP LOWER EXTREMITY
[2019-11-06] MEDS: ACETYLCYSTEINE 20% 200MG/ML 4 ML VIAL *FOR ORAL / INH USE ONLY NEB SCH ×3 (07:58→22:25)
[2019-11-06] MEDS: LEVALBUTEROL HCL 0.63 MG/3 ML VIAL.NEB. IH SCH ×2 (07:58→20:30)
[2019-11-06] MEDS ORDERED: INSULIN (NOVOLOG) ASPART 100 UNITS/ML 10ML VIAL ONE (08:19)
[2019-11-06 08:49] LABS: HEMATOCRIT 35.4 % (32.4-45.2); HEMOGLOBIN 11.3 GM/dL (10.7-15.3); MCH 28.8 pg (25.7-33.7); MCHC 31.9 g/dl (32.0-36.0); MEAN CELL VOLUME 90.3 fl (80-96); MEAN PLT VOLUME 10.7 fl (7.5-11.1); PLATELET COUNT 276 K/MM3 (134-434); RBC 3.92 M/mm3 (3.60-5.2); RDW 18.2 % (11.6-15.6); WHITE BLOOD COUNT 26.3 K/mm3 (4.0-10.0)
--- NOTE | 2019-11-06 08:58 | CON.NEURO ---
Consult - Past Medical History Cardio/Vascular: Yes: Deep Vein Thrombosis Pulmonary: Yes: Asthma, Bronchitis, Pulmonary Embolus. No: Cancer, COPD, O2 Dependent, Pneumonia, Previously Intubated, Pulmonary Fibrosis, Sleep Apnea ...: No Infectious Disease: Yes: Other (Has had abscesses of abdomen (surgical drainage ) and legs. MRSA in 2014.) Endocrine: Yes: Diabetes Mellitus (h/o Gestational DM) Dermatology: Yes: Eczema, Psoriasis, Other (Impetigo) - Past Surgical History Additional Surgical History: IVC filter 2010 - Alcohol/Substance Use Hx Alcohol Use: No - Smoking History Smoking history: Current every day smoker Have you smoked in the past 12 months: Yes Aproximately how many cigarettes per day: 10 - Social History Usual Living Arrangement: Alone History of Recent Travel: No Home Medications - Allergies Allergies/Adverse Reactions: Allergies Allergy/AdvReac Type Severity Reaction Status Date / Time Penicillins Allergy Severe Rash Verified 11/01/19 14:18 acetaminophen [From Percocet] Allergy Verified 11/01/19 14:18 hydrocodone bitartrate Allergy Verified 11/01/19 14:18 [From Vicodin] iodine Allergy Verified 11/01/19 14:18 morphine Allergy Verified 11/01/19 14:18 oxycodone HCl [From Percocet] Allergy Verified 11/01/19 14:18 peanut Allergy Verified 11/01/19 14:18 rivaroxaban [From Xarelto] Allergy Verified 11/01/19 14:18 dairy Allergy Severe Swelling Uncoded 11/01/19 14:18 eggs/egg-containing foods Allergy Severe Swelling Uncoded 11/01/19 14:18 FRESH BANANAS Allergy Severe ANAPHYLAXIS Uncoded 11/01/19 14:18 . tree nuts Allergy Severe Itching Uncoded 11/01/19 14:18 ammonium lactate cream Allergy Uncoded 11/01/19 14:18 cheese Allergy Uncoded 11/01/19 14:18 fresh apples Allergy Uncoded 11/01/19 14:18 fresh peaches Allergy Uncoded 11/01/19 14:18 fresh plums Allergy Uncoded 11/01/19 14:18 NARCOTICS Allergy Uncoded 11/01/19 14:18 - Home Medications Home Medications: Ambulatory Orders Albuterol 2.5/Ipratropium 0.5 [Duoneb -] 1 neb IH ASDIR PRN 08/12/14 Albuterol Sulfate Inhaler - [Ventolin HFA Inhaler -] 2 inh PO Q4H PRN 03/03/15 Montelukast Na [Singulair -] 10 mg PO HS #30 tablet 12/22/16 Albuterol 2.5/Ipratropium 0.5 [Duoneb -] 1 amp NEB Q6H PRN amp 08/10/18 Epinephrine [Epipen 2-Jan] 0.3 mg IJ ASDIR #1 kit 07/14/19 Ergocalciferol [Vitamin D2] 50,000 unit PO Q7D@1000 11/01/19 Fluticasone Propionate [Flovent Hfa] 110 mcg IH BID 11/01/19 Gabapentin [Neurontin] 100 mg PO Q8H 11/01/19 Valsartan [Diovan] 160 mg PO DAILY 11/01/19 Warfarin Sodium 6 mg PO DAILY 11/01/19 Zolpidem Tartrate [Ambien] 10 mg PO HS 11/01/19 Fluticasone Propionate [Flovent Hfa] 220 mcg IH BID 11/04/19 Physical Exam-Neuro Vital Signs: Vital Signs Temperature 97.8 F 11/06/19 02:50 Pulse Rate 50 L 11/06/19 02:50 Respiratory Rate 18 11/06/19 02:50 Blood Pressure 138/71 11/06/19 02:50 O2 Sat by Pulse Oximetry (%) 100 11/05/19 21:00 Labs: CBC, BMP 11/06/19 08:30 INR, PTT INR 1.27 (0.83-1.09) H 11/04/19 06:50 Assessment/Plan cc Buckling of knee and fall HPI 48 year old female with multple medical problem including COPD, hypertension, hyperlipidemia, diabetes, right lower extremity DVT and PE status post IVC filter placement and on Coumadin she came to hospital for chest pain and epigatric pain I was called to evaluate as she has experience fall, she feel there is buckling of knee on right side. Patient has back pain and it radiates to bilateral hip, but does not shoots down to leg. She do have tingling and numbnes in both feet and toes. Patient denies significant neck pain or radicular symptoms. PAST MEDICAL HISTORY: IVC filter (patient states it was placed her in 2010, but only records found in EMR show a placement by Dr. Aguilar on 2016) PAST SURGICAL HISTORY: IVC filter placement Social History: Smoking: active smoker of 10 cigs/ day Alcohol: denies Drugs: denies Allergies Penicillins Allergy (Severe, Verified 11/01/19 14:18) Rash acetaminophen [From Percocet] Allergy (Verified 11/01/19 14:18) hydrocodone bitartrate [From Vicodin] Allergy (Verified 11/01/19 14:18) iodine Allergy (Verified 11/01/19 14:18) morphine Allergy (Verified 11/01/19 14:18) oxycodone HCl [From Percocet] Allergy (Verified 11/01/19 14:18) peanut Allergy (Verified 11/01/19 14:18) rivaroxaban [From Xarelto] Allergy (Verified 11/01/19 14:18) dairy Allergy (Severe, Uncoded 11/01/19 14:18) Swelling eggs/egg-containing foods Allergy (Severe, Uncoded 11/01/19 14:18) Swelling FRESH BANANAS Allergy (Severe, Uncoded 11/01/19 14:18) ANAPHYLAXIS. tree nuts Allergy (Severe, Uncoded 11/01/19 14:18) Itching ammonium lactate cream Allergy (Uncoded 11/01/19 14:18) cheese Allergy (Uncoded 11/01/19 14:18) fresh apples Allergy (Uncoded 11/01/19 14:18) fresh peaches Allergy (Uncoded 11/01/19 14:18) fresh plums Allergy (Uncoded 11/01/19 14:18) NARCOTICS Allergy (Uncoded 11/01/19 14:18) HOME MEDICATIONS: Home Medications Medication Instructions Recorded Albuterol 2.5/Ipratropium 0.5 1 neb IH ASDIR PRN 08/12/14 [Duoneb -] Albuterol Sulfate Inhaler - 2 inh PO Q4H PRN 03/03/15 [Ventolin HFA Inhaler -] Montelukast Na [Singulair -] 10 mg PO HS #30 tablet 12/22/16 Albuterol 2.5/Ipratropium 0.5 1 amp NEB Q6H PRN amp 08/10/18 [Duoneb -] Epinephrine [Epipen 2-Jan] 0.3 mg IJ ASDIR #1 kit 07/14/19 Ergocalciferol [Vitamin D2] 50,000 unit PO Q7D@1000 11/01/19 Fluticasone Propionate [Flovent 110 mcg IH BID 11/01/19 Hfa] Gabapentin [Neurontin] 100 mg PO Q8H 11/01/19 Valsartan [Diovan] 160 mg PO DAILY 11/01/19 Warfarin Sodium 6 mg PO DAILY 11/01/19 Zolpidem Tartrate [Ambien] 10 mg PO HS 11/01/19 ROS,FH,SH reviewed in chart NEUROLOGICAL EXAMINATION Alert oriented x 3, speech is normal, afebrile vss eomi, pupils reactive no face asymmetry moving all ext sensation are diminished in both feet at toes reflex are generalized diminished Assessment/Plan Fall seems to be mechaincal. She has evidence of neuropahty, unlikekly to caues of fall. THere is no evidence of cord compression, cerebellar dysfunction, stroke or cauda equina syndrome. Plan: neuropathy work up and emg outpatinet - pt - consider ortho consult Thanking you so much Eddie Beckwith MD
[2019-11-06 09:04] LABS: PROTHROMBIN TIME (PATIENT) 11.8 SEC (9.7-13.0)
[2019-11-06 09:25] LABS: CALCIUM 9.3 mg/dL (8.5-10.1); CREATININE 0.8 mg/dL (0.55-1.3); MAGNESIUM 2.1 mg/dL (1.8-2.4); PHOSPHOROUS 4.1 mg/dL (2.5-4.9); POTASSIUM 4.3 mmol/L (3.5-5.1)
[2019-11-06] MEDS: LEVALBUTEROL HCL 0.31 MG/3 ML VIAL.NEB IH PRN ×2 (11:30→22:26)
--- NOTE | 2019-11-06 15:05 | PN ---
Progress Note (short form) - Note Progress Note: Pt initially planned for EGD today. Pt evaluated prior to procedure and pulmonary note reviewed. As pt is currently being treated for asthma/copd exacerbation and still on nebulizers and steroid therapy will defer EGD until further optimized from a respiratory standpoint. Spoke with Dr. Child and would request pulmonary clearance prior to endoscopy. Resume lovenox therapy and diet today. Discussed with pt in detail. Discussed with medicine resident.
[2019-11-06] MEDS ORDERED: PT OWN MED DRAWER 7, Y5N ONE (15:11)
[2019-11-06] MEDS: DULoxetine HCL 20 MG CAPSULE.DR PO SCH (15:17)
[2019-11-06] MEDS: PANTOPRAZOLE 40 MG TABLET PO SCH (15:18)
[2019-11-06] MEDS: guaiFENesin 600 MG TABLET.ER (FP) PO SCH (15:18)
[2019-11-06] MEDS: VALSARTAN 160 MG TABLET (UD) PO SCH (15:18)
[2019-11-06] MEDS: methylPREDNISolone NA SUCC 40 MG/1 ML VIAL IVPUSH SCH (15:18)
[2019-11-06] MEDS: ENOXAPARIN NA (PORCINE) 60 MG/0.6 ML DISP.SYRIN SQ SCH (15:35)
--- NOTE | 2019-11-06 17:56 | PN ---
Physical Exam: SUBJECTIVE: Patient seen and examined ZACHON. Was NPO for EGD OBJECTIVE: Vital Signs Period Temp Pulse Resp BP Sys/Oneil Pulse Ox Last 24 Hr 97.8 F-98.5 F 50-61 18-18 138-168/71-97 100 GENERAL: The patient is awake, alert, and fully oriented, in no acute distress. HEAD: NC/AT. No temporal wasting EYES: PERRL, extraocular movements intact, sclera anicteric and w/o pallor, conjunctiva clear. No ptosis. ENT: Ears normal, nares patent, oropharynx clear without exudates, moist mucous membranes. NECK: Trachea midline, full range of motion, supple. Neg cervical LAD. LUNGS: B/l wheezes and crackles, no accessory muscle use. HEART: Regular rate and rhythm, S1, S2 without murmur, rub or gallop. ABDOMEN: abdominal striae, soft, nontender, nondistended, hyperactive bowel sounds, no guarding, no rebound EXTREMITIES: 2+ pulses, warm, well-perfused, no edema, thin lower extremities NEUROLOGICAL: Normal speech, gait not observed. PSYCH: Normal mood, normal affect. Anxious appearing SKIN: Warm, dry, normal turgor, no rashes or lesions noted Laboratory Results - last 24 hr 11/05/19 11/05/19 11/06/19 19:30 22:32 07:44 WBC RBC Hgb Hct MCV MCH MCHC RDW Plt Count MPV PT with INR INR Sodium Potassium Chloride Carbon Dioxide Anion Gap BUN Creatinine Est GFR (CKD-EPI)AfAm Est GFR (CKD-EPI)NonAf POC Glucometer 248 249 200 Random Glucose Calcium Phosphorus Magnesium 11/06/19 11/06/19 11/06/19 08:30 08:30 08:30 WBC 26.3 H RBC 3.92 Hgb 11.3 Hct 35.4 MCV 90.3 MCH 28.8 MCHC 31.9 L RDW 18.2 H Plt Count 276 MPV 10.7 PT with INR 11.80 INR 1.00 Sodium 136 Potassium 4.3 Chloride 102 Carbon Dioxide 26 Anion Gap 8 BUN 24.0 H Creatinine 0.8 Est GFR (CKD-EPI)AfAm 102.47 Est GFR (CKD-EPI)NonAf 88.41 POC Glucometer Random Glucose 166 H Calcium 9.3 Phosphorus 4.1 Magnesium 2.1 11/06/19 11/06/19 14:43 17:26 WBC RBC Hgb Hct MCV MCH MCHC RDW Plt Count MPV PT with INR INR Sodium Potassium Chloride Carbon Dioxide Anion Gap BUN Creatinine Est GFR (CKD-EPI)AfAm Est GFR (CKD-EPI)NonAf POC Glucometer 133 253 Random Glucose Calcium Phosphorus Magnesium Active Medications Generic Name Dose Route Start Last Admin Trade Name Freq PRN Reason Stop Dose Admin Acetylcysteine 200 mg 11/05/19 08:57 11/06/19 07:58 Mucomyst 20 Oral / Inh Use Only* NEB Not Given RBID SUKHDEV Diphenhydramine HCl 50 mg 11/02/19 21:14 11/05/19 21:21 Benadryl - PO 50 mg Q12H PRN Administration FOR ITCHING Duloxetine HCl 20 mg 11/06/19 10:00 11/06/19 15:17 Cymbalta - PO 20 mg DAILY SUKHDEV Administration Enoxaparin Sodium 60 mg 11/03/19 22:00 11/06/19 15:35 Lovenox - SQ 60 mg BID SUKHDEV Administration Gabapentin 100 mg 11/03/19 14:00 11/06/19 15:20 Neurontin - PO 100 mg TID SUKHDEV Administration Guaifenesin 600 mg 11/03/19 22:00 11/06/19 15:18 Mucinex - PO 600 mg BID SUKHDEV Administration Insulin Aspart 1 vial 11/02/19 16:30 11/06/19 17:30 Novolog Vial Sliding Scale - SQ 6 units ACHS SUKHDEV Administration Protocol Levalbuterol HCl 0.63 mg 11/03/19 20:00 11/06/19 07:58 Xopenex IH Not Given RBID SUKHDEV Levalbuterol HCl 0.31 mg 11/03/19 11:48 11/06/19 11:30 Xopenex IH 0.31 mg Q8H PRN Administration ASTHMA Methylprednisolone Sodium Succinate 40 mg 11/02/19 14:15 11/06/19 15:18 Solu-Medrol - IVPUSH 40 mg BID SUKHDEV Administration Mometasone Furoate 1 puff 11/03/19 22:00 11/05/19 21:25 Asmanex 220mcg - IH 1 puff HS SUKHDEV Administration Montelukast Sodium 10 mg 11/03/19 22:00 11/05/19 21:20 Singulair - PO 10 mg HS SUKHDEV Administration Nicotine Polacrilex 2 mg 11/04/19 13:41 11/05/19 22:38 Nicorette Gum - BUC 2 mg Q2H PRN Administration NICOTINE REPLACEMENT RX Pantoprazole Sodium 40 mg 11/05/19 10:00 11/06/19 15:18 Protonix - PO 40 mg DAILY SUKHDEV Administration Simethicone 80 mg 11/04/19 13:51 11/06/19 15:18 Mylicon - PO 80 mg TID SUKHDEV Administration Valsartan 160 mg 11/04/19 10:00 11/06/19 15:18 Diovan - PO 160 mg DAILY SUKHDEV Administration ASSESSMENT/PLAN: 48F w/ pmh of COPD, RLE DVT, ?PE, IVC Filter(04/25/11, home coumadin), HTN, dyslipidemia presenting with acute on cramping, epigastric abdominal pain radiating up the lower chest x12d. Pt expressed concern that abdominal pain 2/[address] A/P showing moderate gastric dilation w/ intraluminal food, possibly d/t recent food ingestion. GI(Luis F) consult recommend possible EGD. No CTA done d/t concern of possible IV contrast allergy. Pulmonary(Mateusz) did not recommend CTA. Venous duplex neg for DVT. Vascular(Singh) consulted to evaluate IVC filter patency and possibly source of abdominal pain. GI recommended simethicone trial and EGD on 11/06/19. Complaint of difficulty w/ gait prompted Neuro consult. Tang recommended PT, consideration of Ortho consult, outpatient EMG and neuropathy sharpe. Psych started Cymbalta 20mg QD for anxiety + depression. GI(Viktor) cancelled EGD on 11/06/19 dt concern of persisent bronchospasm. #Chest pain/Epigastric pain with nausea possibly 2/2 gastritis r/o PE --Low clinical suspicion for PE > CTA chest --not done dt contrast dye ?allergy -empiric AC: --Lovenox (1mg/Kg) --possible warafarin but awaiting possible upper EGD(11/04/19? - 11/06/19?) -Protonix 40mg BID PO -GI(Luis F/Evi) consult: --possibly diabetic gastroparesis --possible EGD, on 11/06/2019 --simethicone trial -pulm(Mateusz) consult: --Xopenex and Mucomyst --Short course of Medrol --ECHO --Does not need CTA Chest at this point --PFTs once stable as an outpatient --Singulair QHS -telemetry monitoring #leukocytosis--likely 2/2 steroids - cont monitoring #chronic tobacco usage - nicotine gum #s/p IVC filter(Pam, 04/20/11) -Vascular(Singh), consult: --no vascular intervention --bridge to coumadin --rec Psychiatry, rec upper endoscopy #Chronic Anxiety -Psych(Chejonasu) consult: --pending #h/o DVT/PE -on lovenox -holding Coumadin until GI determines possible upper endoscopy #HTN -will continue the patient's home Diovan #COPD/Asthma -nebs standing and PRN -home Singulair and Flovent -guaifenesin #Hypokalemia -will replete with IV and PO KCL #Prophy -on therapeutic Lovenox #FEN -no fluids indicated -replete lytes as above -fat/sodium-controlled diet -NPO at AR #dispo -MedSurg Visit type - Emergency Visit Emergency Visit: No - New Patient This patient is new to me today: No - Critical Care Critical Care patient: No ATTENDING PHYSICIAN STATEMENT I saw and evaluated the patient. I reviewed the resident's note and discussed the case with the resident. I agree with the resident's findings and plan as documented. SUBJECTIVE: OBJECTIVE: ASSESSMENT AND PLAN:
[2019-11-06] MEDS ORDERED: IBUPROFEN 200 MG TABLET PO ONE (19:50)
--- NOTE | 2019-11-06 20:12 | PN ---
Teaching Attending Note Name of Resident: Sagar Velásquez ATTENDING PHYSICIAN STATEMENT I saw and evaluated the patient. I reviewed the resident's note and discussed the case with the resident. I agree with the resident's findings and plan as documented. SUBJECTIVE: No fever or chills. requests something fro anxiety. OBJECTIVE: NAd Cv: RRR Lungs: scattered wheezing received a phone call and abd exam was not completed ASSESSMENT AND PLAN: 48yof with PMHxm of COPD, hypertension, hyperlipidemia, diabetes, 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 1- Adb pain . r/o gastroparesis/ulcer/gastritis 2- GARCÍA 3- neuropathy 4- Acute PERSONNEL GENERALIST MANAGER exacerbation 5- H/o PE and DVT 6- h/o IVC filter 7- HTN 8- anxiety plan ; - EGD was canceled - cont steroids/Nebs - cont leovenox - will get EGD when wheezing improves - cont PPI - start cymbalta - out pt EMG and neuropathy w/u - cont diovan - leukocytosis is due to steroids HLOC
[2019-11-06] MEDS ORDERED: NAPROXEN 375 MG TABLET PO ONE (21:11)
[2019-11-06] MEDS ORDERED: MELATONIN 1 MG TABLET PO ONE (21:11)
[2019-11-06] MEDS: MONTELUKAST NA 10 MG TABLET PO SCH (22:30)
[2019-11-06] MEDS: diphenhydrAMINE HCL 25 MG CAPSULE (FP) PO PRN (22:30)
[2019-11-06] MEDS: MOMETASONE FUROATE 220 MCG/IH INHALER IH SCH (22:34)
[2019-11-06] MEDS ORDERED: ZOLPIDEM TARTRATE 5 MG TABLET PO ONE (22:57)
[2019-11-07] MEDS: INSULIN SLIDING SCALE (NOVOLOG) 1 VIAL SQ SCH ×5 (00:04→21:11)
[2019-11-07] MEDS: ENOXAPARIN NA (PORCINE) 60 MG/0.6 ML DISP.SYRIN SQ SCH ×3 (00:14→21:11)
[2019-11-07] MEDS: SIMETHICONE 80 MG TAB.CHEW (FP) PO SCH ×4 (00:14→21:10)
[2019-11-07] MEDS: guaiFENesin 600 MG TABLET.ER (FP) PO SCH ×3 (00:14→21:10)
[2019-11-07] MEDS: methylPREDNISolone NA SUCC 40 MG/1 ML VIAL IVPUSH SCH ×3 (00:15→21:10)
[2019-11-07] MEDS: GABAPENTIN 100 MG CAPSULE PO SCH ×3 (06:32→21:10)
[2019-11-07] MEDS ORDERED: INSULIN (NOVOLOG) ASPART 100 UNITS/ML 10ML VIAL ONE ×3 (07:00→17:25)
[2019-11-07] MEDS: ACETYLCYSTEINE 20% 200MG/ML 4 ML VIAL *FOR ORAL / INH USE ONLY NEB SCH ×2 (08:10→22:11)
[2019-11-07] MEDS: LEVALBUTEROL HCL 0.63 MG/3 ML VIAL.NEB. IH SCH ×2 (08:10→22:11)
[2019-11-07 08:42] LABS: BASO % 0.2 % (0-2.0); HEMATOCRIT 33.4 % (32.4-45.2); HEMOGLOBIN 10.7 GM/dL (10.7-15.3); LYMPH % 5.9 % (8-40); MCH 28.5 pg (25.7-33.7); MCHC 31.9 g/dl (32.0-36.0); MEAN CELL VOLUME 89.3 fl (80-96); MEAN PLT VOLUME 10.6 fl (7.5-11.1); MONO % 2.8 % (3.8-10.2); NEUT % 91.1 % (42.8-82.8); PLATELET COUNT 280 K/MM3 (134-434); RBC 3.74 M/mm3 (3.60-5.2); RDW 18.1 % (11.6-15.6); WHITE BLOOD COUNT 22.9 K/mm3 (4.0-10.0)
[2019-11-07 09:05] LABS: CALCIUM 9.4 mg/dL (8.5-10.1); CREATININE 0.8 mg/dL (0.55-1.3); MAGNESIUM 2.2 mg/dL (1.8-2.4); PHOSPHOROUS 4.5 mg/dL (2.5-4.9); POTASSIUM 4.3 mmol/L (3.5-5.1)
[2019-11-07 09:45] LABS: ANISOCYTOSIS 1+; MACROCYTOSIS 0; PLATELET ESTIMATE NORMAL
[2019-11-07] MEDS ORDERED: PT OWN MED DRAWER 7, Y5N ONE ×2 (10:13→22:41)
[2019-11-07] MEDS: VALSARTAN 160 MG TABLET (UD) PO SCH (10:17)
[2019-11-07] MEDS: PANTOPRAZOLE 40 MG TABLET PO SCH (10:18)
[2019-11-07] MEDS: DULoxetine HCL 20 MG CAPSULE.DR PO SCH (10:18)
--- NOTE | 2019-11-07 10:25 | PN ---
Progress Note (short form) - Note Progress Note: Breathing feels a little better today. Complained that she on;y received 1 dose of Mucomyst yesterday but RN reports she refused her evening dose. No acute events overnight. Intake & Output 11/04/19 11/05/19 11/06/19 11/07/19 23:59 23:59 23:59 23:59 Intake Total 0 1480 800 Balance 0 1480 800 Last Vital Signs Temp Pulse Resp BP Pulse Ox 97.6 F 87 18 140/100 99 11/06/19 18:00 11/07/19 06:48 11/07/19 06:48 11/07/19 06:48 11/06/19 21:00 Active Medications Acetylcysteine (Mucomyst 20 Oral / Inh Use Only*) 200 mg NEB RBID [facility] Last Admin: 11/07/19 08:10 Dose: Not Given Diphenhydramine HCl (Benadryl -) 50 mg PO Q12H PRN PRN Reason: FOR ITCHING Last Admin: 11/06/19 22:30 Dose: 50 mg Duloxetine HCl (Cymbalta -) 20 mg PO DAILY [facility] Last Admin: 11/07/19 10:18 Dose: 20 mg Enoxaparin Sodium (Lovenox -) 60 mg SQ BID [facility] Last Admin: 11/07/19 10:18 Dose: 60 mg Gabapentin (Neurontin -) 100 mg PO TID [facility] Last Admin: 11/07/19 06:32 Dose: 100 mg Guaifenesin (Mucinex -) 600 mg PO BID [facility] Last Admin: 11/07/19 10:17 Dose: 600 mg Insulin Aspart (Novolog Vial Sliding Scale -) 1 vial SQ ACHS [facility]; Protocol Last Admin: 11/07/19 06:44 Dose: 6 units Levalbuterol HCl (Xopenex) 0.63 mg IH RBID [facility] Last Admin: 11/07/19 08:10 Dose: Not Given Levalbuterol HCl (Xopenex) 0.31 mg IH Q8H PRN PRN Reason: ASTHMA Last Admin: 11/06/19 22:26 Dose: 0.31 mg Methylprednisolone Sodium Succinate (Solu-Medrol -) 40 mg IVPUSH BID [facility] Last Admin: 11/07/19 00:15 Dose: 40 mg Mometasone Furoate (Asmanex 220mcg -) 1 puff IH HS [facility] Last Admin: 11/06/19 22:34 Dose: 1 puff Montelukast Sodium (Singulair -) 10 mg PO HS [facility] Last Admin: 11/06/19 22:30 Dose: 10 mg Nicotine Polacrilex (Nicorette Gum -) 2 mg BUC Q2H PRN PRN Reason: NICOTINE REPLACEMENT RX Last Admin: 11/05/19 22:38 Dose: 2 mg Pantoprazole Sodium (Protonix -) 40 mg PO DAILY [facility] Last Admin: 11/07/19 10:18 Dose: 40 mg Simethicone (Mylicon -) 80 mg PO TID [facility] Last Admin: 11/07/19 06:32 Dose: 80 mg Valsartan (Diovan -) 160 mg PO DAILY [facility] Last Admin: 11/07/19 10:17 Dose: 160 mg Constitutional: Yes: No Distress Eyes: Yes: Conjunctiva Clear, EOM Intact HENT: Yes: Atraumatic, Normocephalic Neck: Yes: Supple, Trachea Midline Cardiovascular: Yes: Regular Rate and Rhythm Respiratory: Yes: Cough, Diminished, LESS bilateral expiratory wheezes. No: Accessory Muscle Use, Rales, Rhonchi, SOB, Stridor ...Inspection: Yes: WNL ...Clubbing: No Gastrointestinal: Yes: Normal Bowel Sounds, Soft Renal/: Yes: WNL Musculoskeletal: Yes: WNL Extremities: Yes: WNL Edema: No Peripheral Pulses WNL: Yes Integumentary: Yes: WNL Neurological: Yes: WNL, Alert, Oriented ...Motor Strength: WNL Psychiatric: Yes: WNL, Alert, Oriented Labs: Laboratory Results - last 24 hr 11/06/19 11/06/19 11/06/19 14:43 17:26 23:52 WBC RBC Hgb Hct MCV MCH MCHC RDW Plt Count MPV Absolute Neuts (auto) Neutrophils % Neutrophils % (Manual) Band Neutrophils % Lymphocytes % Lymphocytes % (Manual) Monocytes % Monocytes % (Manual) Eosinophils % Eosinophils % (Manual) Basophils % Basophils % (Manual) Myelocytes % (Man) Promyelocytes % (Man) Blast Cells % (Manual) Nucleated RBC % Metamyelocytes Hypochromia Platelet Estimate Platelet Comment Polychromasia Poikilocytosis Anisocytosis Microcytosis Macrocytosis Sodium Potassium Chloride Carbon Dioxide Anion Gap BUN Creatinine Est GFR (CKD-EPI)AfAm Est GFR (CKD-EPI)NonAf POC Glucometer 133 253 349 Random Glucose Calcium Phosphorus Magnesium 11/07/19 11/07/19 11/07/19 03:37 06:42 07:45 WBC 22.9 H RBC 3.74 Hgb 10.7 Hct 33.4 MCV 89.3 MCH 28.5 MCHC 31.9 L RDW 18.1 H Plt Count 280 MPV 10.6 Absolute Neuts (auto) 20.9 H Neutrophils % 91.1 H D Neutrophils % (Manual) 93.0 H Band Neutrophils % 2.0 Lymphocytes % 5.9 L D Lymphocytes % (Manual) 4.0 L Monocytes % 2.8 L Monocytes % (Manual) 1 L Eosinophils % 0.0 D Eosinophils % (Manual) 0.0 Basophils % 0.2 Basophils % (Manual) 0.0 Myelocytes % (Man) 0 Promyelocytes % (Man) 0 Blast Cells % (Manual) 0 Nucleated RBC % 0 Metamyelocytes 0 Hypochromia 0 Platelet Estimate Normal Platelet Comment Present Polychromasia 1+ Poikilocytosis 0 Anisocytosis 1+ Microcytosis 1+ Macrocytosis 0 Sodium Potassium Chloride Carbon Dioxide Anion Gap BUN Creatinine Est GFR (CKD-EPI)AfAm Est GFR (CKD-EPI)NonAf POC Glucometer 214 293 Random Glucose Calcium Phosphorus Magnesium 11/07/19 07:45 WBC RBC Hgb Hct MCV MCH MCHC RDW Plt Count MPV Absolute Neuts (auto) Neutrophils % Neutrophils % (Manual) Band Neutrophils % Lymphocytes % Lymphocytes % (Manual) Monocytes % Monocytes % (Manual) Eosinophils % Eosinophils % (Manual) Basophils % Basophils % (Manual) Myelocytes % (Man) Promyelocytes % (Man) Blast Cells % (Manual) Nucleated RBC % Metamyelocytes Hypochromia Platelet Estimate Platelet Comment Polychromasia Poikilocytosis Anisocytosis Microcytosis Macrocytosis Sodium 139 Potassium 4.3 Chloride 103 Carbon Dioxide 27 Anion Gap 9 BUN 24.0 H Creatinine 0.8 Est GFR (CKD-EPI)AfAm 102.47 Est GFR (CKD-EPI)NonAf 88.41 POC Glucometer Random Glucose 250 H Calcium 9.4 Phosphorus 4.5 Magnesium 2.2 Problem List - Problems (1) Pulmonary embolism Code(s): I26.99 - OTHER PULMONARY EMBOLISM WITHOUT ACUTE COR PULMONALE (2) Wheezing Code(s): R06.2 - WHEEZING (3) Abdominal pain Code(s): R10.9 - UNSPECIFIED ABDOMINAL PAIN Qualifiers: Abdominal location: upper abdomen, unspecified Qualified Code(s): R10.10 - Upper abdominal pain, unspecified (4) Chest pain Code(s): R07.9 - CHEST PAIN, UNSPECIFIED Qualifiers: Chest pain type: unspecified Qualified Code(s): R07.9 - Chest pain, unspecified (5) COPD (chronic obstructive pulmonary disease) with acute bronchitis Code(s): J44.0 - CHR OBSTRUCTIVE PULMON DISEASE WITH (ACUTE) LOWER RESP INFCT (6) DVT (deep venous thrombosis) Code(s): I82.409 - ACUTE EMBOLISM AND THOMBOS UNSP DEEP VN UNSP LOWER EXTREMITY Assessment/Plan AC with Lovenox / Coumadin Xopenex and Mucomyst as ordered Medrol O2 as needed No smoking counseled PFTs once stable as an outpatient [facility] D/W GI yesterday: if abdominal symptoms resolve can have endoscopic evaluation as an outpatient Dr Child Problem List - Problems (1) Pulmonary embolism Code(s): I26.99 - OTHER PULMONARY EMBOLISM WITHOUT ACUTE COR PULMONALE (2) Wheezing Code(s): R06.2 - WHEEZING (3) Abdominal pain Code(s): R10.9 - UNSPECIFIED ABDOMINAL PAIN Qualifiers: Abdominal location: upper abdomen, unspecified Qualified Code(s): R10.10 - Upper abdominal pain, unspecified (4) Chest pain Code(s): R07.9 - CHEST PAIN, UNSPECIFIED Qualifiers: Chest pain type: unspecified Qualified Code(s): R07.9 - Chest pain, unspecified (5) COPD (chronic obstructive pulmonary disease) with acute bronchitis Code(s): J44.0 - CHR OBSTRUCTIVE PULMON DISEASE WITH (ACUTE) LOWER RESP INFCT (6) DVT (deep venous thrombosis) Code(s): I82.409 - ACUTE EMBOLISM AND THOMBOS UNSP DEEP VN UNSP LOWER EXTREMITY
--- NOTE | 2019-11-07 11:53 | PN ---
Progress Note (short form) - Note Progress Note: Reviewed Dr. Hoang's note. Patient currently being treated for asthma exacerbation. Refused evening dose of mucormyst. When patient optimized from pulmonary standpoint and cleared for endoscopy, this can be undertaken. Can have upper GI series performed in the interim to evaluate for any discrete lesion.
[2019-11-07 12:02] LABS: INR 0.97 (0.83-1.09); PROTHROMBIN TIME (PATIENT) 11.4 SEC (9.7-13.0)
--- NOTE | 2019-11-07 12:56 | PN ---
Teaching Attending Note Name of Resident: Sagar Velásquez ATTENDING PHYSICIAN STATEMENT I saw and evaluated the patient. I reviewed the resident's note and discussed the case with the resident. I agree with the resident's findings and plan as documented. SUBJECTIVE: No fever chills. has GARCÍA . no Abd pain today, no vomiting. cont to smoke while in hospital, cont to eat frm vending machine and out side food despite being on a special diet. no diarrhea. OBJECTIVE: NDD, talkative, anxious and interrupts MD at times. gets irritated easily. Cooperative Cv: RRR. No MRG Lungs: scattered wheezing. Ext : No edema or erythema. Abd: sfot, ND, NT but she did not allow palpation of the epigastric area. NL BS Neuro: EOMI, no facial droop. nl facial sensation . Strength: RUE: 5/5 shoulder shrug, shoulder abduction , biceps, and triceps. nl hand liquor store manager LUE: 5/5 shoulder shrug, shoulder abduction , biceps, and triceps. nl hand liquor store manager LLE: 5/5 hip flexion , knee flexion and extension , ankle dorsiflexion and plantar flexion . RLE: hips flexion 4/5 limited by pain in her knee. not cooperative with knee flexion /extension . ankle dorsiflexion and plantar flexion NL. sensation to light touch decreased over R toes, and L big toe biceps, BR 2+ b/l. L knee jerk 2+ . did not allow L knee jerk ASSESSMENT AND PLAN: 48yof with PMHx of COPD, hypertension, hyperlipidemia, diabetes, 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 1- ABD pain. R/o gastroparesis/ulcer/gastritis 2- GARCÍA. 3- peripheral Neuropathy 4- Acute COPD exacerbation 5- H/o PE and DVT 6- h/o IVC filter 7- HTN 8- Anxiety Plan; - still in vasospasm, and still smoking. she was advised that smoking is prohibited in hospital and not good for her lungs - cont steroids/Nebs - Will add symbicort or advair if the patient agrees - cont lovenox , until after procedure - d/w Dr. Vasquez. she will need to be wheezing free before her procedure. - She will discuss with GI when evaluated - cont lovenox for now anticipating EGD when stable - cont PPI - cont cymbalta - out pt EMG and neuropathy w/u - Increase valsartan in light of persistent elevation in BP( steroids contributing ) - leukocytosis is due to steroids - She requests work up for brain aneurysm, as she thinks her personality changed due to possible aneurysm. She was seen by neuro . Will ask dr. Beckwith advise and further d/w her. HLOC
[2019-11-07] MEDS: LEVALBUTEROL HCL 0.31 MG/3 ML VIAL.NEB IH PRN (13:00)
[2019-11-07] MEDS ORDERED: VALSARTAN 160 MG TABLET (UD) PO SCH ×2 (13:16→22:00)
--- NOTE | 2019-11-07 13:22 | CON.GI ---
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 Consulted for abdminal pain. CT scan revealed mild to moderate gastric ditention with intraluminal food material. Patient was seen by on 11/02/19 noted that patient ate soup and vegatables prior to CT, also suggested outpt EGD. - Past Medical History Cardio/Vascular: Yes: Deep Vein Thrombosis Pulmonary: Yes: Asthma, Bronchitis, Pulmonary Embolus. No: Cancer, COPD, O2 Dependent, Pneumonia, Previously Intubated, Pulmonary Fibrosis, Sleep Apnea ...: No Infectious Disease: Yes: Other (Has had abscesses of abdomen (surgical drainage ) and legs. MRSA in 2013.) Endocrine: Yes: Diabetes Mellitus (h/o Gestational DM) Dermatology: Yes: Eczema, Psoriasis, Other (Impetigo) - Past Surgical History Additional Surgical History: IVC filter 2010 - Alcohol/Substance Use Hx Alcohol Use: No - Smoking History Smoking history: Current every day smoker Have you smoked in the past 12 months: Yes Aproximately how many cigarettes per day: 10 - Social History Usual Living Arrangement: Alone History of Recent Travel: No Home Medications - Allergies Allergies/Adverse Reactions: Allergies Allergy/AdvReac Type Severity Reaction Status Date / Time Penicillins Allergy Severe Rash Verified 11/01/19 14:18 acetaminophen [From Percocet] Allergy Verified 11/01/19 14:18 hydrocodone bitartrate Allergy Verified 11/01/19 14:18 [From Vicodin] iodine Allergy Verified 11/01/19 14:18 morphine Allergy Verified 11/01/19 14:18 oxycodone HCl [From Percocet] Allergy Verified 11/01/19 14:18 peanut Allergy Verified 11/01/19 14:18 rivaroxaban [From Xarelto] Allergy Verified 11/01/19 14:18 dairy Allergy Severe Swelling Uncoded 11/01/19 14:18 eggs/egg-containing foods Allergy Severe Swelling Uncoded 11/01/19 14:18 FRESH BANANAS Allergy Severe ANAPHYLAXIS Uncoded 11/01/19 14:18 . tree nuts Allergy Severe Itching Uncoded 11/01/19 14:18 ammonium lactate cream Allergy Uncoded 11/01/19 14:18 cheese Allergy Uncoded 11/01/19 14:18 fresh apples Allergy Uncoded 11/01/19 14:18 fresh peaches Allergy Uncoded 11/01/19 14:18 fresh plums Allergy Uncoded 11/01/19 14:18 NARCOTICS Allergy Uncoded 11/01/19 14:18 - Home Medications Home Medications: Ambulatory Orders Albuterol 2.5/Ipratropium 0.5 [Duoneb -] 1 neb IH ASDIR PRN 08/12/14 Albuterol Sulfate Inhaler - [Ventolin HFA Inhaler -] 2 inh PO Q4H PRN 03/03/15 Montelukast Na [Singulair -] 10 mg PO HS #30 tablet 12/22/16 Albuterol 2.5/Ipratropium 0.5 [Duoneb -] 1 amp NEB Q6H PRN amp 08/10/18 Epinephrine [Epipen 2-Jan] 0.3 mg IJ ASDIR #1 kit 07/14/19 Ergocalciferol [Vitamin D2] 50,000 unit PO Q7D@1000 11/01/19 Fluticasone Propionate [Flovent Hfa] 110 mcg IH BID 11/01/19 Gabapentin [Neurontin] 100 mg PO Q8H 11/01/19 Valsartan [Diovan] 160 mg PO DAILY 11/01/19 Warfarin Sodium 6 mg PO DAILY 11/01/19 Zolpidem Tartrate [Ambien] 10 mg PO HS 11/01/19 Fluticasone Propionate [Flovent Hfa] 220 mcg IH BID 11/04/19 Physical Exam-GI Vital Signs: Vital Signs Temperature 97.6 F 11/07/19 10:00 Pulse Rate 71 11/07/19 10:00 Respiratory Rate 18 11/07/19 10:00 Blood Pressure 157/98 11/07/19 10:00 O2 Sat by Pulse Oximetry (%) 99 11/06/19 21:00 Labs: CBC, BMP 11/07/19 07:45 11/07/19 07:45 INR, PTT INR 0.97 (0.83-1.09) 11/07/19 08:46
--- NOTE | 2019-11-07 15:55 | PN ---
Progress Note (short form) - Note Progress Note: No new complain overnight, she is very anxious and requesting to do angiogram of brain 48 year old female with multple medical problem including COPD, hypertension, hyperlipidemia, diabetes, right lower extremity DVT and PE status post IVC filter placement and on Coumadin she came to hospital for chest pain and epigatric pain I was called to evaluate as she has experience fall, she feel there is buckling of knee on right side. Patient has back pain and it radiates to bilateral hip, but does not shoots down to leg. She do have tingling and numbnes in both feet and toes. Patient denies significant neck pain or radicular symptoms. NEUROLOGICAL EXAMINATION Alert oriented x 3, speech is normal, afebrile vss eomi, pupils reactive no face asymmetry moving all ext sensation are diminished in both feet at toes reflex are generalized diminished Assessment/Plan Fall seems to be mechaincal. She has evidence of neuropahty, unlikekly to caues of fall. THere is no evidence of cord compression, cerebellar dysfunction, stroke or cauda equina syndrome. 2.Patient is very anxiouis about getting angiogram of brain, and she is allergic to contrast, I woudl do mri and mra of brain without contrast to reassure patient, it would a routine one , and do not need to holod in hospital for mri Plan: neuropathy work up and emg outpatinet - pt mra of brain Thanking you so much Eddie Beckwith MD
--- NOTE | 2019-11-07 17:34 | PN ---
Physical Exam: SUBJECTIVE: Patient seen and examined O/N: patient leaves the unit to smoke 1.5 cigarettes. Tends to eat from the vending machines and [employer]. Has multiple complaints of GARCÍA, mild numbness of distal Right foot, Right knee buckling. OBJECTIVE: Vital Signs Period Temp Pulse Resp BP Sys/Oneil Pulse Ox Last 24 Hr 97.6 F-97.8 F 71-87 18-18 134-157/83-100 99 GENERAL: The patient is awake, alert, and fully oriented, in no acute distress. HEAD: NC/AT. No temporal wasting EYES: PERRL, extraocular movements intact, sclera anicteric and w/o pallor, conjunctiva clear. No ptosis. ENT: Ears normal, nares patent, oropharynx clear without exudates, moist mucous membranes. NECK: Trachea midline, full range of motion, supple. Neg cervical LAD. LUNGS: B/l wheezes and crackles, no accessory muscle use. HEART: Regular rate and rhythm, S1, S2 without murmur, rub or gallop. ABDOMEN: abdominal striae, soft, nontender, nondistended, hyperactive bowel sounds, no guarding, no rebound EXTREMITIES: 2+ pulses, warm, well-perfused, no edema, thin lower extremities NEUROLOGICAL: Normal speech, gait not observed. CN II - XII intact. Sensation intact of extremities. Normal gait PSYCH: Normal mood, normal affect. Anxious appearing SKIN: Warm, dry, normal turgor, no rashes or lesions noted Laboratory Results - last 24 hr 11/06/19 11/06/19 11/07/19 17:26 23:52 03:37 WBC RBC Hgb Hct MCV MCH MCHC RDW Plt Count MPV Absolute Neuts (auto) Neutrophils % Neutrophils % (Manual) Band Neutrophils % Lymphocytes % Lymphocytes % (Manual) Monocytes % Monocytes % (Manual) Eosinophils % Eosinophils % (Manual) Basophils % Basophils % (Manual) Myelocytes % (Man) Promyelocytes % (Man) Blast Cells % (Manual) Nucleated RBC % Metamyelocytes Hypochromia Platelet Estimate Platelet Comment Polychromasia Poikilocytosis Anisocytosis Microcytosis Macrocytosis PT with INR INR Sodium Potassium Chloride Carbon Dioxide Anion Gap BUN Creatinine Est GFR (CKD-EPI)AfAm Est GFR (CKD-EPI)NonAf POC Glucometer 253 349 214 Random Glucose Calcium Phosphorus Magnesium 11/07/19 11/07/19 11/07/19 06:42 07:45 07:45 WBC 22.9 H RBC 3.74 Hgb 10.7 Hct 33.4 MCV 89.3 MCH 28.5 MCHC 31.9 L RDW 18.1 H Plt Count 280 MPV 10.6 Absolute Neuts (auto) 20.9 H Neutrophils % 91.1 H D Neutrophils % (Manual) 93.0 H Band Neutrophils % 2.0 Lymphocytes % 5.9 L D Lymphocytes % (Manual) 4.0 L Monocytes % 2.8 L Monocytes % (Manual) 1 L Eosinophils % 0.0 D Eosinophils % (Manual) 0.0 Basophils % 0.2 Basophils % (Manual) 0.0 Myelocytes % (Man) 0 Promyelocytes % (Man) 0 Blast Cells % (Manual) 0 Nucleated RBC % 0 Metamyelocytes 0 Hypochromia 0 Platelet Estimate Normal Platelet Comment Present Polychromasia 1+ Poikilocytosis 0 Anisocytosis 1+ Microcytosis 1+ Macrocytosis 0 PT with INR INR Sodium 139 Potassium 4.3 Chloride 103 Carbon Dioxide 27 Anion Gap 9 BUN 24.0 H Creatinine 0.8 Est GFR (CKD-EPI)AfAm 102.47 Est GFR (CKD-EPI)NonAf 88.41 POC Glucometer 293 Random Glucose 250 H Calcium 9.4 Phosphorus 4.5 Magnesium 2.2 11/07/19 11/07/19 11/07/19 08:46 12:05 17:04 WBC RBC Hgb Hct MCV MCH MCHC RDW Plt Count MPV Absolute Neuts (auto) Neutrophils % Neutrophils % (Manual) Band Neutrophils % Lymphocytes % Lymphocytes % (Manual) Monocytes % Monocytes % (Manual) Eosinophils % Eosinophils % (Manual) Basophils % Basophils % (Manual) Myelocytes % (Man) Promyelocytes % (Man) Blast Cells % (Manual) Nucleated RBC % Metamyelocytes Hypochromia Platelet Estimate Platelet Comment Polychromasia Poikilocytosis Anisocytosis Microcytosis Macrocytosis PT with INR 11.40 INR 0.97 Sodium Potassium Chloride Carbon Dioxide Anion Gap BUN Creatinine Est GFR (CKD-EPI)AfAm Est GFR (CKD-EPI)NonAf POC Glucometer 175 242 Random Glucose Calcium Phosphorus Magnesium Active Medications Generic Name Dose Route Start Last Admin Trade Name Freq PRN Reason Stop Dose Admin Acetylcysteine 200 mg 11/05/19 08:57 11/07/19 08:10 Mucomyst 20 Oral / Inh Use Only* NEB Not Given RBID SUKHDEV Diphenhydramine HCl 50 mg 11/02/19 21:14 11/06/19 22:30 Benadryl - PO 50 mg Q12H PRN Administration FOR ITCHING Duloxetine HCl 20 mg 11/06/19 10:00 11/07/19 10:18 Cymbalta - PO 20 mg DAILY SUKHDEV Administration Enoxaparin Sodium 60 mg 11/03/19 22:00 11/07/19 10:18 Lovenox - SQ 60 mg BID SUKHDEV Administration Gabapentin 100 mg 11/03/19 14:00 11/07/19 15:07 Neurontin - PO 100 mg TID SUKHDEV Administration Guaifenesin 600 mg 11/03/19 22:00 11/07/19 10:17 Mucinex - PO 600 mg BID SUKHDEV Administration Insulin Aspart 1 vial 11/02/19 16:30 11/07/19 12:44 Novolog Vial Sliding Scale - SQ 2 units ACHS SUKHEDV Administration Protocol Levalbuterol HCl 0.63 mg 11/03/19 20:00 11/07/19 08:10 Xopenex IH Not Given RBID SUKHDEV Levalbuterol HCl 0.31 mg 11/03/19 11:48 11/07/19 13:00 Xopenex IH 0.31 mg Q8H PRN Administration ASTHMA Methylprednisolone Sodium Succinate 40 mg 11/02/19 14:15 11/07/19 10:39 Solu-Medrol - IVPUSH 40 mg BID SUKHDEV Administration Mometasone Furoate 1 puff 11/03/19 22:00 11/06/19 22:34 Asmanex 220mcg - IH 1 puff HS SUKHDEV Administration Montelukast Sodium 10 mg 11/03/19 22:00 11/06/19 22:30 Singulair - PO 10 mg HS SUKHDEV Administration Nicotine Polacrilex 2 mg 11/04/19 13:41 11/05/19 22:38 Nicorette Gum - BUC 2 mg Q2H PRN Administration NICOTINE REPLACEMENT RX Pantoprazole Sodium 40 mg 11/05/19 10:00 11/07/19 10:18 Protonix - PO 40 mg DAILY SUKHDEV Administration Simethicone 80 mg 11/04/19 13:51 11/07/19 15:07 Mylicon - PO 80 mg TID SUKHDEV Administration Valsartan 80 mg 11/07/19 22:00 Diovan - PO 11/07/19 22:01 ONCE ONE Valsartan 120 mg 11/08/19 10:00 Diovan - PO BID [facility] ASSESSMENT/PLAN: 48F w/ pmh of COPD, RLE DVT, ?PE, IVC Filter(04/25/11, home coumadin), HTN, dyslipidemia presenting with acute on cramping, epigastric abdominal pain radiating up the lower chest x12d. Pt expressed concern that abdominal pain 2/[address] A/P showing moderate gastric dilation w/ intraluminal food, possibly d/t recent food ingestion. GI(Luis F) consult recommend possible EGD. No CTA done d/t concern of possible IV contrast allergy. Pulmonary(Mateusz) did not recommend CTA. Venous duplex neg for DVT. Vascular(Singh) consulted to evaluate IVC filter patency and possibly source of abdominal pain. GI recommended simethicone trial and EGD on 11/06/19. Complaint of difficulty w/ gait prompted Neuro consult. Tang recommended PT, consideration of Ortho consult, outpatient EMG and neuropathy sharpe. Psych started Cymbalta 20mg QD for anxiety + depression. GI(Viktor) cancelled EGD on 11/06/19 dt concern of persisent bronchospasm. Neuro re-consulted for complaint of GARCÍA. Pt demanded sharpe for brain aneurysm. Brain MRA pending. GI(Giuseppe) rec upper GI to evaluate for pyloric issues #Chest pain/Epigastric pain with nausea possibly 2/2 gastritis r/o PE --Low clinical suspicion for PE > CTA chest --not done dt contrast dye ?allergy -empiric AC: --Lovenox (1mg/Kg) --possible warafarin but awaiting possible upper EGD(11/04/19? - 11/06/19?) -Protonix 40mg BID PO -GI(Luis F/Evi) consult: --possibly diabetic gastroparesis --possible EGD, on 11/06/2019 --simethicone trial -pulm(Mateusz) consult: --Xopenex and Mucomyst --Short course of Medrol --ECHO --Does not need CTA Chest at this point --PFTs once stable as an outpatient --Singulair QHS -telemetry monitoring #leukocytosis--likely 2/2 steroids - cont monitoring #pre-diabetic > HbA1c 5.6 - consider outpt Metformin #chronic tobacco usage - nicotine gum #s/p IVC filter(Pam, 04/20/11) -Vascular(Singh), consult: --no vascular intervention --bridge to coumadin --rec Psychiatry, rec upper endoscopy #Chronic Anxiety -Psych(Chepuru) consult: --pending #h/o DVT/PE -on lovenox -holding Coumadin until GI determines possible upper endoscopy #HTN -home Diovan 160mg QD --> 120mg BID #COPD/Asthma -nebs standing and PRN -home Singulair and Flovent -guaifenesin #Hypokalemia -will replete with IV and PO KCL #Prophy -on therapeutic Lovenox #FEN -no fluids indicated -replete lytes as above -regular diet -NPO at [place] #dispo -MedSurg Visit type - Emergency Visit Emergency Visit: No - New Patient This patient is new to me today: No - Critical Care Critical Care patient: No ATTENDING PHYSICIAN STATEMENT I saw and evaluated the patient. I reviewed the resident's note and discussed the case with the resident. I agree with the resident's findings and plan as documented. SUBJECTIVE: OBJECTIVE: ASSESSMENT AND PLAN:
[2019-11-07] MEDS ORDERED: ZOLPIDEM TARTRATE 5 MG TABLET PO ONE ×2 (17:48→18:09)
[2019-11-07] MEDS ORDERED: WARFARIN NA 10 MG TABLET (FP) PO SCH (18:00)
--- NOTE | 2019-11-07 19:54 | PN.GI ---
GI Progress Note Subjective: coverage wit Dr Greene Her abdominal pain improved , patietn ct noted to have retained food possibly because patient poorly compliant prior to the examination - Objective Vital Signs: Vital Signs Temperature 98.2 F 11/07/19 18:00 Pulse Rate 82 11/07/19 18:05 Respiratory Rate 18 11/07/19 18:00 Blood Pressure 142/77 11/07/19 18:05 O2 Sat by Pulse Oximetry (%) 99 11/07/19 09:00 Constitutional: Well Nourished, Anxious Eyes: Yes: Conjunctiva Clear HENT: Yes: Atraumatic Neck: Yes: Supple Cardiovascular: Yes: Regular Rate and Rhythm Respiratory: Yes: Regular ...Palpate: Yes: Soft. No: Guarding, Hepatomegaly, Mass, Pulsatile Mass Labs: CBC, BMP 11/07/19 07:45 11/07/19 07:45 INR, PTT INR 0.97 (0.83-1.09) 11/07/19 08:46 Problem List - Problems (1) Abdominal pain Assessment/Plan: improved R>patient still being treate for her Asthma FOR EGD as an outpatient Dr Greene will assume care in am Code(s): R10.9 - UNSPECIFIED ABDOMINAL PAIN Qualifiers: Abdominal location: upper abdomen, unspecified Qualified Code(s): R10.10 - Upper abdominal pain, unspecified
[2019-11-07] MEDS: MELATONIN 5 MG TABLETS PO PRN (21:10)
[2019-11-07] MEDS: diphenhydrAMINE HCL 25 MG CAPSULE (FP) PO PRN (21:10)
[2019-11-07] MEDS: MONTELUKAST NA 10 MG TABLET PO SCH (21:10)
[2019-11-07] MEDS ORDERED: VALSARTAN 80 MG TABLET (UD) PO ONE (22:00)
[2019-11-07] MEDS: NICOTINE POLACRILEX 2 MG GUM BUC PRN (22:59)
[2019-11-07] MEDS: MOMETASONE FUROATE 220 MCG/IH INHALER IH SCH (23:02)
[2019-11-08] MEDS: INSULIN SLIDING SCALE (NOVOLOG) 1 VIAL SQ SCH ×4 (06:29→23:21)
[2019-11-08] MEDS: SIMETHICONE 80 MG TAB.CHEW (FP) PO SCH ×3 (06:29→21:53)
[2019-11-08] MEDS: GABAPENTIN 100 MG CAPSULE PO SCH ×3 (06:30→21:52)
[2019-11-08] MEDS ORDERED: PT OWN MED DRAWER 7, Y5N ONE ×2 (07:00→11:14)
[2019-11-08] MEDS: ACETYLCYSTEINE 20% 200MG/ML 4 ML VIAL *FOR ORAL / INH USE ONLY NEB SCH ×2 (08:59→21:40)
[2019-11-08] MEDS: LEVALBUTEROL HCL 0.63 MG/3 ML VIAL.NEB. IH SCH ×2 (08:59→21:40)
[2019-11-08 09:22] LABS: HEMOGLOBIN 11.8 GM/dL (10.7-15.3); MCH 28.6 pg (25.7-33.7); MEAN CELL VOLUME 89.5 fl (80-96); MEAN PLT VOLUME 11.1 fl (7.5-11.1); PLATELET COUNT 313 K/MM3 (134-434); RBC 4.14 M/mm3 (3.60-5.2); RDW 17.9 % (11.6-15.6); WHITE BLOOD COUNT 28.2 K/mm3 (4.0-10.0)
[2019-11-08 09:50] LABS: BLOOD UREA NITROGEN 23.1 mg/dL (7-18); CALCIUM 9.9 mg/dL (8.5-10.1); CREATININE 0.8 mg/dL (0.55-1.3); MAGNESIUM 2.1 mg/dL (1.8-2.4); PHOSPHOROUS 4.9 mg/dL (2.5-4.9); POTASSIUM 3.9 mmol/L (3.5-5.1)
--- NOTE | 2019-11-08 10:01 | PN ---
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 Patient has back pain and it radiates to bilateral hip, but does not shoots down to leg. She do have tingling and numbnes in both feet and toes. she is schedule for mri of brain and mra today and she ate and could not get upper GI endoscopy. NEUROLOGICAL EXAMINATION Alert oriented x 3, speech is normal, afebrile vss eomi, pupils reactive no face asymmetry moving all ext sensation are diminished in both feet at toes reflex are generalized diminished Assessment/Plan Fall seems to be mechaincal. She has evidence of neuropahty, unlikekly to caues of fall. THere is no evidence of cord compression, cerebellar dysfunction, stroke or cauda equina syndrome. 2.Patient is very anxiouis about getting angiogram of brain, and she is allergic to contrast, I woudl do mri and mra of brain without contrast to reassure patient. Plan: neuropathy work up and emg outpatinet - pt waiting for mri , mra of brain Thanking you so much Eddie Beckwith MD
[2019-11-08 10:03] LABS: INR 0.98 (0.83-1.09); PROTHROMBIN TIME (PATIENT) 11.6 SEC (9.7-13.0)
[2019-11-08 10:06] LABS: ACTIVATED PTT 27.3 SECONDS (25.2-36.5)
[2019-11-08] MEDS: VALSARTAN 40 MG TABLET (FP) PO SCH ×2 (11:12→23:23)
[2019-11-08] MEDS: guaiFENesin 600 MG TABLET.ER (FP) PO SCH ×2 (11:13→21:53)
[2019-11-08] MEDS: ENOXAPARIN NA (PORCINE) 60 MG/0.6 ML DISP.SYRIN SQ SCH ×2 (11:13→21:53)
[2019-11-08] MEDS: PANTOPRAZOLE 40 MG TABLET PO SCH (11:13)
[2019-11-08] MEDS: DULoxetine HCL 20 MG CAPSULE.DR PO SCH (11:15)
[2019-11-08] MEDS: diphenhydrAMINE HCL 25 MG CAPSULE (FP) PO PRN ×2 (11:20→23:22)
[2019-11-08] MEDS: methylPREDNISolone NA SUCC 40 MG/1 ML VIAL IVPUSH SCH (11:25)
--- NOTE | 2019-11-08 13:17 | PN ---
Progress Note (short form) - Note Progress Note: PULMONARY AWAKE/ALERT SUBJECTIVE IMPROVEMENT IN BREATHING VSS/AFEBRILE Constitutional: Yes: No Distress Eyes: Yes: Conjunctiva Clear, EOM Intact HENT: Yes: Atraumatic, Normocephalic Neck: Yes: Supple, Trachea Midline Cardiovascular: Yes: Regular Rate and Rhythm Respiratory: Yes: Cough, Diminished, LESS bilateral expiratory wheezes. No: Accessory Muscle Use, Rales, Rhonchi, SOB, Stridor ...Inspection: Yes: WNL ...Clubbing: No Gastrointestinal: Yes: Normal Bowel Sounds, Soft Renal/: Yes: WNL Musculoskeletal: Yes: WNL Extremities: Yes: WNL Edema: No Peripheral Pulses WNL: Yes Integumentary: Yes: WNL Neurological: Yes: WNL, Alert, Oriented ...Motor Strength: WNL Psychiatric: Yes: WNL, Alert, Oriented Labs: REVIEWED - Problems (1) Pulmonary embolism Code(s): I26.99 - OTHER PULMONARY EMBOLISM WITHOUT ACUTE COR PULMONALE (2) Wheezing Code(s): R06.2 - WHEEZING (3) Abdominal pain Code(s): R10.9 - UNSPECIFIED ABDOMINAL PAIN Qualifiers: Abdominal location: upper abdomen, unspecified Qualified Code(s): R10.10 - Upper abdominal pain, unspecified (4) Chest pain Code(s): R07.9 - CHEST PAIN, UNSPECIFIED Qualifiers: Chest pain type: unspecified Qualified Code(s): R07.9 - Chest pain, unspecified (5) COPD (chronic obstructive pulmonary disease) with acute bronchitis Code(s): J44.0 - CHR OBSTRUCTIVE PULMON DISEASE WITH (ACUTE) LOWER RESP INFCT (6) DVT (deep venous thrombosis) Code(s): I82.409 - ACUTE EMBOLISM AND THOMBOS UNSP DEEP VN UNSP LOWER EXTREMITY Assessment/Plan AC with Lovenox / Coumadin Xopenex and Mucomyst as ordered Medrol changed to prednisone O2 as needed No smoking counseled PFTs once stable as an outpatient [facility] [place] Lynnette MASON MD
[2019-11-08 15:15] VITALS: BMI 25.1
[2019-11-08] MEDS ORDERED: IBUPROFEN 600 MG TABLET (FP) PO PRN (16:44)
--- NOTE | 2019-11-08 17:22 | PN ---
Teaching Attending Note Name of Resident: Al Montoya ATTENDING PHYSICIAN STATEMENT I saw and evaluated the patient. I reviewed the resident's note and discussed the case with the resident. I agree with the resident's findings and plan as documented. SUBJECTIVE: No fever or chills. ate at 4 am and GI series was cancelled. no abd pain this am . no N/.V. breathing is better she complained of vaginal itching to the risk management internship she tells me she has [place]'s syndrome . OBJECTIVE: NAD, talkative, anxious . cooperative Cv: RRR. No MRG Lungs: No wheezing, good air entry Ext : No edema or erythema. Abd: soft, ND, NT , minimal tenderness in epigastric area Neuro: EOMI, no facial droop. nl facial sensation . 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 1- ABD pain. R/o gastroparesis/ulcer/gastritis 2- GARCÍA. 3- peripheral Neuropathy 4- Acute COPD exacerbation 5- H/o PE and DVT 6- h/o IVC filter 7- HTN 8- Anxiety Plan; - cont steroids, lung exam improved and was switched to prednisone today - cont Nebs - Will add symbicort or advair if the patient agrees - cont lovenox , until after procedure - GI series was canceled due to her eating . will repeat on Monday - cont lovenox for now anticipating EGD when stable - cont PPI - cont cymbalta - out pt EMG and neuropathy w/u - cont increased dose of valsartan 120 BID - she deos not comply with diabetic low NA diet, and requests regular diet. will change - CAse d/w Dr. Beckwith, MRI/MRA pending. HLOC
[2019-11-08] MEDS ORDERED: FLUCONAZOLE 100 MG TABLET (UD) PO ONE (17:29)
[2019-11-08] MEDS ORDERED: NICOTINE POLACRILEX 2 MG GUM BUC PRN (18:51)
--- NOTE | 2019-11-08 18:56 | PN ---
Physical Exam: SUBJECTIVE: Patient seen and examined O/N: refused MRI b/c she wanted to eat instead. Ate twice in the logistics planner(2 -4am) so Upper GI series was cancelled Complains of GARCÍA, itching/burning pain at groin w/ thick discharge w/o smell OBJECTIVE: Vital Signs Period Temp Pulse Resp BP Sys/Oneil Pulse Ox Last 24 Hr 97.9 F-98.5 F 78-110 18-20 130-150/50-105 97-99 GENERAL: The patient is awake, alert, and fully oriented, in no acute distress. HEAD: NC/AT. No temporal wasting EYES: PERRL, extraocular movements intact, sclera anicteric and w/o pallor, conjunctiva clear. No ptosis. ENT: Ears normal, nares patent, oropharynx clear without exudates, moist mucous membranes. NECK: Trachea midline, full range of motion, supple. Neg cervical LAD. LUNGS: B/l wheezes and crackles, no accessory muscle use. HEART: Regular rate and rhythm, S1, S2 without murmur, rub or gallop. ABDOMEN: abdominal striae, soft, nontender, nondistended, hyperactive bowel sounds, no guarding, no rebound PELVIS: speculum exam w/ thick white discharge and small chunks, cervix w/o erythema. No foul odor EXTREMITIES: 2+ pulses, warm, well-perfused, no edema, thin lower extremities NEUROLOGICAL: Normal speech, gait not observed. CN II - XII intact. Sensation intact of extremities. Normal gait PSYCH: Normal mood, normal affect. Anxious appearing SKIN: Warm, dry, normal turgor, no rashes or lesions noted Laboratory Results - last 24 hr 11/07/19 11/08/19 11/08/19 20:56 05:35 07:30 WBC RBC Hgb Hct MCV MCH MCHC RDW Plt Count MPV PT with INR 11.60 INR 0.98 PTT (Actin FS) 27.3 Sodium Potassium Chloride Carbon Dioxide Anion Gap BUN Creatinine Est GFR (CKD-EPI)AfAm Est GFR (CKD-EPI)NonAf POC Glucometer 200 243 Random Glucose Calcium Phosphorus Magnesium 11/08/19 11/08/19 11/08/19 07:30 07:30 11:11 WBC 28.2 H RBC 4.14 Hgb 11.8 Hct 37.0 MCV 89.5 MCH 28.6 MCHC 32.0 RDW 17.9 H Plt Count 313 MPV 11.1 PT with INR INR PTT (Actin FS) Sodium 134 L Potassium 3.9 Chloride 97 L Carbon Dioxide 28 Anion Gap 9 BUN 23.1 H Creatinine 0.8 Est GFR (CKD-EPI)AfAm 102.47 Est GFR (CKD-EPI)NonAf 88.41 POC Glucometer 64 Random Glucose 143 H Calcium 9.9 Phosphorus 4.9 Magnesium 2.1 11/08/19 17:16 WBC RBC Hgb Hct MCV MCH MCHC RDW Plt Count MPV PT with INR INR PTT (Actin FS) Sodium Potassium Chloride Carbon Dioxide Anion Gap BUN Creatinine Est GFR (CKD-EPI)AfAm Est GFR (CKD-EPI)NonAf POC Glucometer 323 Random Glucose Calcium Phosphorus Magnesium Active Medications Generic Name Dose Route Start Last Admin Trade Name Freq PRN Reason Stop Dose Admin Acetylcysteine 200 mg 11/05/19 08:57 11/08/19 08:59 Mucomyst 20 Oral / Inh Use Only* NEB Not Given RBID SUKHDEV Diphenhydramine HCl 50 mg 11/02/19 21:14 11/08/19 11:20 Benadryl - PO 50 mg Q12H PRN Administration FOR ITCHING Duloxetine HCl 20 mg 11/06/19 10:00 11/08/19 11:15 Cymbalta - PO 20 mg DAILY SUKHDEV Administration Enoxaparin Sodium 60 mg 11/03/19 22:00 11/08/19 11:13 Lovenox - SQ 60 mg BID SUKHDEV Administration Gabapentin 100 mg 11/03/19 14:00 11/08/19 15:20 Neurontin - PO 100 mg TID SUKHDEV Administration Guaifenesin 600 mg 11/03/19 22:00 11/08/19 11:13 Mucinex - PO 600 mg BID SUKHDEV Administration Insulin Aspart 1 vial 11/02/19 16:30 11/08/19 17:20 Novolog Vial Sliding Scale - SQ 8 units ACHS SUKHDEV Administration Protocol Levalbuterol HCl 0.63 mg 11/03/19 20:00 11/08/19 08:59 Xopenex IH Not Given RBID SUKHDEV Levalbuterol HCl 0.31 mg 11/03/19 11:48 11/07/19 13:00 Xopenex IH 0.31 mg Q8H PRN Administration ASTHMA Lorazepam 2 mg 11/08/19 17:03 Ativan - PO 11/08/19 17:04 ONCE ONE Melatonin 5 mg 11/07/19 17:48 11/07/19 21:10 Melatonin PO 5 mg HS PRN Administration INSOMNIA Mometasone Furoate 1 puff 11/03/19 22:00 11/07/19 23:02 Asmanex 220mcg - IH 1 puff HS SUKHDEV Administration Montelukast Sodium 10 mg 11/03/19 22:00 11/07/19 21:10 Singulair - PO 10 mg HS SUKHDEV Administration Naproxen 500 mg 11/08/19 18:30 Naprosyn - PO Q8H PRN PAIN LEVEL 6-10 Nicotine Polacrilex 2 mg 11/04/19 13:41 11/07/19 22:59 Nicorette Gum - BUC 2 mg Q2H PRN Administration NICOTINE REPLACEMENT RX Pantoprazole Sodium 40 mg 11/05/19 10:00 11/08/19 11:13 Protonix - PO 40 mg DAILY SUKHDEV Administration Prednisone 20 mg 11/09/19 10:00 Deltasone - PO DAILY SUKHDEV Simethicone 80 mg 11/04/19 13:51 11/08/19 15:21 Mylicon - PO 80 mg TID SUKHDEV Administration Valsartan 120 mg 11/08/19 10:00 11/08/19 11:12 Diovan - PO 120 mg BID SUKHDEV Administration ASSESSMENT/PLAN: 48F w/ pmh of COPD, RLE DVT, ?PE, IVC Filter(04/25/11, home coumadin), HTN, dyslipidemia presenting with acute on cramping, epigastric abdominal pain radiating up the lower chest x12d. Pt expressed concern that abdominal pain 2/[address] A/P showing moderate gastric dilation w/ intraluminal food, possibly d/t recent food ingestion. GI(Luis F) consult recommend possible EGD. No CTA done d/t concern of possible IV contrast allergy. Pulmonary(Mateusz) did not recommend CTA. Venous duplex neg for DVT. Vascular(Singh) consulted to evaluate IVC filter patency and possibly source of abdominal pain. GI recommended simethicone trial and EGD on 11/06/19. Complaint of difficulty w/ gait prompted Neuro consult. Tang recommended PT, consideration of Ortho consult, outpatient EMG and neuropathy sharpe. Psych started Cymbalta 20mg QD for anxiety + depression. GI(Hasham) cancelled EGD on 11/06/19 dt concern of persisent bronchospasm. Neuro re-consulted for complaint of GARCÍA. Pt demanded sharpe for brain aneurysm. Brain MRI pending. GI(Lantin) rec upper GI to evaluate for pyloric issues. Complaint of vaginal burning pain and white discharge prompted fluconazole. #Chest pain/Epigastric pain with nausea possibly 2/2 gastritis r/o PE --Low clinical suspicion for PE > CTA chest --not done dt contrast dye ?allergy > CT A/P: moderate gastric dilation w/ intraluminal food, possibly d/t recent food ingestion -empiric AC: --Lovenox (1mg/Kg) --possible warafarin but awaiting possible upper EGD(11/04/19? - 11/06/19?) -Protonix 40mg BID PO -GI(Luis F/Evi) consult: --possibly diabetic gastroparesis --possible EGD --cancelled dt bronchospasm --simethicone trial -GI(Lantin/DiG): --upperGI series, if abn then EGD --pt to get upperGI on 11/11/19 -pulm(Mateusz) consult: --Xopenex and Mucomyst --Short course of Medrol --> prednisone 20mg --Does not need CTA Chest at this point --PFTs once stable as an outpatient --Singulair QHS -telemetry monitoring #s/p IVC filter(Pam, 04/20/11) --pt thought IVC filter was cause of abd pain -Vascular(Singh), consult: --no vascular intervention --bridge to coumadin --rec Psychiatry, rec upper endoscopy # vaginal candidiasis - s/p fluconazole 200mg PO, once #leukocytosis--likely 2/2 steroids - cont monitoring #pre-diabetic > HbA1c 5.6 - consider outpt Metformin #chronic tobacco usage - nicotine gum #Chronic Anxiety -Psych(Chepuru) consult: --duloxetine 20mg QD #h/o DVT/PE -on lovenox -holding Coumadin until GI determines possible upper endoscopy(if abnorm Upper GI) #HTN -home Diovan 160mg QD --> 120mg BID #COPD/Asthma -nebs standing and PRN -home Singulair and Flovent -guaifenesin #Hypokalemia -will replete with IV and PO KCL PRN #Prophy -on therapeutic Lovenox #FEN -no fluids indicated -replete lytes as above -regular diet -NPO at [place] on 11/11/19 #dispo -MedSurg Visit type - Emergency Visit Emergency Visit: No - New Patient This patient is new to me today: No - Critical Care Critical Care patient: No ATTENDING PHYSICIAN STATEMENT I saw and evaluated the patient. I reviewed the resident's note and discussed the case with the resident. I agree with the resident's findings and plan as documented. SUBJECTIVE: OBJECTIVE: ASSESSMENT AND PLAN:
[2019-11-08] MEDS ORDERED: LORazepam 1 MG TABLET PO ONE (20:15)
[2019-11-08] MEDS: MONTELUKAST NA 10 MG TABLET PO SCH (21:53)
[2019-11-08] MEDS ORDERED: ZOLPIDEM TARTRATE 5 MG TABLET PO ONE (23:13)
[2019-11-08] MEDS: MELATONIN 5 MG TABLETS PO PRN (23:23)
[2019-11-08] MEDS: NICOTINE POLACRILEX 2 MG GUM BUC PRN (23:23)
[2019-11-08] MEDS: MOMETASONE FUROATE 220 MCG/IH INHALER IH SCH (23:36)
[2019-11-09] MEDS: SIMETHICONE 80 MG TAB.CHEW (FP) PO SCH ×4 (07:11→22:31)
[2019-11-09] MEDS: GABAPENTIN 100 MG CAPSULE PO SCH ×4 (07:11→22:18)
[2019-11-09] MEDS: ACETYLCYSTEINE 20% 200MG/ML 4 ML VIAL *FOR ORAL / INH USE ONLY NEB SCH ×2 (08:00→20:40)
[2019-11-09] MEDS: LEVALBUTEROL HCL 0.63 MG/3 ML VIAL.NEB. IH SCH ×2 (08:00→20:40)
[2019-11-09 08:16] LABS: HEMATOCRIT 36.1 % (32.4-45.2); HEMOGLOBIN 11.5 GM/dL (10.7-15.3); MCH 28.5 pg (25.7-33.7); MCHC 31.8 g/dl (32.0-36.0); MEAN CELL VOLUME 89.3 fl (80-96); MEAN PLT VOLUME 10.3 fl (7.5-11.1); PLATELET COUNT 294 K/MM3 (134-434); RBC 4.04 M/mm3 (3.60-5.2); RDW 18.3 % (11.6-15.6); WHITE BLOOD COUNT 24.6 K/mm3 (4.0-10.0)
--- NOTE | 2019-11-09 08:28 | PN.GI ---
GI Progress Note Subjective: NO NEW COMPLAINTS - INTERMITTENT ABD PAIN - Objective Vital Signs: Vital Signs Temperature 97.6 F 11/09/19 06:00 Pulse Rate 81 11/09/19 06:00 Respiratory Rate 11/09/19 06:00 Blood Pressure 123/79 11/09/19 06:00 O2 Sat by Pulse Oximetry (%) 100 11/08/19 21:00 Constitutional: Well Nourished, No Distress Eyes: Yes: WNL HENT: Yes: WNL Neck: Yes: WNL, Supple Cardiovascular: Yes: WNL, Regular Rate and Rhythm Respiratory: Yes: WNL, Regular, Wheezes Gastrointestinal Inspection: Yes: WNL ...Auscultate: Yes: Normoactive Bowel Sounds Extremities: Yes: WNL Edema: No Labs: INR, PTT INR 0.98 (0.83-1.09) 11/08/19 07:30 Problem List - Problems (1) Abdominal pain Assessment/Plan: - PPI - DIET TOLERATED - RX FOR COPD PER PRIMARY MEDICAL TEAM - UPPER GI SERIES MONDAY - F/ Code(s): R10.9 - UNSPECIFIED ABDOMINAL PAIN Qualifiers: Abdominal location: upper abdomen, unspecified Qualified Code(s): R10.10 - Upper abdominal pain, unspecified (2) Chest pain Code(s): R07.9 - CHEST PAIN, UNSPECIFIED Qualifiers: Chest pain type: unspecified Qualified Code(s): R07.9 - Chest pain, unspecified (3) Wheezing Code(s): R06.2 - WHEEZING (4) COPD (chronic obstructive pulmonary disease) with acute bronchitis Code(s): J44.0 - CHR OBSTRUCTIVE PULMON DISEASE WITH (ACUTE) LOWER RESP INFCT
[2019-11-09 08:49] LABS: BLOOD UREA NITROGEN 26.9 mg/dL (7-18); CALCIUM 9.1 mg/dL (8.5-10.1); CREATININE 0.8 mg/dL (0.55-1.3); MAGNESIUM 2.1 mg/dL (1.8-2.4); PHOSPHOROUS 4.4 mg/dL (2.5-4.9); POTASSIUM 4.7 mmol/L (3.5-5.1)
[2019-11-09] MEDS: INSULIN SLIDING SCALE (NOVOLOG) 1 VIAL SQ SCH ×4 (09:06→22:29)
[2019-11-09] MEDS ORDERED: PT OWN MED DRAWER 7, Y5N ONE ×2 (09:10→18:39)
[2019-11-09] MEDS: VALSARTAN 40 MG TABLET (FP) PO SCH ×3 (09:15→22:19)
[2019-11-09] MEDS: PANTOPRAZOLE 40 MG TABLET PO SCH ×2 (09:15→12:43)
[2019-11-09] MEDS: guaiFENesin 600 MG TABLET.ER (FP) PO SCH ×3 (09:15→22:20)
[2019-11-09] MEDS: ENOXAPARIN NA (PORCINE) 60 MG/0.6 ML DISP.SYRIN SQ SCH ×4 (09:15→22:31)
[2019-11-09] MEDS: predniSONE 20 MG TABLET (UD) PO SCH ×2 (09:15→12:43)
--- NOTE | 2019-11-09 11:42 | PN ---
Physical Exam: SUBJECTIVE: Patient seen and examined at bedside. No events overnight. Patient continues to complain of headache and abdominal pain. OBJECTIVE: Vital Signs Period Temp Pulse Resp BP Sys/Oneil Pulse Ox Last 24 Hr 97.6 F-98.5 F 81-110 18-20 113-140/50-84 100 GENERAL: The patient is awake, alert, and fully oriented, in no acute distress. HEAD: Normal with no signs of trauma. NECK: Trachea midline, full range of motion, supple. LUNGS: Breath sounds equal, clear to auscultation bilaterally, no wheezes, no crackles, no accessory muscle use. HEART: Regular rate and rhythm, S1, S2 without murmur, rub or gallop. ABDOMEN: Soft, mild, diffuse tenderness to palpation, nondistended, normoactive bowel sounds, no guarding, no rebound, no hepatosplenomegaly, no masses. EXTREMITIES: 2+ pulses, warm, well-perfused, no edema. NEUROLOGICAL: Cranial nerves II through X grossly intact. Normal speech, gait not observed. SKIN: Warm, dry, normal turgor, no rashes or lesions noted Laboratory Results - last 24 hr 11/08/19 11/08/19 11/09/19 17:16 23:08 06:00 WBC RBC Hgb Hct MCV MCH MCHC RDW Plt Count MPV Sodium 134 L Potassium 4.7 Chloride 98 Carbon Dioxide 29 Anion Gap 6 L BUN 26.9 H Creatinine 0.8 Est GFR (CKD-EPI)AfAm 102.47 Est GFR (CKD-EPI)NonAf 88.41 POC Glucometer 323 295 Random Glucose 144 H Calcium 9.1 Phosphorus 4.4 Magnesium 2.1 11/09/19 11/09/19 11/09/19 07:10 07:13 09:00 WBC 24.6 H RBC 4.04 Hgb 11.5 Hct 36.1 MCV 89.3 MCH 28.5 MCHC 31.8 L RDW 18.3 H Plt Count 294 MPV 10.3 Sodium Potassium Chloride Carbon Dioxide Anion Gap BUN Creatinine Est GFR (CKD-EPI)AfAm Est GFR (CKD-EPI)NonAf POC Glucometer 153 210 Random Glucose Calcium Phosphorus Magnesium Active Medications Generic Name Dose Route Start Last Admin Trade Name Freq PRN Reason Stop Dose Admin Acetylcysteine 200 mg 11/05/19 08:57 01/11/20 08:00 Mucomyst 20 Oral / Inh Use Only* NEB Not Given RBID SUKHDEV Clotrimazole 1 applic 11/09/19 22:00 Gyne-Lotrimin - VG HS SUKHDEV Diphenhydramine HCl 50 mg 11/02/19 21:14 11/08/19 23:22 Benadryl - PO 50 mg Q12H PRN Administration FOR ITCHING Duloxetine HCl 20 mg 11/06/19 10:00 11/08/19 11:15 Cymbalta - PO 20 mg DAILY SUKHDEV Administration Enoxaparin Sodium 60 mg 11/03/19 22:00 11/09/19 09:15 Lovenox - SQ Not Given BID SUKHDEV Gabapentin 100 mg 11/03/19 14:00 11/09/19 07:11 Neurontin - PO 100 mg TID SUKHDEV Administration Guaifenesin 600 mg 11/03/19 22:00 11/09/19 09:15 Mucinex - PO Not Given BID SUKHDEV Insulin Aspart 1 vial 11/02/19 16:30 11/09/19 09:06 Novolog Vial Sliding Scale - SQ 4 units ACHS SUKHDEV Administration Protocol Levalbuterol HCl 0.63 mg 11/03/19 20:00 11/09/19 08:00 Xopenex IH Not Given RBID SUKHDEV Levalbuterol HCl 0.31 mg 11/03/19 11:48 11/07/19 13:00 Xopenex IH 0.31 mg Q8H PRN Administration ASTHMA Melatonin 5 mg 11/07/19 17:48 11/08/19 23:23 Melatonin PO 5 mg HS PRN Administration INSOMNIA Mometasone Furoate 1 puff 11/03/19 22:00 11/08/19 23:36 Asmanex 220mcg - IH 1 puff HS SUKHDEV Administration Montelukast Sodium 10 mg 11/03/19 22:00 11/08/19 21:53 Singulair - PO 10 mg HS SUKHDEV Administration Naproxen 500 mg 11/08/19 18:30 Naprosyn - PO Q8H PRN PAIN LEVEL 6-10 Nicotine Polacrilex 2 mg 11/08/19 18:50 11/08/19 23:23 Nicorette Gum - BUC 2 mg Q8H PRN Administration NICOTINE REPLACEMENT RX Pantoprazole Sodium 40 mg 11/05/19 10:00 11/09/19 09:15 Protonix - PO Not Given DAILY REPLACED BY [facility] Prednisone 20 mg 11/09/19 10:00 11/09/19 09:15 Deltasone - PO Not Given DAILY REPLACED BY [facility] Simethicone 80 mg 11/04/19 13:51 11/09/19 07:11 Mylicon - PO Not Given TID SUKHDEV Valsartan 120 mg 11/08/19 10:00 11/09/19 09:15 Diovan - PO Not Given BID REPLACED BY [facility] ASSESSMENT/PLAN: 48F w/ pmh of COPD, RLE DVT, ?PE, IVC Filter(04/25/11, home coumadin), HTN, dyslipidemia presenting with acute on cramping, epigastric abdominal pain radiating up the lower chest x12d. #Chest pain/Epigastric pain with nausea possibly 2/2 gastritis r/o PE --Low clinical suspicion for PE -CTA chest --not done dt contrast dye ?allergy -CT A/P: moderate gastric dilation w/ intraluminal food, possibly d/t recent food ingestion -empiric AC: --Lovenox (1mg/Kg) -possible warafarin but awaiting possible upper EGD(11/04/19? - 11/06/19?) -Protonix 40mg BID PO -GI(Luis F/Evi) consult: -possibly diabetic gastroparesis -possible EGD --cancelled dt bronchospasm -simethicone trial -GI(Lantin/DiG): -upperGI series, if abn then EGD --pt to get upperGI on 11/11/19 -pulm(Mateusz) consult: -Xopenex and Mucomyst -Short course of Medrol --> prednisone 20mg -Does not need CTA Chest at this point -PFTs once stable as an outpatient -Singulair QHS -telemetry monitoring #s/p IVC filter(Pam, 04/20/11) --pt thought IVC filter was cause of abd pain -Vascular(Singh), consult: -no vascular intervention # vaginal candidiasis -s/p fluconazole 200mg PO, once -added clotrimazole cream for comfort #leukocytosis--likely 2/2 steroids - cont monitoring #chronic tobacco usage - nicotine gum #Chronic Anxiety -Psych(Chepuru) consult: -duloxetine 20mg QD #h/o DVT/PE -on lovenox -holding Coumadin until GI determines possible upper endoscopy(if abnorm Upper GI) #HTN -home Diovan 160mg QD --> 120mg BID #COPD/Asthma -nebs standing and PRN -home Singulair and Flovent -guaifenesin #Hypokalemia -will replete with IV and PO KCL PRN #Prophy -on therapeutic Lovenox #FEN -no fluids indicated -replete lytes as above -regular diet -NPO at [place] on 11/11/19 #dispo -MedSurg Visit type - Emergency Visit Emergency Visit: Yes ED Registration Date: 11/01/19 Care time: The patient presented to the Emergency Department on the above date and was hospitalized for further evaluation of their emergent condition. - New Patient This patient is new to me today: Yes Date on this admission: 11/10/19 - Critical Care Critical Care patient: No ATTENDING PHYSICIAN STATEMENT I saw and evaluated the patient. I reviewed the resident's note and discussed the case with the resident. I agree with the resident's findings and plan as documented. SUBJECTIVE: OBJECTIVE: ASSESSMENT AND PLAN:
[2019-11-09] MEDS: DULoxetine HCL 20 MG CAPSULE.DR PO SCH (12:55)
[2019-11-09] MEDS: NAPROXEN 500 MG TABLET PO PRN (12:55)
[2019-11-09] MEDS: NICOTINE POLACRILEX 2 MG GUM BUC PRN (12:56)
[2019-11-09] MEDS: diphenhydrAMINE HCL 25 MG CAPSULE (FP) PO PRN (13:01)
--- NOTE | 2019-11-09 15:11 | PN ---
Teaching Attending Note Name of Resident: Ace Tyler ATTENDING PHYSICIAN STATEMENT I saw and evaluated the patient. I reviewed the resident's note and discussed the case with the resident. I agree with the resident's findings and plan as documented. SUBJECTIVE: Feels tired. abd pain . No N/V . tolerated diet. 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 1- ABD pain. R/o gastroparesis/ulcer/gastritis 2- GARCÍA. 3- Peripheral Neuropathy 4- Acute COPD exacerbation 5- H/o PE and DVT. 6- h/o IVC filter. 7- HTN. 8- Anxiety. Plan; - cont prednisone. - cont Nebs - cont lovenox , until after EGD - GI series On Monday. will d/w GI, if we should proceed directly to EGD - cont lovenox for now anticipating EGD when stable - cont PPI - cont cymbalta - out pt EMG and neuropathy w/u - cont increased dose of valsartan 120 BID - MRA of brain and MRI with no evidence of aneurysms, infarcts, or neoplasms HLOC .
[2019-11-09] MEDS: MELATONIN 5 MG TABLETS PO PRN (22:17)
[2019-11-09] MEDS: MONTELUKAST NA 10 MG TABLET PO SCH (22:17)
[2019-11-09] MEDS: VALSARTAN PO SCH (22:59)
[2019-11-09] MEDS: MOMETASONE FUROATE 220 MCG/IH INHALER IH SCH (23:00)
[2019-11-10] MEDS: INSULIN SLIDING SCALE (NOVOLOG) 1 VIAL SQ SCH ×5 (01:28→23:03)
[2019-11-10] MEDS: diphenhydrAMINE HCL 25 MG CAPSULE (FP) PO PRN ×2 (01:28→21:39)
[2019-11-10] MEDS: NAPROXEN 500 MG TABLET PO PRN (01:28)
[2019-11-10] MEDS: ENOXAPARIN NA (PORCINE) 60 MG/0.6 ML DISP.SYRIN SQ SCH ×2 (01:29→10:03)
[2019-11-10] MEDS: CLOTRIMAZOLE 1% VAGINAL CREAM WITH APPLICATOR 45 GM TUBE VG SCH ×2 (01:30→21:37)
[2019-11-10] MEDS ORDERED: MECLIZINE HCL 25 MG TABLET (FP) PO ONE (05:05)
[2019-11-10] MEDS ORDERED: SODIUM CHLORIDE NASAL SPRAY 44 ML BOTTLE NS PRN (05:10)
[2019-11-10] MEDS: SIMETHICONE 80 MG TAB.CHEW (FP) PO SCH ×4 (05:38→21:44)
[2019-11-10] MEDS: GABAPENTIN 100 MG CAPSULE PO SCH ×3 (06:20→21:33)
--- NOTE | 2019-11-10 08:00 | PN.GI ---
GI Progress Note Subjective: DOES NOT ANSWER QUESTIONS - VERY DEFENSIVE - Objective Vital Signs: LIMITED EXAM - PT NOT COOPERATIVE Vital Signs Temperature 97.4 F L 11/10/19 01:17 Pulse Rate 74 11/10/19 01:17 Respiratory Rate 18 11/10/19 01:17 Blood Pressure 108/67 11/10/19 01:17 O2 Sat by Pulse Oximetry (%) 99 11/09/19 21:00 Constitutional: Well Nourished Eyes: Yes: WNL HENT: Yes: WNL Gastrointestinal Inspection: Yes: WNL ...Auscultate: Yes: Normoactive Bowel Sounds Labs: CBC, BMP 11/09/19 06:00 INR, PTT INR 0.98 (0.83-1.09) 11/08/19 07:30 Problem List - Problems (1) Abdominal pain Assessment/Plan: - PPI - DIET TOLERATED - RX FOR COPD PER PRIMARY MEDICAL TEAM - UPPER GI SERIES MONDAY - SPOKE WITH HOSPITALIST PT WANTS INPT EGD - PLAN FOR MONDAY IF CLEARED BY PULMONARY. IF NOT CLEARED SHE WILL NEED TO HAVE IT ONCE SHE IS OPTIMIZED Code(s): R10.9 - UNSPECIFIED ABDOMINAL PAIN Qualifiers: Abdominal location: upper abdomen, unspecified Qualified Code(s): R10.10 - Upper abdominal pain, unspecified (2) Chest pain Code(s): R07.9 - CHEST PAIN, UNSPECIFIED Qualifiers: Chest pain type: unspecified Qualified Code(s): R07.9 - Chest pain, unspecified (3) Wheezing Code(s): R06.2 - WHEEZING (4) COPD (chronic obstructive pulmonary disease) with acute bronchitis Code(s): J44.0 - CHR OBSTRUCTIVE PULMON DISEASE WITH (ACUTE) LOWER RESP INFCT
[2019-11-10 08:04] LABS: HEMATOCRIT 36.5 % (32.4-45.2); HEMOGLOBIN 11.8 GM/dL (10.7-15.3); MCH 28.5 pg (25.7-33.7); MCHC 32.3 g/dl (32.0-36.0); MEAN CELL VOLUME 88.2 fl (80-96); MEAN PLT VOLUME 10.2 fl (7.5-11.1); PLATELET COUNT 298 K/MM3 (134-434); RBC 4.13 M/mm3 (3.60-5.2); RDW 18.2 % (11.6-15.6)
[2019-11-10] MEDS: ACETYLCYSTEINE 20% 200MG/ML 4 ML VIAL *FOR ORAL / INH USE ONLY NEB SCH ×2 (08:25→20:20)
[2019-11-10] MEDS: LEVALBUTEROL HCL 0.63 MG/3 ML VIAL.NEB. IH SCH ×2 (08:25→20:20)
[2019-11-10 09:00] LABS: WHITE BLOOD COUNT 30.3 K/mm3 (4.0-10.0)
[2019-11-10] MEDS ORDERED: VALSARTAN 80 MG TABLET (UD) ONE ×2 (09:49→21:26)
[2019-11-10] MEDS ORDERED: VALSARTAN 40 MG TABLET (FP) ONE ×2 (09:50→21:26)
[2019-11-10] MEDS: VALSARTAN PO SCH ×2 (11:24→21:54)
[2019-11-10] MEDS: guaiFENesin 600 MG TABLET.ER (FP) PO SCH ×2 (11:24→21:34)
[2019-11-10] MEDS: PANTOPRAZOLE 40 MG TABLET PO SCH (11:24)
[2019-11-10] MEDS: predniSONE 20 MG TABLET (UD) PO SCH (11:24)
[2019-11-10] MEDS ORDERED: PT OWN MED DRAWER 7, Y5N ONE ×2 (11:36→22:24)
[2019-11-10] MEDS: DULoxetine HCL 20 MG CAPSULE.DR PO SCH (11:44)
--- NOTE | 2019-11-10 11:56 | PN ---
Progress Note (short form) - Note Progress Note: PULMONARY AWAKE/ALERT SUBJECTIVE IMPROVEMENT IN BREATHING VSS/LOW GRADE TEMP Constitutional: Yes: No Distress Eyes: Yes: Conjunctiva Clear, EOM Intact HENT: Yes: Atraumatic, Normocephalic Neck: Yes: Supple, Trachea Midline Cardiovascular: Yes: Regular Rate and Rhythm Respiratory: Yes: Cough, Diminished, LESS bilateral expiratory wheezes. No: Accessory Muscle Use, Rales, Rhonchi, SOB, Stridor ...Inspection: Yes: WNL ...Clubbing: No Gastrointestinal: Yes: Normal Bowel Sounds, Soft Renal/: Yes: WNL Musculoskeletal: Yes: WNL Extremities: Yes: WNL Edema: No Peripheral Pulses WNL: Yes Integumentary: Yes: WNL Neurological: Yes: WNL, Alert, Oriented ...Motor Strength: WNL Psychiatric: Yes: WNL, Alert, Oriented Labs: REVIEWED - Problems (1) Pulmonary embolism Code(s): I26.99 - OTHER PULMONARY EMBOLISM WITHOUT ACUTE COR PULMONALE (2) Wheezing Code(s): R06.2 - WHEEZING (3) Abdominal pain Code(s): R10.9 - UNSPECIFIED ABDOMINAL PAIN Qualifiers: Abdominal location: upper abdomen, unspecified Qualified Code(s): R10.10 - Upper abdominal pain, unspecified (4) Chest pain Code(s): R07.9 - CHEST PAIN, UNSPECIFIED Qualifiers: Chest pain type: unspecified Qualified Code(s): R07.9 - Chest pain, unspecified (5) COPD (chronic obstructive pulmonary disease) with acute bronchitis Code(s): J44.0 - CHR OBSTRUCTIVE PULMON DISEASE WITH (ACUTE) LOWER RESP INFCT (6) DVT (deep venous thrombosis) Code(s): I82.409 - ACUTE EMBOLISM AND THOMBOS UNSP DEEP VN UNSP LOWER EXTREMITY Assessment/Plan AC with Lovenox / Coumadin Xopenex and Mucomyst as ordered Medrol changed to prednisone O2 as needed No smoking counseled PFTs once stable as an outpatient [facility] Lynnette MASON MD
[2019-11-10] MEDS ORDERED: MELATONIN 5 MG TABLETS PO ONE (11:57)
[2019-11-10] MEDS ORDERED: ASPIRIN COATED 81 MG TABLET.EC PO PRN (12:01)
[2019-11-10] MEDS ORDERED: HEPARIN NA (PORCINE) 5,000 UNITS/ML 1ML VIAL IVPUSH PRN ×2 (17:46)
[2019-11-10] MEDS ORDERED: HEPARIN NA (PORCINE) 5,000 UNITS/ML 1ML VIAL IVPUSH ONE (17:47)
--- NOTE | 2019-11-10 18:08 | PN ---
Progress Note (short form) - Note Progress Note: Subjective: no fever or chills. No abd pain. no N/V. she thinks that lovenox is affecting her adversely ( GARCÍA and dry skin) and wants to be on coumadin or heparin gtt. she thinks that lovenox made her feel like bleach is inside her head Objective: Vital Signs: Last Vital Signs Temp Pulse Resp BP Pulse Ox 98.2 F 99 H 18 118/77 99 11/10/19 14:19 11/10/19 14:19 11/10/19 14:19 11/10/19 14:19 11/09/19 21:00 Laboratory Results - last 24 hr 11/09/19 11/10/19 11/10/19 18:24 00:57 07:20 WBC 30.3 H* RBC 4.13 Hgb 11.8 Hct 36.5 MCV 88.2 MCH 28.5 MCHC 32.3 RDW 18.2 H Plt Count 298 MPV 10.2 POC Glucometer 227 234 11/10/19 11/10/19 08:28 11:44 WBC RBC Hgb Hct MCV MCH MCHC RDW Plt Count MPV POC Glucometer 232 141 Physical Exam: NAD, comfortable in bed CV: RRR Lungs : minimal wheezing . 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 1- ABD pain. R/o gastroparesis/ulcer/gastritis 2- GARCÍA. 3- Peripheral Neuropathy 4- Acute COPD exacerbation 5- H/o PE and DVT. 6- H/o IVC filter. 7- HTN. 8- Anxiety. Plan: - cont prednisone. - cont Nebs - leukocytosis is likely due to steroids - patient refuses Lovenox on and off. she declines it going forward. will start heparin gtt, pending EGD. She understands that switching form one Ac agent to another can increase risk for bleed. - can stop heparin gtt 2 hours before EGD - Spoke to Dr. Oseguera. the patient is stable pulmonary alcantar to go through EGD and anesthesia. - call placed to Dr. Corley, to discuss if EGD can be booked for tomorrow instead of GI series. - cont PPI - cont cymbalta - out pt EMG and neuropathy w/u. - cont increased dose of valsartan 120 BID - MRA of brain and MRI with no evidence of aneurysms, infarcts, or neoplasms. - patient was instructed not to eat after [place] HLOC . Visit type - Emergency Visit Emergency Visit: Yes ED Registration Date: 11/01/19 Care time: The patient presented to the Emergency Department on the above date and was hospitalized for further evaluation of their emergent condition. - New Patient This patient is new to me today: No - Critical Care Critical Care patient: No
[2019-11-10] MEDS: HEPARIN - 25,000 UNIT in SODIUM CHLORIDE 495 ML IV SCH (19:35)
[2019-11-10] MEDS: MONTELUKAST NA 10 MG TABLET PO SCH (21:34)
[2019-11-10] MEDS: MELATONIN 5 MG TABLETS PO PRN (21:34)
[2019-11-10] MEDS: MOMETASONE FUROATE 220 MCG/IH INHALER IH SCH (21:36)
--- NOTE | 2019-11-10 22:08 | PN ---
Progress Note (short form) - Note Progress Note: PULMONARY CASE DISCUSSED WITH PMD PATIENT IS CLEARED FROM A PULMONARY STANDPOINT TO HAVE AN EGD. Lynnette MASON MD
[2019-11-11 03:12] LABS: BASO % 0.2 % (0-2.0); EOS % 0.6 % (0-4.5); HEMATOCRIT 35.2 % (32.4-45.2); HEMOGLOBIN 11.5 GM/dL (10.7-15.3); LYMPH % 10.8 % (8-40); MCH 29.1 pg (25.7-33.7); MCHC 32.7 g/dl (32.0-36.0); MEAN PLT VOLUME 10.2 fl (7.5-11.1); MONO % 5.7 % (3.8-10.2); NEUT % 82.7 % (42.8-82.8); PLATELET COUNT 301 K/MM3 (134-434); RBC 3.95 M/mm3 (3.60-5.2)
[2019-11-11 03:17] LABS: WHITE BLOOD COUNT 38.1 K/mm3 (4.0-10.0)
[2019-11-11 03:24] LABS: INR 1.01 (0.83-1.09); PROTHROMBIN TIME (PATIENT) 11.9 SEC (9.7-13.0)
[2019-11-11 03:32] LABS: BLOOD UREA NITROGEN 27.9 mg/dL (7-18); CALCIUM 9.1 mg/dL (8.5-10.1); CREATININE 0.7 mg/dL (0.55-1.3); MAGNESIUM 2.1 mg/dL (1.8-2.4); PHOSPHOROUS 3.8 mg/dL (2.5-4.9); POTASSIUM 4.2 mmol/L (3.5-5.1)
[2019-11-11 04:07] LABS: ANISOCYTOSIS 0; MACROCYTOSIS 0; PLATELET ESTIMATE NORMAL
[2019-11-11] MEDS: INSULIN SLIDING SCALE (NOVOLOG) 1 VIAL SQ SCH ×4 (07:22→22:04)
[2019-11-11] MEDS: SIMETHICONE 80 MG TAB.CHEW (FP) PO SCH ×3 (07:22→22:04)
[2019-11-11] MEDS: GABAPENTIN 100 MG CAPSULE PO SCH ×3 (07:22→22:03)
[2019-11-11] MEDS: ACETYLCYSTEINE 20% 200MG/ML 4 ML VIAL *FOR ORAL / INH USE ONLY NEB SCH ×2 (08:34→20:00)
[2019-11-11] MEDS: LEVALBUTEROL HCL 0.63 MG/3 ML VIAL.NEB. IH SCH ×2 (08:34→20:00)
[2019-11-11] MEDS ORDERED: VALSARTAN 80 MG TABLET (UD) ONE ×2 (10:34→21:23)
[2019-11-11] MEDS ORDERED: VALSARTAN 40 MG TABLET (FP) ONE ×2 (10:35→21:23)
[2019-11-11] MEDS: DULoxetine HCL 20 MG CAPSULE.DR PO SCH (10:41)
[2019-11-11] MEDS: VALSARTAN PO SCH ×2 (10:41→22:03)
[2019-11-11] MEDS: predniSONE 20 MG TABLET (UD) PO SCH (10:41)
[2019-11-11] MEDS: guaiFENesin 600 MG TABLET.ER (FP) PO SCH ×2 (10:41→22:03)
[2019-11-11] MEDS: PANTOPRAZOLE 40 MG TABLET PO SCH (10:41)
--- NOTE | 2019-11-11 19:40 | PN ---
Physical Exam: SUBJECTIVE: Patient seen and examined NAEON Over weekend, smoked 3 cigarettes. Complaint Right lower jaw 2nd molar pain and drainage. Has had a cracked tooth in the past OBJECTIVE: Vital Signs Period Temp Pulse Resp BP Sys/Oneil Pulse Ox Last 24 Hr 98.1 F-98.2 F 69-108 18-20 99-153/37-88 99-99 GENERAL: The patient is awake, alert, and fully oriented, in no acute distress. HEAD: NC/AT. No temporal wasting EYES: PERRL, extraocular movements intact, sclera anicteric and w/o pallor, conjunctiva clear. No ptosis. ENT: Ears normal, nares patent, oropharynx clear without exudates, moist mucous membranes. Right lower, 2nd molar cracked in half, no drainage noted NECK: Trachea midline, full range of motion, supple. Neg cervical LAD. LUNGS: B/l wheezes and crackles, no accessory muscle use. HEART: Regular rate and rhythm, S1, S2 without murmur, rub or gallop. ABDOMEN: abdominal striae, soft, nontender, nondistended, hyperactive bowel sounds, no guarding, no rebound PELVIS: speculum exam w/ thick white discharge and small chunks, cervix w/o erythema. No foul odor EXTREMITIES: 2+ pulses, warm, well-perfused, no edema, thin lower extremities NEUROLOGICAL: Normal speech, gait not observed. Sensation intact of extremities. Normal gait PSYCH: Normal mood, normal affect. Anxious appearing SKIN: Warm, dry, normal turgor, no rashes or lesions noted Laboratory Results - last 24 hr 11/10/19 11/10/19 11/11/19 19:45 23:01 01:35 WBC Corrected WBC (auto) RBC Hgb Hct MCV MCH MCHC RDW Plt Count MPV Absolute Neuts (auto) Total Counted Neutrophils % Neutrophils % (Manual) Band Neutrophils % Lymphocytes % Lymphocytes % (Manual) Monocytes % Monocytes % (Manual) Eosinophils % Eosinophils % (Manual) Basophils % Basophils % (Manual) Myelocytes % (Man) Promyelocytes % (Man) Blast Cells % (Manual) Nucleated RBC % Metamyelocytes Hypochromia Platelet Estimate Polychromasia Poikilocytosis Anisocytosis Microcytosis Macrocytosis PT with INR INR PTT (Actin FS) Cancelled Sodium Potassium Chloride Carbon Dioxide Anion Gap BUN Creatinine Est GFR (CKD-EPI)AfAm Est GFR (CKD-EPI)NonAf POC Glucometer 426 208 Random Glucose Calcium Phosphorus Magnesium 11/11/19 11/11/19 11/11/19 02:55 02:55 02:55 WBC 38.1 H* Corrected WBC (auto) 38.10 RBC 3.95 Hgb 11.5 Hct 35.2 MCV 89.0 MCH 29.1 MCHC 32.7 RDW 18.0 H Plt Count 301 MPV 10.2 Absolute Neuts (auto) 31.5 H Total Counted 38.1 Neutrophils % 82.7 Neutrophils % (Manual) 79.2 Band Neutrophils % 0.0 Lymphocytes % 10.8 D Lymphocytes % (Manual) 8.9 D Monocytes % 5.7 D Monocytes % (Manual) 4 D Eosinophils % 0.6 D Eosinophils % (Manual) 1.0 D Basophils % 0.2 Basophils % (Manual) 0.0 Myelocytes % (Man) 4 H D Promyelocytes % (Man) 0 Blast Cells % (Manual) 0 Nucleated RBC % 0 Metamyelocytes 1 D Hypochromia 1+ Platelet Estimate Normal Polychromasia 1+ Poikilocytosis 0 Anisocytosis 0 Microcytosis 0 Macrocytosis 0 PT with INR 11.90 INR 1.01 PTT (Actin FS) Sodium 135 L Potassium 4.2 Chloride 100 Carbon Dioxide 30 Anion Gap 5 L BUN 27.9 H Creatinine 0.7 Est GFR (CKD-EPI)AfAm 120.43 Est GFR (CKD-EPI)NonAf 103.90 POC Glucometer Random Glucose 104 Calcium 9.1 Phosphorus 3.8 Magnesium 2.1 11/11/19 11/11/19 11/11/19 03:17 07:15 11:47 WBC Corrected WBC (auto) RBC Hgb Hct MCV MCH MCHC RDW Plt Count MPV Absolute Neuts (auto) Total Counted Neutrophils % Neutrophils % (Manual) Band Neutrophils % Lymphocytes % Lymphocytes % (Manual) Monocytes % Monocytes % (Manual) Eosinophils % Eosinophils % (Manual) Basophils % Basophils % (Manual) Myelocytes % (Man) Promyelocytes % (Man) Blast Cells % (Manual) Nucleated RBC % Metamyelocytes Hypochromia Platelet Estimate Polychromasia Poikilocytosis Anisocytosis Microcytosis Macrocytosis PT with INR INR PTT (Actin FS) 105.9 H Sodium Potassium Chloride Carbon Dioxide Anion Gap BUN Creatinine Est GFR (CKD-EPI)AfAm Est GFR (CKD-EPI)NonAf POC Glucometer 106 142 Random Glucose Calcium Phosphorus Magnesium 11/11/19 11/11/19 11/11/19 12:20 16:44 18:24 WBC Corrected WBC (auto) RBC Hgb Hct MCV MCH MCHC RDW Plt Count MPV Absolute Neuts (auto) Total Counted Neutrophils % Neutrophils % (Manual) Band Neutrophils % Lymphocytes % Lymphocytes % (Manual) Monocytes % Monocytes % (Manual) Eosinophils % Eosinophils % (Manual) Basophils % Basophils % (Manual) Myelocytes % (Man) Promyelocytes % (Man) Blast Cells % (Manual) Nucleated RBC % Metamyelocytes Hypochromia Platelet Estimate Polychromasia Poikilocytosis Anisocytosis Microcytosis Macrocytosis PT with INR INR PTT (Actin FS) 46.8 H Sodium Potassium Chloride Carbon Dioxide Anion Gap BUN Creatinine Est GFR (CKD-EPI)AfAm Est GFR (CKD-EPI)NonAf POC Glucometer 305 220 Random Glucose Calcium Phosphorus Magnesium Active Medications Generic Name Dose Route Start Last Admin Trade Name Freq PRN Reason Stop Dose Admin Acetylcysteine 200 mg 11/05/19 08:57 11/11/19 08:34 Mucomyst 20 Oral / Inh Use Only* NEB 200 mg RBID SUKHDEV Administration Aspirin 81 mg 11/10/19 12:01 11/10/19 12:51 Ecotrin - PO 81 mg DAILY PRN Administration PAIN Clotrimazole 1 applic 11/09/19 22:00 11/10/19 21:37 Gyne-Lotrimin - VG 11/15/19 22:01 1 supp HS SUKHDEV Administration Diphenhydramine HCl 50 mg 11/02/19 21:14 11/10/19 21:39 Benadryl - PO 50 mg Q12H PRN Administration FOR ITCHING Duloxetine HCl 20 mg 11/06/19 10:00 11/11/19 10:41 Cymbalta - PO 20 mg DAILY SUKHDEV Administration Gabapentin 100 mg 11/03/19 14:00 11/11/19 15:24 Neurontin - PO 100 mg TID SUKHDEV Administration Guaifenesin 600 mg 11/03/19 22:00 11/11/19 10:41 Mucinex - PO 600 mg BID SUKHDEV Administration Heparin Sodium (Porcine) 1,000 unit 11/10/19 17:46 Heparin - IVPUSH PRN PRN Heparin Heparin Sodium (Porcine) 5,000 unit 11/10/19 17:46 Heparin - IVPUSH PRN PRN Heparin Heparin Sodium (Porcine) 25, 500 mls @ 16 mls/hr 11/10/19 18:00 11/11/19 04: 32 000 unit/ Sodium Chloride IV 650 unit/hr TITR SUKHDEV 13 mls/hr Titration Protocol 800 UNIT/HR Insulin Aspart 1 vial 11/02/19 16:30 11/11/19 17:18 Novolog Vial Sliding Scale - SQ 8 units ACHS SUKHDEV Administration Protocol Levalbuterol HCl 0.63 mg 11/03/19 20:00 11/11/19 08:34 Xopenex IH 0.63 mg RBID SUKHDEV Administration Levalbuterol HCl 0.31 mg 11/03/19 11:48 11/07/19 13:00 Xopenex IH 0.31 mg Q8H PRN Administration ASTHMA Melatonin 5 mg 11/07/19 17:48 11/10/19 21:34 Melatonin PO 5 mg HS PRN Administration INSOMNIA Mometasone Furoate 1 puff 11/03/19 22:00 11/10/19 21:36 Asmanex 220mcg - IH 1 puff HS SUKHDEV Administration Montelukast Sodium 10 mg 11/03/19 22:00 11/10/19 21:34 Singulair - PO 10 mg HS SUKHDEV Administration Nicotine Polacrilex 2 mg 11/08/19 18:50 11/09/19 12:56 Nicorette Gum - BUC 2 mg Q8H PRN Administration NICOTINE REPLACEMENT RX Pantoprazole Sodium 40 mg 11/05/19 10:00 11/11/19 10:41 Protonix - PO Not Given DAILY SUKHDEV Prednisone 20 mg 11/09/19 10:00 11/11/19 10:41 Deltasone - PO 20 mg DAILY SUKHDEV Administration Simethicone 80 mg 11/04/19 13:51 11/11/19 15:25 Mylicon - PO Not Given TID SUKHDEV Sodium Chloride 2 spray 11/10/19 05:10 [place] Nasal [place] - NS TID PRN HEADACHE Valsartan 80 mg/ Valsartan 40 120 mg 11/09/19 22:30 11/11/19 10:41 mg PO 120 mg BID SUKHDEV Administration ASSESSMENT/PLAN: 48F w/ pmh of COPD, RLE DVT, ?PE, IVC Filter(04/25/11, home coumadin), HTN, dyslipidemia presenting with acute on cramping, epigastric abdominal pain radiating up the lower chest x12d. Pt expressed concern that abdominal pain 2/[address] A/P showing moderate gastric dilation w/ intraluminal food, possibly d/t recent food ingestion. GI(Luis F) consult recommend possible EGD. No CTA done d/t concern of possible IV contrast allergy. Pulmonary(Mateusz) did not recommend CTA. Venous duplex neg for DVT. Vascular(Singh) consulted to evaluate IVC filter patency and possibly source of abdominal pain. GI recommended simethicone trial and EGD on 11/06/19. Complaint of difficulty w/ gait prompted Neuro consult. Tang recommended PT, consideration of Ortho consult, outpatient EMG and neuropathy sharpe. Psych started Cymbalta 20mg QD for anxiety + depression. GI(Viktor) cancelled EGD on 11/06/19 dt concern of persisent bronchospasm. Neuro re-consulted for complaint of GARCÍA. Pt demanded sharpe for brain aneurysm. Brain MRI pending. GI(Landomenico) rec upper GI to evaluate for pyloric issues. Complaint of vaginal burning pain and white discharge prompted fluconazole and clotrimazole. Upper GI series(11/11/19) neg for gastric/duodenal ulcer, neg gastric outlet obstruction, neg hiatal hernia, neg GERD. Patient has been noncompliant with medications, not taking simethicone from 11/08/19 to , pantoprazole 11/09/19 to 11/11/19. #Chest pain/Epigastric pain with nausea possibly 2/2 gastritis r/o PE --Low clinical suspicion for PE > CTA chest --not done dt contrast dye ?allergy > CT A/P: moderate gastric dilation w/ intraluminal food, possibly d/t recent food ingestion -empiric AC: --Lovenox (1mg/Kg) --> heparin gtt --possible warafarin but awaiting possible upper EGD(?11/12/19) -Protonix 40mg BID PO -GI(Luis F/Evi) consult: --possibly diabetic gastroparesis --possible EGD --cancelled dt bronchospasm --simethicone trial -GI(Lantin/DiG): --upperGI series, if abn then EGD --pt to get upperGI on 11/11/19 ---normal UpperGI, but possible EGD 11/12/19 -pulm(Mateusz) consult: --Xopenex and Mucomyst --Short course of Medrol --> prednisone 20mg --Does not need CTA Chest at this point --PFTs once stable as an outpatient --Singulair QHS -telemetry monitoring #s/p IVC filter(Pam, 04/20/11) --pt thought IVC filter was cause of abd pain -Vascular(Singh), consult: --no vascular intervention --bridge to coumadin --rec Psychiatry, rec upper endoscopy # vaginal candidiasis - s/p fluconazole 200mg PO, once - s/p clotrimazole #leukocytosis--likely 2/2 steroids - cont monitoring #pre-diabetic > HbA1c 5.6 - consider outpt Metformin #chronic tobacco usage - nicotine gum #Chronic Anxiety -Psych(Chepuru) consult: --duloxetine 20mg QD #h/o DVT/PE -on lovenox -holding Coumadin until GI determines possible upper endoscopy(if abnorm Upper GI) #HTN -home Diovan 160mg QD --> 120mg BID #COPD/Asthma -nebs standing and PRN -home Singulair and Flovent -guaifenesin #Hypokalemia -will replete with IV and PO KCL PRN #Prophy -on therapeutic Lovenox #FEN -no fluids indicated -replete lytes as above -regular diet -NPO at [place] on 11/12/19 #dispo -MedSurg Visit type - Emergency Visit Emergency Visit: No - New Patient This patient is new to me today: No - Critical Care Critical Care patient: No ATTENDING PHYSICIAN STATEMENT I saw and evaluated the patient. I reviewed the resident's note and discussed the case with the resident. I agree with the resident's findings and plan as documented. SUBJECTIVE: OBJECTIVE: ASSESSMENT AND PLAN:
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
[2019-11-11] MEDS: MOMETASONE FUROATE 220 MCG/IH INHALER IH SCH (21:58)
[2019-11-11] MEDS: CLOTRIMAZOLE 1% VAGINAL CREAM WITH APPLICATOR 45 GM TUBE VG SCH (21:58)
[2019-11-11] MEDS: MONTELUKAST NA 10 MG TABLET PO SCH (22:03)
[2019-11-11] MEDS: ZOLPIDEM TARTRATE 5 MG TABLET PO PRN (22:03)
[2019-11-11] MEDS: MELATONIN 5 MG TABLETS PO PRN (22:03)
[2019-11-11] MEDS: diphenhydrAMINE HCL 25 MG CAPSULE (FP) PO PRN (22:03)
[2019-11-11] MEDS: HEPARIN - 25,000 UNIT in SODIUM CHLORIDE 495 ML IV SCH (22:09)
[2019-11-12] MEDS: SIMETHICONE 80 MG TAB.CHEW (FP) PO SCH (06:12)
[2019-11-12] MEDS: GABAPENTIN 100 MG CAPSULE PO SCH ×3 (06:13→21:31)
[2019-11-12] MEDS: INSULIN SLIDING SCALE (NOVOLOG) 1 VIAL SQ SCH ×4 (06:16→23:58)
[2019-11-12] MEDS: LEVALBUTEROL HCL 0.63 MG/3 ML VIAL.NEB. IH SCH (08:42)
[2019-11-12] MEDS: ACETYLCYSTEINE 20% 200MG/ML 4 ML VIAL *FOR ORAL / INH USE ONLY NEB SCH ×2 (08:42→21:30)
--- NOTE | 2019-11-12 12:23 | PN ---
Progress Note (short form) - Note Progress Note: PULMONARY Some shortness of breath and chest tightness but speaking in full sentences and saturating well. Vital Signs Period Temp Pulse Resp BP Sys/Oneil Pulse Ox Last 24 Hr 98.2 F 86-100 20-20 116-153/74-88 98-99 Gen: NAD at rest Heart: RRR Lung: decreased air movement, no wheezes Abd: soft, nontender Ext: no edema CBC, BMP 11/11/19 02:55 11/11/19 02:55 Active Medications Acetylcysteine (Mucomyst 20 Oral / Inh Use Only*) 200 mg NEB RBID [facility] Last Admin: 11/12/19 08:42 Dose: Not Given Aspirin (Ecotrin -) 81 mg PO DAILY PRN PRN Reason: PAIN Last Admin: 11/10/19 12:51 Dose: 81 mg Clotrimazole (Gyne-Lotrimin -) 1 applic VG HS [facility] Stop: 11/15/19 22:01 Last Admin: 11/11/19 21:58 Dose: 1 supp Diphenhydramine HCl (Benadryl -) 50 mg PO Q12H PRN PRN Reason: FOR ITCHING Last Admin: 11/11/19 22:03 Dose: 50 mg Duloxetine HCl (Cymbalta -) 20 mg PO DAILY [facility] Last Admin: 11/11/19 10:41 Dose: 20 mg Gabapentin (Neurontin -) 100 mg PO TID [facility] Last Admin: 11/12/19 06:13 Dose: Not Given Guaifenesin (Mucinex -) 600 mg PO BID [facility] Last Admin: 11/11/19 22:03 Dose: 600 mg Heparin Sodium (Porcine) (Heparin -) 1,000 unit IVPUSH PRN PRN PRN Reason: Heparin Heparin Sodium (Porcine) (Heparin -) 5,000 unit IVPUSH PRN PRN PRN Reason: Heparin Last Admin: 11/11/19 22:15 Dose: 5,000 unit Heparin Sodium (Porcine) 25, (000 unit/ Sodium Chloride) 500 mls @ 16 mls/hr IV TITR [facility]; Protocol Last Admin: 11/11/19 22:09 Dose: 800 unit/hr, 16 mls/hr Insulin Aspart (Novolog Vial Sliding Scale -) 1 vial SQ ACHS [facility]; Protocol Last Admin: 11/12/19 06:16 Dose: 4 units Melatonin (Melatonin) 5 mg PO HS PRN PRN Reason: INSOMNIA Last Admin: 11/11/19 22:03 Dose: 5 mg Mometasone Furoate (Asmanex 220mcg -) 1 puff IH HS [facility] Last Admin: 11/11/19 21:58 Dose: 1 puff Montelukast Sodium (Singulair -) 10 mg PO HS [facility] Last Admin: 11/11/19 22:03 Dose: 10 mg Nicotine Polacrilex (Nicorette Gum -) 2 mg BUC Q8H PRN PRN Reason: NICOTINE REPLACEMENT RX Last Admin: 11/09/19 12:56 Dose: 2 mg Pantoprazole Sodium (Protonix -) 40 mg PO DAILY [facility] Last Admin: 11/11/19 10:41 Dose: Not Given Prednisone (Deltasone -) 20 mg PO DAILY [facility] Last Admin: 11/11/19 10:41 Dose: 20 mg Simethicone (Mylicon -) 80 mg PO TID [facility] Last Admin: 11/12/19 06:12 Dose: Not Given Sodium Chloride ([place] Nasal [place] -) 2 spray NS TID PRN PRN Reason: HEADACHE Valsartan 80 mg/ Valsartan 40 (mg) 120 mg PO BID [facility] Last Admin: 11/11/19 22:03 Dose: 120 mg Zolpidem Tartrate (Ambien -) 10 mg PO HS PRN PRN Reason: INSOMNIA Last Admin: 11/11/19 22:03 Dose: 10 mg A/P Acute COPD Exacerbation Abdominal Pain HTN DM Hyperlipidemia h/o DVT/PE s/p IVC filter - prednisone taper - inhaled bronchodilators - singulair - sputum culture per pt request - can proceed to endoscopy from pulmonary standpoint
--- NOTE | 2019-11-12 13:19 | PN ---
Progress Note (short form) - Note Progress Note: EGD complete. Report placed in the procedural section of the physical chart and will be scanned into [employer].
[2019-11-12] MEDS ORDERED: VALSARTAN 40 MG TABLET (FP) ONE ×2 (13:25→20:58)
[2019-11-12] MEDS ORDERED: VALSARTAN 80 MG TABLET (UD) ONE ×2 (13:25→20:58)
[2019-11-12] MEDS: VALSARTAN PO SCH (14:08)
[2019-11-12] MEDS: DULoxetine HCL 20 MG CAPSULE.DR PO SCH (14:09)
[2019-11-12] MEDS: predniSONE 20 MG TABLET (UD) PO SCH (14:09)
[2019-11-12] MEDS: PANTOPRAZOLE 40 MG TABLET PO SCH (14:13)
[2019-11-12] MEDS: guaiFENesin 600 MG TABLET.ER (FP) PO SCH ×2 (14:13→21:30)
--- NOTE | 2019-11-12 15:44 | PN ---
Physical Exam: SUBJECTIVE: Patient seen and examined NAEON NPO at ID. Pt did not smoke. Has mild epigastric pain. Has appeptite. Has small formed bowel bowel movement. OBJECTIVE: Vital Signs Period Temp Pulse Resp BP Sys/Oneil Pulse Ox Last 24 Hr 97.8 F 87-100 14-20 84-153/61-95 98-100 GENERAL: The patient is awake, alert, and fully oriented, in no acute distress. HEAD: NC/AT. No temporal wasting EYES: PERRL, extraocular movements intact, sclera anicteric and w/o pallor, conjunctiva clear. No ptosis. ENT: Ears normal, nares patent, oropharynx clear without exudates, moist mucous membranes. Right lower, 2nd molar cracked in half, no drainage noted NECK: Trachea midline, full range of motion, supple. Neg cervical LAD. LUNGS: B/l wheezes and crackles, no accessory muscle use. HEART: Regular rate and rhythm, S1, S2 without murmur, rub or gallop. ABDOMEN: abdominal striae, soft, nontender, nondistended, hyperactive bowel sounds, no guarding, no rebound PELVIS: speculum exam w/ thick white discharge and small chunks, cervix w/o erythema. No foul odor EXTREMITIES: 2+ pulses, warm, well-perfused, no edema, thin lower extremities NEUROLOGICAL: Normal speech, gait not observed. Sensation intact of extremities. Normal gait PSYCH: Normal mood, normal affect. Anxious appearing SKIN: Warm, dry, normal turgor, no rashes or lesions noted Laboratory Results - last 24 hr 11/11/19 11/11/19 11/11/19 16:44 18:24 21:00 PTT (Actin FS) 24.3 L POC Glucometer 305 220 11/11/19 11/12/19 11/12/19 21:13 06:09 14:17 PTT (Actin FS) POC Glucometer 153 257 171 Active Medications Generic Name Dose Route Start Last Admin Trade Name Freq PRN Reason Stop Dose Admin Acetylcysteine 200 mg 11/05/19 08:57 11/12/19 08:42 Mucomyst 20 Oral / Inh Use Only* NEB Not Given RBID SUKHDEV Aspirin 81 mg 11/10/19 12:01 11/10/19 12:51 Ecotrin - PO 81 mg DAILY PRN Administration PAIN Clotrimazole 1 applic 11/09/19 22:00 11/11/19 21:58 Gyne-Lotrimin - VG 11/15/19 22:01 1 supp HS SUKHDEV Administration Diphenhydramine HCl 50 mg 11/02/19 21:14 11/11/19 22:03 Benadryl - PO 50 mg Q12H PRN Administration FOR ITCHING Duloxetine HCl 20 mg 11/06/19 10:00 11/12/19 14:09 Cymbalta - PO 20 mg DAILY SUKHDEV Administration Gabapentin 100 mg 11/03/19 14:00 11/12/19 14:08 Neurontin - PO 100 mg TID SUKHDEV Administration Guaifenesin 600 mg 11/03/19 22:00 11/12/19 14:13 Mucinex - PO Not Given BID SUKHDEV Heparin Sodium (Porcine) 1,000 unit 11/10/19 17:46 Heparin - IVPUSH PRN PRN Heparin Heparin Sodium (Porcine) 5,000 unit 11/10/19 17:46 11/11/19 22:15 Heparin - IVPUSH 5,000 unit PRN PRN Administration Heparin Heparin Sodium (Porcine) 25, 500 mls @ 16 mls/hr 11/10/19 18:00 11/11/19 22: 09 000 unit/ Sodium Chloride IV 800 unit/hr TITR SUKHDEV 16 mls/hr Administration Protocol 800 UNIT/HR Insulin Aspart 1 vial 11/02/19 16:30 11/12/19 13:37 Novolog Vial Sliding Scale - SQ Not Given ACHS [facility] Protocol Lactobacillus Acidophilus 2 tab 11/13/19 10:00 Bacid - PO DAILY SUKHDEV Melatonin 5 mg 11/07/19 17:48 11/11/19 22:03 Melatonin PO 5 mg HS PRN Administration INSOMNIA Mometasone Furoate 1 puff 11/03/19 22:00 11/11/19 21:58 Asmanex 220mcg - IH 1 puff HS SUKHDEV Administration Montelukast Sodium 10 mg 11/03/19 22:00 11/11/19 22:03 Singulair - PO 10 mg HS SUKHDEV Administration Nicotine Polacrilex 2 mg 11/08/19 18:50 11/09/19 12:56 Nicorette Gum - BUC 2 mg Q8H PRN Administration NICOTINE REPLACEMENT RX Non-Formulary Medication 6 mg 11/12/19 15:45 Warfarin Sodium [Warfarin Sodium] PO DAILY [facility] Pantoprazole Sodium 20 mg 11/13/19 10:00 Protonix - PO DAILY SUKHDEV Prednisone 20 mg 11/09/19 10:00 11/12/19 14:09 Deltasone - PO 20 mg DAILY SUKHDEV Administration Sodium Chloride 2 spray 11/10/19 05:10 [place] Nasal [place] - NS TID PRN HEADACHE Valsartan 80 mg/ Valsartan 40 120 mg 11/09/19 22:30 11/12/19 14:08 mg PO 120 mg BID SUKHDEV Administration Zolpidem Tartrate 10 mg 11/11/19 22:00 11/11/19 22:03 Ambien - PO 10 mg HS PRN Administration INSOMNIA ASSESSMENT/PLAN: 48F w/ pmh of COPD, RLE DVT, ?PE, IVC Filter(04/25/11, home coumadin), HTN, dyslipidemia presenting with acute on cramping, epigastric abdominal pain radiating up the lower chest x12d. Pt expressed concern that abdominal pain 2/[address] A/P showing moderate gastric dilation w/ intraluminal food, possibly d/t recent food ingestion. GI(Luis F) consult recommend possible EGD. No CTA done d/t concern of possible IV contrast allergy. Pulmonary(Mateusz) did not recommend CTA. Venous duplex neg for DVT. Vascular(Singh) consulted to evaluate IVC filter patency and possibly source of abdominal pain. GI recommended simethicone trial and EGD on 11/06/19. Complaint of difficulty w/ gait prompted Neuro consult. Tang recommended PT, consideration of Ortho consult, outpatient EMG and neuropathy sharpe. Psych started Cymbalta 20mg QD for anxiety + depression. GI(Viktor) cancelled EGD on 11/06/19 dt concern of persisent bronchospasm. Neuro re-consulted for complaint of GARCÍA. Pt demanded sharpe for brain aneurysm. Brain MRI pending. GI(Giuseppe) rec upper GI to evaluate for pyloric issues. Complaint of vaginal burning pain and white discharge prompted fluconazole and clotrimazole. Upper GI series(11/11/19) neg for gastric/duodenal ulcer, neg gastric outlet obstruction, neg hiatal hernia, neg GERD. Patient has been noncompliant with medications, not taking simethicone from 11/08/19 to , pantoprazole 11/09/19 to 11/11/19. Had EGD on 11/12/19. #Chest pain/Epigastric pain with nausea possibly 2/2 gastritis r/o PE --Low clinical suspicion for PE > CTA chest --not done dt contrast dye ?allergy > CT A/P: moderate gastric dilation w/ intraluminal food, possibly d/t recent food ingestion -empiric AC: --Lovenox (1mg/Kg) --> heparin gtt + warfarin 10mg --possible warafarin but awaiting possible upper EGD(?11/12/19) -Protonix 40mg BID PO -GI(Luis F/Evi) consult: --possibly diabetic gastroparesis --possible EGD --cancelled dt bronchospasm --simethicone trial -GI(Lantin/DiG): --upperGI series, if abn then EGD --pt to get upperGI on 11/11/19 ---normal UpperGI, but possible EGD 11/12/19 -pulm(Mateusz) consult: --Xopenex and Mucomyst --Short course of Medrol --> prednisone 20mg --Does not need CTA Chest at this point --PFTs once stable as an outpatient --Singulair QHS -telemetry monitoring #s/p IVC filter(Pam, 04/20/11) --pt thought IVC filter was cause of abd pain -Vascular(Singh), consult: --no vascular intervention --bridge to coumadin --rec Psychiatry, rec upper endoscopy # vaginal candidiasis - s/p fluconazole 200mg PO, once - s/p clotrimazole #leukocytosis--likely 2/2 steroids - cont monitoring #pre-diabetic > HbA1c 5.6 - consider outpt Metformin #chronic tobacco usage - nicotine gum #Chronic Anxiety -Psych(Chepuru) consult: --duloxetine 20mg QD #h/o DVT/PE -on lovenox --> heparin gtt + warfarin -holding Coumadin until GI determines possible upper endoscopy(if abnorm Upper GI) #HTN -home Diovan 160mg QD --> 120mg BID #COPD/Asthma -nebs standing and PRN -home Singulair and Flovent -guaifenesin #Hypokalemia -will replete with IV and PO KCL PRN #Prophy -heparin gtt + warfarin 10mg #FEN -no fluids indicated -replete lytes as above -regular diet #dispo -MedSurg Visit type - Emergency Visit Emergency Visit: No - New Patient This patient is new to me today: No - Critical Care Critical Care patient: No ATTENDING PHYSICIAN STATEMENT I saw and evaluated the patient. I reviewed the resident's note and discussed the case with the resident. I agree with the resident's findings and plan as documented. SUBJECTIVE: OBJECTIVE: ASSESSMENT AND PLAN:
--- NOTE | 2019-11-12 17:28 | PN ---
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 Patient has back pain and it radiates to bilateral hip, but does not shoots down to leg. She do have tingling and numbnes in both feet and toes. patient was seen yesterday and today. mri of brain and mra findings were discussed. she had egd done today and she is feeling better after knowing that mri ofbrain is normal. NEUROLOGICAL EXAMINATION Alert oriented x 3, speech is normal, afebrile vss eomi, pupils reactive no face asymmetry moving all ext sensation are diminished in both feet at toes reflex are generalized diminished Assessment/Plan Fall seems to be mechaincal. She has evidence of neuropahty, unlikekly to caues of fall. THere is no evidence of cord compression, cerebellar dysfunction, stroke or cauda equina syndrome. 2.Patient is very anxiouis about getting angiogram of brain, mri of brain and mra of brain unremrakable Plan: neuropathy work up and emg outpatinet - pt -can be discharged home from neurological point of view Thanking you so much Eddie Beckwith MD
[2019-11-12] MEDS ORDERED: WARFARIN NA 3 MG TABLET PO SCH (18:00)
[2019-11-12] MEDS: WARFARIN NA 10 MG TABLET (FP) PO SCH (18:20)
[2019-11-12 18:24] LABS: HEMOGLOBIN 11.9 GM/dL (10.7-15.3); MCHC 32.1 g/dl (32.0-36.0); MEAN CELL VOLUME 90.3 fl (80-96); MEAN PLT VOLUME 11.1 fl (7.5-11.1); PLATELET COUNT 266 K/MM3 (134-434); RDW 17.7 % (11.6-15.6); WHITE BLOOD COUNT 26.9 K/mm3 (4.0-10.0)
[2019-11-12 18:50] LABS: BLOOD UREA NITROGEN 24.8 mg/dL (7-18); CALCIUM 8.7 mg/dL (8.5-10.1); MAGNESIUM 2.2 mg/dL (1.8-2.4); POTASSIUM 4.6 mmol/L (3.5-5.1)
--- NOTE | 2019-11-12 18:57 | PN ---
Teaching Attending Note Name of Resident: Al Montoya ATTENDING PHYSICIAN STATEMENT I saw and evaluated the patient. I reviewed the resident's note and discussed the case with the resident. I agree with the resident's findings and plan as documented. SUBJECTIVE: Patient is on phone with her [employer] and did nto want to be interviewed or examined. 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 1- ABD pain. R/o gastroparesis/ulcer/gastritis 2- GARCÍA. 3- Peripheral Neuropathy 4- Acute COPD exacerbation 5- H/o PE and DVT. 6- H/o IVC filter. 7- HTN. 8- Anxiety. Plan: - EGD today: ulcers in stomach - protonix x 6 weeks - follow Bx and HP results - Resume heparin gtt, and coumadin - decrease prednisone to 10 daily - leukocytosis is due to steroids - f/u as out pt with her dentist . No abx are indicated - out pt EMG and neuropathy w/u. - cont increased dose of valsartan 120 BID - patient cont to smoke, and to not comply with meds. HLOC .
[2019-11-12] MEDS ORDERED: LEVALBUTEROL HCL 0.31 MG/3 ML VIAL.NEB IH ONE (20:46)
[2019-11-12] MEDS: ZOLPIDEM TARTRATE 5 MG TABLET PO PRN (21:28)
[2019-11-12] MEDS: MONTELUKAST NA 10 MG TABLET PO SCH (21:29)
[2019-11-12] MEDS: diphenhydrAMINE HCL 25 MG CAPSULE (FP) PO PRN (21:29)
[2019-11-12] MEDS: MOMETASONE FUROATE 220 MCG/IH INHALER IH SCH (21:40)
[2019-11-12] MEDS: CLOTRIMAZOLE 1% VAGINAL CREAM WITH APPLICATOR 45 GM TUBE VG SCH (21:40)
[2019-11-13] MEDS: VALSARTAN PO SCH ×3 (00:11→21:20)
[2019-11-13] MEDS: HEPARIN - 25,000 UNIT in SODIUM CHLORIDE 495 ML IV SCH (01:00)
[2019-11-13] MEDS ORDERED: HEPARIN NA (PORCINE) 5,000 UNITS/ML 1ML VIAL IVPUSH PRN ×2 (01:31)
[2019-11-13] MEDS: GABAPENTIN 100 MG CAPSULE PO SCH ×3 (06:57→21:18)
[2019-11-13] MEDS: INSULIN SLIDING SCALE (NOVOLOG) 1 VIAL SQ SCH ×4 (06:59→21:25)
[2019-11-13] MEDS: ACETYLCYSTEINE 20% 200MG/ML 4 ML VIAL *FOR ORAL / INH USE ONLY NEB SCH ×2 (08:10→20:33)
[2019-11-13 09:05] LABS: HEMATOCRIT 35.3 % (32.4-45.2); HEMOGLOBIN 11.5 GM/dL (10.7-15.3); MCH 28.9 pg (25.7-33.7); MCHC 32.7 g/dl (32.0-36.0); MEAN CELL VOLUME 88.4 fl (80-96); MEAN PLT VOLUME 10.4 fl (7.5-11.1); PLATELET COUNT 273 K/MM3 (134-434); RDW 18.2 % (11.6-15.6)
--- NOTE | 2019-11-13 09:13 | PN ---
Teaching Attending Note Name of Resident: Al Montoya ATTENDING PHYSICIAN STATEMENT I saw and evaluated the patient. I reviewed the resident's note and discussed the case with the resident. I agree with the resident's findings and plan as documented. SUBJECTIVE: Patient is feeling better with no acute distress. OBJECTIVE: Vital Signs Temperature 97.6 F 11/12/19 21:00 Pulse Rate 118 H 11/13/19 00:00 Respiratory Rate 18 11/12/19 21:00 Blood Pressure 111/73 11/13/19 00:00 O2 Sat by Pulse Oximetry (%) 99 11/12/19 21:00 GENERAL: The patient is awake, alert, and fully oriented, in no acute distress. HEAD: Normal with no signs of trauma. EYES: PERRL, extraocular movements intact, sclera anicteric, conjunctiva clear. ENT: Ears normal, oropharynx clear without exudates, moist mucous membranes. NECK: Trachea midline, full range of motion, supple. LUNGS: decreased BS bl , + wheezing bl, no crackles, no accessory muscle use. HEART: Regular rate and rhythm, S1, S2 without murmur, rub or gallop. ABDOMEN: Soft, nontender, nondistended, normoactive bowel sounds, no guarding, no rebound, no hepatosplenomegaly, no masses. EXTREMITIES: 2+ pulses, warm, well-perfused, no edema. NEUROLOGICAL: Cranial nerves II through XII grossly intact. Normal speech, gait is stable. PSYCH: Normal mood, normal affect. SKIN: Warm, dry, normal turgor, no rashes or lesions noted CBCD WBC 26.9 K/mm3 (4.0-10.0) H 11/12/19 17:30 RBC 4.10 M/mm3 (3.60-5.2) 11/12/19 17:30 Hgb 11.9 GM/dL (10.7-15.3) 11/12/19 17:30 Hct 37.0 % (32.4-45.2) 11/12/19 17:30 MCV 90.3 fl (80-96) 11/12/19 17:30 MCHC 32.1 g/dl (32.0-36.0) 11/12/19 17:30 RDW 17.7 % (11.6-15.6) H 11/12/19 17:30 Plt Count 266 K/MM3 (134-434) 11/12/19 17:30 MPV 11.1 fl (7.5-11.1) 11/12/19 17:30 CMP Sodium 134 mmol/L (136-145) L 11/12/19 17:30 Potassium 4.6 mmol/L (3.5-5.1) 11/12/19 17:30 Chloride 100 mmol/L (98-107) 11/12/19 17:30 Carbon Dioxide 26 mmol/L (21-32) 11/12/19 17:30 Anion Gap 7 MMOL/L (8-16) L 11/12/19 17:30 BUN 24.8 mg/dL (7-18) H 11/12/19 17:30 Creatinine 1.0 mg/dL (0.55-1.3) 11/12/19 17:30 Random Glucose 280 mg/dL (74-106) H 11/12/19 17:30 Calcium 8.7 mg/dL (8.5-10.1) 11/12/19 17:30 Total Bilirubin 0.3 mg/dL (0.2-1) 11/02/19 06:00 AST 17 U/L (15-37) 11/02/19 06:00 ALT 19 U/L (13-61) 11/02/19 06:00 Alkaline Phosphatase 68 U/L (45-117) 11/02/19 06:00 Total Protein 6.8 g/dl (6.4-8.2) 11/02/19 06:00 Albumin 3.5 g/dl (3.4-5.0) 11/02/19 06:00 CARDIAC ENZYMES Creatine Kinase 98 U/L (26-192) 11/01/19 15:05 Troponin I < 0.02 ng/ml (0.00-0.05) 11/01/19 23:20 Current Medications Generic Name Dose Route Start Last Admin Trade Name Freq PRN Reason Stop Dose Admin Acetylcysteine 200 mg 11/05/19 08:57 11/12/19 21:30 Mucomyst 20 Oral / Inh Use Only* NEB 200 mg RBID SUKHDEV Administration Aspirin 81 mg 11/10/19 12:01 11/10/19 12:51 Ecotrin - PO 81 mg DAILY PRN Administration PAIN Clotrimazole 1 applic 11/09/19 22:00 11/12/19 21:40 Gyne-Lotrimin - VG 11/15/19 22:01 Not Given HS SUKHDEV Diphenhydramine HCl 50 mg 11/02/19 21:14 11/12/19 21:29 Benadryl - PO 50 mg Q12H PRN Administration FOR ITCHING Duloxetine HCl 20 mg 11/06/19 10:00 11/12/19 14:09 Cymbalta - PO 20 mg DAILY SUKHDEV Administration Gabapentin 100 mg 11/03/19 14:00 11/13/19 06:57 Neurontin - PO 100 mg TID SUKHDEV Administration Guaifenesin 600 mg 11/03/19 22:00 11/12/19 21:30 Mucinex - PO 600 mg BID SUKHDEV Administration Heparin Sodium (Porcine) 1,000 unit 11/13/19 01:31 Heparin - IVPUSH PRN PRN Heparin Heparin Sodium (Porcine) 5,000 unit 11/13/19 01:31 Heparin - IVPUSH PRN PRN Heparin Heparin Sodium (Porcine) 25, 500 mls @ 16 mls/hr 11/13/19 01:45 11/13/19 01: 00 000 unit/ Sodium Chloride IV 800 unit/hr TITR SUKHDEV 16 mls/hr Administration Protocol 800 UNIT/HR Insulin Aspart 1 vial 11/02/19 16:30 11/13/19 06:59 Novolog Vial Sliding Scale - SQ 4 units ACHS SUKHDEV Administration Protocol Lactobacillus Acidophilus 2 tab 11/13/19 10:00 Bacid - PO DAILY SUKHDEV Melatonin 5 mg 11/07/19 17:48 11/11/19 22:03 Melatonin PO 5 mg HS PRN Administration INSOMNIA Mometasone Furoate 1 puff 11/03/19 22:00 11/12/19 21:40 Asmanex 220mcg - IH 1 puff HS SUKHDEV Administration Montelukast Sodium 10 mg 11/03/19 22:00 11/12/19 21:29 Singulair - PO 10 mg HS SUKHDEV Administration Nicotine Polacrilex 2 mg 11/08/19 18:50 11/09/19 12:56 Nicorette Gum - BUC 2 mg Q8H PRN Administration NICOTINE REPLACEMENT RX Pantoprazole Sodium 20 mg 11/13/19 10:00 Protonix - PO DAILY SUKHDEV Prednisone 10 mg 11/13/19 10:00 Deltasone - PO DAILY SUKHDEV Sodium Chloride 2 spray 11/10/19 05:10 [place] Nasal [place] - NS TID PRN HEADACHE Valsartan 80 mg/ Valsartan 40 120 mg 11/09/19 22:30 11/13/19 00:11 mg PO Not Given BID SUKHDEV Warfarin Sodium 10 mg 11/12/19 18:00 11/12/19 18:20 Coumadin - PO 10 mg DAILY@1800 SUKHDEV Administration Zolpidem Tartrate 10 mg 11/11/19 22:00 11/12/19 21:28 Ambien - PO 10 mg HS PRN Administration INSOMNIA Home Medications Medication Instructions Recorded Montelukast Na [Singulair -] 10 mg PO HS #30 tablet 12/22/16 Albuterol 2.5/Ipratropium 0.5 1 amp NEB Q6H PRN amp 08/10/18 [Duoneb -] Epinephrine [Epipen 2-Jan] 0.3 mg IJ ASDIR #1 kit 07/14/19 Ergocalciferol [Vitamin D2] 50,000 unit PO Q7D@1000 11/01/19 Gabapentin [Neurontin] 100 mg PO Q8H 11/01/19 Valsartan [Diovan] 160 mg PO DAILY 11/01/19 Warfarin Sodium 6 mg PO DAILY 11/01/19 Zolpidem Tartrate [Ambien] 10 mg PO HS 11/01/19 Fluticasone Propionate [Flovent 220 mcg IH BID 11/04/19 Hfa] ASSESSMENT AND PLAN: Patient is a 48yof with PMHx of COPD, hypertension, hyperlipidemia, diabetes, questionable Pricila's syndrome , 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 # ABD pain. improved ,EGD today: ulcers in stomach, continue protonix x 6 weeks , follow Bx and HP results # GARCÍA. # Peripheral Neuropathy: out pt EMG and neuropathy w/u. # Acute COPD exacerbation : On steroid # H/o PE and DVT. continue heparin gtt, and coumadin ; PT/INR daily # H/o IVC filter. # HTN : cont increased dose of valsartan 120 BID # Anxiety. # leukocytosis is due to steroids , will continue to monitor # c/p having broken tooth: f/u as out pt with her dentist . No abx are indicated DVT Px: heparin drip
[2019-11-13 09:23] LABS: INR 0.97 (0.83-1.09); PROTHROMBIN TIME (PATIENT) 11.5 SEC (9.7-13.0)
[2019-11-13 09:25] LABS: ACTIVATED PTT 43.6 SECONDS (25.2-36.5)
[2019-11-13] MEDS ORDERED: VALSARTAN 80 MG TABLET (UD) ONE ×2 (10:10→21:12)
[2019-11-13] MEDS ORDERED: VALSARTAN 40 MG TABLET (FP) ONE ×2 (10:10→21:12)
[2019-11-13] MEDS ORDERED: PT OWN MED DRAWER 7, Y5N ONE (10:15)
[2019-11-13] MEDS: guaiFENesin 600 MG TABLET.ER (FP) PO SCH ×2 (10:22→21:18)
[2019-11-13] MEDS: PANTOPRAZOLE 20 MG TABLET PO SCH (10:22)
[2019-11-13] MEDS: DULoxetine HCL 20 MG CAPSULE.DR PO SCH (10:22)
[2019-11-13] MEDS: LACTOBACILLUS ACIDOPHILUS 1 TABLET PO SCH (10:22)
[2019-11-13] MEDS: predniSONE 10 MG TABLET (UD) PO SCH (10:22)
--- NOTE | 2019-11-13 11:36 | PATH ---
Surgical Pathology Report Patient Name: CORRY EASTMAN [facility]. Rec. #: [id number] /Age/Gender: 1970 (Age: 48) / F Account: [id number] Location: [address] [place] [address] Taken: 11/12/2019 Received: 11/12/2019 Reported: 11/13/2019 Physicians: Titi Kirkpatrick D.O. Specimen(s) Received A: DUODENUM H.PYLORI B: ANTRAL EROSION C: STOMACH H.PYLORI Clinical History Nausea, vomiting, chest pain Postoperative diagnosis: Gastritis Final Diagnosis A. DUODENUM, BIOPSY: DUODENAL MUCOSA WITH NO PATHOLOGIC CHANGES. NO HISTOLOGIC EVIDENCE OF GLUTEN SENSITIVE ENTEROPATHY (CELIAC SPRUE) IDENTIFIED. B. STOMACH, ANTRUM, BIOPSY: GASTRIC ANTRAL MUCOSA WITH REACTIVE GASTROPATHY. IMMUNOSTAIN FOR H. PYLORI IS NEGATIVE. C. STOMACH, BODY, BIOPSY: GASTRIC FUNDIC MUCOSA WITH NO PATHOLOGIC CHANGES. IMMUNOSTAIN FOR H. PYLORI IS NEGATIVE. Electronically Signed Bertrand Bell M.D. Gross Description A. Received in formalin, labeled "biopsy duodenum" are 2 jay, irregular portions of soft tissue averaging 0.2 cm. in greatest dimension. The specimens are submitted in toto in one cassette. B. Received in formalin, labeled "biopsy antral erosion" are 3 jay, irregular portions of soft tissue ranging from 0.2-0.4 cm. in greatest dimension. The specimens are submitted in toto in one cassette. C. Received in formalin, labeled "biopsy body of stomach" is a jay, irregular portion of soft tissue measuring 0.4 cm. in greatest dimension. The specimen is submitted in toto in one cassette. 11/12/2019 saudi11/12/2019
--- NOTE | 2019-11-13 15:22 | PN ---
Progress Note (short form) - Note Progress Note: Path from EGD: neg h. pylori, neg. for celiac
[2019-11-13] MEDS: POLYETHYLENE GLYCOL 3350 119 GM BTL PO SCH (17:05)
--- NOTE | 2019-11-13 17:23 | PN ---
Physical Exam: SUBJECTIVE: Patient seen and examined MAURICE Endorses mild epigastric pain. Able to tolerate regular meal. Complaining of mild constipation OBJECTIVE: Vital Signs Period Temp Pulse Resp BP Sys/Oneil Pulse Ox Last 24 Hr 97.6 F-98.7 F 115-120 16-18 109-139/57-87 99-99 GENERAL: The patient is awake, alert, and fully oriented, in no acute distress. HEAD: NC/AT. No temporal wasting EYES: PERRL, extraocular movements intact, sclera anicteric and w/o pallor, conjunctiva clear. No ptosis. ENT: Ears normal, nares patent, oropharynx clear without exudates, moist mucous membranes. Right lower, 2nd molar cracked in half, no drainage noted NECK: Trachea midline, full range of motion, supple. Neg cervical LAD. LUNGS: B/l wheezes and crackles, no accessory muscle use. HEART: Regular rate and rhythm, S1, S2 without murmur, rub or gallop. ABDOMEN: abdominal striae, soft, nontender, nondistended, hyperactive bowel sounds, no guarding, no rebound PELVIS: speculum exam w/ thick white discharge and small chunks, cervix w/o erythema. No foul odor EXTREMITIES: 2+ pulses, warm, well-perfused, no edema, thin lower extremities NEUROLOGICAL: Normal speech, gait not observed. Sensation intact of extremities. Normal gait PSYCH: Normal mood, normal affect. Anxious appearing SKIN: Warm, dry, normal turgor, no rashes or lesions noted Laboratory Results - last 24 hr 11/11/19 11/12/19 11/12/19 12:38 17:30 17:30 WBC 26.9 H RBC 4.10 Hgb 11.9 Hct 37.0 MCV 90.3 MCH 29.0 MCHC 32.1 RDW 17.7 H Plt Count 266 MPV 11.1 PT with INR INR PTT (Actin FS) 22.2 L Sodium Potassium Chloride Carbon Dioxide Anion Gap BUN Creatinine Est GFR (CKD-EPI)AfAm Est GFR (CKD-EPI)NonAf POC Glucometer Random Glucose Calcium Phosphorus Magnesium POC Urine HCG, Qual Negative 11/12/19 11/12/19 11/12/19 17:30 18:17 21:34 WBC RBC Hgb Hct MCV MCH MCHC RDW Plt Count MPV PT with INR INR PTT (Actin FS) Sodium 134 L Potassium 4.6 Chloride 100 Carbon Dioxide 26 Anion Gap 7 L BUN 24.8 H Creatinine 1.0 Est GFR (CKD-EPI)AfAm 78.24 Est GFR (CKD-EPI)NonAf 67.51 POC Glucometer 380 208 Random Glucose 280 H Calcium 8.7 Phosphorus 3.0 Magnesium 2.2 POC Urine HCG, Qual 11/12/19 11/13/19 11/13/19 23:56 06:58 08:40 WBC 34.0 H* RBC 4.00 Hgb 11.5 Hct 35.3 MCV 88.4 MCH 28.9 MCHC 32.7 RDW 18.2 H Plt Count 273 MPV 10.4 PT with INR INR PTT (Actin FS) Sodium Potassium Chloride Carbon Dioxide Anion Gap BUN Creatinine Est GFR (CKD-EPI)AfAm Est GFR (CKD-EPI)NonAf POC Glucometer 254 209 Random Glucose Calcium Phosphorus Magnesium POC Urine HCG, Qual 11/13/19 11/13/19 11/13/19 08:40 11:46 17:09 WBC RBC Hgb Hct MCV MCH MCHC RDW Plt Count MPV PT with INR 11.50 INR 0.97 PTT (Actin FS) 43.6 H Sodium Potassium Chloride Carbon Dioxide Anion Gap BUN Creatinine Est GFR (CKD-EPI)AfAm Est GFR (CKD-EPI)NonAf POC Glucometer 170 321 Random Glucose Calcium Phosphorus Magnesium POC Urine HCG, Qual Active Medications Generic Name Dose Route Start Last Admin Trade Name Freq PRN Reason Stop Dose Admin Acetylcysteine 200 mg 11/05/19 08:57 11/13/19 08:10 Mucomyst 20 Oral / Inh Use Only* NEB Not Given RBID SUKHDEV Aspirin 81 mg 11/10/19 12:01 11/10/19 12:51 Ecotrin - PO 81 mg DAILY PRN Administration PAIN Clotrimazole 1 applic 11/09/19 22:00 11/12/19 21:40 Gyne-Lotrimin - VG 11/15/19 22:01 Not Given HS SUKHDEV Diphenhydramine HCl 50 mg 11/02/19 21:14 11/12/19 21:29 Benadryl - PO 50 mg Q12H PRN Administration FOR ITCHING Docusate Sodium 200 mg 11/13/19 22:00 Colace - PO HS SUKHDEV Duloxetine HCl 20 mg 11/06/19 10:00 11/13/19 10:22 Cymbalta - PO 20 mg DAILY SUKHDEV Administration Gabapentin 100 mg 11/03/19 14:00 11/13/19 14:44 Neurontin - PO 100 mg TID SUKHDEV Administration Guaifenesin 600 mg 11/03/19 22:00 11/13/19 10:22 Mucinex - PO 600 mg BID SUKHDEV Administration Heparin Sodium (Porcine) 1,000 unit 11/13/19 01:31 11/13/19 11:43 Heparin - IVPUSH 1,000 unit PRN PRN Administration Heparin Heparin Sodium (Porcine) 5,000 unit 11/13/19 01:31 Heparin - IVPUSH PRN PRN Heparin Heparin Sodium (Porcine) 25, 500 mls @ 16 mls/hr 11/13/19 01:45 11/13/19 01: 00 000 unit/ Sodium Chloride IV 800 unit/hr TITR SUKHDEV 16 mls/hr Administration Protocol 800 UNIT/HR Insulin Aspart 1 vial 11/02/19 16:30 11/13/19 17:11 Novolog Vial Sliding Scale - SQ 8 units ACHS SUKHDEV Administration Protocol Lactobacillus Acidophilus 2 tab 11/13/19 10:00 11/13/19 10:22 Bacid - PO 2 tab DAILY SUKHDEV Administration Melatonin 5 mg 11/07/19 17:48 11/11/19 22:03 Melatonin PO 5 mg HS PRN Administration INSOMNIA Mometasone Furoate 1 puff 11/03/19 22:00 11/12/19 21:40 Asmanex 220mcg - IH 1 puff HS SUKHDEV Administration Montelukast Sodium 10 mg 11/03/19 22:00 11/12/19 21:29 Singulair - PO 10 mg HS SUKHDEV Administration Nicotine Polacrilex 2 mg 11/08/19 18:50 11/09/19 12:56 Nicorette Gum - BUC 2 mg Q8H PRN Administration NICOTINE REPLACEMENT RX Pantoprazole Sodium 20 mg 11/13/19 10:00 11/13/19 10:22 Protonix - PO 20 mg DAILY SUKHDEV Administration Polyethylene Glycol 17 gm 11/13/19 16:15 11/13/19 17:05 Miralax (For Daily Use) - PO 17 grams DAILY SUKHDEV Administration Prednisone 10 mg 11/13/19 10:00 11/13/19 10:22 Deltasone - PO 10 mg DAILY SUKHDEV Administration Sodium Chloride 2 spray 11/10/19 05:10 [place] Nasal [place] - NS TID PRN HEADACHE Valsartan 80 mg/ Valsartan 40 120 mg 11/09/19 22:30 11/13/19 10:23 mg PO 120 mg BID SUKHDEV Administration Warfarin Sodium 10 mg 11/12/19 18:00 11/12/19 18:20 Coumadin - PO 10 mg DAILY@1800 SUKHDEV Administration Zolpidem Tartrate 10 mg 11/11/19 22:00 11/12/19 21:28 Ambien - PO 10 mg HS PRN Administration INSOMNIA ASSESSMENT/PLAN: 48F w/ pmh of COPD, RLE DVT, ?PE, IVC Filter(04/25/11, home coumadin), HTN, dyslipidemia presenting with acute on cramping, epigastric abdominal pain radiating up the lower chest x12d. Pt expressed concern that abdominal pain 2/[address] A/P showing moderate gastric dilation w/ intraluminal food, possibly d/t recent food ingestion. GI(Luis F) consult recommend possible EGD. No CTA done d/t concern of possible IV contrast allergy. Pulmonary(Mateusz) did not recommend CTA. Venous duplex neg for DVT. Vascular(Singh) consulted to evaluate IVC filter patency and possibly source of abdominal pain. GI recommended simethicone trial and EGD on 11/06/19. Complaint of difficulty w/ gait prompted Neuro consult. Tang recommended PT, consideration of Ortho consult, outpatient EMG and neuropathy sharpe. Psych started Cymbalta 20mg QD for anxiety + depression. GI(Viktor) cancelled EGD on 11/06/19 dt concern of persisent bronchospasm. Neuro re-consulted for complaint of GARCÍA. Pt demanded sharpe for brain aneurysm. Brain MRI pending. GI(Giuseppe) rec upper GI to evaluate for pyloric issues. Complaint of vaginal burning pain and white discharge prompted fluconazole and clotrimazole. Upper GI series(11/11/19) neg for gastric/duodenal ulcer, neg gastric outlet obstruction, neg hiatal hernia, neg GERD. Patient has been noncompliant with medications, not taking simethicone from 11/08/19 to , pantoprazole 11/09/19 to 11/11/19. Had EGD on 11/12/19. Pathology neg for H pylori, neg for celiac. #Chest pain/Epigastric pain with nausea possibly 2/2 gastritis r/o PE --Low clinical suspicion for PE > CTA chest --not done dt contrast dye ?allergy > CT A/P: moderate gastric dilation w/ intraluminal food, possibly d/t recent food ingestion -empiric AC: --Lovenox (1mg/Kg) --> heparin gtt + warfarin 10mg --possible warafarin but awaiting possible upper EGD(?11/12/19) -Protonix 40mg BID PO -GI(Luis F/Evi) consult: --possibly diabetic gastroparesis --possible EGD --cancelled dt bronchospasm --simethicone trial -GI(Lantin/DiG): --upperGI series, if abn then EGD --pt to get upperGI on 11/11/19 ---normal UpperGI -GI(DiG): --sp EGD(DiGiorno) 11/12/19 w/ path neg for H pylori, neg for celiac -pulm(Mateusz) consult: --Xopenex and Mucomyst --Short course of Medrol --> prednisone 10mg --Does not need CTA Chest at this point --PFTs once stable as an outpatient --Singulair QHS -telemetry monitoring #s/p IVC filter(Pam, 04/20/11) --pt thought IVC filter was cause of abd pain -Vascular(Singh), consult: --no vascular intervention --bridge to coumadin --rec Psychiatry, rec upper endoscopy # vaginal candidiasis - s/p fluconazole 200mg PO, once - s/p clotrimazole #leukocytosis--likely 2/2 steroids - cont monitoring #pre-diabetic > HbA1c 5.6 - consider outpt Metformin #chronic tobacco usage - nicotine gum #Chronic Anxiety -Psych(Chepuru) consult: --duloxetine 20mg QD #h/o DVT/PE -on lovenox --> heparin gtt + warfarin(10mg, 12.5mg) #HTN -home Diovan 160mg QD --> 120mg BID #COPD/Asthma -nebs standing and PRN -home Singulair and Flovent -guaifenesin #Hypokalemia -will replete with IV and PO KCL PRN #Prophy -heparin gtt + warfarin 10mg #FEN -no fluids indicated -replete lytes as above -regular diet #dispo -MedSurg Visit type - Emergency Visit Emergency Visit: No - New Patient This patient is new to me today: No - Critical Care Critical Care patient: No ATTENDING PHYSICIAN STATEMENT I saw and evaluated the patient. I reviewed the resident's note and discussed the case with the resident. I agree with the resident's findings and plan as documented. SUBJECTIVE: OBJECTIVE: ASSESSMENT AND PLAN:
--- NOTE | 2019-11-13 17:36 | PN ---
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 Patient has back pain and it radiates to bilateral hip, but does not shoots down to leg. She do have tingling and numbnes in both feet and toes. patient was seen yesterday and today. mri of brain and mra findings were discussed. she had egd done today and she is feeling better after knowing that mri ofbrain is normal. Patient is on iv heparin for dvt and being coumadinize her headhace are improved, no new focal neurological syptoms. NEUROLOGICAL EXAMINATION Alert oriented x 3, speech is normal, afebrile vss eomi, pupils reactive no face asymmetry moving all ext sensation are diminished in both feet at toes reflex are generalized diminished Assessment/Plan Fall seems to be mechaincal. She has evidence of neuropahty, unlikekly to caues of fall. THere is no evidence of cord compression, cerebellar dysfunction, stroke or cauda equina syndrome. 2.tension headache, neuro exam is noraml and mri of brain and mra is noraml Plan: neuropathy work up and emg outpatinet -can be discharged home from neurological point of view Thanking you so much Eddie Beckwith MD
[2019-11-13] MEDS: WARFARIN NA 10 MG TABLET (FP) PO SCH (19:00)
[2019-11-13 19:48] LABS: INR 1.07 (0.83-1.09); PROTHROMBIN TIME (PATIENT) 12.6 SEC (9.7-13.0)
[2019-11-13 19:51] LABS: ACTIVATED PTT 29.6 SECONDS (25.2-36.5)
[2019-11-13] MEDS: DOCUSATE SODIUM 100 MG CAPSULE (FP) PO SCH (21:18)
[2019-11-13] MEDS: ZOLPIDEM TARTRATE 5 MG TABLET PO PRN (21:18)
[2019-11-13] MEDS: MONTELUKAST NA 10 MG TABLET PO SCH (21:19)
[2019-11-13] MEDS: MOMETASONE FUROATE 220 MCG/IH INHALER IH SCH (21:21)
[2019-11-13] MEDS: CLOTRIMAZOLE 1% VAGINAL CREAM WITH APPLICATOR 45 GM TUBE VG SCH (21:21)
[2019-11-14] MEDS: HEPARIN - 25,000 UNIT in SODIUM CHLORIDE 495 ML IV SCH ×2 (00:10→19:00)
[2019-11-14] MEDS: GABAPENTIN 100 MG CAPSULE PO SCH ×3 (07:05→21:00)
[2019-11-14] MEDS: INSULIN SLIDING SCALE (NOVOLOG) 1 VIAL SQ SCH ×4 (07:06→23:13)
[2019-11-14] MEDS ORDERED: LEVALBUTEROL HCL 0.31 MG/3 ML VIAL.NEB IH ONE (07:55)
[2019-11-14] MEDS: ACETYLCYSTEINE 20% 200MG/ML 4 ML VIAL *FOR ORAL / INH USE ONLY NEB SCH ×2 (08:00→21:05)
[2019-11-14 08:32] LABS: HEMATOCRIT 33.6 % (32.4-45.2); HEMOGLOBIN 10.6 GM/dL (10.7-15.3); MCH 28.9 pg (25.7-33.7); MCHC 31.7 g/dl (32.0-36.0); MEAN CELL VOLUME 91.1 fl (80-96); MEAN PLT VOLUME 11.1 fl (7.5-11.1); PLATELET COUNT 244 K/MM3 (134-434); RDW 18.3 % (11.6-15.6); WHITE BLOOD COUNT 31.6 K/mm3 (4.0-10.0)
[2019-11-14 08:34] LABS: RBC 3.68 M/mm3 (3.60-5.2)
[2019-11-14 08:45] LABS: INR 1.32 (0.83-1.09); PROTHROMBIN TIME (PATIENT) 15.6 SEC (9.7-13.0)
[2019-11-14 08:48] LABS: ACTIVATED PTT 97.3 SECONDS (25.2-36.5)
[2019-11-14 08:57] LABS: BLOOD UREA NITROGEN 18.2 mg/dL (7-18); CREATININE 0.7 mg/dL (0.55-1.3); POTASSIUM 4.3 mmol/L (3.5-5.1)
[2019-11-14] MEDS ORDERED: VALSARTAN 80 MG TABLET (UD) ONE ×2 (08:57→20:45)
[2019-11-14] MEDS ORDERED: VALSARTAN 40 MG TABLET (FP) ONE ×2 (08:57→20:46)
[2019-11-14] MEDS ORDERED: PT OWN MED DRAWER 7, Y5N ONE (09:06)
[2019-11-14] MEDS: DULoxetine HCL 20 MG CAPSULE.DR PO SCH (09:07)
[2019-11-14] MEDS: PANTOPRAZOLE 20 MG TABLET PO SCH (09:07)
[2019-11-14] MEDS: predniSONE 10 MG TABLET (UD) PO SCH (09:08)
[2019-11-14] MEDS: LACTOBACILLUS ACIDOPHILUS 1 TABLET PO SCH (09:08)
[2019-11-14] MEDS: VALSARTAN PO SCH ×2 (09:08→21:01)
[2019-11-14] MEDS: guaiFENesin 600 MG TABLET.ER (FP) PO SCH ×2 (09:09→20:59)
[2019-11-14] MEDS: POLYETHYLENE GLYCOL 3350 119 GM BTL PO SCH (09:09)
--- NOTE | 2019-11-14 17:07 | PN ---
Physical Exam: SUBJECTIVE: Patient seen and examined NAEON Denies smoking O/N. Expresses concern over brown sputum OBJECTIVE: Vital Signs Period Temp Pulse Resp BP Sys/Oneil Pulse Ox Last 24 Hr 97.5 F-99.1 F 84-115 18-20 100-159/58-87 98-98 GENERAL: The patient is awake, alert, and fully oriented, in no acute distress. HEAD: NC/AT. No temporal wasting EYES: PERRL, extraocular movements intact, sclera anicteric and w/o pallor, conjunctiva clear. No ptosis. ENT: Ears normal, nares patent, oropharynx clear without exudates, moist mucous membranes. Right lower, 2nd molar cracked in half, no drainage noted NECK: Trachea midline, full range of motion, supple. Neg cervical LAD. LUNGS: B/l wheezes and crackles, no accessory muscle use. HEART: Regular rate and rhythm, S1, S2 without murmur, rub or gallop. ABDOMEN: abdominal striae, soft, nontender, nondistended, hyperactive bowel sounds, no guarding, no rebound PELVIS: speculum exam w/ thick white discharge and small chunks, cervix w/o erythema. No foul odor EXTREMITIES: 2+ pulses, warm, well-perfused, no edema, thin lower extremities NEUROLOGICAL: Normal speech, gait not observed. Sensation intact of extremities. Normal gait PSYCH: Normal mood, normal affect. Anxious appearing SKIN: Warm, dry, normal turgor, no rashes or lesions noted Laboratory Results - last 24 hr 11/13/19 11/13/19 11/13/19 17:09 18:30 21:24 WBC RBC Hgb Hct MCV MCH MCHC RDW Plt Count MPV PT with INR 12.60 INR 1.07 PTT (Actin FS) 29.6 Sodium Potassium Chloride Carbon Dioxide Anion Gap BUN Creatinine Est GFR (CKD-EPI)AfAm Est GFR (CKD-EPI)NonAf POC Glucometer 321 191 Random Glucose Calcium Magnesium 11/14/19 11/14/19 11/14/19 07:04 07:30 07:30 WBC 31.6 H* RBC 3.68 Hgb 10.6 L Hct 33.6 MCV 91.1 MCH 28.9 MCHC 31.7 L RDW 18.3 H Plt Count 244 MPV 11.1 PT with INR 15.60 H INR 1.32 H PTT (Actin FS) 97.3 H Sodium Potassium Chloride Carbon Dioxide Anion Gap BUN Creatinine Est GFR (CKD-EPI)AfAm Est GFR (CKD-EPI)NonAf POC Glucometer 130 Random Glucose Calcium Magnesium 11/14/19 11/14/19 07:30 12:50 WBC RBC Hgb Hct MCV MCH MCHC RDW Plt Count MPV PT with INR INR PTT (Actin FS) Sodium 137 Potassium 4.3 Chloride 105 Carbon Dioxide 26 Anion Gap 6 L BUN 18.2 H Creatinine 0.7 Est GFR (CKD-EPI)AfAm 120.43 Est GFR (CKD-EPI)NonAf 103.90 POC Glucometer 260 Random Glucose 155 H Calcium 9.0 Magnesium 2.0 Active Medications Generic Name Dose Route Start Last Admin Trade Name Freq PRN Reason Stop Dose Admin Acetylcysteine 200 mg 11/05/19 08:57 11/14/19 08:00 Mucomyst 20 Oral / Inh Use Only* NEB Not Given RBID SUKHDEV Aspirin 81 mg 11/10/19 12:01 11/10/19 12:51 Ecotrin - PO 81 mg DAILY PRN Administration PAIN Clotrimazole 1 applic 11/09/19 22:00 11/13/19 21:21 Gyne-Lotrimin - VG 11/15/19 22:01 Not Given HS SUKHDEV Diphenhydramine HCl 50 mg 11/02/19 21:14 11/12/19 21:29 Benadryl - PO 50 mg Q12H PRN Administration FOR ITCHING Docusate Sodium 200 mg 11/13/19 22:00 11/13/19 21:18 Colace - PO 200 mg HS SUKHDEV Administration Duloxetine HCl 20 mg 11/06/19 10:00 11/14/19 09:07 Cymbalta - PO 20 mg DAILY SUKHDEV Administration Gabapentin 100 mg 11/03/19 14:00 11/14/19 13:52 Neurontin - PO 100 mg TID SUKHDEV Administration Guaifenesin 600 mg 11/03/19 22:00 11/14/19 09:09 Mucinex - PO Not Given BID SUKHDEV Heparin Sodium (Porcine) 1,000 unit 11/13/19 01:31 11/13/19 11:43 Heparin - IVPUSH 1,000 unit PRN PRN Administration Heparin Heparin Sodium (Porcine) 5,000 unit 01/15/20 01:31 Heparin - IVPUSH PRN PRN Heparin Heparin Sodium (Porcine) 25, 500 mls @ 16 mls/hr 11/13/19 01:45 11/14/19 09: 35 000 unit/ Sodium Chloride IV 950 unit/hr TITR SUKHDEV 19 mls/hr Titration Protocol 800 UNIT/HR Insulin Aspart 1 vial 11/02/19 16:30 11/14/19 12:52 Novolog Vial Sliding Scale - SQ 6 units ACHS SUKHDEV Administration Protocol Lactobacillus Acidophilus 2 tab 11/13/19 10:00 11/14/19 09:08 Bacid - PO 2 tab DAILY SUKHDEV Administration Melatonin 5 mg 11/07/19 17:48 11/11/19 22:03 Melatonin PO 5 mg HS PRN Administration INSOMNIA Mometasone Furoate 1 puff 11/03/19 22:00 11/13/19 21:21 Asmanex 220mcg - IH Not Given HS SUKHDEV Montelukast Sodium 10 mg 11/03/19 22:00 11/13/19 21:19 Singulair - PO 10 mg HS SUKHDEV Administration Nicotine Polacrilex 2 mg 11/08/19 18:50 11/09/19 12:56 Nicorette Gum - BUC 2 mg Q8H PRN Administration NICOTINE REPLACEMENT RX Pantoprazole Sodium 20 mg 11/13/19 10:00 11/14/19 09:07 Protonix - PO 20 mg DAILY SUKHDEV Administration Polyethylene Glycol 17 gm 11/13/19 16:15 11/14/19 09:09 Miralax (For Daily Use) - PO Not Given DAILY SUKHDEV Prednisone 10 mg 11/13/19 10:00 11/14/19 09:08 Deltasone - PO 10 mg DAILY SUKHDEV Administration Sodium Chloride 2 spray 11/10/19 05:10 [place] Nasal [place] - NS TID PRN HEADACHE Valsartan 80 mg/ Valsartan 40 120 mg 11/09/19 22:30 11/14/19 09:08 mg PO 120 mg BID SUKHDEV Administration Warfarin Sodium 10 mg 11/12/19 18:00 11/13/19 19:00 Coumadin - PO 10 mg DAILY@1800 SUKHDEV Administration Zolpidem Tartrate 10 mg 11/11/19 22:00 11/13/19 21:18 Ambien - PO 10 mg HS PRN Administration INSOMNIA ASSESSMENT/PLAN: 48F w/ pmh of COPD, RLE DVT, ?PE, IVC Filter(04/25/11, home coumadin), HTN, dyslipidemia presenting with acute on cramping, epigastric abdominal pain radiating up the lower chest x12d. Pt expressed concern that abdominal pain 2/[address] A/P showing moderate gastric dilation w/ intraluminal food, possibly d/t recent food ingestion. GI(Luis F) consult recommend possible EGD. No CTA done d/t concern of possible IV contrast allergy. Pulmonary(Mateusz) did not recommend CTA. Venous duplex neg for DVT. Vascular(Singh) consulted to evaluate IVC filter patency and possibly source of abdominal pain. GI recommended simethicone trial and EGD on 11/06/19. Complaint of difficulty w/ gait prompted Neuro consult. Tang recommended PT, consideration of Ortho consult, outpatient EMG and neuropathy sharpe. Psych started Cymbalta 20mg QD for anxiety + depression. GI(Viktor) cancelled EGD on 11/06/19 dt concern of persisent bronchospasm. Neuro re-consulted for complaint of GARCÍA. Pt demanded sharpe for brain aneurysm. Brain MRI pending. GI(Giuseppe) rec upper GI to evaluate for pyloric issues. Complaint of vaginal burning pain and white discharge prompted fluconazole and clotrimazole. Upper GI series(11/11/19) neg for gastric/duodenal ulcer, neg gastric outlet obstruction, neg hiatal hernia, neg GERD. Patient has been noncompliant with medications, not taking simethicone from 11/08/19 to , pantoprazole 11/09/19 to 11/11/19. Had EGD on 11/12/19. Pathology neg for H pylori, neg for celiac. Sputum cx ordered by Pulm. #Chest pain/Epigastric pain with nausea possibly 2/2 gastritis r/o PE --Low clinical suspicion for PE > CTA chest --not done dt contrast dye ?allergy > CT A/P: moderate gastric dilation w/ intraluminal food, possibly d/t recent food ingestion -empiric AC: --Lovenox (1mg/Kg) --> heparin gtt + warfarin 10mg --possible warafarin but awaiting possible upper EGD(?11/12/19) -Protonix 40mg BID PO -GI(Luis F/Evi) consult: --possibly diabetic gastroparesis --possible EGD --cancelled dt bronchospasm --simethicone trial -GI(Lantin/DiG): --upperGI series, if abn then EGD --pt to get upperGI on 11/11/19 ---normal UpperGI -GI(DiG): --sp EGD(DiGiorno) 11/12/19 w/ path neg for H pylori, neg for celiac -pulm(Mateusz) consult: --Xopenex and Mucomyst --Short course of Medrol --> prednisone 10mg --Does not need CTA Chest at this point --PFTs once stable as an outpatient --Singulair QHS > sputum cx --pending -telemetry monitoring #s/p IVC filter(Pam, 04/20/11) --pt thought IVC filter was cause of abd pain -Vascular(Singh), consult: --no vascular intervention --bridge to coumadin --rec Psychiatry, rec upper endoscopy # vaginal candidiasis - s/p fluconazole 200mg PO, once - s/p clotrimazole #leukocytosis--likely 2/2 steroids - cont monitoring #pre-diabetic > HbA1c 5.6 - consider outpt Metformin #chronic tobacco usage - nicotine gum #Chronic Anxiety -Psych(Chepuru) consult: --duloxetine 20mg QD #h/o DVT/PE -on lovenox --> heparin gtt + warfarin(10mg, 12.5mg) #HTN -home Diovan 160mg QD --> 120mg BID #COPD/Asthma -nebs standing and PRN -home Singulair and Flovent -guaifenesin #Hypokalemia -will replete with IV and PO KCL PRN #Prophy -heparin gtt + warfarin 10mg #FEN -no fluids indicated -replete lytes as above -regular diet #dispo -MedSurg Visit type - Emergency Visit Emergency Visit: No - New Patient This patient is new to me today: No - Critical Care Critical Care patient: No ATTENDING PHYSICIAN STATEMENT I saw and evaluated the patient. I reviewed the resident's note and discussed the case with the resident. I agree with the resident's findings and plan as documented. SUBJECTIVE: OBJECTIVE: ASSESSMENT AND PLAN:
[2019-11-14 17:32] LABS: INR 1.61 (0.83-1.09); PROTHROMBIN TIME (PATIENT) 19.1 SEC (9.7-13.0)
[2019-11-14 17:35] LABS: ACTIVATED PTT 81.9 SECONDS (25.2-36.5)
[2019-11-14] MEDS: WARFARIN NA 10 MG TABLET (FP) PO SCH (17:48)
--- NOTE | 2019-11-14 20:08 | PN ---
Teaching Attending Note Name of Resident: Al Montoya ATTENDING PHYSICIAN STATEMENT I saw and evaluated the patient. I reviewed the resident's note and discussed the case with the resident. I agree with the resident's findings and plan as documented. SUBJECTIVE: Patient is comfortable with no acute distress. patient is able to tolerate diet better. Vital Signs Period Temp Pulse Resp BP Sys/Oneil Pulse Ox Last 24 Hr 97.5 F-99.1 F 84-115 18-20 100-159/58-87 98-98 GENERAL: The patient is awake, alert, and fully oriented, in no acute distress. HEAD: Normal with no signs of trauma. EYES: PERRL, extraocular movements intact, sclera anicteric, conjunctiva clear. ENT: Ears normal, oropharynx clear without exudates, moist mucous membranes. NECK: Trachea midline, full range of motion, supple. LUNGS: decreased BS bl , + wheezing bl, no crackles, no accessory muscle use. HEART: Regular rate and rhythm, S1, S2 without murmur, rub or gallop. ABDOMEN: Soft, nontender, nondistended, normoactive bowel sounds, no guarding, no rebound, no hepatosplenomegaly, no masses. EXTREMITIES: 2+ pulses, warm, well-perfused, no edema. NEUROLOGICAL: Cranial nerves II through XII grossly intact. Normal speech, gait is stable. PSYCH: Normal mood, normal affect. SKIN: Warm, dry, normal turgor, no rashes or lesions noted WBC 31.6 K/mm3 (4.0-10.0) H* 11/14/19 07:30 RBC 3.68 M/mm3 (3.60-5.2) 11/14/19 07:30 Hgb 10.6 GM/dL (10.7-15.3) L 11/14/19 07:30 Hct 33.6 % (32.4-45.2) 11/14/19 07:30 MCV 91.1 fl (80-96) 11/14/19 07:30 MCHC 31.7 g/dl (32.0-36.0) L 11/14/19 07:30 RDW 18.3 % (11.6-15.6) H 11/14/19 07:30 Plt Count 244 K/MM3 (134-434) 11/14/19 07:30 MPV 11.1 fl (7.5-11.1) 11/14/19 07:30 CMP Sodium 137 mmol/L (136-145) 11/14/19 07:30 Potassium 4.3 mmol/L (3.5-5.1) 11/14/19 07:30 Chloride 105 mmol/L (98-107) 11/14/19 07:30 Carbon Dioxide 26 mmol/L (21-32) 11/14/19 07:30 Anion Gap 6 MMOL/L (8-16) L 11/14/19 07:30 BUN 18.2 mg/dL (7-18) H 11/14/19 07:30 Creatinine 0.7 mg/dL (0.55-1.3) 11/14/19 07:30 Random Glucose 155 mg/dL (74-106) H 11/14/19 07:30 Calcium 9.0 mg/dL (8.5-10.1) 11/14/19 07:30 Total Bilirubin 0.3 mg/dL (0.2-1) 11/02/19 06:00 AST 17 U/L (15-37) 11/02/19 06:00 ALT 19 U/L (13-61) 11/02/19 06:00 Alkaline Phosphatase 68 U/L (45-117) 11/02/19 06:00 Total Protein 6.8 g/dl (6.4-8.2) 11/02/19 06:00 Albumin 3.5 g/dl (3.4-5.0) 11/02/19 06:00 CARDIAC ENZYMES Creatine Kinase 98 U/L (26-192) 11/01/19 15:05 Troponin I < 0.02 ng/ml (0.00-0.05) 11/01/19 23:20 Current Medications Generic Name Dose Route Start Last Admin Trade Name Freq PRN Reason Stop Dose Admin Acetylcysteine 200 mg 11/05/19 08:57 11/14/19 08:00 Mucomyst 20 Oral / Inh Use Only* NEB Not Given RBID SUKHDEV Aspirin 81 mg 11/10/19 12:01 11/10/19 12:51 Ecotrin - PO 81 mg DAILY PRN Administration PAIN Clotrimazole 1 applic 11/09/19 22:00 11/13/19 21:21 Gyne-Lotrimin - VG 11/15/19 22:01 Not Given HS SUKHDEV Diphenhydramine HCl 50 mg 11/02/19 21:14 11/12/19 21:29 Benadryl - PO 50 mg Q12H PRN Administration FOR ITCHING Docusate Sodium 200 mg 11/13/19 22:00 11/13/19 21:18 Colace - PO 200 mg HS SUKHDEV Administration Duloxetine HCl 20 mg 11/06/19 10:00 11/14/19 09:07 Cymbalta - PO 20 mg DAILY SUKHDEV Administration Gabapentin 100 mg 11/03/19 14:00 11/14/19 13:52 Neurontin - PO 100 mg TID SUKHDEV Administration Guaifenesin 600 mg 11/03/19 22:00 11/14/19 09:09 Mucinex - PO Not Given BID SUKHDEV Heparin Sodium (Porcine) 1,000 unit 11/13/19 01:31 11/13/19 11:43 Heparin - IVPUSH 1,000 unit PRN PRN Administration Heparin Heparin Sodium (Porcine) 5,000 unit 11/13/19 01:31 Heparin - IVPUSH PRN PRN Heparin Heparin Sodium (Porcine) 25, 500 mls @ 16 mls/hr 11/13/19 01:45 11/14/19 17: 42 000 unit/ Sodium Chloride IV 900 unit/hr TITR SUKHDEV 18 mls/hr Titration Protocol 800 UNIT/HR Insulin Aspart 1 vial 11/02/19 16:30 11/14/19 19:16 Novolog Vial Sliding Scale - SQ 8 units ACHS SUKHDEV Administration Protocol Lactobacillus Acidophilus 2 tab 11/13/19 10:00 11/14/19 09:08 Bacid - PO 2 tab DAILY SUKHDEV Administration Melatonin 5 mg 11/07/19 17:48 11/11/19 22:03 Melatonin PO 5 mg HS PRN Administration INSOMNIA Mometasone Furoate 1 puff 11/03/19 22:00 11/13/19 21:21 Asmanex 220mcg - IH Not Given HS SUKHDEV Montelukast Sodium 10 mg 11/03/19 22:00 11/13/19 21:19 Singulair - PO 10 mg HS SUKHDEV Administration Nicotine Polacrilex 2 mg 11/08/19 18:50 11/09/19 12:56 Nicorette Gum - BUC 2 mg Q8H PRN Administration NICOTINE REPLACEMENT RX Pantoprazole Sodium 20 mg 11/13/19 10:00 11/14/19 09:07 Protonix - PO 20 mg DAILY SUKHDEV Administration Polyethylene Glycol 17 gm 11/13/19 16:15 11/14/19 09:09 Miralax (For Daily Use) - PO Not Given DAILY SUKHDEV Prednisone 10 mg 11/13/19 10:00 11/14/19 09:08 Deltasone - PO 10 mg DAILY SUKHDEV Administration Sodium Chloride 2 spray 11/10/19 05:10 [place] Nasal [place] - NS TID PRN HEADACHE Valsartan 80 mg/ Valsartan 40 120 mg 11/09/19 22:30 11/14/19 09:08 mg PO 120 mg BID SUKHDEV Administration Warfarin Sodium 10 mg 11/12/19 18:00 11/14/19 17:48 Coumadin - PO 10 mg DAILY@1800 SUKHDEV Administration Zolpidem Tartrate 10 mg 11/11/19 22:00 11/13/19 21:18 Ambien - PO 10 mg HS PRN Administration INSOMNIA Home Medications Medication Instructions Recorded Montelukast Na [Singulair -] 10 mg PO HS #30 tablet 12/22/16 Albuterol 2.5/Ipratropium 0.5 1 amp NEB Q6H PRN amp 08/10/18 [Duoneb -] Epinephrine [Epipen 2-Jan] 0.3 mg IJ ASDIR #1 kit 07/14/19 Ergocalciferol [Vitamin D2] 50,000 unit PO Q7D@1000 11/01/19 Gabapentin [Neurontin] 100 mg PO Q8H 11/01/19 Valsartan [Diovan] 160 mg PO DAILY 11/01/19 Warfarin Sodium 6 mg PO DAILY 11/01/19 Zolpidem Tartrate [Ambien] 10 mg PO HS 11/01/19 Fluticasone Propionate [Flovent 220 mcg IH BID 11/04/19 Hfa] ASSESSMENT AND PLAN: Patient is a 48yof with PMHx of COPD, hypertension, hyperlipidemia, diabetes, questionable [place]'s syndrome , 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 # H/o PE and DVT. continue heparin gtt, and coumadin ; PT/INR daily , nontherapeutic INR # ABD pain. improved ,EGD today: ulcers in stomach, continue protonix x 6 weeks , follow Bx and HP results # GARCÍA. # Peripheral Neuropathy: out pt EMG and neuropathy w/u. # Acute COPD exacerbation : On steroid # H/o IVC filter. # HTN : cont increased dose of valsartan 120 BID # Anxiety. # leukocytosis is due to steroids , will continue to monitor # c/p having broken tooth: f/u as out pt with her dentist . No abx are indicated DVT Px: heparin drip waiting for PT/INR therapeutic level before dc since patient is allergic to Noacs
[2019-11-14] MEDS: CLOTRIMAZOLE 1% VAGINAL CREAM WITH APPLICATOR 45 GM TUBE VG SCH (20:59)
[2019-11-14] MEDS: DOCUSATE SODIUM 100 MG CAPSULE (FP) PO SCH (21:00)
[2019-11-14] MEDS: MOMETASONE FUROATE 220 MCG/IH INHALER IH SCH (21:01)
[2019-11-14] MEDS: ZOLPIDEM TARTRATE 5 MG TABLET PO PRN (21:01)
[2019-11-14] MEDS: MONTELUKAST NA 10 MG TABLET PO SCH (21:01)
[2019-11-14] MEDS: MELATONIN 5 MG TABLETS PO PRN (21:04)
[2019-11-15] MEDS: GABAPENTIN 100 MG CAPSULE PO SCH ×3 (06:49→23:27)
[2019-11-15] MEDS: INSULIN SLIDING SCALE (NOVOLOG) 1 VIAL SQ SCH ×4 (06:51→23:29)
[2019-11-15] MEDS: ACETYLCYSTEINE 20% 200MG/ML 4 ML VIAL *FOR ORAL / INH USE ONLY NEB SCH (08:12)
--- NOTE | 2019-11-15 10:00 | PN ---
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 Patient has back pain and it radiates to bilateral hip, but does not shoots down to leg. She do have tingling and numbnes in both feet and toes. patient was seen yesterday and today. mri of brain and mra findings were discussed. she had egd done today and she is feeling better after knowing that mri ofbrain is normal. Patient is on iv heparin for dvt and being coumadinize her headhace are improved, no new focal neurological syptoms. she is being coumadizined inr was 1.6 yesterday. NEUROLOGICAL EXAMINATION Alert oriented x 3, speech is normal, afebrile vss eomi, pupils reactive no face asymmetry moving all ext sensation are diminished in both feet at toes reflex are generalized diminished inr 1.6 yesterday mri fo brain and mra of brain is unremarkable. Assessment/Plan Fall seems to be mechaincal. She has evidence of neuropahty, unlikekly to caues of fall. THere is no evidence of cord compression, cerebellar dysfunction, stroke or cauda equina syndrome. 2.tension headache, neuro exam is noraml and mri of brain and mra is noraml Plan: neuropathy work up and emg outpatinet Thanking you so much Eddie Beckwith MD
[2019-11-15] MEDS ORDERED: VALSARTAN 80 MG TABLET (UD) ONE ×2 (11:33→21:12)
[2019-11-15] MEDS ORDERED: VALSARTAN 40 MG TABLET (FP) ONE ×2 (11:33→21:12)
[2019-11-15 11:40] LABS: HEMATOCRIT 30.3 % (32.4-45.2); MCH 29.5 pg (25.7-33.7); MCHC 32.8 g/dl (32.0-36.0); MEAN CELL VOLUME 89.7 fl (80-96); MEAN PLT VOLUME 10.7 fl (7.5-11.1); PLATELET COUNT 221 K/MM3 (134-434); RBC 3.38 M/mm3 (3.60-5.2); RDW 18.2 % (11.6-15.6); WHITE BLOOD COUNT 24.3 K/mm3 (4.0-10.0)
[2019-11-15 11:53] LABS: INR 1.65 (0.83-1.09); PROTHROMBIN TIME (PATIENT) 19.6 SEC (9.7-13.0)
[2019-11-15 11:55] LABS: ACTIVATED PTT 60.4 SECONDS (25.2-36.5)
[2019-11-15] MEDS: LACTOBACILLUS ACIDOPHILUS 1 TABLET PO SCH (12:01)
[2019-11-15] MEDS: guaiFENesin 600 MG TABLET.ER (FP) PO SCH ×2 (12:01→23:39)
[2019-11-15] MEDS: predniSONE 10 MG TABLET (UD) PO SCH (12:02)
[2019-11-15] MEDS: PANTOPRAZOLE 20 MG TABLET PO SCH (12:02)
[2019-11-15] MEDS: VALSARTAN PO SCH ×2 (12:02→23:29)
[2019-11-15] MEDS: POLYETHYLENE GLYCOL 3350 119 GM BTL PO SCH (12:13)
[2019-11-15] MEDS ORDERED: PT OWN MED DRAWER 7, Y5N ONE ×2 (12:22→21:14)
[2019-11-15] MEDS: DULoxetine HCL 20 MG CAPSULE.DR PO SCH (12:25)
[2019-11-15] MEDS: diphenhydrAMINE HCL 25 MG CAPSULE (FP) PO PRN ×2 (12:26→23:36)
[2019-11-15 12:50] LABS: BLOOD UREA NITROGEN 13.5 mg/dL (7-18); CALCIUM 8.5 mg/dL (8.5-10.1); CREATININE 0.8 mg/dL (0.55-1.3); MAGNESIUM 1.6 mg/dL (1.8-2.4); PHOSPHOROUS 3.7 mg/dL (2.5-4.9)
[2019-11-15] MEDS ORDERED: MAGNESIUM CL 64 MG TABLET.SA PO ONE (14:39)
[2019-11-15] MEDS: NICOTINE POLACRILEX 2 MG GUM BUC PRN (15:53)
--- NOTE | 2019-11-15 16:45 | PN ---
Physical Exam: SUBJECTIVE: Patient seen and examined NAEON Denies SOB. OBJECTIVE: Vital Signs Period Temp Pulse Resp BP Sys/Oneil Pulse Ox Last 24 Hr 97.2 F-98.4 F 84-111 18-18 121-158/58-88 98 GENERAL: The patient is awake, alert, and fully oriented, in no acute distress. HEAD: NC/AT. No temporal wasting EYES: PERRL, extraocular movements intact, sclera anicteric and w/o pallor, conjunctiva clear. No ptosis. ENT: Ears normal, nares patent, oropharynx clear without exudates, moist mucous membranes. Right lower, 2nd molar cracked in half, no drainage noted NECK: Trachea midline, full range of motion, supple. Neg cervical LAD. LUNGS: B/l wheezes and crackles, no accessory muscle use. HEART: Regular rate and rhythm, S1, S2 without murmur, rub or gallop. ABDOMEN: abdominal striae, soft, nontender, nondistended, hyperactive bowel sounds, no guarding, no rebound PELVIS: speculum exam w/ thick white discharge and small chunks, cervix w/o erythema. No foul odor EXTREMITIES: 2+ pulses, warm, well-perfused, no edema, thin lower extremities NEUROLOGICAL: Normal speech, gait not observed. Sensation intact of extremities. Normal gait PSYCH: Normal mood, normal affect. Anxious appearing SKIN: Warm, dry, normal turgor, no rashes or lesions noted Laboratory Results - last 24 hr 11/14/19 11/14/19 11/14/19 17:00 19:15 23:11 WBC RBC Hgb Hct MCV MCH MCHC RDW Plt Count MPV PT with INR 19.10 H INR 1.61 H PTT (Actin FS) 81.9 H Sodium Potassium Chloride Carbon Dioxide Anion Gap BUN Creatinine Est GFR (CKD-EPI)AfAm Est GFR (CKD-EPI)NonAf POC Glucometer 310 248 Random Glucose Calcium Phosphorus Magnesium 11/15/19 11/15/19 11/15/19 06:50 10:45 10:45 WBC 24.3 H RBC 3.38 L Hgb 10.0 L Hct 30.3 L MCV 89.7 MCH 29.5 MCHC 32.8 RDW 18.2 H Plt Count 221 MPV 10.7 PT with INR INR PTT (Actin FS) Sodium 138 Potassium 4.0 Chloride 106 Carbon Dioxide 26 Anion Gap 6 L BUN 13.5 Creatinine 0.8 Est GFR (CKD-EPI)AfAm 102.47 Est GFR (CKD-EPI)NonAf 88.41 POC Glucometer 124 Random Glucose 148 H Calcium 8.5 Phosphorus 3.7 Magnesium 1.6 L 11/15/19 11/15/19 11/15/19 10:45 11:59 16:02 WBC RBC Hgb Hct MCV MCH MCHC RDW Plt Count MPV PT with INR 19.60 H INR 1.65 H PTT (Actin FS) 60.4 H Sodium Potassium Chloride Carbon Dioxide Anion Gap BUN Creatinine Est GFR (CKD-EPI)AfAm Est GFR (CKD-EPI)NonAf POC Glucometer 104 293 Random Glucose Calcium Phosphorus Magnesium Active Medications Generic Name Dose Route Start Last Admin Trade Name Freq PRN Reason Stop Dose Admin Acetylcysteine 200 mg 11/15/19 20:00 Mucomyst 20 Oral / Inh Use Only* NEB RBID SUKHDEV Aspirin 81 mg 11/10/19 12:01 11/10/19 12:51 Ecotrin - PO 81 mg DAILY PRN Administration PAIN Clotrimazole 1 applic 11/09/19 22:00 11/14/19 20:59 Gyne-Lotrimin - VG 11/15/19 22:01 Not Given HS SUKHDEV Diphenhydramine HCl 50 mg 11/02/19 21:14 11/15/19 12:26 Benadryl - PO 50 mg Q12H PRN Administration FOR ITCHING Docusate Sodium 200 mg 11/13/19 22:00 11/14/19 21:00 Colace - PO 200 mg HS SUKHDEV Administration Duloxetine HCl 20 mg 11/06/19 10:00 11/15/19 12:25 Cymbalta - PO 20 mg DAILY SUKHDEV Administration Gabapentin 100 mg 11/03/19 14:00 11/15/19 13:24 Neurontin - PO 100 mg TID SUKHDEV Administration Guaifenesin 600 mg 11/03/19 22:00 11/15/19 12:01 Mucinex - PO 600 mg BID SUKHDEV Administration Heparin Sodium (Porcine) 1,000 unit 11/13/19 01:31 11/13/19 11:43 Heparin - IVPUSH 1,000 unit PRN PRN Administration Heparin Heparin Sodium (Porcine) 5,000 unit 11/13/19 01:31 Heparin - IVPUSH PRN PRN Heparin Heparin Sodium (Porcine) 25, 500 mls @ 16 mls/hr 11/13/19 01:45 11/14/19 19: 00 000 unit/ Sodium Chloride IV 900 unit/hr TITR SUKHDEV 18 mls/hr Administration Protocol 800 UNIT/HR Insulin Aspart 1 vial 11/02/19 16:30 11/15/19 16:08 Novolog Vial Sliding Scale - SQ 6 units ACHS SUKHDEV Administration Protocol Lactobacillus Acidophilus 2 tab 11/13/19 10:00 11/15/19 12:01 Bacid - PO 2 tab DAILY SUKHDEV Administration Melatonin 5 mg 11/07/19 17:48 11/14/19 21:04 Melatonin PO 5 mg HS PRN Administration INSOMNIA Mometasone Furoate 1 puff 11/03/19 22:00 11/14/19 21:01 Asmanex 220mcg - IH Not Given HS SUKHDEV Montelukast Sodium 10 mg 11/03/19 22:00 11/14/19 21:01 Singulair - PO 10 mg HS SUKHDEV Administration Nicotine Polacrilex 2 mg 11/08/19 18:50 11/15/19 15:53 Nicorette Gum - BUC 2 mg Q8H PRN Administration NICOTINE REPLACEMENT RX Pantoprazole Sodium 20 mg 11/13/19 10:00 11/15/19 12:02 Protonix - PO 20 mg DAILY SUKHDEV Administration Polyethylene Glycol 17 gm 11/13/19 16:15 11/15/19 12:13 Miralax (For Daily Use) - PO Not Given DAILY SUKHDEV Prednisone 10 mg 11/13/19 10:00 11/15/19 12:02 Deltasone - PO 10 mg DAILY SUKHDEV Administration Sodium Chloride 2 spray 11/10/19 05:10 [place] Nasal [place] - NS TID PRN HEADACHE Valsartan 80 mg/ Valsartan 40 120 mg 11/09/19 22:30 11/15/19 12:02 mg PO 120 mg BID SUKHDEV Administration Warfarin Sodium 10 mg 11/12/19 18:00 11/14/19 17:48 Coumadin - PO 10 mg DAILY@1800 SUKHDEV Administration Zolpidem Tartrate 10 mg 11/11/19 22:00 11/14/19 21:01 Ambien - PO 10 mg HS PRN Administration INSOMNIA ASSESSMENT/PLAN: 48F w/ pmh of COPD, RLE DVT, ?PE, IVC Filter(04/25/11, home coumadin), HTN, dyslipidemia presenting with acute on cramping, epigastric abdominal pain radiating up the lower chest x12d. Pt expressed concern that abdominal pain 2/[address] A/P showing moderate gastric dilation w/ intraluminal food, possibly d/t recent food ingestion. GI(Luis F) consult recommend possible EGD. No CTA done d/t concern of possible IV contrast allergy. Pulmonary(Mateusz) did not recommend CTA. Venous duplex neg for DVT. Vascular(Singh) consulted to evaluate IVC filter patency and possibly source of abdominal pain. GI recommended simethicone trial and EGD on 11/06/19. Complaint of difficulty w/ gait prompted Neuro consult. Tang recommended PT, consideration of Ortho consult, outpatient EMG and neuropathy sharpe. Psych started Cymbalta 20mg QD for anxiety + depression. GI(Viktor) cancelled EGD on 11/06/19 dt concern of persisent bronchospasm. Neuro re-consulted for complaint of GARCÍA. Pt demanded sharpe for brain aneurysm. Brain MRI pending. GI(Giuseppe) rec upper GI to evaluate for pyloric issues. Complaint of vaginal burning pain and white discharge prompted fluconazole and clotrimazole. Upper GI series(11/11/19) neg for gastric/duodenal ulcer, neg gastric outlet obstruction, neg hiatal hernia, neg GERD. Patient has been noncompliant with medications, not taking simethicone from 11/08/19 to , pantoprazole 11/09/19 to 11/11/19. Had EGD on 11/12/19. Pathology neg for H pylori, neg for celiac. Sputum cx ordered by Pulm. Awaiting INR to be in therapeutic range #Chest pain/Epigastric pain with nausea possibly 2/2 gastritis r/o PE --Low clinical suspicion for PE > CTA chest --not done dt contrast dye ?allergy > CT A/P: moderate gastric dilation w/ intraluminal food, possibly d/t recent food ingestion -empiric AC: --Lovenox (1mg/Kg) --> heparin gtt + warfarin 10mg --possible warafarin but awaiting possible upper EGD(?11/12/19) -Protonix 40mg BID PO -GI(Luis F/Nasir consult: --possibly diabetic gastroparesis --possible EGD --cancelled dt bronchospasm --simethicone trial -GI(Lantin/DiG): --upperGI series, if abn then EGD --pt to get upperGI on 11/11/19 ---normal UpperGI -GI(DiG): --sp EGD(DiGiorno) 11/12/19 w/ path neg for H pylori, neg for celiac -pulm(Mateusz) consult: --Xopenex and Mucomyst --Short course of Medrol --> prednisone 10mg --Does not need CTA Chest at this point --PFTs once stable as an outpatient --Singulair QHS > sputum cx --pending -telemetry monitoring #s/p IVC filter(Pam, 04/20/11) --pt thought IVC filter was cause of abd pain -Vascular(Singh), consult: --no vascular intervention --bridge to coumadin --rec Psychiatry, rec upper endoscopy # vaginal candidiasis - s/p fluconazole 200mg PO, once - s/p clotrimazole #leukocytosis--likely 2/2 steroids - cont monitoring #pre-diabetic > HbA1c 5.6 - consider outpt Metformin #chronic tobacco usage - nicotine gum #Chronic Anxiety -Psych(Chepuru) consult: --duloxetine 20mg QD #h/o DVT/PE -on lovenox --> heparin gtt + warfarin(10mg, 12.5mg) #HTN -home Diovan 160mg QD --> 120mg BID #COPD/Asthma -nebs standing and PRN -home Singulair and Flovent -guaifenesin #Hypokalemia -will replete with IV and PO KCL PRN #Prophy -heparin gtt + warfarin 10mg #FEN -no fluids indicated -replete lytes as above -regular diet #dispo -MedSurg Visit type - Emergency Visit Emergency Visit: No - New Patient This patient is new to me today: No - Critical Care Critical Care patient: No ATTENDING PHYSICIAN STATEMENT I saw and evaluated the patient. I reviewed the resident's note and discussed the case with the resident. I agree with the resident's findings and plan as documented. SUBJECTIVE: OBJECTIVE: ASSESSMENT AND PLAN:
[2019-11-15] MEDS: WARFARIN NA 10 MG TABLET (FP) PO SCH (17:48)
[2019-11-15] MEDS: HEPARIN - 25,000 UNIT in SODIUM CHLORIDE 495 ML IV SCH (17:49)
--- NOTE | 2019-11-15 19:15 | PN ---
Teaching Attending Note Name of Resident: Al Montoya ATTENDING PHYSICIAN STATEMENT I saw and evaluated the patient. I reviewed the resident's note and discussed the case with the resident. I agree with the resident's findings and plan as documented. SUBJECTIVE: Patient is feeling better with no acute distress, able to tolerate diet, less stomach discomfort. Vital Signs Temperature 98.4 F 11/15/19 15:59 Pulse Rate 106 H 11/15/19 15:59 Respiratory Rate 18 11/15/19 15:59 Blood Pressure 130/88 11/15/19 15:59 O2 Sat by Pulse Oximetry (%) 98 11/14/19 21:00 GENERAL: The patient is awake, alert, and fully oriented, in no acute distress. HEAD: Normal with no signs of trauma. EYES: PERRL, extraocular movements intact, sclera anicteric, conjunctiva clear. ENT: Ears normal, oropharynx clear without exudates, moist mucous membranes. NECK: Trachea midline, full range of motion, supple. LUNGS: decreased BS bl , continues to wheeze, no crackles, no accessory muscle use. HEART: Regular rate and rhythm, S1, S2 without murmur, rub or gallop. ABDOMEN: Soft, nontender, nondistended, normoactive bowel sounds, no guarding, no rebound, no hepatosplenomegaly, no masses. EXTREMITIES: 2+ pulses, warm, well-perfused, no edema. NEUROLOGICAL: Cranial nerves II through XII grossly intact. Normal speech, gait is stable. PSYCH: Normal mood, normal affect. SKIN: Warm, dry, normal turgor, no rashes or lesions noted WBC 24.3 K/mm3 (4.0-10.0) H 11/15/19 10:45 RBC 3.38 M/mm3 (3.60-5.2) L 11/15/19 10:45 Hgb 10.0 GM/dL (10.7-15.3) L 11/15/19 10:45 Hct 30.3 % (32.4-45.2) L 11/15/19 10:45 MCV 89.7 fl (80-96) 11/15/19 10:45 MCHC 32.8 g/dl (32.0-36.0) 11/15/19 10:45 RDW 18.2 % (11.6-15.6) H 11/15/19 10:45 Plt Count 221 K/MM3 (134-434) 11/15/19 10:45 MPV 10.7 fl (7.5-11.1) 11/15/19 10:45 CMP Sodium 138 mmol/L (136-145) 11/15/19 10:45 Potassium 4.0 mmol/L (3.5-5.1) 11/15/19 10:45 Chloride 106 mmol/L (98-107) 11/15/19 10:45 Carbon Dioxide 26 mmol/L (21-32) 11/15/19 10:45 Anion Gap 6 MMOL/L (8-16) L 11/15/19 10:45 BUN 13.5 mg/dL (7-18) 11/15/19 10:45 Creatinine 0.8 mg/dL (0.55-1.3) 11/15/19 10:45 Random Glucose 148 mg/dL (74-106) H 11/15/19 10:45 Calcium 8.5 mg/dL (8.5-10.1) 11/15/19 10:45 Total Bilirubin 0.3 mg/dL (0.2-1) 11/02/19 06:00 AST 17 U/L (15-37) 11/02/19 06:00 ALT 19 U/L (13-61) 11/02/19 06:00 Alkaline Phosphatase 68 U/L (45-117) 11/02/19 06:00 Total Protein 6.8 g/dl (6.4-8.2) 11/02/19 06:00 Albumin 3.5 g/dl (3.4-5.0) 11/02/19 06:00 CARDIAC ENZYMES Creatine Kinase 98 U/L (26-192) 11/01/19 15:05 Troponin I < 0.02 ng/ml (0.00-0.05) 11/01/19 23:20 Current Medications Generic Name Dose Route Start Last Admin Trade Name Freq PRN Reason Stop Dose Admin Acetylcysteine 200 mg 11/15/19 20:00 Mucomyst 20 Oral / Inh Use Only* NEB RBID SUKHDEV Aspirin 81 mg 11/10/19 12:01 11/10/19 12:51 Ecotrin - PO 81 mg DAILY PRN Administration PAIN Clotrimazole 1 applic 11/09/19 22:00 11/14/19 20:59 Gyne-Lotrimin - VG 11/15/19 22:01 Not Given HS SUKHDEV Diphenhydramine HCl 50 mg 11/02/19 21:14 11/15/19 12:26 Benadryl - PO 50 mg Q12H PRN Administration FOR ITCHING Docusate Sodium 200 mg 11/13/19 22:00 11/14/19 21:00 Colace - PO 200 mg HS SUKHDEV Administration Duloxetine HCl 20 mg 11/06/19 10:00 11/15/19 12:25 Cymbalta - PO 20 mg DAILY SUKHDEV Administration Gabapentin 100 mg 11/03/19 14:00 11/15/19 13:24 Neurontin - PO 100 mg TID SUKHDEV Administration Guaifenesin 600 mg 11/03/19 22:00 11/15/19 12:01 Mucinex - PO 600 mg BID SUKHDEV Administration Heparin Sodium (Porcine) 1,000 unit 11/13/19 01:31 11/13/19 11:43 Heparin - IVPUSH 1,000 unit PRN PRN Administration Heparin Heparin Sodium (Porcine) 5,000 unit 11/13/19 01:31 Heparin - IVPUSH PRN PRN Heparin Heparin Sodium (Porcine) 25, 500 mls @ 16 mls/hr 11/13/19 01:45 11/15/19 17: 49 000 unit/ Sodium Chloride IV 900 unit/hr TITR SUKHDEV 18 mls/hr Administration Protocol 800 UNIT/HR Insulin Aspart 1 vial 11/02/19 16:30 11/15/19 16:08 Novolog Vial Sliding Scale - SQ 6 units ACHS SUKHDEV Administration Protocol Lactobacillus Acidophilus 2 tab 11/13/19 10:00 11/15/19 12:01 Bacid - PO 2 tab DAILY SUKHDEV Administration Melatonin 10 mg 11/15/19 22:00 Melatonin PO HS PRN INSOMNIA Mometasone Furoate 1 puff 11/03/19 22:00 11/14/19 21:01 Asmanex 220mcg - IH Not Given HS SUKHDEV Montelukast Sodium 10 mg 11/03/19 22:00 11/14/19 21:01 Singulair - PO 10 mg HS SUKHDEV Administration Nicotine Polacrilex 2 mg 11/08/19 18:50 11/15/19 15:53 Nicorette Gum - BUC 2 mg Q8H PRN Administration NICOTINE REPLACEMENT RX Pantoprazole Sodium 20 mg 11/13/19 10:00 11/15/19 12:02 Protonix - PO 20 mg DAILY SUKHDEV Administration Polyethylene Glycol 17 gm 11/13/19 16:15 11/15/19 12:13 Miralax (For Daily Use) - PO Not Given DAILY SUKHDEV Prednisone 10 mg 11/13/19 10:00 11/15/19 12:02 Deltasone - PO 10 mg DAILY SUKHDEV Administration Sodium Chloride 2 spray 11/10/19 05:10 [place] Nasal [place] - NS TID PRN HEADACHE Valsartan 80 mg/ Valsartan 40 120 mg 11/09/19 22:30 11/15/19 12:02 mg PO 120 mg BID SUKHDEV Administration Warfarin Sodium 10 mg 11/12/19 18:00 11/15/19 17:48 Coumadin - PO 10 mg DAILY@1800 SUKHDEV Administration Zolpidem Tartrate 10 mg 11/11/19 22:00 11/14/19 21:01 Ambien - PO 10 mg HS PRN Administration INSOMNIA Home Medications Medication Instructions Recorded Montelukast Na [Singulair -] 10 mg PO HS #30 tablet 12/22/16 Albuterol 2.5/Ipratropium 0.5 1 amp NEB Q6H PRN amp 08/10/18 [Duoneb -] Epinephrine [Epipen 2-Jan] 0.3 mg IJ ASDIR #1 kit 07/14/19 Ergocalciferol [Vitamin D2] 50,000 unit PO Q7D@1000 11/01/19 Gabapentin [Neurontin] 100 mg PO Q8H 11/01/19 Valsartan [Diovan] 160 mg PO DAILY 11/01/19 Warfarin Sodium 6 mg PO DAILY 11/01/19 Zolpidem Tartrate [Ambien] 10 mg PO HS 11/01/19 Fluticasone Propionate [Flovent 220 mcg IH BID 11/04/19 Hfa] ASSESSMENT AND PLAN: Patient is a 48yof with PMHx of COPD, hypertension, hyperlipidemia, diabetes, questionable [place]'s syndrome , 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 # H/o PE and DVT. continue heparin gtt, and coumadin ; PT/INR daily , subtherapeutic INR # ABD pain. improved ,EGD today: ulcers in stomach, continue protonix x 6 weeks , follow Bx and HP results # GARCÍA improved. # Peripheral Neuropathy: out pt EMG and neuropathy w/u. # Acute COPD exacerbation : On steroid # H/o IVC filter. # HTN : cont increased dose of valsartan 120 BID # Anxiety. # leukocytosis is due to steroids , will continue to monitor # c/p having broken tooth: f/u as out pt with her dentist . No abx are indicated DVT Px: heparin drip waiting for PT/INR therapeutic level before dc since patient is allergic to Noacs
[2019-11-15] MEDS: MONTELUKAST NA 10 MG TABLET PO SCH (23:27)
[2019-11-15] MEDS: DOCUSATE SODIUM 100 MG CAPSULE (FP) PO SCH (23:27)
[2019-11-15] MEDS: CLOTRIMAZOLE 1% VAGINAL CREAM WITH APPLICATOR 45 GM TUBE VG SCH (23:31)
[2019-11-15] MEDS: ZOLPIDEM TARTRATE 5 MG TABLET PO PRN (23:35)
[2019-11-15] MEDS: MELATONIN 5 MG TABLETS PO PRN (23:36)
[2019-11-15] MEDS: MOMETASONE FUROATE 220 MCG/IH INHALER IH SCH (23:39)
[2019-11-16] MEDS: INSULIN SLIDING SCALE (NOVOLOG) 1 VIAL SQ SCH ×5 (07:43→21:16)
[2019-11-16] MEDS: HEPARIN - 25,000 UNIT in SODIUM CHLORIDE 495 ML IV SCH (07:43)
[2019-11-16] MEDS: GABAPENTIN 100 MG CAPSULE PO SCH ×3 (07:43→21:17)
[2019-11-16] MEDS ORDERED: VALSARTAN 80 MG TABLET (UD) ONE ×2 (09:03→21:11)
[2019-11-16] MEDS ORDERED: VALSARTAN 40 MG TABLET (FP) ONE ×2 (09:03→21:11)
[2019-11-16] MEDS ORDERED: PT OWN MED DRAWER 7, Y5N ONE ×2 (09:05→19:53)
[2019-11-16] MEDS: PANTOPRAZOLE 20 MG TABLET PO SCH (09:11)
[2019-11-16] MEDS: LACTOBACILLUS ACIDOPHILUS 1 TABLET PO SCH (09:11)
[2019-11-16] MEDS: DULoxetine HCL 20 MG CAPSULE.DR PO SCH (09:11)
[2019-11-16] MEDS: POLYETHYLENE GLYCOL 3350 119 GM BTL PO SCH (09:12)
[2019-11-16] MEDS: predniSONE 10 MG TABLET (UD) PO SCH (09:12)
[2019-11-16] MEDS: guaiFENesin 600 MG TABLET.ER (FP) PO SCH ×2 (09:12→21:21)
[2019-11-16] MEDS: VALSARTAN PO SCH ×2 (09:12→21:16)
[2019-11-16] MEDS ORDERED: MAGNESIUM SULF 50% (8.12 MEQ/2 ML-1 GM VIAL) IVPB ONE (10:00)
[2019-11-16] MEDS: ACETYLCYSTEINE 20% 200MG/ML 4 ML VIAL *FOR ORAL / INH USE ONLY NEB SCH ×2 (12:00→21:21)
[2019-11-16 13:04] LABS: HEMOGLOBIN 11.2 GM/dL (10.7-15.3); MCHC 31.9 g/dl (32.0-36.0); MEAN CELL VOLUME 90.8 fl (80-96); MEAN PLT VOLUME 10.9 fl (7.5-11.1); PLATELET COUNT 201 K/MM3 (134-434); RBC 3.85 M/mm3 (3.60-5.2); RDW 18.4 % (11.6-15.6); WHITE BLOOD COUNT 29.5 K/mm3 (4.0-10.0)
[2019-11-16 13:26] LABS: BLOOD UREA NITROGEN 18.8 mg/dL (7-18); CALCIUM 9.8 mg/dL (8.5-10.1); CREATININE 0.9 mg/dL (0.55-1.3); MAGNESIUM 1.8 mg/dL (1.8-2.4); PHOSPHOROUS 4.7 mg/dL (2.5-4.9); POTASSIUM 4.6 mmol/L (3.5-5.1)
[2019-11-16 13:34] LABS: INR 2.09 (0.83-1.09); PROTHROMBIN TIME (PATIENT) 24.8 SEC (9.7-13.0)
[2019-11-16] MEDS: WARFARIN NA 10 MG TABLET (FP) PO SCH (18:39)
[2019-11-16] MEDS ORDERED: INSULIN (NOVOLOG) ASPART 100 UNITS/ML 10ML VIAL ONE (18:45)
[2019-11-16] MEDS: MOMETASONE FUROATE 220 MCG/IH INHALER IH SCH (21:16)
[2019-11-16] MEDS: DOCUSATE SODIUM 100 MG CAPSULE (FP) PO SCH (21:16)
[2019-11-16] MEDS: MONTELUKAST NA 10 MG TABLET PO SCH (21:16)
[2019-11-16] MEDS: diphenhydrAMINE HCL 25 MG CAPSULE (FP) PO PRN (21:18)
[2019-11-16] MEDS: ZOLPIDEM TARTRATE 5 MG TABLET PO PRN (21:18)
[2019-11-16] MEDS: MELATONIN 5 MG TABLETS PO PRN (21:18)
[2019-11-16] MEDS: LEVALBUTEROL HCL 0.63 MG/3 ML VIAL.NEB. IH SCH (21:21)
--- NOTE | 2019-11-16 21:26 | PN ---
Progress Note (short form) - Note Progress Note: Patient is better, c/o having cracked tooth. Vital Signs Temperature 98.6 F 11/16/19 18:05 Pulse Rate 121 H 11/16/19 18:05 Respiratory Rate 18 11/16/19 18:05 Blood Pressure 103/68 11/16/19 18:05 O2 Sat by Pulse Oximetry (%) 98 11/16/19 09:00 GENERAL: The patient is awake, alert, and fully oriented, in no acute distress. HEAD: Normal with no signs of trauma. EYES: PERRL, extraocular movements intact, sclera anicteric, conjunctiva clear. ENT: Ears normal, oropharynx clear without exudates, moist mucous membranes. NECK: Trachea midline, full range of motion, supple. LUNGS: decreased BS bl , continues to wheeze, no crackles, no accessory muscle use. HEART: Regular rate and rhythm, S1, S2 without murmur, rub or gallop. ABDOMEN: Soft, nontender, nondistended, normoactive bowel sounds, no guarding, no rebound, no hepatosplenomegaly, no masses. EXTREMITIES: 2+ pulses, warm, well-perfused, no edema. NEUROLOGICAL: Cranial nerves II through XII grossly intact. Normal speech, gait is stable. PSYCH: Normal mood, normal affect. SKIN: Warm, dry, normal turgor, no rashes or lesions noted WBC 24.3 K/mm3 (4.0-10.0) H 11/15/19 10:45 RBC 3.38 M/mm3 (3.60-5.2) L 11/15/19 10:45 Hgb 10.0 GM/dL (10.7-15.3) L 11/15/19 10:45 Hct 30.3 % (32.4-45.2) L 11/15/19 10:45 MCV 89.7 fl (80-96) 11/15/19 10:45 MCHC 32.8 g/dl (32.0-36.0) 11/15/19 10:45 RDW 18.2 % (11.6-15.6) H 11/15/19 10:45 Plt Count 221 K/MM3 (134-434) 11/15/19 10:45 MPV 10.7 fl (7.5-11.1) 11/15/19 10:45 CMP Sodium 138 mmol/L (136-145) 11/15/19 10:45 Potassium 4.0 mmol/L (3.5-5.1) 11/15/19 10:45 Chloride 106 mmol/L (98-107) 11/15/19 10:45 Carbon Dioxide 26 mmol/L (21-32) 11/15/19 10:45 Anion Gap 6 MMOL/L (8-16) L 11/15/19 10:45 BUN 13.5 mg/dL (7-18) 11/15/19 10:45 Creatinine 0.8 mg/dL (0.55-1.3) 11/15/19 10:45 Random Glucose 148 mg/dL (74-106) H 11/15/19 10:45 Calcium 8.5 mg/dL (8.5-10.1) 11/15/19 10:45 Total Bilirubin 0.3 mg/dL (0.2-1) 11/02/19 06:00 AST 17 U/L (15-37) 11/02/19 06:00 ALT 19 U/L (13-61) 11/02/19 06:00 Alkaline Phosphatase 68 U/L (45-117) 11/02/19 06:00 Total Protein 6.8 g/dl (6.4-8.2) 11/02/19 06:00 Albumin 3.5 g/dl (3.4-5.0) 11/02/19 06:00 CARDIAC ENZYMES Creatine Kinase 98 U/L (26-192) 11/01/19 15:05 Troponin I < 0.02 ng/ml (0.00-0.05) 11/01/19 23:20 Current Medications Generic Name Dose Route Start Last Admin Trade Name Freq PRN Reason Stop Dose Admin Acetylcysteine 200 mg 11/15/19 20:00 Mucomyst 20 Oral / Inh Use Only* NEB RBID SUKHDEV Aspirin 81 mg 11/10/19 12:01 11/10/19 12:51 Ecotrin - PO 81 mg DAILY PRN Administration PAIN Clotrimazole 1 applic 11/09/19 22:00 11/14/19 20:59 Gyne-Lotrimin - VG 11/15/19 22:01 Not Given HS SUKHDEV Diphenhydramine HCl 50 mg 11/02/19 21:14 11/15/19 12:26 Benadryl - PO 50 mg Q12H PRN Administration FOR ITCHING Docusate Sodium 200 mg 11/13/19 22:00 11/14/19 21:00 Colace - PO 200 mg HS SUKHDEV Administration Duloxetine HCl 20 mg 11/06/19 10:00 11/15/19 12:25 Cymbalta - PO 20 mg DAILY SUKHDEV Administration Gabapentin 100 mg 11/03/19 14:00 11/15/19 13:24 Neurontin - PO 100 mg TID SUKHDEV Administration Guaifenesin 600 mg 11/03/19 22:00 11/15/19 12:01 Mucinex - PO 600 mg BID SUKHDEV Administration Heparin Sodium (Porcine) 1,000 unit 11/13/19 01:31 11/13/19 11:43 Heparin - IVPUSH 1,000 unit PRN PRN Administration Heparin Heparin Sodium (Porcine) 5,000 unit 11/13/19 01:31 Heparin - IVPUSH PRN PRN Heparin Heparin Sodium (Porcine) 25, 500 mls @ 16 mls/hr 11/13/19 01:45 11/15/19 17: 49 000 unit/ Sodium Chloride IV 900 unit/hr TITR SUKHDEV 18 mls/hr Administration Protocol 800 UNIT/HR Insulin Aspart 1 vial 11/02/19 16:30 11/15/19 16:08 Novolog Vial Sliding Scale - SQ 6 units ACHS SUKHDEV Administration Protocol Lactobacillus Acidophilus 2 tab 11/13/19 10:00 11/15/19 12:01 Bacid - PO 2 tab DAILY SUKHDEV Administration Melatonin 10 mg 11/15/19 22:00 Melatonin PO HS PRN INSOMNIA Mometasone Furoate 1 puff 11/03/19 22:00 11/14/19 21:01 Asmanex 220mcg - IH Not Given HS SUKHDEV Montelukast Sodium 10 mg 11/03/19 22:00 11/14/19 21:01 Singulair - PO 10 mg HS SUKHDEV Administration Nicotine Polacrilex 2 mg 11/08/19 18:50 11/15/19 15:53 Nicorette Gum - BUC 2 mg Q8H PRN Administration NICOTINE REPLACEMENT RX Pantoprazole Sodium 20 mg 11/13/19 10:00 11/15/19 12:02 Protonix - PO 20 mg DAILY SUKHDEV Administration Polyethylene Glycol 17 gm 11/13/19 16:15 11/15/19 12:13 Miralax (For Daily Use) - PO Not Given DAILY SUKHDEV Prednisone 10 mg 11/13/19 10:00 11/15/19 12:02 Deltasone - PO 10 mg DAILY SUKHDEV Administration Sodium Chloride 2 spray 11/10/19 05:10 [place] Nasal [place] - NS TID PRN HEADACHE Valsartan 80 mg/ Valsartan 40 120 mg 11/09/19 22:30 11/15/19 12:02 mg PO 120 mg BID SUKHDEV Administration Warfarin Sodium 10 mg 11/12/19 18:00 11/15/19 17:48 Coumadin - PO 10 mg DAILY@1800 SUKHDEV Administration Zolpidem Tartrate 10 mg 11/11/19 22:00 11/14/19 21:01 Ambien - PO 10 mg HS PRN Administration INSOMNIA Home Medications Medication Instructions Recorded Montelukast Na [Singulair -] 10 mg PO HS #30 tablet 12/22/16 Albuterol 2.5/Ipratropium 0.5 1 amp NEB Q6H PRN amp 08/10/18 [Duoneb -] Epinephrine [Epipen 2-Jan] 0.3 mg IJ ASDIR #1 kit 07/14/19 Ergocalciferol [Vitamin D2] 50,000 unit PO Q7D@1000 11/01/19 Gabapentin [Neurontin] 100 mg PO Q8H 11/01/19 Valsartan [Diovan] 160 mg PO DAILY 11/01/19 Warfarin Sodium 6 mg PO DAILY 11/01/19 Zolpidem Tartrate [Ambien] 10 mg PO HS 11/01/19 Fluticasone Propionate [Flovent 220 mcg IH BID 11/04/19 Hfa] ASSESSMENT AND PLAN: Patient is a 48yof with PMHx of COPD, hypertension, hyperlipidemia, diabetes, questionable [place]'s syndrome , 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 # Leukocytosis due to steroid, will get CRP level, will monitor, will get ID to evaluate leukocytosis, crp level # H/o PE and DVT. continue heparin gtt, and coumadin ; PT/INR daily , subtherapeutic INR # ABD pain. improved ,EGD today: ulcers in stomach, continue protonix x 6 weeks , pathology report reviewed, neg. h.Pylori # GARCÍA improved. # Peripheral Neuropathy: out pt EMG and neuropathy w/u. # Acute COPD exacerbation : On steroid # H/o IVC filter. # HTN : cont increased dose of valsartan 120 BID # Anxiety. # leukocytosis is due to steroids , will continue to monitor # c/p having broken tooth: f/u as out pt with her dentist . No abx are indicated DVT Px: heparin drip waiting for PT/INR therapeutic level before dc since patient is allergic to Noacs Visit type - Emergency Visit Emergency Visit: Yes ED Registration Date: 11/01/19 Care time: The patient presented to the Emergency Department on the above date and was hospitalized for further evaluation of their emergent condition. - New Patient This patient is new to me today: No - Critical Care Critical Care patient: No - Discharge Referral Referred to [facility] No
[2019-11-17] MEDS ORDERED: PT OWN MED DRAWER 7, Y5N ONE (01:10)
[2019-11-17] MEDS: HEPARIN - 25,000 UNIT in SODIUM CHLORIDE 495 ML IV SCH (01:47)
[2019-11-17] MEDS: GABAPENTIN 100 MG CAPSULE PO SCH ×3 (07:39→21:33)
[2019-11-17] MEDS: INSULIN SLIDING SCALE (NOVOLOG) 1 VIAL SQ SCH ×4 (07:39→21:34)
[2019-11-17] MEDS ORDERED: INSULIN (NOVOLOG) ASPART 100 UNITS/ML 10ML VIAL ONE (07:46)
[2019-11-17] MEDS: LEVALBUTEROL HCL 0.63 MG/3 ML VIAL.NEB. IH SCH ×3 (08:10→21:35)
[2019-11-17] MEDS: ACETYLCYSTEINE 20% 200MG/ML 4 ML VIAL *FOR ORAL / INH USE ONLY NEB SCH ×2 (08:10→21:35)
[2019-11-17] MEDS ORDERED: VALSARTAN 80 MG TABLET (UD) ONE ×2 (09:54→21:27)
[2019-11-17] MEDS ORDERED: VALSARTAN 40 MG TABLET (FP) ONE ×2 (09:54→21:27)
[2019-11-17] MEDS: LACTOBACILLUS ACIDOPHILUS 1 TABLET PO SCH (10:02)
[2019-11-17] MEDS: predniSONE 10 MG TABLET (UD) PO SCH (10:02)
[2019-11-17] MEDS: VALSARTAN PO SCH ×2 (10:02→21:34)
[2019-11-17] MEDS: DULoxetine HCL 20 MG CAPSULE.DR PO SCH (10:03)
[2019-11-17] MEDS: guaiFENesin 600 MG TABLET.ER (FP) PO SCH ×2 (10:03→21:34)
[2019-11-17] MEDS: PANTOPRAZOLE 20 MG TABLET PO SCH (10:03)
[2019-11-17] MEDS: POLYETHYLENE GLYCOL 3350 119 GM BTL PO SCH (10:04)
--- NOTE | 2019-11-17 10:35 | PN ---
Teaching Attending Note Name of Resident: Al Montoya ATTENDING PHYSICIAN STATEMENT I saw and evaluated the patient. I reviewed the resident's note and discussed the case with the resident. I agree with the resident's findings and plan as documented. SUBJECTIVE: c/o having right side molar pain, no fever or chills, no shortness of breath. Vital Signs Temperature 98.1 F 11/17/19 10:01 Pulse Rate 93 H 11/17/19 10:01 Respiratory Rate 18 11/17/19 10:01 Blood Pressure 128/58 L 11/17/19 10:01 O2 Sat by Pulse Oximetry (%) 98 11/16/19 09:00 GENERAL: The patient is awake, alert, and fully oriented, in no acute distress. HEAD: Normal with no signs of trauma. EYES: PERRL, extraocular movements intact, sclera anicteric, conjunctiva clear. ENT: Ears normal, oropharynx clear without exudates, moist mucous membranes. NECK: Trachea midline, full range of motion, supple. LUNGS: decreased BS bl , minimal wheeze now, no crackles, no accessory muscle use. HEART: Regular rate and rhythm, S1, S2 without murmur, rub or gallop. ABDOMEN: Soft, nontender, nondistended, normoactive bowel sounds, no guarding, no rebound, no hepatosplenomegaly, no masses. EXTREMITIES: 2+ pulses, warm, well-perfused, no edema. NEUROLOGICAL: Cranial nerves II through XII grossly intact. Normal speech, gait is stable. PSYCH: Normal mood, normal affect. SKIN: Warm, dry, normal turgor, no rashes or lesions noted CBCD WBC 29.5 K/mm3 (4.0-10.0) H 11/16/19 12:38 RBC 3.85 M/mm3 (3.60-5.2) 11/16/19 12:38 Hgb 11.2 GM/dL (10.7-15.3) 11/16/19 12:38 Hct 35.0 % (32.4-45.2) D 11/16/19 12:38 MCV 90.8 fl (80-96) 11/16/19 12:38 MCHC 31.9 g/dl (32.0-36.0) L 11/16/19 12:38 RDW 18.4 % (11.6-15.6) H 11/16/19 12:38 Plt Count 201 K/MM3 (134-434) 11/16/19 12:38 MPV 10.9 fl (7.5-11.1) 11/16/19 12:38 CMP Sodium 137 mmol/L (136-145) 11/16/19 12:38 Potassium 4.6 mmol/L (3.5-5.1) 11/16/19 12:38 Chloride 103 mmol/L (98-107) 11/16/19 12:38 Carbon Dioxide 26 mmol/L (21-32) 11/16/19 12:38 Anion Gap 8 MMOL/L (8-16) 11/16/19 12:38 BUN 18.8 mg/dL (7-18) H 11/16/19 12:38 Creatinine 0.9 mg/dL (0.55-1.3) 11/16/19 12:38 Random Glucose 181 mg/dL (74-106) H 11/16/19 12:38 Calcium 9.8 mg/dL (8.5-10.1) 11/16/19 12:38 Total Bilirubin 0.3 mg/dL (0.2-1) 11/02/19 06:00 AST 17 U/L (15-37) 11/02/19 06:00 ALT 19 U/L (13-61) 11/02/19 06:00 Alkaline Phosphatase 68 U/L (45-117) 11/02/19 06:00 Total Protein 6.8 g/dl (6.4-8.2) 11/02/19 06:00 Albumin 3.5 g/dl (3.4-5.0) 11/02/19 06:00 CARDIAC ENZYMES Creatine Kinase 98 U/L (26-192) 11/01/19 15:05 Troponin I < 0.02 ng/ml (0.00-0.05) 11/01/19 23:20 Current Medications Generic Name Dose Route Start Last Admin Trade Name Freq PRN Reason Stop Dose Admin Acetylcysteine 200 mg 11/16/19 10:00 11/16/19 21:21 Mucomyst 20 Oral / Inh Use Only* NEB 200 mg RBID SUKHDEV Administration Aspirin 81 mg 11/10/19 12:01 11/10/19 12:51 Ecotrin - PO 81 mg DAILY PRN Administration PAIN Diphenhydramine HCl 50 mg 11/02/19 21:14 11/16/19 21:18 Benadryl - PO 50 mg Q12H PRN Administration FOR ITCHING Docusate Sodium 200 mg 11/13/19 22:00 11/16/19 21:16 Colace - PO 200 mg HS SUKHDEV Administration Duloxetine HCl 20 mg 11/06/19 10:00 11/17/19 10:03 Cymbalta - PO 20 mg DAILY SUKHDEV Administration Gabapentin 100 mg 11/03/19 14:00 11/17/19 07:39 Neurontin - PO 100 mg TID SUKHDEV Administration Guaifenesin 600 mg 11/03/19 22:00 11/17/19 10:03 Mucinex - PO 600 mg BID SUKHDEV Administration Heparin Sodium (Porcine) 1,000 unit 11/13/19 01:31 11/13/19 11:43 Heparin - IVPUSH 1,000 unit PRN PRN Administration Heparin Heparin Sodium (Porcine) 5,000 unit 11/13/19 01:31 Heparin - IVPUSH PRN PRN Heparin Heparin Sodium (Porcine) 25, 500 mls @ 16 mls/hr 11/13/19 01:45 11/17/19 01: 47 000 unit/ Sodium Chloride IV 850 unit/hr TITR SUKHDEV 17 mls/hr Administration Protocol 800 UNIT/HR Insulin Aspart 1 vial 11/02/19 16:30 11/17/19 07:39 Novolog Vial Sliding Scale - SQ Not Given ACHS [facility] Protocol Lactobacillus Acidophilus 2 tab 11/13/19 10:00 11/17/19 10:02 Bacid - PO 2 tab DAILY SUKHDEV Administration Levalbuterol HCl 0.63 mg 11/16/19 10:00 11/17/19 09:58 Xopenex IH Not Given RBID SUKHDEV Melatonin 10 mg 11/15/19 22:00 11/16/19 21:18 Melatonin PO 10 mg HS PRN Administration INSOMNIA Mometasone Furoate 1 puff 11/03/19 22:00 11/16/19 21:16 Asmanex 220mcg - IH Not Given HS SUKHDEV Montelukast Sodium 10 mg 11/03/19 22:00 11/16/19 21:16 Singulair - PO 10 mg HS SUKHDEV Administration Nicotine Polacrilex 2 mg 11/08/19 18:50 11/15/19 15:53 Nicorette Gum - BUC 2 mg Q8H PRN Administration NICOTINE REPLACEMENT RX Pantoprazole Sodium 20 mg 11/13/19 10:00 11/17/19 10:03 Protonix - PO 20 mg DAILY SUKHDEV Administration Polyethylene Glycol 17 gm 11/13/19 16:15 11/17/19 10:04 Miralax (For Daily Use) - PO Not Given DAILY SUKHDEV Prednisone 10 mg 11/13/19 10:00 11/17/19 10:02 Deltasone - PO 10 mg DAILY SUKHDEV Administration Sodium Chloride 2 spray 11/10/19 05:10 [place] Nasal [place] - NS TID PRN HEADACHE Valsartan 80 mg/ Valsartan 40 120 mg 11/09/19 22:30 11/17/19 10:02 mg PO 120 mg BID SUKHDEV Administration Warfarin Sodium 10 mg 11/12/19 18:00 11/16/19 18:39 Coumadin - PO 10 mg DAILY@1800 SUKHDEV Administration Zolpidem Tartrate 10 mg 11/11/19 22:00 11/16/19 21:18 Ambien - PO 10 mg HS PRN Administration INSOMNIA Home Medications Medication Instructions Recorded Montelukast Na [Singulair -] 10 mg PO HS #30 tablet 12/22/16 Albuterol 2.5/Ipratropium 0.5 1 amp NEB Q6H PRN amp 08/10/18 [Duoneb -] Epinephrine [Epipen 2-Jan] 0.3 mg IJ ASDIR #1 kit 07/14/19 Ergocalciferol [Vitamin D2] 50,000 unit PO Q7D@1000 11/01/19 Gabapentin [Neurontin] 100 mg PO Q8H 11/01/19 Valsartan [Diovan] 160 mg PO DAILY 11/01/19 Warfarin Sodium 6 mg PO DAILY 11/01/19 Zolpidem Tartrate [Ambien] 10 mg PO HS 11/01/19 Fluticasone Propionate [Flovent 220 mcg IH BID 11/04/19 Hfa] ASSESSMENT AND PLAN: Patient is a 48yof with PMHx of COPD, hypertension, hyperlipidemia, diabetes, questionable [place]'s syndrome , 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 # ENDOSCOPY REPORT: SMALL ULCERs-----> NO NSAIDs, NO NAPROSYN, NO MOTRIN, NO ALLEVE, No ADVIL, NO NSAIDS PERIOD. plus patient is on coumadin and aspirin will increase the chance of bleeding. # Leukocytosis due to steroid, will get CRP level, will monitor, will get ID to evaluate leukocytosis, crp level, as per ID recomendations will get maxillary CT ; facial to evaluate possible tooth infections, doubt though. Ct of the orbit and facial evaluation # H/o PE and DVT. will stop heparin gtt, INR 2.04 today , will coumadin with 10mg for now ; PT/INR daily. # ABD pain. improved ,s/p EGD : ulcers in stomach, continue protonix x 6 weeks , pathology report reviewed, neg. h.Pylori # GARCÍA improved. # Peripheral Neuropathy: out pt EMG and neuropathy w/u. # Acute COPD exacerbation : On steroid # H/o IVC filter. # HTN : cont increased dose of valsartan 120 BID # Anxiety. # leukocytosis is due to steroids , will continue to monitor # c/p having broken tooth: f/u as out pt with her dentist . No abx are indicated DVT Px: coumadin, stopeed heparin waiting for PT/INR therapeutic level before dc since patient is allergic to Noacs
[2019-11-17 12:13] LABS: BASO % 0.2 % (0-2.0); EOS % 0.7 % (0-4.5); HEMATOCRIT 34.5 % (32.4-45.2); HEMOGLOBIN 11.2 GM/dL (10.7-15.3); LYMPH % 13.2 % (8-40); MCH 28.8 pg (25.7-33.7); MCHC 32.4 g/dl (32.0-36.0); MEAN CELL VOLUME 88.9 fl (80-96); MEAN PLT VOLUME 10.3 fl (7.5-11.1); MONO % 4.1 % (3.8-10.2); NEUT % 81.8 % (42.8-82.8); PLATELET COUNT 209 K/MM3 (134-434); RBC 3.88 M/mm3 (3.60-5.2); RDW 18.3 % (11.6-15.6); WHITE BLOOD COUNT 24.8 K/mm3 (4.0-10.0)
[2019-11-17 12:37] LABS: ALBUMIN 3.6 g/dl (3.4-5.0); ALK PHOS 64 U/L (45-117); ANION GAP 6 MMOL/L (8-16); BILIRUBIN,TOTAL 0.1 mg/dL (0.2-1); BLOOD UREA NITROGEN 22.5 mg/dL (7-18); CALCIUM 8.9 mg/dL (8.5-10.1); CHLORIDE 101 mmol/L (98-107); CO2 26 mmol/L (21-32); CREATININE 1.1 mg/dL (0.55-1.3); GLUCOSE,RANDOM 237 mg/dL (74-106); MAGNESIUM 1.8 mg/dL (1.8-2.4); PHOSPHOROUS 4.7 mg/dL (2.5-4.9); POTASSIUM 4.4 mmol/L (3.5-5.1); SGOT/AST 36 U/L (15-37); SGPT/ALT 54 U/L (13-61); SODIUM 133 mmol/L (136-145); TOT PROT 6.5 g/dl (6.4-8.2)
[2019-11-17 13:06] LABS: INR 2.04 (0.83-1.09); PROTHROMBIN TIME (PATIENT) 24.3 SEC (9.7-13.0)
[2019-11-17] MEDS ORDERED: NAPROXEN 250 MG TABLET PO PRN (13:32)
--- NOTE | 2019-11-17 14:09 | CON.ID ---
Consult - History of Present Illness History of Present Illness: Asked to evaluate this 48 y.o. female with PMH of DM, HTN, HLD, COPD, nicotine dependence/active smoker, RLE DVT/PEs s/p IVC in 2016 on Coumadin admitted on 11/01/18 with c/o epigastric/nonspecific chest pain for leukocytosis. On admission, there were no specific abnormalities in her vitals/labs/imaging studies indicating a specific etiology of her symptoms. She was started initially on Lovenox for possible PE (INR level was subtherapeutic) and EGD showed gastritis after a normal UGI series. While Pt's wbc was normal on admission, it became elevated after steroids were started for possible asthma/copd exacerbation and is now 24.8K . Currently, she is alert and talkative and without any distress. Pt states she has Rt sided tooth pain at the site of a cavity and food often gets stuck there. In addition, she states "my bladder hurts" but denies dysuria or change in urinary frequency. She still c/o nonspecific abdominal pain but has been noted to be noncompliant with dietary restrictions and often buying her own food from vending machines and the cafeteria and still smokes despite education. She is not short of breath or coughing but reports brownish phlegm occasionally. Pt has been afebrile during this hospitalization. - History Source History Provided By: Patient, Medical Record - Past Medical History Cardio/Vascular: Yes: Deep Vein Thrombosis Pulmonary: Yes: Asthma, Bronchitis, Pulmonary Embolus. No: Cancer, COPD, O2 Dependent, Pneumonia, Previously Intubated, Pulmonary Fibrosis, Sleep Apnea ...: No Infectious Disease: Yes: Other (Has had abscesses of abdomen (surgical drainage ) and legs. MRSA in 2013.) Endocrine: Yes: Diabetes Mellitus (h/o Gestational DM) Dermatology: Yes: Eczema, Psoriasis, Other (Impetigo) - Past Surgical History Additional Surgical History: IVC filter 2010 - Alcohol/Substance Use Hx Alcohol Use: No - Smoking History Smoking history: Current every day smoker Have you smoked in the past 12 months: Yes Aproximately how many cigarettes per day: 10 - Social History Usual Living Arrangement: Alone History of Recent Travel: No Home Medications - Allergies Allergies/Adverse Reactions: Allergies Allergy/AdvReac Type Severity Reaction Status Date / Time Penicillins Allergy Severe Rash Verified 11/01/19 14:18 acetaminophen [From Percocet] Allergy Verified 11/01/19 14:18 hydrocodone bitartrate Allergy Verified 11/01/19 14:18 [From Vicodin] iodine Allergy Verified 11/01/19 14:18 morphine Allergy Verified 11/01/19 14:18 oxycodone HCl [From Percocet] Allergy Verified 11/01/19 14:18 peanut Allergy Verified 11/01/19 14:18 rivaroxaban [From Xarelto] Allergy Verified 11/01/19 14:18 dairy Allergy Severe Swelling Uncoded 11/01/19 14:18 eggs/egg-containing foods Allergy Severe Swelling Uncoded 11/01/19 14:18 FRESH BANANAS Allergy Severe ANAPHYLAXIS Uncoded 11/01/19 14:18 . tree nuts Allergy Severe Itching Uncoded 11/01/19 14:18 ammonium lactate cream Allergy Uncoded 11/01/19 14:18 cheese Allergy Uncoded 11/01/19 14:18 fresh apples Allergy Uncoded 11/01/19 14:18 fresh peaches Allergy Uncoded 11/01/19 14:18 fresh plums Allergy Uncoded 11/01/19 14:18 NARCOTICS Allergy Uncoded 11/01/19 14:18 - Home Medications Home Medications: Ambulatory Orders Montelukast Na [Singulair -] 10 mg PO HS #30 tablet 12/22/16 Albuterol 2.5/Ipratropium 0.5 [Duoneb -] 1 amp NEB Q6H PRN amp 08/10/18 Epinephrine [Epipen 2-Jan] 0.3 mg IJ ASDIR #1 kit 07/14/19 Ergocalciferol [Vitamin D2] 50,000 unit PO Q7D@1000 11/01/19 Gabapentin [Neurontin] 100 mg PO Q8H 11/01/19 Valsartan [Diovan] 160 mg PO DAILY 11/01/19 Warfarin Sodium 6 mg PO DAILY 11/01/19 Zolpidem Tartrate [Ambien] 10 mg PO HS 11/01/19 Fluticasone Propionate [Flovent Hfa] 220 mcg IH BID 11/04/19 Review of Systems - Review of Systems Constitutional: reports: No Symptoms. denies: Chills, Diaphoresis, Fever, Lethargy, Loss of Appetite, Malaise, Night Sweats, Unintentional Wgt. Loss, Weakness, Other Eyes: reports: No Symptoms. denies: Blind Spots, Blurred Vision, Double Vision , Eye Pain, Floaters, Photophobia, Recent Change in Vision, Other HENT: reports: Toothache Neck: reports: No Symptoms. denies: Decreased ROM, Lumps, Pain on Movement, Stiffness, Swollen Glands, Tenderness, Other Cardiovascular: reports: No Symptoms. denies: Chest Pain, Edema, Palpitations, Shortness of Breath, Other Respiratory: reports: No Symptoms. denies: Cough, Exercise Intolerance, Hemoptysis, Orthopnea, PND, Snoring, SOB, SOB on Exertion, Wheezing, Other Gastrointestinal: reports: Abdominal Pain Genitourinary: reports: No Symptoms Breasts: reports: No Symptoms Reported Musculoskeletal: reports: No Symptoms Integumentary: reports: Other ("dry skin") Neurological: reports: Headache (occasional) Endocrine: reports: No Symptoms. denies: Excessive Sweating, Flushing, Increased Hunger, Increased Thirst, Intolerance to Cold, Intolerance to Heat, Unexplained Weight Gain, Unexplained Weight Loss, Other Hematology/Lymphatic: reports: No Symptoms. denies: Easily Bruised, Excessive Bleeding, Swollen Glands, Other Psychiatric: reports: Anxiety Physical Exam Vital Signs: Vital Signs Temperature 98.1 F 11/17/19 10:01 Pulse Rate 93 H 11/17/19 10:01 Respiratory Rate 18 11/17/19 10:01 Blood Pressure 128/58 L 11/17/19 10:01 O2 Sat by Pulse Oximetry (%) 98 11/16/19 09:00 Constitutional: Yes: No Distress, Calm Eyes: Yes: Conjunctiva Clear, EOM Intact HENT: Yes: Atraumatic, Other (+dental caries, +Rt lower jaw pain with palpation but no warmth/edema/erythema) Neck: Yes: Supple, Trachea Midline Cardiovascular: Yes: Tachycardia Respiratory: Yes: Wheezes Gastrointestinal: Yes: Normal Bowel Sounds, Soft, Tenderness (generalized) Renal/: Yes: WNL Breast(s): Yes: WNL Musculoskeletal: Yes: WNL Extremities: Yes: WNL Edema: No Peripheral Pulses WNL: Yes Integumentary: Yes: WNL Neurological: Yes: Alert, Oriented Psychiatric: Yes: Alert Labs: CBC, BMP 11/17/19 11:18 11/17/19 11:18 Microbiology 11/14/19 10:14 Sputum - Expectorated Gram Stain - Final 11/14/19 10:14 Sputum - Expectorated Sputum Culture - Final NORMAL RESP[facility]ATORY [facility] Imaging - Results Chest X-ray: Report Reviewed Cat Scan: Report Reviewed Problem List - Problems (1) Abdominal pain Code(s): R10.9 - UNSPECIFIED ABDOMINAL PAIN Qualifiers: Abdominal location: upper abdomen, unspecified Qualified Code(s): R10.10 - Upper abdominal pain, unspecified (2) Chest pain Code(s): R07.9 - CHEST PAIN, UNSPECIFIED Qualifiers: Chest pain type: unspecified Qualified Code(s): R07.9 - Chest pain, unspecified (3) COPD (chronic obstructive pulmonary disease) with acute bronchitis Code(s): J44.0 - CHR OBSTRUCTIVE PULMON DISEASE WITH (ACUTE) LOWER RESP INFCT (4) DVT (deep venous thrombosis) Code(s): I82.409 - ACUTE EMBOLISM AND THOMBOS UNSP DEEP VN UNSP LOWER EXTREMITY (5) History of MRSA infection Code(s): Z86.14 - PERSONAL HISTORY OF METHICILLIN RESIS STAPH INFECTION Assessment/Plan 48 y.o. female with PMH of DM, HTN, HLD, COPD, nicotine dependence/active smoker , RLE DVT/PEs s/p IVC in 2016 on Coumadin admitted on 11/01/18 with c/o epigastric /nonspecific chest pain with leukocytosis Leukocytosis Abdominal pain COPD Exacerbation Hx of DVT/PE s/p IVC DM HTN HLD Nicotine dependence -- Chart reviewed, labs/imaging results noted -- Elevated wbc does not appear to be due to an infectious source and is most likely steroid-induced but can not entirely r/o an odontogenic infection with c/ o tooth pain. Suggest CT to r/o abscess. -- Check U/A -- Will hold off on starting antibiotics for now -- continue monitor wbc trend, vitals Will follow
--- NOTE | 2019-11-17 16:23 | PN ---
Physical Exam: SUBJECTIVE: Patient seen and examined MAURICE Denies going outside to smoke. Endorses Right lower jaw, tooth(molar) soreness. Claims that food is blocking drainage of blood and pus. Endorsing Left breast soreness. Says her menstrual cycle is near OBJECTIVE: Vital Signs Period Temp Pulse Resp BP Sys/Oneil Pulse Ox Last 24 Hr 97.6 F-98.6 F 70-121 18-18 103-139/58-75 GENERAL: The patient is awake, alert, and fully oriented, in no acute distress. HEAD: NC/AT. No temporal wasting EYES: PERRL, extraocular movements intact, sclera anicteric and w/o pallor, conjunctiva clear. No ptosis. ENT: Ears normal, nares patent, oropharynx clear without exudates, moist mucous membranes. Right lower, 2nd molar cracked in half, no drainage noted; no surrounding gingiva w/o erythema NECK: Trachea midline, full range of motion, supple. Neg cervical LAD. LUNGS: B/l inspir and expir wheezes, no accessory muscle use. HEART: Regular rate and rhythm, S1, S2 without murmur, rub or gallop. ABDOMEN: abdominal striae, soft, nontender, nondistended, hyperactive bowel sounds, no guarding, no rebound PELVIS: speculum exam w/ thick white discharge and small chunks, cervix w/o erythema. No foul odor EXTREMITIES: 2+ pulses, warm, well-perfused, no edema, thin lower extremities NEUROLOGICAL: Normal speech, gait not observed. Sensation intact of extremities. Normal gait PSYCH: Normal mood, normal affect. Anxious appearing SKIN: Warm, dry, normal turgor, no rashes or lesions noted Laboratory Results - last 24 hr 11/16/19 11/16/19 11/17/19 18:42 21:01 07:37 WBC RBC Hgb Hct MCV MCH MCHC RDW Plt Count MPV Absolute Neuts (auto) Neutrophils % Lymphocytes % Monocytes % Eosinophils % Basophils % Nucleated RBC % PT with INR INR PTT (Actin FS) Sodium Potassium Chloride Carbon Dioxide Anion Gap BUN Creatinine Est GFR (CKD-EPI)AfAm Est GFR (CKD-EPI)NonAf POC Glucometer 272 163 146 Random Glucose Calcium Phosphorus Magnesium Total Bilirubin AST ALT Alkaline Phosphatase C-Reactive Protein Total Protein Albumin Stool Occult Blood 11/17/19 11/17/19 11/17/19 11:18 11:18 11:18 WBC 24.8 H RBC 3.88 Hgb 11.2 Hct 34.5 MCV 88.9 MCH 28.8 MCHC 32.4 RDW 18.3 H Plt Count 209 MPV 10.3 Absolute Neuts (auto) 20.2 H Neutrophils % 81.8 Lymphocytes % 13.2 D Monocytes % 4.1 Eosinophils % 0.7 Basophils % 0.2 Nucleated RBC % 0 PT with INR INR PTT (Actin FS) 50.4 H Sodium 133 L Potassium 4.4 Chloride 101 Carbon Dioxide 26 Anion Gap 6 L BUN 22.5 H Creatinine 1.1 Est GFR (CKD-EPI)AfAm 69.73 Est GFR (CKD-EPI)NonAf 60.16 POC Glucometer Random Glucose 237 H Calcium 8.9 Phosphorus 4.7 Magnesium 1.8 Total Bilirubin 0.1 L AST 36 ALT 54 Alkaline Phosphatase 64 C-Reactive Protein < 0.3 Total Protein 6.5 Albumin 3.6 Stool Occult Blood 11/17/19 11/17/19 11/17/19 11:18 12:44 14:29 WBC RBC Hgb Hct MCV MCH MCHC RDW Plt Count MPV Absolute Neuts (auto) Neutrophils % Lymphocytes % Monocytes % Eosinophils % Basophils % Nucleated RBC % PT with INR 24.30 H INR 2.04 H PTT (Actin FS) Sodium Potassium Chloride Carbon Dioxide Anion Gap BUN Creatinine Est GFR (CKD-EPI)AfAm Est GFR (CKD-EPI)NonAf POC Glucometer 338 Random Glucose Calcium Phosphorus Magnesium Total Bilirubin AST ALT Alkaline Phosphatase C-Reactive Protein Total Protein Albumin Stool Occult Blood Negative Active Medications Generic Name Dose Route Start Last Admin Trade Name Freq PRN Reason Stop Dose Admin Acetylcysteine 200 mg 11/16/19 10:00 11/17/19 08:10 Mucomyst 20 Oral / Inh Use Only* NEB Not Given RBID SUKHDEV Aspirin 81 mg 11/10/19 12:01 11/10/19 12:51 Ecotrin - PO 81 mg DAILY PRN Administration PAIN Benzocaine 1 applic 11/17/19 16:06 Anbesol - MM Q6H PRN FOR TOOTHACHE Diphenhydramine HCl 50 mg 11/02/19 21:14 11/16/19 21:18 Benadryl - PO 50 mg Q12H PRN Administration FOR ITCHING Docusate Sodium 200 mg 11/13/19 22:00 11/16/19 21:16 Colace - PO 200 mg HS SUKHDEV Administration Duloxetine HCl 20 mg 11/06/19 10:00 11/17/19 10:03 Cymbalta - PO 20 mg DAILY SUKHDEV Administration Gabapentin 100 mg 11/03/19 14:00 11/17/19 13:49 Neurontin - PO 100 mg TID SUKHDEV Administration Guaifenesin 600 mg 11/03/19 22:00 11/17/19 10:03 Mucinex - PO 600 mg BID SUKHDEV Administration Insulin Aspart 1 vial 11/02/19 16:30 11/17/19 12:45 Novolog Vial Sliding Scale - SQ 8 units ACHS SUKHDEV Administration Protocol Lactobacillus Acidophilus 2 tab 11/13/19 10:00 11/17/19 10:02 Bacid - PO 2 tab DAILY SUKHDEV Administration Levalbuterol HCl 0.63 mg 11/16/19 10:00 11/17/19 09:58 Xopenex IH Not Given RBID SUKHDEV Melatonin 10 mg 11/15/19 22:00 11/16/19 21:18 Melatonin PO 10 mg HS PRN Administration INSOMNIA Mometasone Furoate 1 puff 11/03/19 22:00 11/16/19 21:16 Asmanex 220mcg - IH Not Given HS SUKHDEV Montelukast Sodium 10 mg 11/03/19 22:00 11/16/19 21:16 Singulair - PO 10 mg HS SUKHDEV Administration Nicotine Polacrilex 2 mg 11/08/19 18:50 11/15/19 15:53 Nicorette Gum - BUC 2 mg Q8H PRN Administration NICOTINE REPLACEMENT RX Pantoprazole Sodium 20 mg 11/13/19 10:00 11/17/19 10:03 Protonix - PO 20 mg DAILY SUKHDEV Administration Polyethylene Glycol 17 gm 11/13/19 16:15 11/17/19 10:04 Miralax (For Daily Use) - PO Not Given DAILY SUKHDEV Prednisone 10 mg 11/13/19 10:00 11/17/19 10:02 Deltasone - PO 10 mg DAILY SUKHDEV Administration Sodium Chloride 2 spray 11/10/19 05:10 [employer] [facility] [place] TID PRN HEADACHE Valsartan 80 mg/ Valsartan 40 120 mg 11/09/19 22:30 11/17/19 10:02 mg PO 120 mg BID SUKHDEV Administration Warfarin Sodium 5 mg 11/17/19 11:14 Coumadin - PO DAILY@1800 [facility] Zolpidem Tartrate 10 mg 11/11/19 22:00 11/16/19 21:18 Ambien - PO 10 mg HS PRN Administration INSOMNIA ASSESSMENT/PLAN: 48F w/ pmh of COPD, RLE DVT, ?PE, IVC Filter(04/25/11, home coumadin), HTN, dyslipidemia presenting with acute on cramping, epigastric abdominal pain radiating up the lower chest x12d. Pt expressed concern that abdominal pain 2/[address] A/P showing moderate gastric dilation w/ intraluminal food, possibly d/t recent food ingestion. GI(Luis F) consult recommend possible EGD. No CTA done d/t concern of possible IV contrast allergy. Pulmonary(Mateusz) did not recommend CTA. Venous duplex neg for DVT. Vascular(Singh) consulted to evaluate IVC filter patency and possibly source of abdominal pain. GI recommended simethicone trial and EGD on 11/06/19. Complaint of difficulty w/ gait prompted Neuro consult. Tang recommended PT, consideration of Ortho consult, outpatient EMG and neuropathy sharpe. Psych started Cymbalta 20mg QD for anxiety + depression. GI(Viktor) cancelled EGD on 11/06/19 dt concern of persisent bronchospasm. Neuro re-consulted for complaint of GARCÍA. Pt demanded sharpe for brain aneurysm. Brain MRI pending. GI(Giuseppe) rec upper GI to evaluate for pyloric issues. Complaint of vaginal burning pain and white discharge prompted fluconazole and clotrimazole. Upper GI series(11/11/19) neg for gastric/duodenal ulcer, neg gastric outlet obstruction, neg hiatal hernia, neg GERD. Patient has been noncompliant with medications, not taking simethicone from 11/08/19 to , pantoprazole 11/09/19 to 11/11/19. Had EGD on 11/12/19. Pathology neg for H pylori, neg for celiac. Sputum cx ordered by Pulm, which was negative. INR in therapeutic range(INR 2 -3). Elevated WBC prompted ID consult. ID(Helen) attributed WBC to steroids but recommended CT of tooth to r/o abscess. Discharge home pending CT tooth. #Chest pain/Epigastric pain with nausea possibly 2/2 gastritis r/o PE --Low clinical suspicion for PE > CTA chest --not done dt contrast dye ?allergy > CT A/P: moderate gastric dilation w/ intraluminal food, possibly d/t recent food ingestion -empiric AC: --Lovenox (1mg/Kg) --> heparin gtt + warfarin 10mg --possible warafarin but awaiting possible upper EGD(?11/12/19) -Protonix 40mg BID PO -GI(Luis F/Evi) consult: --possibly diabetic gastroparesis --possible EGD --cancelled dt bronchospasm --simethicone trial -GI(Lantin/DiG): --upperGI series, if abn then EGD --pt to get upperGI on 11/11/19 ---normal UpperGI -GI(DiG): --sp EGD(DiGiorno) 11/12/19 w/ path neg for H pylori, neg for celiac -pulm(Mateusz) consult: --Xopenex and Mucomyst --Short course of Medrol --> prednisone 10mg --Does not need CTA Chest at this point --PFTs once stable as an outpatient --Singulair QHS > sputum cx --neg -telemetry monitoring #s/p IVC filter(Pam, 04/20/11) --pt thought IVC filter was cause of abd pain -Vascular(Singh), consult: --no vascular intervention --bridge to coumadin --rec Psychiatry, rec upper endoscopy # vaginal candidiasis - s/p fluconazole 200mg PO, once - s/p clotrimazole #leukocytosis--likely 2/2 steroids - cont monitoring #pre-diabetic > HbA1c 5.6 - consider outpt Metformin #chronic tobacco usage - nicotine gum #Chronic Anxiety -Psych(Chepuru) consult: --duloxetine 20mg QD #h/o DVT/PE > INR: 2.04 -on lovenox --> heparin gtt + warfarin(10mg, 12.5mg) #HTN -home Diovan 160mg QD --> 120mg BID #COPD/Asthma -nebs standing and PRN -home Singulair and Flovent -guaifenesin #Hypokalemia -will replete with IV and PO KCL PRN #Prophy -heparin gtt + warfarin 10mg #FEN -no fluids indicated -replete lytes as above -regular diet #dispo -MedSurg Visit type - Emergency Visit Emergency Visit: No - New Patient This patient is new to me today: No - Critical Care Critical Care patient: No ATTENDING PHYSICIAN STATEMENT I saw and evaluated the patient. I reviewed the resident's note and discussed the case with the resident. I agree with the resident's findings and plan as documented. SUBJECTIVE: OBJECTIVE: ASSESSMENT AND PLAN:
[2019-11-17 16:49] LABS: ANISOCYTOSIS 1+; MACROCYTOSIS 1+; PLATELET ESTIMATE NORMAL; TEAR DROP CELLS 1+
[2019-11-17] MEDS: BENZOCAINE 20 % GEL TUBE MM PRN (18:42)
[2019-11-17] MEDS: WARFARIN NA 5 MG TABLET (UD) PO SCH (18:42)
[2019-11-17] MEDS: MONTELUKAST NA 10 MG TABLET PO SCH (21:33)
[2019-11-17] MEDS: ZOLPIDEM TARTRATE 5 MG TABLET PO PRN (21:33)
[2019-11-17] MEDS: MELATONIN 5 MG TABLETS PO PRN (21:33)
[2019-11-17] MEDS: diphenhydrAMINE HCL 25 MG CAPSULE (FP) PO PRN (21:33)
[2019-11-17] MEDS: DOCUSATE SODIUM 100 MG CAPSULE (FP) PO SCH (21:34)
[2019-11-17] MEDS: MOMETASONE FUROATE 220 MCG/IH INHALER IH SCH (21:34)
[2019-11-18] MEDS ORDERED: MAG HYDROX/AL HYDROX/SIMETH 30 ML UNIT-DOSE CUP PO ONE (05:57)
[2019-11-18] MEDS: GABAPENTIN 100 MG CAPSULE PO SCH ×3 (06:07→22:33)
[2019-11-18] MEDS: INSULIN SLIDING SCALE (NOVOLOG) 1 VIAL SQ SCH ×4 (06:09→22:33)
[2019-11-18] MEDS: LEVALBUTEROL HCL 0.63 MG/3 ML VIAL.NEB. IH SCH ×2 (07:30→22:00)
[2019-11-18] MEDS: ACETYLCYSTEINE 20% 200MG/ML 4 ML VIAL *FOR ORAL / INH USE ONLY NEB SCH ×2 (07:30→22:00)
[2019-11-18] MEDS ORDERED: VALSARTAN 40 MG TABLET (FP) ONE ×2 (10:37→21:59)
[2019-11-18] MEDS ORDERED: VALSARTAN 80 MG TABLET (UD) ONE ×2 (10:37→21:58)
[2019-11-18 10:38] LABS: HEMATOCRIT 35.2 % (32.4-45.2); HEMOGLOBIN 11.6 GM/dL (10.7-15.3); MCH 29.1 pg (25.7-33.7); MCHC 32.9 g/dl (32.0-36.0); MEAN CELL VOLUME 88.4 fl (80-96); MEAN PLT VOLUME 10.1 fl (7.5-11.1); PLATELET COUNT 211 K/MM3 (134-434); RBC 3.98 M/mm3 (3.60-5.2); RDW 18.4 % (11.6-15.6); WHITE BLOOD COUNT 23.6 K/mm3 (4.0-10.0)
[2019-11-18] MEDS: BENZOCAINE 20 % GEL TUBE MM PRN (10:41)
[2019-11-18] MEDS: LACTOBACILLUS ACIDOPHILUS 1 TABLET PO SCH (10:42)
[2019-11-18] MEDS: predniSONE 10 MG TABLET (UD) PO SCH (10:42)
[2019-11-18] MEDS: DULoxetine HCL 20 MG CAPSULE.DR PO SCH (10:42)
[2019-11-18] MEDS: VALSARTAN PO SCH ×2 (10:43→22:31)
[2019-11-18] MEDS: guaiFENesin 600 MG TABLET.ER (FP) PO SCH ×3 (10:43→22:31)
[2019-11-18] MEDS: PANTOPRAZOLE 20 MG TABLET PO SCH (10:43)
[2019-11-18] MEDS ORDERED: MAG HYDROX/AL HYDROX/SIMETH -MYLANTA- ORAL SUSPENSION PO ONE (10:46)
[2019-11-18] MEDS: diphenhydrAMINE HCL 25 MG CAPSULE (FP) PO PRN (10:48)
[2019-11-18] MEDS ORDERED: INSULIN (NOVOLOG) ASPART 100 UNITS/ML 10ML VIAL ONE ×2 (10:54→21:02)
[2019-11-18] MEDS ORDERED: PT OWN MED DRAWER 7, Y5N ONE (11:03)
[2019-11-18] MEDS: POLYETHYLENE GLYCOL 3350 119 GM BTL PO SCH (11:34)
--- NOTE | 2019-11-18 14:55 | PN ---
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 Patient has back pain and it radiates to bilateral hip, but does not shoots down to leg. She do have tingling and numbnes in both feet and toes. patient was seen yesterday and today. mri of brain and mra findings were discussed. she had egd done today and she is feeling better after knowing that mri ofbrain is normal. Patient is on iv heparin for dvt and being coumadinize no new complain, her inr is therapeutic and her wbc is high , as per Id watch for now NEUROLOGICAL EXAMINATION Alert oriented x 3, speech is normal, afebrile vss eomi, pupils reactive no face asymmetry moving all ext sensation are diminished in both feet at toes reflex are generalized diminished inr 1.6 yesterday mri fo brain and mra of brain is unremarkable. Assessment/Plan Fall seems to be mechaincal. She has evidence of neuropahty, unlikekly to caues of fall. THere is no evidence of cord compression, cerebellar dysfunction, stroke or cauda equina syndrome. 2.tension headache, neuro exam is noraml and mri of brain and mra is noraml Plan: neuropathy work up and emg outpatient Thanking you so much Eddie Beckwith MD
[2019-11-18 16:05] LABS: INR 2.59 (0.83-1.09); PROTHROMBIN TIME (PATIENT) 30.8 SEC (9.7-13.0)
[2019-11-18] MEDS: WARFARIN NA 5 MG TABLET (UD) PO SCH (17:46)
--- NOTE | 2019-11-18 19:48 | PN ---
Progress Note (short form) - Note Progress Note: Patient is doing better with no acute distress. Vital Signs Temperature 98.1 F 11/18/19 15:00 Pulse Rate 98 H 11/18/19 15:00 Respiratory Rate 20 11/18/19 15:00 Blood Pressure 112/42 L 11/18/19 15:00 O2 Sat by Pulse Oximetry (%) 98 11/16/19 09:00 GENERAL: The patient is awake, alert, and fully oriented, in no acute distress. HEAD: Normal with no signs of trauma. EYES: PERRL, extraocular movements intact, sclera anicteric, conjunctiva clear. ENT: Ears normal, oropharynx clear without exudates, moist mucous membranes. NECK: Trachea midline, full range of motion, supple. LUNGS: decreased BS bl , minimal wheeze now, no crackles, no accessory muscle use. HEART: Regular rate and rhythm, S1, S2 without murmur, rub or gallop. ABDOMEN: Soft, nontender, nondistended, normoactive bowel sounds, no guarding, no rebound, no hepatosplenomegaly, no masses. EXTREMITIES: 2+ pulses, warm, well-perfused, no edema. NEUROLOGICAL: Cranial nerves II through XII grossly intact. Normal speech, gait is stable. PSYCH: Normal mood, normal affect. SKIN: Warm, dry, normal turgor, no rashes or lesions noted CBCD WBC 23.6 K/mm3 (4.0-10.0) H 11/18/19 10:23 RBC 3.98 M/mm3 (3.60-5.2) 11/18/19 10:23 Hgb 11.6 GM/dL (10.7-15.3) 11/18/19 10:23 Hct 35.2 % (32.4-45.2) 11/18/19 10:23 MCV 88.4 fl (80-96) 11/18/19 10:23 MCHC 32.9 g/dl (32.0-36.0) 11/18/19 10:23 RDW 18.4 % (11.6-15.6) H 11/18/19 10:23 Plt Count 211 K/MM3 (134-434) 11/18/19 10:23 MPV 10.1 fl (7.5-11.1) 01/20/20 10:23 CMP Sodium 133 mmol/L (136-145) L 11/17/19 11:18 Potassium 4.4 mmol/L (3.5-5.1) 11/17/19 11:18 Chloride 101 mmol/L (98-107) 11/17/19 11:18 Carbon Dioxide 26 mmol/L (21-32) 11/17/19 11:18 Anion Gap 6 MMOL/L (8-16) L 11/17/19 11:18 BUN 22.5 mg/dL (7-18) H 11/17/19 11:18 Creatinine 1.1 mg/dL (0.55-1.3) 11/17/19 11:18 Random Glucose 237 mg/dL (74-106) H 11/17/19 11:18 Calcium 8.9 mg/dL (8.5-10.1) 11/17/19 11:18 Total Bilirubin 0.1 mg/dL (0.2-1) L 11/17/19 11:18 AST 36 U/L (15-37) 11/17/19 11:18 ALT 54 U/L (13-61) 11/17/19 11:18 Alkaline Phosphatase 64 U/L (45-117) 11/17/19 11:18 Total Protein 6.5 g/dl (6.4-8.2) 11/17/19 11:18 Albumin 3.6 g/dl (3.4-5.0) 11/17/19 11:18 CARDIAC ENZYMES Creatine Kinase 98 U/L (26-192) 11/01/19 15:05 Troponin I < 0.02 ng/ml (0.00-0.05) 11/01/19 23:20 Home Medications Medication Instructions Recorded Montelukast Na [Singulair -] 10 mg PO HS #30 tablet 12/22/16 Albuterol 2.5/Ipratropium 0.5 1 amp NEB Q6H PRN amp 08/10/18 [Duoneb -] Epinephrine [Epipen 2-Jan] 0.3 mg IJ ASDIR #1 kit 07/14/19 Ergocalciferol [Vitamin D2] 50,000 unit PO Q7D@1000 11/01/19 Gabapentin [Neurontin] 100 mg PO Q8H 11/01/19 Valsartan [Diovan] 160 mg PO DAILY 11/01/19 Warfarin Sodium 6 mg PO DAILY 11/01/19 Zolpidem Tartrate [Ambien] 10 mg PO HS 11/01/19 Fluticasone Propionate [Flovent 220 mcg IH BID 11/04/19 Hfa] Current Medications Generic Name Dose Route Start Last Admin Trade Name Freq PRN Reason Stop Dose Admin Acetylcysteine 200 mg 11/16/19 10:00 11/18/19 07:30 Mucomyst 20 Oral / Inh Use Only* NEB Not Given RBID SUKHDEV Aspirin 81 mg 11/10/19 12:01 11/10/19 12:51 Ecotrin - PO 81 mg DAILY PRN Administration PAIN Benzocaine 1 applic 11/17/19 16:06 11/18/19 10:41 Anbesol - MM 1 applic Q6H PRN Administration FOR TOOTHACHE Diphenhydramine HCl 50 mg 11/02/19 21:14 11/18/19 10:48 Benadryl - PO 50 mg Q12H PRN Administration FOR ITCHING Docusate Sodium 200 mg 11/13/19 22:00 11/17/19 21:34 Colace - PO Not Given HS SUKHDEV Duloxetine HCl 20 mg 11/06/19 10:00 11/18/19 10:42 Cymbalta - PO 20 mg DAILY SUKHDEV Administration Gabapentin 100 mg 11/03/19 14:00 11/18/19 14:16 Neurontin - PO 100 mg TID SUKHDEV Administration Guaifenesin 600 mg 11/03/19 22:00 11/18/19 10:55 Mucinex - PO Not Given BID [facility] Insulin Aspart 1 vial 11/02/19 16:30 11/18/19 17:46 Novolog Vial Sliding Scale - SQ 8 units ACHS SUKHDEV Administration Protocol Lactobacillus Acidophilus 2 tab 11/13/19 10:00 11/18/19 10:42 Bacid - PO 2 tab DAILY SUKHDEV Administration Levalbuterol HCl 0.63 mg 11/16/19 10:00 11/18/19 07:30 Xopenex IH Not Given RBID SUKHDEV Melatonin 10 mg 11/15/19 22:00 11/17/19 21:33 Melatonin PO 10 mg HS PRN Administration INSOMNIA Mometasone Furoate 1 puff 11/03/19 22:00 11/17/19 21:34 Asmanex 220mcg - IH Not Given HS SUKHDEV Montelukast Sodium 10 mg 11/03/19 22:00 11/17/19 21:33 Singulair - PO 10 mg HS SUKHDEV Administration Nicotine Polacrilex 2 mg 11/08/19 18:50 11/15/19 15:53 Nicorette Gum - BUC 2 mg Q8H PRN Administration NICOTINE REPLACEMENT RX Pantoprazole Sodium 20 mg 11/13/19 10:00 11/18/19 10:43 Protonix - PO 20 mg DAILY SUKHDEV Administration Polyethylene Glycol 17 gm 11/13/19 16:15 11/18/19 11:34 Miralax (For Daily Use) - PO Not Given DAILY SUKHDEV Prednisone 10 mg 11/13/19 10:00 11/18/19 10:42 Deltasone - PO 10 mg DAILY SUKHDEV Administration Sodium Chloride 2 spray 11/10/19 05:10 [place] Nasal [place] - NS TID PRN HEADACHE Valsartan 80 mg/ Valsartan 40 120 mg 11/09/19 22:30 11/18/19 10:43 mg PO 120 mg BID SUKHDEV Administration Warfarin Sodium 5 mg 11/17/19 11:14 11/18/19 17:46 Coumadin - PO 5 mg DAILY@1800 SUKHDEV Administration Zolpidem Tartrate 10 mg 11/11/19 22:00 11/17/19 21:33 Ambien - PO 10 mg HS PRN Administration INSOMNIA Home Medications Medication Instructions Recorded Montelukast Na [Singulair -] 10 mg PO HS #30 tablet 12/22/16 Albuterol 2.5/Ipratropium 0.5 1 amp NEB Q6H PRN amp 08/10/18 [Duoneb -] Epinephrine [Epipen 2-Jan] 0.3 mg IJ ASDIR #1 kit 07/14/19 Ergocalciferol [Vitamin D2] 50,000 unit PO Q7D@1000 11/01/19 Gabapentin [Neurontin] 100 mg PO Q8H 11/01/19 Valsartan [Diovan] 160 mg PO DAILY 11/01/19 Warfarin Sodium 6 mg PO DAILY 11/01/19 Zolpidem Tartrate [Ambien] 10 mg PO HS 11/01/19 Fluticasone Propionate [Flovent 220 mcg IH BID 11/04/19 Hfa] ASSESSMENT AND PLAN: Patient is a 48yof with PMHx of COPD, hypertension, hyperlipidemia, diabetes, questionable Pricila's syndrome , 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 # ENDOSCOPY REPORT: SMALL ULCERs-----> NO NSAIDs, NO NAPROSYN, NO MOTRIN, NO ALLEVE, No ADVIL, NO NSAIDS PERIOD. plus patient is on coumadin and aspirin will increase the chance of bleeding. continue protonix 20mg x 6 weeks as per GI recommendations. # Leukocytosis due to steroid improving , ID to evaluate leukocytosis, s/p maxillary CT;negative , Ct of the orbit and facial evaluation reviewed # H/o PE and DVT. will stop heparin gtt, INR 2.04 today-->2.59 , will give coumadin 7.5mg ; PT/INR in am . # ABD pain. improved ,s/p EGD : ulcers in stomach, continue protonix x 6 weeks , pathology report reviewed, neg. h.Pylori # GARCÍA improved. # Peripheral Neuropathy: out pt EMG and neuropathy w/u. # Acute COPD exacerbation : On steroid # H/o IVC filter. # HTN : cont increased dose of valsartan 120 BID # Anxiety. # leukocytosis is due to steroids , will continue to monitor # c/p having broken tooth: f/u as out pt with her dentist . No abx are indicated DVT Px: coumadin, stopped heparin , patient is allergic to noacs. Visit type - Emergency Visit Emergency Visit: Yes ED Registration Date: 11/01/19 Care time: The patient presented to the Emergency Department on the above date and was hospitalized for further evaluation of their emergent condition. - New Patient This patient is new to me today: No - Critical Care Critical Care patient: No - Discharge Referral Referred to [facility] Med P.C.: No
[2019-11-18] MEDS ORDERED: WARFARIN NA 5 MG TABLET (UD) PO ONE (20:14)
[2019-11-18] MEDS ORDERED: WARFARIN NA 2.5 MG TABLET (FP) PO ONE (20:16)
[2019-11-18] MEDS: MELATONIN 5 MG TABLETS PO PRN (22:29)
[2019-11-18] MEDS: ZOLPIDEM TARTRATE 5 MG TABLET PO PRN (22:30)
[2019-11-18] MEDS: MONTELUKAST NA 10 MG TABLET PO SCH (22:31)
[2019-11-18] MEDS: MOMETASONE FUROATE 220 MCG/IH INHALER IH SCH (22:32)
[2019-11-18] MEDS: DOCUSATE SODIUM 100 MG CAPSULE (FP) PO SCH (22:32)
[2019-11-19] MEDS: GABAPENTIN 100 MG CAPSULE PO SCH ×3 (07:00→21:19)
[2019-11-19] MEDS: INSULIN SLIDING SCALE (NOVOLOG) 1 VIAL SQ SCH ×4 (07:03→21:16)
[2019-11-19] MEDS: ACETYLCYSTEINE 20% 200MG/ML 4 ML VIAL *FOR ORAL / INH USE ONLY NEB SCH ×2 (07:25→20:31)
[2019-11-19] MEDS ORDERED: VALSARTAN 40 MG TABLET (FP) ONE ×2 (09:49→21:12)
[2019-11-19] MEDS ORDERED: VALSARTAN 80 MG TABLET (UD) ONE ×2 (09:49→21:11)
[2019-11-19] MEDS: VALSARTAN PO SCH ×2 (10:32→21:18)
[2019-11-19] MEDS: DULoxetine HCL 20 MG CAPSULE.DR PO SCH (10:32)
[2019-11-19] MEDS: PANTOPRAZOLE 20 MG TABLET PO SCH (10:32)
[2019-11-19] MEDS: LACTOBACILLUS ACIDOPHILUS 1 TABLET PO SCH (10:32)
[2019-11-19] MEDS: guaiFENesin 600 MG TABLET.ER (FP) PO SCH ×2 (10:33→21:19)
[2019-11-19] MEDS: predniSONE 10 MG TABLET (UD) PO SCH (10:33)
[2019-11-19] MEDS: POLYETHYLENE GLYCOL 3350 119 GM BTL PO SCH (10:33)
[2019-11-19 11:15] LABS: HEMOGLOBIN 11.5 GM/dL (10.7-15.3); MCH 29.5 pg (25.7-33.7); MCHC 32.9 g/dl (32.0-36.0); MEAN CELL VOLUME 89.6 fl (80-96); MEAN PLT VOLUME 10.5 fl (7.5-11.1); PLATELET COUNT 196 K/MM3 (134-434); RDW 18.8 % (11.6-15.6); WHITE BLOOD COUNT 20.4 K/mm3 (4.0-10.0)
[2019-11-19 11:46] LABS: INR 2.05 (0.83-1.09); PROTHROMBIN TIME (PATIENT) 24.4 SEC (9.7-13.0)
[2019-11-19 11:50] LABS: ALBUMIN 3.5 g/dl (3.4-5.0); BILIRUBIN,TOTAL 0.2 mg/dL (0.2-1); CALCIUM 9.1 mg/dL (8.5-10.1); MAGNESIUM 2.1 mg/dL (1.8-2.4); PHOSPHOROUS 4.8 mg/dL (2.5-4.9); POTASSIUM 4.1 mmol/L (3.5-5.1); TOT PROT 6.6 g/dl (6.4-8.2)
--- NOTE | 2019-11-19 12:17 | PN ---
Progress Note, Physician History of Present Illness: patient did not want see doctor - Current Medication List Current Medications: Active Medications Acetylcysteine (Mucomyst 20 Oral / Inh Use Only*) 200 mg NEB RBID [facility] Last Admin: 11/19/19 07:25 Dose: Not Given Aspirin (Ecotrin -) 81 mg PO DAILY PRN PRN Reason: PAIN Last Admin: 11/10/19 12:51 Dose: 81 mg Benzocaine (Anbesol -) 1 applic MM Q6H PRN PRN Reason: FOR TOOTHACHE Last Admin: 11/18/19 10:41 Dose: 1 applic Diphenhydramine HCl (Benadryl -) 50 mg PO Q12H PRN PRN Reason: FOR ITCHING Last Admin: 11/18/19 10:48 Dose: 50 mg Docusate Sodium (Colace -) 200 mg PO HS [facility] Last Admin: 11/18/19 22:32 Dose: Not Given Duloxetine HCl (Cymbalta -) 20 mg PO DAILY [facility] Last Admin: 11/19/19 10:32 Dose: 20 mg Gabapentin (Neurontin -) 100 mg PO TID [facility] Last Admin: 11/19/19 07:00 Dose: 100 mg Guaifenesin (Mucinex -) 600 mg PO BID [facility] Last Admin: 11/19/19 10:33 Dose: Not Given Insulin Aspart (Novolog Vial Sliding Scale -) 1 vial SQ ACHS [facility]; Protocol Last Admin: 11/19/19 07:03 Dose: Not Given Lactobacillus Acidophilus (Bacid -) 2 tab PO DAILY [facility] Last Admin: 11/19/19 10:32 Dose: 2 tab Levalbuterol HCl (Xopenex) 0.63 mg IH RBID [facility] Last Admin: 11/18/19 22:00 Dose: Not Given Melatonin (Melatonin) 10 mg PO HS PRN PRN Reason: INSOMNIA Last Admin: 11/18/19 22:29 Dose: 10 mg Mometasone Furoate (Asmanex 220mcg -) 1 puff IH HS [facility] Last Admin: 11/18/19 22:32 Dose: Not Given Montelukast Sodium (Singulair -) 10 mg PO HS [facility] Last Admin: 11/18/19 22:31 Dose: 10 mg Nicotine Polacrilex (Nicorette Gum -) 2 mg BUC Q8H PRN PRN Reason: NICOTINE REPLACEMENT RX Last Admin: 11/15/19 15:53 Dose: 2 mg Pantoprazole Sodium (Protonix -) 20 mg PO DAILY [facility] Last Admin: 11/19/19 10:32 Dose: 20 mg Polyethylene Glycol (Miralax (For Daily Use) -) 17 gm PO DAILY [facility] Last Admin: 11/19/19 10:33 Dose: Not Given Prednisone (Deltasone -) 10 mg PO DAILY [facility] Last Admin: 11/19/19 10:33 Dose: 10 mg Sodium Chloride ([place]al [place] -) 2 spray NS TID PRN PRN Reason: HEADACHE Valsartan 80 mg/ Valsartan 40 (mg) 120 mg PO BID [facility] Last Admin: 11/19/19 10:32 Dose: 120 mg Warfarin Sodium (Coumadin -) 5 mg PO DAILY@1800 [facility] Last Admin: 11/18/19 17:46 Dose: 5 mg Zolpidem Tartrate (Ambien -) 10 mg PO HS PRN PRN Reason: INSOMNIA Last Admin: 11/18/19 22:30 Dose: 10 mg - Objective Vital Signs: Vital Signs Temperature 98.7 F 11/19/19 10:30 Pulse Rate 111 H 11/19/19 10:30 Respiratory Rate 18 11/19/19 10:30 Blood Pressure 103/70 11/19/19 10:30 O2 Sat by Pulse Oximetry (%) 98 11/16/19 09:00 Labs: CBC, BMP 11/19/19 10:40 11/19/19 10:40 INR, PTT INR 2.05 (0.83-1.09) H 11/19/19 10:40
--- NOTE | 2019-11-19 14:21 | PN ---
Teaching Attending Note Name of Resident: Al Montoya ATTENDING PHYSICIAN STATEMENT I saw and evaluated the patient. I reviewed the resident's note and discussed the case with the resident. I agree with the resident's findings and plan as documented. SUBJECTIVE: Patient is feeling better with no acute distress. Vital Signs Temperature 98.7 F 11/19/19 10:30 Pulse Rate 111 H 11/19/19 10:30 Respiratory Rate 18 11/19/19 10:30 Blood Pressure 103/70 11/19/19 10:30 O2 Sat by Pulse Oximetry (%) 98 11/16/19 09:00 GENERAL: The patient is awake, alert, and fully oriented, in no acute distress. HEAD: Normal with no signs of trauma. EYES: PERRL, extraocular movements intact, sclera anicteric, conjunctiva clear. ENT: Ears normal, oropharynx clear without exudates, moist mucous membranes. NECK: Trachea midline, full range of motion, supple. LUNGS: decreased BS bl , CTA BL , no crackles, no accessory muscle use. HEART: Regular rate and rhythm, S1, S2 without murmur, rub or gallop. ABDOMEN: Soft, nontender, nondistended, normoactive bowel sounds, no guarding, no rebound, no hepatosplenomegaly, no masses. EXTREMITIES: 2+ pulses, warm, well-perfused, no edema. NEUROLOGICAL: Cranial nerves II through XII grossly intact. Normal speech, gait is stable. PSYCH: Normal mood, normal affect. SKIN: Warm, dry, normal turgor, no rashes or lesions noted CBCD WBC 20.4 K/mm3 (4.0-10.0) H 11/19/19 10:40 RBC 3.90 M/mm3 (3.60-5.2) 11/19/19 10:40 Hgb 11.5 GM/dL (10.7-15.3) 11/19/19 10:40 Hct 35.0 % (32.4-45.2) 11/19/19 10:40 MCV 89.6 fl (80-96) 11/19/19 10:40 MCHC 32.9 g/dl (32.0-36.0) 11/19/19 10:40 RDW 18.8 % (11.6-15.6) H 11/19/19 10:40 Plt Count 196 K/MM3 (134-434) 11/19/19 10:40 MPV 10.5 fl (7.5-11.1) 11/19/19 10:40 CMP Sodium 137 mmol/L (136-145) 11/19/19 10:40 Potassium 4.1 mmol/L (3.5-5.1) 11/19/19 10:40 Chloride 104 mmol/L (98-107) 11/19/19 10:40 Carbon Dioxide 27 mmol/L (21-32) 11/19/19 10:40 Anion Gap 6 MMOL/L (8-16) L 11/19/19 10:40 BUN 23.0 mg/dL (7-18) H 11/19/19 10:40 Creatinine 1.0 mg/dL (0.55-1.3) 11/19/19 10:40 Random Glucose 178 mg/dL (74-106) H 11/19/19 10:40 Calcium 9.1 mg/dL (8.5-10.1) 11/19/19 10:40 Total Bilirubin 0.2 mg/dL (0.2-1) 11/19/19 10:40 AST 33 U/L (15-37) 11/19/19 10:40 ALT 79 U/L (13-61) H 11/19/19 10:40 Alkaline Phosphatase 66 U/L (45-117) 11/19/19 10:40 Total Protein 6.6 g/dl (6.4-8.2) 11/19/19 10:40 Albumin 3.5 g/dl (3.4-5.0) 11/19/19 10:40 CARDIAC ENZYMES Creatine Kinase 98 U/L (26-192) 11/01/19 15:05 Troponin I < 0.02 ng/ml (0.00-0.05) 11/01/19 23:20 Current Medications Generic Name Dose Route Start Last Admin Trade Name Freq PRN Reason Stop Dose Admin Acetylcysteine 200 mg 11/16/19 10:00 11/19/19 07:25 Mucomyst 20 Oral / Inh Use Only* NEB Not Given RBID SUKHDEV Aspirin 81 mg 11/10/19 12:01 11/10/19 12:51 Ecotrin - PO 81 mg DAILY PRN Administration PAIN Benzocaine 1 applic 11/17/19 16:06 11/18/19 10:41 Anbesol - MM 1 applic Q6H PRN Administration FOR TOOTHACHE Diphenhydramine HCl 50 mg 11/02/19 21:14 11/18/19 10:48 Benadryl - PO 50 mg Q12H PRN Administration FOR ITCHING Docusate Sodium 200 mg 11/13/19 22:00 11/18/19 22:32 Colace - PO Not Given HS SUKHDEV Duloxetine HCl 20 mg 11/06/19 10:00 11/19/19 10:32 Cymbalta - PO 20 mg DAILY SUKHDEV Administration Gabapentin 100 mg 11/03/19 14:00 11/19/19 14:04 Neurontin - PO 100 mg TID SUKHDEV Administration Guaifenesin 600 mg 11/03/19 22:00 11/19/19 10:33 Mucinex - PO Not Given BID SUKHDEV Insulin Aspart 1 vial 11/02/19 16:30 11/19/19 14:04 Novolog Vial Sliding Scale - SQ 8 units ACHS SUKHDEV Administration Protocol Lactobacillus Acidophilus 2 tab 11/13/19 10:00 11/19/19 10:32 Bacid - PO 2 tab DAILY SUKHDEV Administration Levalbuterol HCl 0.63 mg 11/16/19 10:00 11/18/19 22:00 Xopenex IH Not Given RBID SUKHDEV Melatonin 10 mg 11/15/19 22:00 11/18/19 22:29 Melatonin PO 10 mg HS PRN Administration INSOMNIA Mometasone Furoate 1 puff 11/03/19 22:00 11/18/19 22:32 Asmanex 220mcg - IH Not Given HS SUKHDEV Montelukast Sodium 10 mg 11/03/19 22:00 11/18/19 22:31 Singulair - PO 10 mg HS SUKHDEV Administration Nicotine Polacrilex 2 mg 11/08/19 18:50 11/15/19 15:53 Nicorette Gum - BUC 2 mg Q8H PRN Administration NICOTINE REPLACEMENT RX Pantoprazole Sodium 20 mg 11/13/19 10:00 11/19/19 10:32 Protonix - PO 20 mg DAILY SUKHDEV Administration Polyethylene Glycol 17 gm 11/13/19 16:15 11/19/19 10:33 Miralax (For Daily Use) - PO Not Given DAILY SUKHDEV Prednisone 10 mg 11/13/19 10:00 11/19/19 10:33 Deltasone - PO 10 mg DAILY SUKHDEV Administration Sodium Chloride 2 spray 11/10/19 05:10 [place] - NS TID PRN HEADACHE Valsartan 80 mg/ Valsartan 40 120 mg 11/09/19 22:30 11/19/19 10:32 mg PO 120 mg BID SUKHDEV Administration Warfarin Sodium 5 mg 11/17/19 11:14 11/18/19 17:46 Coumadin - PO 5 mg DAILY@1800 SUKHDEV Administration Zolpidem Tartrate 10 mg 11/11/19 22:00 11/18/19 22:30 Ambien - PO 10 mg HS PRN Administration INSOMNIA Laboratory Tests 08/08/18 08/10/18 11/15/19 18:04 08:15 10:45 INR 1.69 H 3.22 H 1.65 H 11/16/19 11/17/19 11/18/19 12:38 11:18 10:23 INR 2.09 H 2.04 H 2.59 H 11/19/19 10:40 INR 2.05 H Assessment and plan: Patient is a 48yof with PMHx of COPD, hypertension, hyperlipidemia, diabetes, questionable [place]'s syndrome , 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 # ENDOSCOPY REPORT: SMALL ULCERs-----> NO NSAIDs, NO NAPROSYN, NO MOTRIN, NO ALLEVE, No ADVIL, NO NSAIDS PERIOD. plus patient is on coumadin and aspirin will increase the chance of bleeding. continue protonix 20mg x 6 weeks as per GI recommendations. # Leukocytosis due to steroid improving , ID to evaluate leukocytosis, s/p maxillary CT;negative , Ct of the orbit and facial evaluation reviewed # H/o PE and DVT. will stop heparin gtt, INR 2.04 today-->2.59-->2.04 , will give coumadin 7.5mg on a daily basis ; PT/INR repeat in 2 days at the resident' s clinic. # ABD pain. improved s/p EGD : ulcers in stomach, continue protonix x 6 weeks , pathology report reviewed, neg. h.Pylori # GARCÍA improved. # Peripheral Neuropathy: out pt EMG and neuropathy w/u. # Acute COPD exacerbation : On steroid # H/o IVC filter. # HTN : cont increased dose of valsartan 120 BID # Anxiety. # leukocytosis is due to steroids , will continue to monitor # c/p having broken tooth: f/u as out pt with her dentist . No abx are indicated DVT Px: coumadin, stopped heparin , patient is allergic to noacs. dc patient home today
--- NOTE | 2019-11-19 15:35 | PN ---
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 Patient has back pain and it radiates to bilateral hip, but does not shoots down to leg. She do have tingling and numbnes in both feet and toes. patient was seen yesterday and today. mri of brain and mra findings were discussed. she had egd done today and she is feeling better after knowing that mri ofbrain is normal. inr has been therapeutic and no new focal neurological symptoms, patient is being discharged. NEUROLOGICAL EXAMINATION Alert oriented x 3, speech is normal, afebrile vss eomi, pupils reactive no face asymmetry moving all ext sensation are diminished in both feet at toes reflex are generalized diminished mri fo brain and mra of brain is unremarkable. Assessment/Plan Fall seems to be mechaincal. She has evidence of neuropahty, unlikekly to caues of fall. THere is no evidence of cord compression, cerebellar dysfunction, stroke or cauda equina syndrome. 2.tension headache, neuro exam is noraml and mri of brain and mra is noraml Plan: neuropathy work up and emg outpatient Thanking you so much Eddie Beckwith MD
[2019-11-19] MEDS: WARFARIN NA 5 MG TABLET (UD) PO SCH (18:37)
--- NOTE | 2019-11-19 18:52 | DS ---
Physical Exam: SUBJECTIVE: Patient seen and examined OBJECTIVE: Vital Signs Period Temp Pulse Resp BP Sys/Oneil Pulse Ox Last 24 Hr 98 F-98.7 F 106-140 18-20 103-169/70-90 PHYSICAL EXAM GENERAL: The patient is awake, alert, and fully oriented, in no acute distress. HEAD: NC/AT. No temporal wasting EYES: PERRL, extraocular movements intact, sclera anicteric and w/o pallor, conjunctiva clear. No ptosis. ENT: Ears normal, nares patent, oropharynx clear without exudates, moist mucous membranes. Right lower, 2nd molar cracked in half, no drainage noted; no surrounding gingiva w/o erythema NECK: Trachea midline, full range of motion, supple. Neg cervical LAD. LUNGS: B/l inspir and expir wheezes, no accessory muscle use. HEART: Regular rate and rhythm, S1, S2 without murmur, rub or gallop. ABDOMEN: abdominal striae, soft, nontender, nondistended, hyperactive bowel sounds, no guarding, no rebound EXTREMITIES: 2+ pulses, warm, well-perfused, no edema, thin lower extremities NEUROLOGICAL: Normal speech, gait not observed. Sensation intact of extremities. Normal gait PSYCH: Normal mood, normal affect. Anxious appearing SKIN: Warm, dry, normal turgor, no rashes or lesions noted LABS Laboratory Results - last 24 hr 11/18/19 11/19/19 11/19/19 22:27 06:12 07:10 WBC RBC Hgb Hct MCV MCH MCHC RDW Plt Count MPV PT with INR INR PTT (Actin FS) Sodium Potassium Chloride Carbon Dioxide Anion Gap BUN Creatinine Est GFR (CKD-EPI)AfAm Est GFR (CKD-EPI)NonAf POC Glucometer 204 115 Random Glucose Calcium Phosphorus Magnesium Total Bilirubin AST ALT Alkaline Phosphatase Total Protein Albumin Stool Occult Blood Negative 11/19/19 11/19/19 11/19/19 10:40 10:40 10:40 WBC 20.4 H RBC 3.90 Hgb 11.5 Hct 35.0 MCV 89.6 MCH 29.5 MCHC 32.9 RDW 18.8 H Plt Count 196 MPV 10.5 PT with INR 24.40 H INR 2.05 H PTT (Actin FS) 34.4 Sodium Potassium Chloride Carbon Dioxide Anion Gap BUN Creatinine Est GFR (CKD-EPI)AfAm Est GFR (CKD-EPI)NonAf POC Glucometer Random Glucose Calcium Phosphorus Magnesium Total Bilirubin AST ALT Alkaline Phosphatase Total Protein Albumin Stool Occult Blood 11/19/19 11/19/19 11/19/19 10:40 14:03 18:35 WBC RBC Hgb Hct MCV MCH MCHC RDW Plt Count MPV PT with INR INR PTT (Actin FS) Sodium 137 Potassium 4.1 Chloride 104 Carbon Dioxide 27 Anion Gap 6 L BUN 23.0 H Creatinine 1.0 Est GFR (CKD-EPI)AfAm 78.24 Est GFR (CKD-EPI)NonAf 67.51 POC Glucometer 307 254 Random Glucose 178 H Calcium 9.1 Phosphorus 4.8 Magnesium 2.1 Total Bilirubin 0.2 AST 33 ALT 79 H Alkaline Phosphatase 66 Total Protein 6.6 Albumin 3.5 Stool Occult Blood HOSPITAL COURSE: Date of Admission:11/01/19 Date of Discharge: 11/19/19 48F w/ pmh of COPD, RLE DVT, ?PE, IVC Filter(04/25/11, home coumadin), HTN, dyslipidemia presenting with acute on cramping, epigastric abdominal pain radiating up the lower chest x12d. Pt expressed concern that abdominal pain 2/[address] A/P showing moderate gastric dilation w/ intraluminal food, possibly d/t recent food ingestion. GI(Luis F) consult recommend possible EGD. No CTA done d/t concern of possible IV contrast allergy. Pulmonary(Mateusz) did not recommend CTA. Venous duplex neg for DVT. Vascular(Winters) consulted to evaluate IVC filter patency and possibly source of abdominal pain. GI recommended simethicone trial and EGD on 11/06/19. Complaint of difficulty w/ gait prompted Neuro consult. Tang recommended PT, consideration of Ortho consult, outpatient EMG and neuropathy sharpe. Psych started Cymbalta 20mg QD for anxiety + depression. GI(Viktor) cancelled EGD on 11/06/19 dt concern of persisent bronchospasm. Neuro re-consulted for complaint of GARCÍA. Pt demanded sharpe for brain aneurysm. Brain MRI pending. GI(Giuseppe) rec upper GI to evaluate for pyloric issues. Complaint of vaginal burning pain and white discharge prompted fluconazole and clotrimazole. Upper GI series(11/11/19) neg for gastric/duodenal ulcer, neg gastric outlet obstruction, neg hiatal hernia, neg GERD. Patient has been noncompliant with medications, not taking simethicone from 11/08/19 to , pantoprazole 11/09/19 to 11/11/19. Had EGD on 11/12/19. Pathology neg for H pylori, neg for celiac. Sputum cx ordered by Pulm, which was negative.Elevated WBC prompted ID consult. ID(Helen) attributed WBC to steroids but recommended CT of tooth to r/o abscess. CTH to r/o tooth abscess, negative for pathology. INR in therapeutic range(INR 2 -3). Discharge home. Minutes to complete discharge: 34 Discharge Summary Problems reviewed: Yes Reason For Visit: CHEST PAIN Current Active Problems Abdominal pain (Acute) Chest pain (Acute) Pulmonary embolism (Acute) Wheezing (Acute) Condition: Stable - Instructions Diet, Activity, Other Instructions: You were evaluated in the hospital for severe abdominal pain. An upper endoscopy showed small erosion in the stomach. It was recommended that you avoid motrin,advil,alleve, Naprosyn the group called NSAIDs. You received treatment for a yeast inefction. The MRI was negative for any aneurysms in the brain. CT scan of the head was negative for a tooth abscess. Your INR is in therapeutic range now MEDICATIONS: - Pantoprazole 20mg, daily for 6 weeks please follow up with Gastroenterolgist in 6 weeks - Mometasone 1 puff in the evenings - Prednisone: to be tapered as directed below: --5mg daily, for 3 days(11/20/19 - 11/22/19) --2.5 daily, for 2 days(11/23/19 - 11/24/19) - Duloxetine[CYMBALTA] 20mg, daily - AVOID NSAIDs(eg. ibuprofen, Alleve, Motrin, naproxen) - CHANGE in medications: --Warfarin[COUMADIN] 7.5g daily Additional Instructions: - avoid smoking - check your INR in 2 days, go to your PCP's office, you can do have it checked in the resident's clinic. Physician follow-ups, in 1-2 weeks: - Printing Table Worker(Kaya): to discuss your upper endoscopy results - Pulomonologist(Mateusz): to discuss your chronic asthma - Psychiatrist(Edwina): to disccuss your chronic anxiety - Neurologist(Tang): to discuss your neuropathy work up, possible additional testing Please seek immediate medical evaluation if you experience: - worsening, severe abdominal pain - trouble breathing - chest pain Referrals: Eddie Beckwith MD [Staff Physician] - Natalie Bland MD [Staff Physician] - Humberto Kirkpatrick DO [Staff Physician] - Pablo Child MD [Staff Physician] - Disposition: HOME - Home Medications Comprehensive Discharge Medication List: Ambulatory Orders Albuterol 2.5/Ipratropium 0.5 [Duoneb -] 1 amp NEB Q6H PRN amp 08/10/18 Epinephrine [Epipen 2-Jan] 0.3 mg IJ ASDIR #1 kit 07/14/19 Gabapentin [Neurontin] 100 mg PO Q8H 11/01/19 Valsartan [Diovan] 160 mg PO DAILY 11/01/19 Zolpidem Tartrate [Ambien] 10 mg PO HS 11/01/19 Fluticasone Propionate [Flovent Hfa] 220 mcg IH BID 11/04/19 Docusate Sodium [Colace -] 200 mg PO HS #30 capsule 11/19/19 Duloxetine HCl [Cymbalta -] 20 mg PO DAILY #30 capsule. 11/19/19 Lactobacillus Acidophilus [Bacid -] 2 tab PO DAILY #30 tab 11/19/19 Mometasone Furoate [Asmanex 220Mcg -] 1 puff IH HS #1 inhaler 11/19/19 Pantoprazole Sodium [Protonix -] 20 mg PO DAILY #30 tablet.ec 11/19/19 Warfarin Sodium [Coumadin] 7.5 mg PO DAILY #30 tablet 11/19/19 predniSONE [Deltasone -] See Taper PO DAILY #8 tablet 11/19/19 This patient is new to me today: No Emergency Visit: No Critical Care patient: No - Discharge Referral Referred to [facility] Med [facility] No ATTENDING PHYSICIAN STATEMENT I saw and evaluated the patient. I reviewed the resident's note and discussed the case with the resident. I agree with the resident's findings and plan as documented. SUBJECTIVE: OBJECTIVE: ASSESSMENT AND PLAN:
[2019-11-19] MEDS: LEVALBUTEROL HCL 0.63 MG/3 ML VIAL.NEB. IH SCH (20:30)
[2019-11-19] MEDS ORDERED: INSULIN (NOVOLOG) ASPART 100 UNITS/ML 10ML VIAL ONE (21:15)
[2019-11-19] MEDS: ZOLPIDEM TARTRATE 5 MG TABLET PO PRN (21:17)
[2019-11-19] MEDS: diphenhydrAMINE HCL 25 MG CAPSULE (FP) PO PRN (21:18)
[2019-11-19] MEDS: MONTELUKAST NA 10 MG TABLET PO SCH (21:18)
[2019-11-19] MEDS: DOCUSATE SODIUM 100 MG CAPSULE (FP) PO SCH (21:20)
[2019-11-19] MEDS: MOMETASONE FUROATE 220 MCG/IH INHALER IH SCH (21:20)
[2019-11-20 00:11] VITALS: TEMP 98
[2019-11-20] MEDS: ACETYLCYSTEINE 20% 200MG/ML 4 ML VIAL *FOR ORAL / INH USE ONLY NEB SCH (07:58)
[2019-11-20] MEDS: LEVALBUTEROL HCL 0.63 MG/3 ML VIAL.NEB. IH SCH ×2 (07:58→09:58)
[2019-11-20] MEDS: GABAPENTIN 100 MG CAPSULE PO SCH (08:14)
[2019-11-20] MEDS: INSULIN SLIDING SCALE (NOVOLOG) 1 VIAL SQ SCH (08:14)
[2019-11-20 08:17] VITALS: BP 139/54; PULSE 76
[2019-11-20] MEDS ORDERED: VALSARTAN 80 MG TABLET (UD) ONE (10:00)
[2019-11-20] MEDS ORDERED: VALSARTAN 40 MG TABLET (FP) ONE (10:01)
[2019-11-20] MEDS ORDERED: PT OWN MED DRAWER 7, Y5N ONE (10:02)
[2019-11-20] MEDS: VALSARTAN PO SCH (10:06)
[2019-11-20] MEDS: guaiFENesin 600 MG TABLET.ER (FP) PO SCH (10:07)
[2019-11-20] MEDS: PANTOPRAZOLE 20 MG TABLET PO SCH (10:07)
[2019-11-20] MEDS: predniSONE 10 MG TABLET (UD) PO SCH (10:08)
[2019-11-20] MEDS: DULoxetine HCL 20 MG CAPSULE.DR PO SCH (10:08)
[2019-11-20] MEDS: POLYETHYLENE GLYCOL 3350 119 GM BTL PO SCH (10:08)
[2019-11-20] MEDS: LACTOBACILLUS ACIDOPHILUS 1 TABLET PO SCH (10:08)
[2019-11-20] MEDS: diphenhydrAMINE HCL 25 MG CAPSULE (FP) PO PRN (10:15)
== END 2019-11-20 10:23 | disposition home or self-care (01) | DRG 241 ==
LOC: JER 13:51 → JERBED 19:32 → J4W 21:48 → OBSVTOIN 22:25 → J5S 11-03 09:07
PROVIDERS: ADMIT Internal Medicine; ATTEND Internal Medicine
PROC: 0DB68ZX Excision of Stomach, Via Natural or Artificial Opening Endoscopic, Diagnostic (ICD-10-PCS; 2019-11-12)
PROC: 0DB98ZX Excision of Duodenum, Via Natural or Artificial Opening Endoscopic, Diagnostic (ICD-10-PCS; principal; 2019-11-12 11:15)
DX: K25.9 Gastric ulcer, unspecified as acute or chronic, without hemorrhage or perforation (principal); J44.9 Chronic obstructive pulmonary disease, unspecified; E11.9 Type 2 diabetes mellitus without complications; I10 Essential (primary) hypertension; E78.5 Hyperlipidemia, unspecified; F17.210 Nicotine dependence, cigarettes, uncomplicated; I82.5Z1 Chronic embolism and thrombosis of unspecified deep veins of right distal lower extremity; E87.6 Hypokalemia; L40.9 Psoriasis, unspecified; R06.2 Wheezing; E11.43 Type 2 diabetes mellitus with diabetic autonomic (poly)neuropathy; K31.84 Gastroparesis; J98.01 Acute bronchospasm; D72.829 Elevated white blood cell count, unspecified; I89.0 Lymphedema, not elsewhere classified; B37.3 Candidiasis of vulva and vagina; G44.209 Tension-type headache, unspecified, not intractable; F41.9 Anxiety disorder, unspecified; J44.1 Chronic obstructive pulmonary disease with (acute) exacerbation; E11.40 Type 2 diabetes mellitus with diabetic neuropathy, unspecified; Z86.711 Personal history of pulmonary embolism; Z88.0 Allergy status to penicillin
CPT/HCPCS: 36415; 70486-TC; 70544-TC; 70551-TC; 71046-TC-FY; 74176-TC; 74246-TC-FY; 76705-TC; 80048; 80053; 81003; 81025; 82272; 82550; 82962; 83036; 83690; 83735; 83880; 84100; 84484; 84703; 85025; 85027; 85610; 85730; 86140; 87070; 87205; 88305-TC; 93005; 93010; 93970-TC; 94640; 97116-GP; 97161-GP; 99284-25; G0378; J1644

== ENCOUNTER 2021-03-31 21:58 | Inpatient (IN) | payer OTHER ==
[2021-03-31 22:08] VITALS: BMI 27.6
[2021-04-01 00:47] LABS: BASO % 0.2 % (0-2.0); EOS % 0.4 % (0-4.5); HEMATOCRIT 35.6 % (32.4-45.2); HEMOGLOBIN 11.7 GM/dL (10.7-15.3); LYMPH % 2.4 % (8-40); MCH 30.8 pg (25.7-33.7); MCHC 32.7 g/dl (32.0-36.0); MEAN CELL VOLUME 94.2 fl (80-96); MEAN PLT VOLUME 10.8 fl (7.5-11.1); MONO % 0.9 % (3.8-10.2); NEUT % 96.1 % (42.8-82.8); PLATELET COUNT 255 K/MM3 (134-434); RBC 3.78 M/mm3 (3.60-5.2); RDW 19.1 % (11.6-15.6); WHITE BLOOD COUNT 17.5 K/mm3 (4.0-10.0)
[2021-04-01 00:55] LABS: EPI CELLS 12 /uL (0-25.1); HYALINE CASTS 0 /uL (0-3.1); URINE APPEARANCE CLEAR; URINE BACTERIA 389 /uL (0-1359); URINE BILIRUBIN NEGATIVE (NEGATIVE); URINE COLOR YELLOW; URINE GLUCOSE (UA) NEGATIVE (NEGATIVE); URINE KETONE NEGATIVE (NEGATIVE); URINE LEUK ESTERASE NEGATIVE (NEGATIVE); URINE NITRITE NEGATIVE (NEGATIVE); URINE PROTEIN NEGATIVE (NEGATIVE); URINE RBC 19 /uL (0-23.9); URINE UROBILINOGEN 0.2 mg/dL (0.2-1.0); URINE WBC 3 /uL (0-25.8)
[2021-04-01 00:58] LABS: INR 1.99 (0.83-1.09); PROTHROMBIN TIME (PATIENT) 23.6 SEC (9.7-13.0)
[2021-04-01 01:01] LABS: ACTIVATED PTT 32.4 SECONDS (25.2-36.5)
[2021-04-01 01:08] LABS: CALCIUM 9.3 mg/dL (8.5-10.1)
[2021-04-01 01:09] LABS: BLOOD UREA NITROGEN 15.2 mg/dL (7-18)
[2021-04-01 01:12] LABS: CREATININE 0.8 mg/dL (0.55-1.3)
[2021-04-01 01:14] LABS: BILIRUBIN,TOTAL 0.2 mg/dL (0.2-1); TOT PROT 7.3 g/dl (6.4-8.2)
[2021-04-01 01:52] LABS: ERYTHROCYTE SEDIMENTATION RATE 78 mm/hr (0-20)
[2021-04-01] MEDS ORDERED: CLINDAMYCIN 600MG PREMIX IVPB 600 MG/50 ML BAG IVPB ONE ×2 (01:54→02:22)
[2021-04-01 02:01] LABS: ANISOCYTOSIS 1+; MACROCYTOSIS 1+; PLATELET ESTIMATE NORMAL
[2021-04-01 03:26] LABS: LACTIC ACID 3.6 mmol/L (0.4-2.0)
[2021-04-01] MEDS ORDERED: SODIUM CHLORIDE 0.9% 500 ML INFUS.BAG IV ONE (03:34)
[2021-04-01] MEDS ORDERED: SODIUM CHLORIDE 1,000 ML IV SCH ×2 (04:00→06:13)
[2021-04-01] MEDS ORDERED: VANCOMYCIN 1 GM in D5W (PRE-DOCKED) 1,000 MG/250 ML IVPB ONE (04:05)
[2021-04-01] MEDS ORDERED: VANCOMYCIN 1 GRAM (PRE-DOCKED) 1,000 MG/250 ML BAG IVPB ONE ×2 (04:57→05:00)
[2021-04-01] MEDS ORDERED: ACETAMINOPHEN 325 MG TABLET (FP) PO PRN (04:59)
[2021-04-01 06:00] LABS: ALBUMIN 3.4 g/dl (3.4-5.0); BLOOD UREA NITROGEN 17.5 mg/dL (7-18); CALCIUM 8.4 mg/dL (8.5-10.1); INR 2.53 (0.83-1.09); MAGNESIUM 1.8 mg/dL (1.8-2.4); PROTHROMBIN TIME (PATIENT) 29.8 SEC (9.7-13.0)
[2021-04-01 06:03] LABS: CREATININE 1.1 mg/dL (0.55-1.3); PHOSPHOROUS 3.8 mg/dL (2.5-4.9)
[2021-04-01 06:05] LABS: BILIRUBIN,TOTAL 0.3 mg/dL (0.2-1); TOT PROT 6.5 g/dl (6.4-8.2)
[2021-04-01 06:11] LABS: LACTIC ACID 4.5 mmol/L (0.4-2.0)
[2021-04-01] MEDS ORDERED: SODIUM CHLORIDE 500 ML IV STA (06:13)
[2021-04-01] MEDS ORDERED: MAGNESIUM OXIDE 400 MG TABLET (FP) PO ONE (06:19)
[2021-04-01 06:31] LABS: HEMATOCRIT 32.9 % (32.4-45.2); HEMOGLOBIN 10.8 GM/dL (10.7-15.3); MCH 30.9 pg (25.7-33.7); MCHC 32.8 g/dl (32.0-36.0); MEAN CELL VOLUME 94.2 fl (80-96); MEAN PLT VOLUME 11.1 fl (7.5-11.1); PLATELET COUNT 241 K/MM3 (134-434); RBC 3.49 M/mm3 (3.60-5.2); RDW 18.9 % (11.6-15.6); WHITE BLOOD COUNT 12.2 K/mm3 (4.0-10.0)
[2021-04-01] MEDS ORDERED: MAGNESIUM OXIDE 400 MG TABLET (FP) ONE (06:35)
[2021-04-01] MEDS: INSULIN (NOVOLOG) ASPART 100 UNITS/ML 10ML VIAL SQ SCH ×2 (09:12→13:13)
[2021-04-01 09:20] LABS: LACTIC ACID 2.7 mmol/L (0.4-2.0)
[2021-04-01] MEDS ORDERED: [UNRECOGNIZED DRUG - OTHER] IH SCH (10:00)
[2021-04-01] MEDS ORDERED: FLUTICASONE PROPIONATE IH SCH (10:00)
[2021-04-01] MEDS ORDERED: GABAPENTIN 100 MG CAPSULE PO SCH (10:00)
[2021-04-01] MEDS: VALSARTAN 160 MG TABLET PO SCH (12:20)
[2021-04-01] MEDS ORDERED: INSULIN SLIDING SCALE (NOVOLOG) 1 VIAL SQ SCH (13:01)
[2021-04-01] MEDS: VANCOMYCIN 1 GRAM (PRE-DOCKED) 1,000 MG/250 ML BAG IVPB SCH ×2 (13:43→23:44)
[2021-04-01] MEDS: INSULIN SLIDING SCALE (NOVOLOG) 1 VIAL SQ SCH ×2 (16:31→21:14)
[2021-04-01] MEDS ORDERED: PT OWN MED DRAWER 7, Y5N ONE (18:00)
[2021-04-01] MEDS: WARFARIN NA 5 MG TABLET PO SCH (18:24)
[2021-04-01] MEDS: GABAPENTIN 100 MG CAPSULE PO SCH (21:06)
[2021-04-01] MEDS: MONTELUKAST NA 10 MG TABLET PO SCH (21:06)
[2021-04-01] MEDS ORDERED: diphenhydrAMINE HCL 25 MG CAPSULE (FP) PO ONE (21:18)
[2021-04-01] MEDS: MOMETASONE FUROATE 220 MCG/IH INHALER IH SCH (22:03)
[2021-04-01] MEDS ORDERED: ZOLPIDEM TARTRATE 5 MG TABLET PO ONE (23:00)
[2021-04-02] MEDS: GABAPENTIN 100 MG CAPSULE PO SCH ×3 (06:04→21:24)
[2021-04-02] MEDS: INSULIN SLIDING SCALE (NOVOLOG) 1 VIAL SQ SCH ×4 (07:05→21:40)
[2021-04-02 08:54] LABS: BASO % 0.2 % (0-2.0); EOS % 0.7 % (0-4.5); HEMATOCRIT 32.7 % (32.4-45.2); HEMOGLOBIN 10.6 GM/dL (10.7-15.3); LYMPH % 12.4 % (8-40); MCH 30.9 pg (25.7-33.7); MCHC 32.4 g/dl (32.0-36.0); MEAN CELL VOLUME 95.4 fl (80-96); MONO % 5.5 % (3.8-10.2); NEUT % 81.2 % (42.8-82.8); PLATELET COUNT 241 K/MM3 (134-434); RBC 3.43 M/mm3 (3.60-5.2); RDW 18.3 % (11.6-15.6); WHITE BLOOD COUNT 8.2 K/mm3 (4.0-10.0)
[2021-04-02 08:55] LABS: PROTHROMBIN TIME (PATIENT) 55.5 SEC (9.7-13.0)
[2021-04-02 09:14] LABS: ALBUMIN 3.2 g/dl (3.4-5.0); BLOOD UREA NITROGEN 12.7 mg/dL (7-18); CALCIUM 8.6 mg/dL (8.5-10.1); MAGNESIUM 2.2 mg/dL (1.8-2.4)
[2021-04-02 09:16] LABS: INR 4.8 (0.83-1.09)
[2021-04-02 09:18] LABS: BILIRUBIN,TOTAL 0.8 mg/dL (0.2-1); CREATININE 0.7 mg/dL (0.55-1.3); PHOSPHOROUS 2.7 mg/dL (2.5-4.9); TOT PROT 6.2 g/dl (6.4-8.2)
[2021-04-02] MEDS: LACTOBACILLUS ACIDOPHILUS 1 TABLET PO SCH (10:30)
[2021-04-02] MEDS: VALSARTAN 160 MG TABLET PO SCH (10:31)
[2021-04-02] MEDS: VANCOMYCIN 1 GRAM (PRE-DOCKED) 1,000 MG/250 ML BAG IVPB SCH (12:05)
[2021-04-02] MEDS ORDERED: diphenhydrAMINE HCL 25 MG CAPSULE (FP) PO PRN (15:26)
[2021-04-02] MEDS ORDERED: ERGOCALCIFEROL (VIT D2) 50,000 UNIT (1.25 MG) CAPSULE PO SCH (15:27)
[2021-04-02] MEDS: TRIAMCINOLONE ACET 0.1% OINT 15 GM TUBE TP SCH (16:38)
[2021-04-02] MEDS: ALBUTEROL SO4 HFA INHALER IH PRN (20:10)
[2021-04-02] MEDS: MOMETASONE FUROATE 220 MCG/IH INHALER IH SCH (21:23)
[2021-04-02] MEDS: MONTELUKAST NA 10 MG TABLET PO SCH (21:24)
[2021-04-02] MEDS: ZOLPIDEM TARTRATE 5 MG TABLET PO PRN (22:21)
[2021-04-03] MEDS: VANCOMYCIN 1 GRAM (PRE-DOCKED) 1,000 MG/250 ML BAG IVPB SCH ×2 (00:12→13:41)
[2021-04-03] MEDS: GABAPENTIN 100 MG CAPSULE PO SCH ×3 (05:10→21:20)
[2021-04-03] MEDS: INSULIN SLIDING SCALE (NOVOLOG) 1 VIAL SQ SCH ×4 (06:14→21:20)
[2021-04-03] MEDS: ALBUTEROL SO4 HFA INHALER IH PRN (11:08)
[2021-04-03] MEDS: VALSARTAN 160 MG TABLET PO SCH (11:08)
[2021-04-03] MEDS: LACTOBACILLUS ACIDOPHILUS 1 TABLET PO SCH (11:08)
[2021-04-03 11:58] LABS: HEMATOCRIT 33.6 % (32.4-45.2); HEMOGLOBIN 10.8 GM/dL (10.7-15.3); MCH 30.5 pg (25.7-33.7); MCHC 32.3 g/dl (32.0-36.0); MEAN CELL VOLUME 94.4 fl (80-96); MEAN PLT VOLUME 10.8 fl (7.5-11.1); PLATELET COUNT 267 K/MM3 (134-434); RBC 3.56 M/mm3 (3.60-5.2); RDW 18.7 % (11.6-15.6); WHITE BLOOD COUNT 13.1 K/mm3 (4.0-10.0)
[2021-04-03 12:05] LABS: INR 3.82 (0.83-1.09); PROTHROMBIN TIME (PATIENT) 45.2 SEC (9.7-13.0)
[2021-04-03 12:15] LABS: CALCIUM 8.4 mg/dL (8.5-10.1)
[2021-04-03 12:17] LABS: MAGNESIUM 2.1 mg/dL (1.8-2.4)
[2021-04-03 12:20] LABS: CREATININE 0.9 mg/dL (0.55-1.3)
[2021-04-03] MEDS: TRIAMCINOLONE ACET 0.1% OINT 15 GM TUBE TP SCH (12:37)
[2021-04-03] MEDS ORDERED: LORATADINE 10 MG TABLET PO PRN (13:26)
[2021-04-03] MEDS: WARFARIN NA 5 MG TABLET PO SCH (18:24)
[2021-04-03] MEDS ORDERED: INSULIN (NOVOLOG) ASPART 100 UNITS/ML 10ML VIAL ONE (21:09)
[2021-04-03] MEDS: LORATADINE 10 MG TABLET PO PRN (21:19)
[2021-04-03] MEDS: ZOLPIDEM TARTRATE 5 MG TABLET PO PRN (21:19)
[2021-04-03] MEDS: MONTELUKAST NA 10 MG TABLET PO SCH (21:19)
[2021-04-03] MEDS: OMEGA-3 ACID ETHYL ESTERS (FATTY-ACIDS) 1 GM CAPSULE (FP) PO SCH (21:20)
[2021-04-03] MEDS: MOMETASONE FUROATE 220 MCG/IH INHALER IH SCH (21:20)
[2021-04-04] MEDS: VANCOMYCIN 1 GRAM (PRE-DOCKED) 1,000 MG/250 ML BAG IVPB SCH ×2 (00:41→12:09)
[2021-04-04] MEDS: GABAPENTIN 100 MG CAPSULE PO SCH ×3 (06:13→22:17)
[2021-04-04 08:19] LABS: HEMATOCRIT 30.1 % (32.4-45.2); HEMOGLOBIN 9.9 GM/dL (10.7-15.3); MCH 30.8 pg (25.7-33.7); MEAN CELL VOLUME 93.1 fl (80-96); MEAN PLT VOLUME 10.4 fl (7.5-11.1); PLATELET COUNT 242 K/MM3 (134-434); RBC 3.23 M/mm3 (3.60-5.2); RDW 18.6 % (11.6-15.6); WHITE BLOOD COUNT 11.5 K/mm3 (4.0-10.0)
[2021-04-04 08:25] LABS: INR 2.89 (0.83-1.09); PROTHROMBIN TIME (PATIENT) 33.9 SEC (9.7-13.0)
[2021-04-04 08:47] LABS: CALCIUM 8.3 mg/dL (8.5-10.1)
[2021-04-04 08:48] LABS: ALBUMIN 3.1 g/dl (3.4-5.0); BLOOD UREA NITROGEN 17.7 mg/dL (7-18)
[2021-04-04 08:51] LABS: BILIRUBIN,TOTAL 0.5 mg/dL (0.2-1); CREATININE 0.6 mg/dL (0.55-1.3)
[2021-04-04] MEDS ORDERED: INSULIN (NOVOLOG) ASPART 100 UNITS/ML 10ML VIAL ONE (09:14)
[2021-04-04] MEDS: LACTOBACILLUS ACIDOPHILUS 1 TABLET PO SCH (09:18)
[2021-04-04] MEDS: OMEGA-3 ACID ETHYL ESTERS (FATTY-ACIDS) 1 GM CAPSULE (FP) PO SCH ×2 (09:18→22:17)
[2021-04-04] MEDS: INSULIN SLIDING SCALE (NOVOLOG) 1 VIAL SQ SCH ×4 (09:27→22:18)
[2021-04-04] MEDS: VALSARTAN 160 MG TABLET PO SCH (09:28)
[2021-04-04] MEDS ORDERED: OMEGA-3 ACID ETHYL ESTERS (FATTY-ACIDS) 1 GM CAPSULE (FP) PO SCH (10:00)
[2021-04-04] MEDS: TRIAMCINOLONE ACET 0.1% OINT 15 GM TUBE TP SCH (10:59)
[2021-04-04] MEDS: WARFARIN NA 5 MG TABLET PO SCH (17:54)
[2021-04-04] MEDS ORDERED: IBUPROFEN 400 MG TABLET (FP) PO ONE (21:27)
[2021-04-04] MEDS: MONTELUKAST NA 10 MG TABLET PO SCH (22:17)
[2021-04-04] MEDS: MOMETASONE FUROATE 220 MCG/IH INHALER IH SCH (22:18)
[2021-04-04] MEDS: LORATADINE 10 MG TABLET PO PRN (22:59)
[2021-04-04] MEDS: ZOLPIDEM TARTRATE 5 MG TABLET PO PRN (22:59)
[2021-04-04] MEDS: ALBUTEROL SO4 2.5/IPRATROPIUM 0.5 INH SOL 3 ML VIAL.NEB. NEB PRN (23:25)
[2021-04-05] MEDS: VANCOMYCIN 1 GRAM (PRE-DOCKED) 1,000 MG/250 ML BAG IVPB SCH ×2 (00:13→14:42)
[2021-04-05] MEDS: INSULIN SLIDING SCALE (NOVOLOG) 1 VIAL SQ SCH ×4 (06:30→21:47)
[2021-04-05] MEDS: GABAPENTIN 100 MG CAPSULE PO SCH ×3 (06:30→21:47)
[2021-04-05 08:16] LABS: BASO % 0.3 % (0-2.0); EOS % 0.4 % (0-4.5); HEMATOCRIT 37.6 % (32.4-45.2); HEMOGLOBIN 12.2 GM/dL (10.7-15.3); LYMPH % 7.4 % (8-40); MCH 30.6 pg (25.7-33.7); MCHC 32.5 g/dl (32.0-36.0); MEAN CELL VOLUME 94.1 fl (80-96); MEAN PLT VOLUME 10.7 fl (7.5-11.1); MONO % 2.4 % (3.8-10.2); NEUT % 89.5 % (42.8-82.8); PLATELET COUNT 258 K/MM3 (134-434); RDW 18.7 % (11.6-15.6)
[2021-04-05 08:40] LABS: BLOOD UREA NITROGEN 13.2 mg/dL (7-18); CALCIUM 9.3 mg/dL (8.5-10.1)
[2021-04-05 08:42] LABS: MAGNESIUM 2.1 mg/dL (1.8-2.4)
[2021-04-05 08:43] LABS: CREATININE 0.7 mg/dL (0.55-1.3)
[2021-04-05 08:45] LABS: PHOSPHOROUS 3.1 mg/dL (2.5-4.9)
[2021-04-05] MEDS ORDERED: SODIUM ZIRCONIUM CYCLOSILICATE (LOKELMA) 5 GM PACKET PO ONE (09:53)
[2021-04-05 10:08] LABS: PLATELET ESTIMATE NORMAL
[2021-04-05] MEDS: OMEGA-3 ACID ETHYL ESTERS (FATTY-ACIDS) 1 GM CAPSULE (FP) PO SCH ×2 (11:06→21:47)
[2021-04-05] MEDS: VALSARTAN 160 MG TABLET PO SCH (11:06)
[2021-04-05] MEDS: LACTOBACILLUS ACIDOPHILUS 1 TABLET PO SCH (11:08)
[2021-04-05] MEDS: TRIAMCINOLONE ACET 0.1% OINT 15 GM TUBE TP SCH (11:09)
[2021-04-05] MEDS ORDERED: INSULIN (NOVOLOG) ASPART 100 UNITS/ML 10ML VIAL ONE (11:39)
[2021-04-05] MEDS ORDERED: IBUPROFEN 400 MG TABLET (FP) PO ONE (14:55)
[2021-04-05 17:37] LABS: INR 2.07 (0.83-1.09); PROTHROMBIN TIME (PATIENT) 24.9 SEC (9.7-13.0)
[2021-04-05] MEDS: WARFARIN NA 5 MG TABLET PO SCH (18:59)
[2021-04-05] MEDS: LORATADINE 10 MG TABLET PO PRN (21:47)
[2021-04-05] MEDS: MONTELUKAST NA 10 MG TABLET PO SCH (21:47)
[2021-04-05] MEDS: MOMETASONE FUROATE 220 MCG/IH INHALER IH SCH (21:47)
[2021-04-05] MEDS: ZOLPIDEM TARTRATE 5 MG TABLET PO PRN (21:47)
[2021-04-06] MEDS: VANCOMYCIN 1 GRAM (PRE-DOCKED) 1,000 MG/250 ML BAG IVPB SCH ×2 (00:49→12:37)
[2021-04-06] MEDS: ALBUTEROL SO4 2.5/IPRATROPIUM 0.5 INH SOL 3 ML VIAL.NEB. NEB PRN (05:01)
[2021-04-06] MEDS: GABAPENTIN 100 MG CAPSULE PO SCH ×3 (06:46→21:40)
[2021-04-06] MEDS: INSULIN SLIDING SCALE (NOVOLOG) 1 VIAL SQ SCH ×4 (06:48→21:41)
[2021-04-06 08:47] LABS: HEMATOCRIT 31.1 % (32.4-45.2); HEMOGLOBIN 10.4 GM/dL (10.7-15.3); INR 3.29 (0.83-1.09); MCHC 33.5 g/dl (32.0-36.0); MEAN CELL VOLUME 92.4 fl (80-96); MEAN PLT VOLUME 9.9 fl (7.5-11.1); PLATELET COUNT 247 K/MM3 (134-434); PROTHROMBIN TIME (PATIENT) 38.5 SEC (9.7-13.0); RBC 3.37 M/mm3 (3.60-5.2); RDW 18.7 % (11.6-15.6); WHITE BLOOD COUNT 10.7 K/mm3 (4.0-10.0)
[2021-04-06 09:11] LABS: CALCIUM 8.4 mg/dL (8.5-10.1)
[2021-04-06 09:12] LABS: BLOOD UREA NITROGEN 13.7 mg/dL (7-18); MAGNESIUM 1.8 mg/dL (1.8-2.4)
[2021-04-06 09:16] LABS: CREATININE 0.5 mg/dL (0.55-1.3)
[2021-04-06] MEDS: TRIAMCINOLONE ACET 0.1% OINT 15 GM TUBE TP SCH (10:16)
[2021-04-06] MEDS: LACTOBACILLUS ACIDOPHILUS 1 TABLET PO SCH (10:25)
[2021-04-06] MEDS: VALSARTAN 160 MG TABLET PO SCH (10:25)
[2021-04-06] MEDS: OMEGA-3 ACID ETHYL ESTERS (FATTY-ACIDS) 1 GM CAPSULE (FP) PO SCH ×2 (10:25→21:40)
[2021-04-06] MEDS ORDERED: POTASSIUM CHLORIDE TABS 20 MEQ TABLET.ER (FP) PO ONE (13:10)
[2021-04-06] MEDS ORDERED: INSULIN (NOVOLOG) ASPART 100 UNITS/ML 10ML VIAL ONE (16:49)
[2021-04-06] MEDS ORDERED: SULFAMETHOXAZOLE/TRIMETHOPRIM 800MG/160MG D.S. TABLET PO ONE (17:10)
[2021-04-06] MEDS: diphenhydrAMINE HCL 25 MG CAPSULE (FP) PO PRN ×2 (21:40→21:51)
[2021-04-06] MEDS: MONTELUKAST NA 10 MG TABLET PO SCH (21:40)
[2021-04-06] MEDS: LORATADINE 10 MG TABLET PO PRN (21:40)
[2021-04-06] MEDS: MOMETASONE FUROATE 220 MCG/IH INHALER IH SCH (21:40)
[2021-04-06] MEDS: ZOLPIDEM TARTRATE 5 MG TABLET PO PRN (21:40)
[2021-04-06] MEDS ORDERED: diphenhydrAMINE HCL 25 MG CAPSULE (FP) PO ONE (21:47)
[2021-04-06] MEDS ORDERED: SULFAMETHOXAZOLE/TRIMETHOPRIM 800MG/160MG D.S. TABLET PO SCH (22:00)
[2021-04-07] MEDS: INSULIN SLIDING SCALE (NOVOLOG) 1 VIAL SQ SCH ×2 (06:29→11:19)
[2021-04-07] MEDS: GABAPENTIN 100 MG CAPSULE PO SCH (06:29)
[2021-04-07] MEDS: SULFAMETHOXAZOLE/TRIMETHOPRIM 800MG/160MG D.S. TABLET PO SCH ×2 (06:29→09:35)
[2021-04-07 08:18] LABS: INR 2.35 (0.83-1.09); PROTHROMBIN TIME (PATIENT) 28.2 SEC (9.7-13.0)
[2021-04-07 08:25] LABS: HEMATOCRIT 36.2 % (32.4-45.2); HEMOGLOBIN 11.7 GM/dL (10.7-15.3); MCH 30.5 pg (25.7-33.7); MCHC 32.4 g/dl (32.0-36.0); MEAN CELL VOLUME 94.1 fl (80-96); MEAN PLT VOLUME 10.3 fl (7.5-11.1); PLATELET COUNT 299 K/MM3 (134-434); RBC 3.84 M/mm3 (3.60-5.2); RDW 17.9 % (11.6-15.6); WHITE BLOOD COUNT 15.5 K/mm3 (4.0-10.0)
[2021-04-07 09:01] LABS: BLOOD UREA NITROGEN 17.1 mg/dL (7-18)
[2021-04-07 09:02] LABS: MAGNESIUM 1.9 mg/dL (1.8-2.4)
[2021-04-07 09:05] LABS: CREATININE 0.8 mg/dL (0.55-1.3)
[2021-04-07 09:13] LABS: CALCIUM 9.9 mg/dL (8.5-10.1)
[2021-04-07] MEDS: TRIAMCINOLONE ACET 0.1% OINT 15 GM TUBE TP SCH (09:35)
[2021-04-07] MEDS: OMEGA-3 ACID ETHYL ESTERS (FATTY-ACIDS) 1 GM CAPSULE (FP) PO SCH (09:35)
[2021-04-07] MEDS: VALSARTAN 160 MG TABLET PO SCH (09:35)
[2021-04-07] MEDS: LACTOBACILLUS ACIDOPHILUS 1 TABLET PO SCH (09:35)
[2021-04-07] MEDS ORDERED: SULFAMETHOXAZOLE/TRIMETHOPRIM 800MG/160MG D.S. TABLET PO SCH (10:00)
[2021-04-07 10:49] VITALS: BP 128/80; PULSE 62; TEMP 98.9
[2021-04-09] MEDS ORDERED: ERGOCALCIFEROL (VIT D2) 50,000 UNIT (1.25 MG) CAPSULE PO SCH (10:00)
== END 2021-04-07 14:27 | disposition home or self-care (01) | DRG 720 ==
LOC: JER 21:58 → JERBED 04-01 01:49 → J5S 04-01 10:15
PROVIDERS: ADMIT Hospitalist; ATTEND Student in an Organized Health Care Education/Training Program
DX: A41.02 Sepsis due to Methicillin resistant Staphylococcus aureus (principal); L03.115 Cellulitis of right lower limb; E11.9 Type 2 diabetes mellitus without complications; J45.909 Unspecified asthma, uncomplicated; I82.501 Chronic embolism and thrombosis of unspecified deep veins of right lower extremity; I10 Essential (primary) hypertension; E87.2 Acidosis; E78.5 Hyperlipidemia, unspecified; D72.829 Elevated white blood cell count, unspecified; J44.9 Chronic obstructive pulmonary disease, unspecified
CPT/HCPCS: 36415; 71046-TC-FY; 80048; 80053; 81003; 82550; 82962; 83036; 83605; 83735; 83880; 84100; 84484; 85025; 85027; 85610; 85651; 85730; 86140; 87040; 87070; 87086; 87186; 87205; 87324; 87449; 93005; 93010; 93971-TC; 94640; 97116-GP; 97161-GP; 99285-25; C9803; G0480; U0003; U0005

== ENCOUNTER 2022-01-06 18:01 | Emergency (ER) | payer OTHER ==
[2022-01-06 18:19] VITALS: TEMP 98.4; BMI 26.8
[2022-01-06] MEDS ORDERED: predniSONE 20 MG TABLET (UD) PO ONE (19:28)
[2022-01-06] MEDS ORDERED: predniSONE 20 MG TABLET (UD) ONE (19:41)
[2022-01-06] MEDS ORDERED: ALBUTEROL SO4 2.5/IPRATROPIUM 0.5 INH SOL 3 ML VIAL.NEB. NEB ONE (19:41)
[2022-01-06] MEDS: ALBUTEROL SO4 2.5/IPRATROPIUM 0.5 INH SOL 3 ML VIAL.NEB. NEB SCH ×4 (20:00→20:45)
[2022-01-06] MEDS ORDERED: methylPREDNISolone NA SUCC 125 MG/2 ML VIAL IVPUSH ONE (20:11)
[2022-01-06 20:34] LABS: BASO % 0.5 % (0-2.0); EOS % 0.6 % (0-4.5); HEMATOCRIT 38.2 % (32.4-45.2); HEMOGLOBIN 12.6 GM/dL (10.7-15.3); LYMPH % 14.9 % (8-40); MCH 31.3 pg (25.7-33.7); MCHC 33.1 g/dl (32.0-36.0); MEAN CELL VOLUME 94.5 fl (80-96); MEAN PLT VOLUME 10.3 fl (7.5-11.1); MONO % 7.5 % (3.8-10.2); NEUT % 76.5 % (42.8-82.8); PLATELET COUNT 179 10^3/uL (134-434); RBC 4.04 M/mm3 (3.60-5.2); WHITE BLOOD COUNT 14.1 K/mm3 (4.0-10.0)
[2022-01-06 20:41] LABS: INR 2.12 (0.83-1.09); PROTHROMBIN TIME (PATIENT) 24.6 SEC (9.7-13.0)
[2022-01-06] MEDS ORDERED: methylPREDNISolone NA SUCC 125 MG/2 ML VIAL ONE (20:45)
[2022-01-06 20:47] LABS: CALCIUM 8.9 mg/dL (8.5-10.1)
[2022-01-06 20:48] LABS: ALBUMIN 3.8 g/dl (3.4-5.0); BLOOD UREA NITROGEN 12.7 mg/dL (7-18)
[2022-01-06 20:51] LABS: CREATININE 0.8 mg/dL (0.55-1.3)
[2022-01-06 20:53] LABS: BILIRUBIN,TOTAL 0.2 mg/dL (0.2-1); TOT PROT 7.4 g/dl (6.4-8.2)
[2022-01-06] MEDS ORDERED: CLINDAMYCIN 600MG PREMIX IVPB 600 MG/50 ML BAG IVPB ONE ×2 (21:05→21:23)
[2022-01-06 22:27] LABS: EPI CELLS >36 /uL (0-25.1); HYALINE CASTS 1 /uL (0-3.1); PH,URINE 5.5 (5.0-8.0); URINE APPEARANCE CLOUDY; URINE BACTERIA 1148 /uL (0-1359); URINE BILIRUBIN NEGATIVE (NEGATIVE); URINE COLOR YELLOW; URINE GLUCOSE (UA) NEGATIVE (NEGATIVE); URINE KETONE NEGATIVE (NEGATIVE); URINE LEUK ESTERASE 1+ (NEGATIVE); URINE NITRITE NEGATIVE (NEGATIVE); URINE PROTEIN NEGATIVE (NEGATIVE); URINE RBC 6 /uL (0-23.9); URINE UROBILINOGEN 0.2 mg/dL (0.2-1.0); URINE WBC 93 /uL (0-25.8)
[2022-01-06 22:34] LABS: HCG,QUALITATIVE URINE Negative
== END 2022-01-06 23:25 | disposition home or self-care (01) ==
LOC: JER 18:01
PROC: 3E0F7GC Introduction of Other Therapeutic Substance into Respiratory Tract, Via Natural or Artificial Opening (ICD-10-PCS; principal; 2022-01-06)
PROC: 3E03329 Introduction of Other Anti-infective into Peripheral Vein, Percutaneous Approach (ICD-10-PCS; 2022-01-06)
PROC: 3E033GC Introduction of Other Therapeutic Substance into Peripheral Vein, Percutaneous Approach (ICD-10-PCS; 2022-01-06)
DX: J45.901 Unspecified asthma with (acute) exacerbation (principal); K04.7 Periapical abscess without sinus
CPT/HCPCS: 36415; 70486-TC; 80053; 81003; 84703; 85025; 85610; 87086; 87186; 99284-25

== ENCOUNTER 2022-06-14 13:01 | Emergency (ER) | payer OTHER ==
[2022-06-14 13:08] VITALS: TEMP 98; BMI 23.8
[2022-06-14] MEDS ORDERED: ALBUTEROL SO4 2.5/IPRATROPIUM 0.5 INH SOL 3 ML VIAL.NEB. NEB ONE ×2 (14:18→14:37)
[2022-06-14] MEDS ORDERED: predniSONE 20 MG TABLET (UD) PO ONE (14:19)
[2022-06-14] MEDS ORDERED: predniSONE 20 MG TABLET (UD) ONE (14:37)
[2022-06-14 15:19] VITALS: BP 126/77; PULSE 90; RESP 20
== END 2022-06-14 15:20 | disposition home or self-care (01) ==
LOC: JER 13:01
PROC: 3E0F7GC Introduction of Other Therapeutic Substance into Respiratory Tract, Via Natural or Artificial Opening (ICD-10-PCS; principal; 2022-06-14)
DX: J45.909 Unspecified asthma, uncomplicated (principal)
CPT/HCPCS: 71046-TC-FY; 99284-25

== ENCOUNTER 2023-07-13 13:14 | Emergency (ER) | payer OTHER ==
[2023-07-13 13:29] VITALS: BP 136/91; PULSE 125; RESP 20; TEMP 98.2; BMI 24.6
[2023-07-13] MEDS ORDERED: DEXAMETHASONE SOD PHOSPHATE 4 MG/1 ML VIAL IVPUSH ONE (14:18)
[2023-07-13] MEDS ORDERED: ALBUTEROL SO4 2.5/IPRATROPIUM 0.5 INH SOL 3 ML VIAL.NEB. NEB ONE ×2 (14:19→14:29)
[2023-07-13] MEDS ORDERED: DEXAMETHASONE SOD PHOSPHATE 10 MG/1 ML VIAL ONE (14:29)
[2023-07-13] MEDS ORDERED: diphenhydrAMINE HCL 25 MG CAPSULE (FP) PO ONE ×2 (14:50→15:00)
[2023-07-13 15:28] LABS: BASO % 0.7 % (0-2.0); EOS % 1.2 % (0-4.5); HEMATOCRIT 37.4 % (32.4-45.2); HEMOGLOBIN 12.2 GM/dL (10.7-15.3); MCH 30.4 pg (25.7-33.7); MCHC 32.5 g/dl (32.0-36.0); MEAN CELL VOLUME 93.4 fl (80-96); MEAN PLT VOLUME 10.9 fl (7.5-11.1); MONO % 5.4 % (3.8-10.2); NEUT % 80.7 % (42.8-82.8); PLATELET COUNT 214 10^3/uL (134-434); RBC 4.01 M/mm3 (3.60-5.2); RDW 16.5 % (11.6-15.6); WHITE BLOOD COUNT 11.3 K/mm3 (4.0-10.0)
[2023-07-13 15:35] LABS: INR 1.73 (0.83-1.09)
[2023-07-13 15:38] LABS: ACTIVATED PTT 34.3 SECONDS (25.2-36.5)
[2023-07-13 15:52] LABS: POTASSIUM 4.3 mmol/L (3.5-5.1)
[2023-07-13 15:55] LABS: ALBUMIN 3.7 g/dl (3.4-5.0); BLOOD UREA NITROGEN 11.2 mg/dL (7-18); CALCIUM 8.6 mg/dL (8.5-10.1)
[2023-07-13 15:58] LABS: CREATININE 0.8 mg/dL (0.55-1.3)
[2023-07-13 16:00] LABS: BILIRUBIN,TOTAL 0.3 mg/dL (0.2-1); TOT PROT 6.9 g/dl (6.4-8.2)
== END 2023-07-13 15:46 | disposition left against medical advice (07) ==
LOC: JER 13:14
PROC: 3E033NZ Introduction of Analgesics, Hypnotics, Sedatives into Peripheral Vein, Percutaneous Approach (ICD-10-PCS; principal; 2023-07-13)
PROC: 3E0F7GC Introduction of Other Therapeutic Substance into Respiratory Tract, Via Natural or Artificial Opening (ICD-10-PCS; 2023-07-13)
DX: R06.02 Shortness of breath (principal); R05.9 Cough, unspecified; R50.9 Fever, unspecified; J45.909 Unspecified asthma, uncomplicated; K04.7 Periapical abscess without sinus; Z20.822 Contact with and (suspected) exposure to COVID-19
CPT/HCPCS: 0241U-QW; 36415; 80053; 85025; 85610; 85730; 93005; 93010; 99284-25

== ENCOUNTER 2023-09-26 17:05 | Emergency (ER) | payer OTHER ==
[2023-09-26 17:17] VITALS: BP 144/93; PULSE 98; RESP 20; TEMP 98.1; BMI 23.8
[2023-09-26] MEDS ORDERED: ALBUTEROL SO4 2.5/IPRATROPIUM 0.5 INH SOL 3 ML VIAL.NEB. NEB ONE (18:15)
[2023-09-26] MEDS ORDERED: AZITHROMYCIN 250 MG TABLET PO ONE (18:22)
[2023-09-26] MEDS ORDERED: predniSONE 20 MG TABLET (UD) PO ONE (18:23)
[2023-09-26] MEDS: ALBUTEROL SO4 2.5/IPRATROPIUM 0.5 INH SOL 3 ML VIAL.NEB. NEB SCH ×3 (18:25→18:34)
== END 2023-09-26 19:06 | disposition home or self-care (01) ==
LOC: JERFT 17:05
DX: R50.9 Fever, unspecified (principal); R05.9 Cough, unspecified; R09.81 Nasal congestion; J44.1 Chronic obstructive pulmonary disease with (acute) exacerbation; Z20.822 Contact with and (suspected) exposure to COVID-19
CPT/HCPCS: 0241U-QW; 71046-TC-FY; 99284-25

== ENCOUNTER 2024-07-22 15:48 | Emergency (ER) | payer OTHER ==
[2024-07-22 16:21] VITALS: BP 116/81; PULSE 120; RESP 17; TEMP 98.6; BMI 21.5
[2024-07-22] MEDS ORDERED: DEXAMETHASONE SOD PHOSPHATE 10 MG/1 ML VIAL ONE (18:06)
[2024-07-22] MEDS: SODIUM CHLORIDE 0.9% 500 ML INFUS.BAG IV ONE (18:21)
[2024-07-22] MEDS: DEXAMETHASONE SOD PHOSPHATE 10 MG/1 ML VIAL IVPUSH ONE (18:21)
== END 2024-07-22 19:47 | disposition home or self-care (01) ==
LOC: JERFT 15:48
PROC: 3E033GC Introduction of Other Therapeutic Substance into Peripheral Vein, Percutaneous Approach (ICD-10-PCS; principal; 2024-07-22)
PROC: 3E033GC Introduction of Other Therapeutic Substance into Peripheral Vein, Percutaneous Approach (ICD-10-PCS; 2024-07-22)
DX: T78.40XA Allergy, unspecified, initial encounter (principal); L29.9 Pruritus, unspecified
CPT/HCPCS: 99284-25; J1100

== ENCOUNTER 2024-09-05 13:42 | Emergency (ER) | payer OTHER ==
[2024-09-05 14:36] VITALS: RESP 18; TEMP 98.2; BMI 22.3
[2024-09-05] MEDS ORDERED: diphenhydrAMINE HCL 25 MG CAPSULE (FP) PO ONE (15:18)
[2024-09-05] MEDS ORDERED: AZITHROMYCIN 500 MG TABLET ONE (15:19)
[2024-09-05] MEDS ORDERED: DEXAMETHASONE 4 MG TABLET (FP) ONE (15:19)
[2024-09-05] MEDS: AZITHROMYCIN 250 MG TABLET PO ONE (15:30)
[2024-09-05] MEDS: ALBUTEROL SO4 2.5/IPRATROPIUM 0.5 INH SOL 3 ML VIAL.NEB. NEB SCH (15:30)
[2024-09-05] MEDS: diphenhydrAMINE HCL 25 MG CAPSULE (FP) PO ONE (15:30)
[2024-09-05] MEDS: DEXAMETHASONE 4 MG TABLET (FP) PO ONE (15:30)
[2024-09-05] MEDS ORDERED: FAMOTIDINE 10 MG TABLET ONE (15:33)
[2024-09-05] MEDS: FAMOTIDINE 10 MG TABLET PO ONE (15:46)
[2024-09-05 16:21] VITALS: BP 127/88
[2024-09-05 17:04] VITALS: PULSE 99
== END 2024-09-05 17:04 | disposition home or self-care (01) ==
LOC: JER 13:42
DX: R21 Rash and other nonspecific skin eruption (principal); R05.9 Cough, unspecified; R06.02 Shortness of breath; Z20.822 Contact with and (suspected) exposure to COVID-19
CPT/HCPCS: 0241U-QW; 99283-25